=== PATIENT | male | born 1965 | race Caucasian/White ===

== ENCOUNTER → 2017-12-21 15:54 | Outpatient (CLI) | payer OTHER, SELFPAY ==
[2017-12-21 18:17] LABS: Anion Gap 7 (5-15); BUN 23 mg/dL (7-18); Calcium,Total 8.7 mg/dL (8.5-10.1); Chloride 102 mmol/L (98-107); EST Glomerular Filtration Rate 84 mL/min (>60); Est Glom Filt Rate - Afr Amer 101 mL/min (>60); Glucose 115 mg/dL (74-106); Potassium 3.9 mmol/L (3.5-5.1); Sodium Level 137 mmol/L (136-145)
[2017-12-21 18:22] LABS: Microalbumin,Random Urine 82.5 mg/L (NO RANGE EST.); Microalbumin:Creatinine Ratio 43.7 mg/g CRE (<30 mg/g CRE)
[2017-12-21 18:24] LABS: Vitamin D,25 Hydroxy 46.2 ng/mL (29.95-100.01)
== END ==
PROVIDERS: Family Provider Specialist; PCP Specialist; Visit Provider Specialist
DX: R80.9 Proteinuria, unspecified (principal); I10 Essential (primary) hypertension
CPT/HCPCS: 36415; 80048; 82043; 82306; 82570; 87086

== ENCOUNTER → 2017-12-29 08:21 | Outpatient (CLI) | payer OTHER, SELFPAY ==
--- NOTE | 2017-12-29 08:23 | RAD_ITS ---
STUDY: X-RAY CHEST REASON FOR EXAM: Male, 52 years old. Medical screening. TECHNIQUE: PA and lateral views of the chest. COMPARISON: None. FINDINGS: The lungs are clear and expanded. Scattered calcified granulomas. There is no demonstrated pleural abnormality. Normal size heart. Normal mediastinum and sharri. Normal visualized pulmonary arteries. Normal visualized aortic arch and descending thoracic aorta. Normal visualized thoracic spine. Normal visualized ribs, clavicles, and shoulders. There is no demonstrated abnormality of the visualized soft tissue structures of the upper abdomen. RAD/Chest PA and Lateral IMPRESSION: Normal x-ray examination of the chest. Electronically Signed: Je Iyer MD at 9:26 EDT Tel [phone], Service support ,
== END ==
PROVIDERS: Family Provider Specialist; PCP Specialist; Visit Provider Internal Medicine Rheumatology
DX: R05 Cough (principal)
CPT/HCPCS: 71046

== ENCOUNTER → 2018-04-03 08:34 | Outpatient (CLI) | payer OTHER, SELFPAY ==
[2018-04-03 10:26] LABS: Anion Gap 9 (5-15); BUN 24 mg/dL (7-18); BUN/Creat Ratio 24.5 RATIO (10-20); Calcium,Total 9.4 mg/dL (8.5-10.1); Chloride 104 mmol/L (98-107); Cholesterol 204 mg/dL (200); Creatinine, Serum 0.98 mg/dL (0.70-1.30); EST Glomerular Filtration Rate 86 mL/min (>60); Est Glom Filt Rate - Afr Amer 103 mL/min (>60); Glucose 100 mg/dL (74-106); High Density Lipoprotein 51 mg/dL; Phosphorus 3.4 mg/dL (2.5-4.9); Potassium 4.2 mmol/L (3.5-5.1); Sodium Level 142 mmol/L (136-145); Triglycerides 65 mg/dL; Very Low Density Lipoprotein 13 mg/dL (5-40)
[2018-04-03 10:34] LABS: Microalbumin,Random Urine 80.7 mg/L (NO RANGE EST.)
== END ==
PROVIDERS: Family Provider Specialist; PCP Specialist; Visit Provider Specialist
DX: R80.9 Proteinuria, unspecified (principal); I10 Essential (primary) hypertension; E78.00 Pure hypercholesterolemia, unspecified
CPT/HCPCS: 36415; 80048; 80061; 82043; 82330; 83735; 84100

== ENCOUNTER → 2018-05-01 11:55 | Outpatient (CLI) | payer OTHER, SELFPAY | PROVIDERS: Family Provider Specialist; PCP Specialist; Visit Provider Specialist | DX: R80.9 Proteinuria, unspecified (principal); I10 Essential (primary) hypertension | CPT/HCPCS: 76770 ==

== ENCOUNTER → 2018-10-30 15:02 | Outpatient (CLI) | payer OTHER, SELFPAY ==
--- NOTE | 2018-10-30 15:03 | RAD_ITS ---
STUDY: X-RAY - LEFT KNEE REASON FOR EXAM: Male, 52 years old. Knee pain. Previous surgery. TECHNIQUE: 4 view(s) of the knee. COMPARISON: 12/22/2016. FINDINGS: No acute fracture or dislocation. Changes consistent with previous ACL graft are seen. Moderate bilateral tibiofemoral compartment degenerative changes are seen. Findings are worse medially. Moderate patellofemoral degenerative changes. Small effusion. Normal mineralization. RAD/Knee 4 or More Views IMPRESSION: No acute fracture or dislocation. Moderate tricompartment degenerative changes. Little if any significant change. Electronically Signed: Sandro Medina MD at 14:04 EST , Service support ,
== END ==
PROVIDERS: Family Provider Specialist; PCP Specialist; Referring Provider Orthopaedic Surgery; Visit Provider Orthopaedic Surgery
DX: M25.562 Pain in left knee (principal)
CPT/HCPCS: 73564

== ENCOUNTER 2018-11-15 06:48 | Day surgery (SDC) | payer OTHER, SELFPAY ==
[2018-11-15 07:39] VITALS: BP 130/81; PULSE 75; RESP 16; TEMP 36.6; O2SAT 95; BMI 29.6
[2018-11-15] MEDS: Bupiv/Epi 0.5% Mpf 30 ML Vial (10:00)
[2018-11-15] MEDS: Bupivacaine Mpf 0.5% 30 ML VIAL (10:27)
[2018-11-15] MEDS: Morphine 4 MG/ML Syringe (10:27)
[2018-11-15 10:42] VITALS: BP 116/77; BP 130/81; PULSE 78; RESP 16; TEMP 36.2; O2SAT 97
--- NOTE | 2018-11-15 10:53 | PCM.DC.ORTHO ---
Weight Bearing Status: Weight bearing as tolerated Keep extremity elevated above heart level: Operative Extremity Call your doctor if you observe: Shortness of breath, Chest pain Suture Line Care: Avoid Pulling/Pushing Additional Instructions: Ice and elevate next 72 hours .keep dressing on clean and dry for 48 hours then may remove begin showering daily but do not submerge in tub or pool. After shower may apply Band-Aids . Encourage knee range of motion weightbearing as tolerated, use crutches until confident in knee then may discontinue. No strenuous activity. When not ambulating keep iced and elevated next 72 hours. Allergies/Adverse Reactions: Allergies cephalexin [From Keflex] Allergy (Verified 03/11/17 11:37) Hives Medications to take at Discharge Aspirin E.C. [Ecotrin] 81 mg PO DAILY@0800 11/08/18 Cholecalciferol (Vitamin D3) [Vitamin D3] 2,000 unit PO DAILY 11/08/18 Losartan Potassium [Cozaar] 50 mg PO DAILY 11/08/18 Hydrocodone Bitart/Apap 5-325 [[place] 5MG-325MG] 1 - 2 tablet PO Q4H PRN PRN 5 Days #50 tablet 11/15/18 The following prescriptions were given: Hydrocodone Bitart/Apap 5-325 [[place] 5MG-325MG] 1 - 2 tablet PO Q4H PRN PRN 5 Days #50 tablet PRN Reason: Pain Primary Care Physician: Steffanie Middleton [Primary Care Provider] - Test Results: Test results from this visit will be discussed in further detail at your follow-up appointment, if applicable.
--- NOTE | 2018-11-15 10:56 | DCINST_ITS ---
Weight Bearing Status: Weight bearing as tolerated Keep extremity elevated above heart level: Operative Extremity Call your doctor if you observe: Shortness of breath, Chest pain Suture Line Care: Avoid Pulling/Pushing Additional Instructions: Ice and elevate next 72 hours .keep dressing on clean and dry for 48 hours then may remove begin showering daily but do not submerge in tub or pool. After shower may apply Band-Aids . Encourage knee range of motion weightbearing as tolerated, use crutches until confident in knee then may discontinue. No strenuous activity. When not ambulating keep iced and elevated next 72 hours. Allergies/Adverse Reactions: Allergies cephalexin [From Keflex] Allergy (Verified 03/11/17 11:37) Hives Medications to take at Discharge Aspirin E.C. [Ecotrin] 81 mg PO DAILY@0800 11/08/18 Cholecalciferol (Vitamin D3) [Vitamin D3] 2,000 unit PO DAILY 11/08/18 Losartan Potassium [Cozaar] 50 mg PO DAILY 11/08/18 Hydrocodone Bitart/Apap 5-325 [[place] 5MG-325MG] 1 - 2 tablet PO Q4H PRN PRN 5 Days #50 tablet 11/15/18 The following prescriptions were given: Hydrocodone Bitart/Apap 5-325 [[place] 5MG-325MG] 1 - 2 tablet PO Q4H PRN PRN 5 Days #50 tablet PRN Reason: Pain Primary Care Physician: Steffanie Middleton [Primary Care Provider] - Test Results: Test results from this visit will be discussed in further detail at your follow- up appointment, if applicable.
[2018-11-15 11:00] VITALS: BP 128/74; BP 130/81; PULSE 75; RESP 16; O2SAT 100
--- NOTE | 2018-11-15 11:03 | OP.PCM_ITS ---
Report of Operation Date of Procedure: 11/15/18 Description of Surgical Findings:: Preop diagnosis: Left knee mechanical knee pain DJD status post ACL Postoperative diagnosis: Grade 4 cartilage wear lateral femoral condyle patellofemoral joint grade 3-4 medial compartment posterior horn medial meniscus tear lateral meniscal body tear ACL tear loose body Procedure: Arthroscopic left knee partial medial partial lateral meniscectomy tricompartmental chondroplasty ACL debridement and removal of loose body Anesthesia: General Estimated blood loss: 5 mL Tourniquet time: 82 minutes 300 mmHg Complications: none Indication for procedure: This is a pleasant 53-year-old male with history of prior ACL reconstruction and psoriatic arthritis who complains of mechanical symptoms of his knee was failed conservative treatment and wished to undergo an elective arthroscopic exploration of the left knee to attempt to alleviate some of his mechanical symptoms. Risk benefits and alternatives of the procedure were reviewed including risk of bleeding infection nerve artery tissue damage need for further surgery continued pain secondary to arthritis and possible need for total knee arthroplasty and expected postoperative course. Procedure: The patient was met in the preoperative holding area. The operative extremity was identified by both patient and physician and family and marked. Patient was brought back to the operating room on a wheeled cart and transferred to the operating table in the supine position. Anesthesia was started. A well- padded tourniquet was placed on the operative extremity. A lower extremity leg moody was secured to the operative extremity. The contralateral extremity was well-padded and the end of the bed was flexed to 90 degrees. The patient was prepped and draped in the usual sterile fashion. A timeout was called to ensure the proper patient, procedure, and extremity were being contemplated. 0.5% Marcaine with epinephrine was injected into the planned incisional areas under the skin only. An Esmarch was used to exsanguinate the extremity and the tourniquet was inflated. An 11 blade scalpel was used to make a stab incision in the anterior lateral portal. The arthroscope was inserted into the intercondylar notch and inflow and outflow tubes were attached. Arthroscopic visualization began. The medial compartment was entered. An 18-gauge spinal needle was used to establish the placement for anterior medial portal. An 11 blade scalpel was used to make a stab incision. Blunt probe was inserted followed by a meniscal probe. There was clearly high-grade cartilage wear of the medial compartment with loose cartilage flaps a shaver was used to perform a chondroplasty of the loose cartilage was also noted to be radial and horizontal tearing of the posterior horn and root which was debrided with a shaver was significant synovial hypertrophy which required partial synovectomy for visualization the ACL was inspected and found to be attenuated loose and partially torn and basically incompetent at the loose portions were debrided with the shaver there was a loose body likely broken osteophyte off the anterior lateral tibial plateau bedded in the soft tissue providing an obstruction to visualization of the lateral compartments therefore this had to be removed ArthroCare wand and a grasper once this was removed I was able to adequately visualize the lateral compartment and there was noted to be degenerative tearing of the body of the lateral meniscus which was debrided with the shaver in addition there was noted to be grade 4 cartilage wear of the lateral femoral condyle gutters were inspected and were free of loose bodies the patellofemoral joint was significantly worn with grade IV chondromalacia throughout he was thoroughly irrigated and injected with 0.25% Marcaine plain and 4 mg of morphine. Suture portals were closed with 3-0 nylon the medial portal required extra stitch secondary to its enlargement to remove the loose body. portals were closed with 3-0 nylon arthroscopic stitches. Followed by Xeroform 4 x 4's ABDs web roll and an Theodore wrap. The tourniquet was let down and the drapes were removed. All counts were correct. The patient was brought back to the PACU in stable condition.
[2018-11-15 11:15] VITALS: BP 128/84; BP 130/81; PULSE 70; RESP 16; O2SAT 96
[2018-11-15 11:28] VITALS: BP 130/81; BP 131/78; PULSE 65; RESP 16; TEMP 36.4; O2SAT 93
[2018-11-15 12:05] VITALS: BP 130/81; BP 136/87; PULSE 74; RESP 16; TEMP 36.1; O2SAT 74
== END 2018-11-15 12:06 | disposition home or self-care (01) ==
LOC: SDC 06:49 → AC 06:51
PROVIDERS: Family Provider Specialist; PCP Specialist; Referring Provider Orthopaedic Surgery; Visit Provider Orthopaedic Surgery
PROC: (CPT 29870; principal; 2018-11-15 08:30)
DX: S83.242A Other tear of medial meniscus, current injury, left knee, initial encounter (principal); S83.282A Other tear of lateral meniscus, current injury, left knee, initial encounter; X50.1XXA Overexertion from prolonged static or awkward postures, initial encounter; Y93.89 Activity, other specified; Y92.9 Unspecified place or not applicable; S83.512A Sprain of anterior cruciate ligament of left knee, initial encounter; M17.12 Unilateral primary osteoarthritis, left knee; L40.50 Arthropathic psoriasis, unspecified; Z79.899 Other long term (current) drug therapy; Z79.82 Long term (current) use of aspirin; I10 Essential (primary) hypertension; Z87.891 Personal history of nicotine dependence
CPT/HCPCS: 01400; 29880; J7050; J7120; J2405

== ENCOUNTER 2018-12-06 17:03 | Inpatient (IN) | payer OTHER, SELFPAY ==
[2018-12-06] VITALS (8 sets, daily range): BP systolic 129–165; BP diastolic 63–90; PULSE 78–136; RESP 15–18; TEMP 36.7–38.8; O2SAT 90–100; BMI 28.5; BMI 28.6; BMI 29.4; BMI 28.7; BMI 28.8
--- NOTE | 2018-12-06 17:18 | NURSING ---
DR ADAMS IN ER
--- NOTE | 2018-12-06 17:37 | ED.DCSUM_ITS ---
- ER Visit Summary Date of Service: 12/06/18 Chief Complaint: Patient is a private outpatient directly to the orthopedic surgeon Dr. Bejarano. He took care of the patient in the ER and will taken to the operating room directly for a septic left knee joint after arthroscopy. History of Present Illness: The patient is a 53 M [] Physical Examination: [] Test Results: [] Emergency Department Course and Treatment: [] Treatment Plan: [] Disposition: [] Impression: No ER physician charge Private outpatient to Dr. Bejarano of orthopedics Acute left knee infection status post arthroscopy This note was generated with [employer] dictation software. It may contain incorrect words, spelling, and punctuation that were not noted in review of the chart prior to signing ED Disposition - Plan for ED Patient: Referrals: [facility] Doctor,Out of [Primary Care Provider] -
[2018-12-06 17:40] LABS: Pathologist Comment May follow
[2018-12-06 17:55] LABS: Absolute Lymphocyte Count 1.25 X10^3/ul (0.83-4.51); Absolute Neutrophil Count 9.6 X10^3/uL (2.0-7.7); Basophil# 0.02 X10^3/uL; Basophil% 0.2 % (0-1); Eosinophil# 0.03 X10^3/uL; Eosinophils% 0.2 % (0-5); Hematocrit 47.1 % (40-54); Hemoglobin 16.1 g/dl (13.0-16.5); Lymphocyte # 1.25 X10^3/ul (4.0); Lymphocyte % 10.1 % (19-41); Mean Corp Hgb Conc 34.2 g/gl (32-36); Mean Corpuscular Hgb 32.9 pg (27.0-32.0); Mean Corpuscular Volume 96.3 fL (80-94); Mean Platelet Vol. 10.2 fl (6.2-12.0); Monocyte% 12.1 % (0-10); Neutrophil # 9.59 X10^3/uL (2.7-7.7); Neutrophil % 77.2 % (47-70); Platelet Count 222 K/mm3 (150-450); RBC Distribution Width CV 13.6 % (11.6-14.6); RBC Distribution Width SD 46.5 fl (35.1-43.9); Red Blood Count 4.89 M/mm3 (4.6-6.2); White Blood Count 12.4 K/mm3 (4.4-11.0)
[2018-12-06 17:57] LABS: POSITIVE COUNT NO; POSITIVE DIFFERENTIAL NO; POSITIVE MORPHOLOGY NO
--- NOTE | 2018-12-06 17:59 | NURSING ---
SURGERY JESSIE OSUNA
--- NOTE | 2018-12-06 18:21 | CON.PCM_ITS ---
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 the infection was treated and cleared his graft was left in. he has subsequently developed some arthritis and mechanical symptoms. I preformed an arthroscopic debridement a few weeks ago. he had some serous drainage and was started on doxycycline 100mg bid he was not having any pain or fevers. pt recieved vancomycin pre-operatively last surgery because of childhood hives to keflex. within 72hrs of surgery he developed an angioedema type reaction, he attributed this to the vancomycin and started prednisone which he finished today. Abruptly today he started having chills around noon took 1 gm of tylenol and by 4pm had temp of 102 in addition to increased pain and difficultly moving the left knee. I did see him in the ED and perfomed arthrocentesis of around 60cc of turbid yellow fluid which was sent for stat analysis and culture. I am prepping him for the OR and spoke with infectious disease Dr. saucedo who recommends daptomycin 6mg/kg q 24 hrs. I will start this immediately post op. He will be admitted to the hospital service. I did send the synovial fluid and blood cultures and labs. his last doxycycline and prednisone was this morning. he denies any upper resiratory or other illness. His knee was feeling well until today. Past Medical History Allergies cephalexin [From Keflex] Allergy (Verified 12/06/18 17:05) Rash vancomycin Allergy (Verified 12/06/18 17:05) Anaphylaxis Home Medications: Ambulatory Orders Medication Instructions Recorded Losartan Potassium [Cozaar] 50 mg PO DAILY 12/06/18 Secukinumab [Cosentyx Pen] 300 mg SQ QMONTH 12/06/18 Smoking Status: Former smoker Review of Systems Constitutional: Reports: Chills, Fever Cardiovascular: Denies: Chest Pain Respiratory: Denies: Shortness of Breath Gastrointestinal: Denies: Abdominal Pain Patient Problems: Active and Suspected Problems Septic joint of left knee joint (Acute) Objective: under sterile technique with alcohol and betadine a superior lateral position was used to aspirate around 60cc of yellow turbid fluid. this was sent for synovial fluid analysis:areobic anaerobic cx , cell count, crystals, glucose and protein. Blood CBC c diff ESR CRP - Physical Exam General: Alert, Oriented x3, Cooperative Extremities: - - left knee grade III joint effusion with warmth. difficulty performing rom. calf is non-tender negative homans. his incisions are closed over with no drainage right now. Vital Signs Temp Pulse Resp BP Pulse Ox 101.6 F H 131 H 18 161/90 H 100 12/06/18 17:57 12/06/18 17:57 12/06/18 17:57 12/06/18 17:57 12/06/18 17:57 Oxygen Delivery Method Room Air Weight: 205 lb Body Mass Index (BMI) 28.5 Laboratory Tests Past 24 Hrs 12/06/18 12/06/18 12/06/18 17:15 17:42 17:42 WBC 12.4 H RBC 4.89 Hgb 16.1 Hct 47.1 MCV 96.3 H MCH 32.9 H MCHC 34.2 RDW 13.6 RDW Differential 46.5 H Plt Count 222 MPV 10.2 Immature Gran % (Auto) 0.200 Neut % (Auto) 77.2 H Lymph % (Auto) 10.1 L [place] % (Auto) 12.1 H Eos % (Auto) 0.2 Baso % (Auto) 0.2 Absolute Neuts (auto) 9.6 H Absolute Lymphs (auto) 1.25 Total Counted Not Reportable ESR Pending Sodium Pending Potassium Pending Chloride Pending Carbon Dioxide Pending Anion Gap Pending BUN Pending Creatinine Pending Est GFR (MDRD) Af Amer Pending Est GFR (MDRD) Non-Af Pending BUN/Creatinine Ratio Pending Glucose Pending Calcium Pending C-React Prot Ext Range Pending Fluid Crystals Pending Fluid Crystal Source Pending Synovial Source Pending Synovial Color Pending Synovial Appearance Pending Synovial WBC Pending Synovial RBC Pending Synovial Tot Cell Ct Pending Synovial Path Comment Pending Assessment/Plan All Active Problems Septic joint of left knee joint (Acute) suspected septic left knee psoriatic arthritis last cosentyx 6 wks last prednisone today, could be psoriatic flare recent prednisone and doxycycline arthrocentesis in ER sent for cultures and analysis blood cx's pending will proceed with arthroscopic I&D consult Infectious disease daptomycin per dr Saucedo secondary to allergies admit to hospitalist.
[2018-12-06 18:31] LABS: Anion Gap 7 (5-15); BUN 23 mg/dL (7-18); BUN/Creat Ratio 19.3 RATIO (10-20); Calcium,Total 9.3 mg/dL (8.5-10.1); Chloride 101 mmol/L (98-107); Creatinine, Serum 1.19 mg/dL (0.70-1.30); EST Glomerular Filtration Rate 68 mL/min (>60); Est Glom Filt Rate - Afr Amer 83 mL/min (>60); Estimated Creatinine Clearance 77.34 ml/min; Glucose 101 mg/dL (74-106); Potassium 3.6 mmol/L (3.5-5.1); Sodium Level 137 mmol/L (136-145)
[2018-12-06 18:46] LABS: Appearance /Synovial Fluid Turbid (CLEAR); Color / Synovial Fluid Yellow (Pale Yellow); Source / Synovial Fluid LEFT KNEE; Source- Body Fluid SYNOVIAL
[2018-12-06 18:48] LABS: WBC / Synovial Fluid 80000 /mm3 (0)
[2018-12-06 18:50] LABS: RBC /Synovial Fluid 2722 /mm3 (0)
[2018-12-06] MEDS: Bupivacaine Mpf 0.5% 30 ML VIAL (19:49)
[2018-12-06 19:56] LABS: Lymph 13 %; Neutrophil 87 % (0-25)
[2018-12-06 20:06] LABS: Body Fluid QC Type(s) BF1Q,BF2Q,BF3Q
[2018-12-06] MEDS: Lactated Ringers 1,000 ML 100 ML IV (20:15)
--- NOTE | 2018-12-06 20:30 | PCM.OPRPT ---
Problem List (1) Septic joint of left knee joint Status: Acute Qualifiers: Septic arthritis organism: due to unspecified organism Qualified Code(s): M00.9 - Pyogenic arthritis, unspecified Report of Operation Date of Procedure: 12/06/18 Description of Surgical Findings:: Preoperative diagnosis: Septic left knee Postoperative diagnosis: Same Procedure: Arthroscopic I&D left knee Anesthesia: General EBL: 5 mL Tourniquet time: 27 minutes 300 mmHg Specimens: None cultures taken directly before sterile technique Procedure: Patient was met in the preoperative holding area the operative extremity was identified by both patient and physician and was marked. Patient was met by anesthesia brought back to the operating room on a wheeled cart and transferred the operating table in supine position. Anesthesia was started a well-padded tourniquet was placed on the left upper thigh a left lower extremity leg moody was placed patient was prepped and draped in usual sterile fashion. A timeout was called to ensure the proper patient procedure and extremity being contemplated. The tourniquet was inflated no Esmarch was used. His previous portals were opened with an 11 blade scalpel the arthroscope was inserted into the intercondylar notch orthoscopic visualization began there was some fraying of the remnant of the ACL which did not appear to be competent there was severe cartilage wear throughout the knee worse in the lateral compartment a medial portal was established and with the use of a shaver debridement of the synovial tissue was performed the medial and lateral joint spaces were thoroughly irrigated post meniscectomy changes were noted in the lateral gutters were thoroughly irrigated and checked for loose bodies a superior lateral outflow cannula was placed and 9 L of irrigation were flushed through the knee. 10 cc of Marcaine plain were injected into the knee. Portals were closed with 3-0 nylon. Dressing was applied Xeroform 4 x 4 ABD web roll and an Theodore wrap patient tolerated the procedure well all counts were correct.
[2018-12-06] MEDS: HYDROmorphone 0.5 MG/0.5 ML SYRINGE IV ×2 (21:40→23:50)
[2018-12-06] MEDS: Acetaminophen 500 MG Tablet 1000 MG PO (21:40)
[2018-12-06] MEDS: 0.9% NaCl Peripheral Flush Adult/Peds IV ×2 (21:40→23:51)
[2018-12-06] MEDS: Aspirin 81 MG TAB.CHEW PO (21:40)
[2018-12-06 22:18] LABS: Erythrocyte Sedimentation Rate 5 mm/hr (0-20)
[2018-12-07 00:04] VITALS: O2SAT 84
[2018-12-07 00:07] VITALS: O2SAT 97
[2018-12-07] MEDS: oxyCODONE 5 MG Tablet PO ×4 (01:22→17:17)
[2018-12-07 01:56] VITALS: BP 140/56; PULSE 88; RESP 12; TEMP 37.4; O2SAT 98
[2018-12-07] MEDS: Lactated Ringers 1,000 ML 100 ML IV (02:23)
--- NOTE | 2018-12-07 03:03 | PCM.HP.STD ---
Problem List (1) Septic joint of left knee joint Status: Acute Qualifiers: Septic arthritis organism: due to unspecified organism Qualified Code(s): M00.9 - Pyogenic arthritis, unspecified History of Present Illness Date of Admission: 12/06/18 Chief Complaint: swelling, pain and erythema of the left knee. The patient is a 53 year old M with a significant history of psoriasis and multiple surgeries on bilateral knees who presented with swelling; pain; erythema of the left knee times 1 day. Associated with his symptoms is chills and fever of 102.5. His symptoms began just after he had completed a course of steroids and cycling. Reportedly patient had a meniscectomy of his left knee about 3 weeks ago. Preoperatively he received vancomycin after which he developed angioedema for which reason he was started on prednisone; and antibiotics was changed to dicyclomine. At the emergency department patient was seen by Dr. Anil Andres; orthopedic doctor. Arthrocentesis was done and fluid was sent for stat analysis and culture. Patient was taken to the OR where patient had arthroscopic I&D of his left knee. Past Medical History Medical History: Medical History (Last Updated 12/07/18 @ 03:25 by Anil Stubbs MD) Psoriasis L40.9 HTN (hypertension) I10 Allergies cephalexin [From Keflex] Allergy (Verified 12/06/18 17:05) Rash vancomycin Allergy (Verified 12/06/18 17:05) Anaphylaxis Home Medications: Ambulatory Orders Medication Instructions Recorded Losartan Potassium [Cozaar] 50 mg PO DAILY 12/06/18 Secukinumab [Cosentyx Pen] 300 mg SQ QMONTH 12/06/18 Surgical History: - - Multiple bilateral knee surgeries Lives: With Family Smoking Status: Former smoker Tobacco Use: Cigarettes Alcohol: Occasional - *Family History Maternal History Items: - - Rheumatoid arthritis; sarcoidosis Paternal History Items: Hypertension, - - Diverticulitis (father) Review of Systems Constitutional: Reports: Chills, Fever. Denies: Weight Change HEENT: Denies: Head Aches, Sinus Congestion, Sinus Drainage Cardiovascular: Denies: Chest Pain, Palpitations Respiratory: Denies: Cough, Shortness of breath at rest, Sputum production Gastrointestinal: Denies: Abdominal Pain, Nausea, Vomiting Genitourinary: Denies: Dysuria Musculoskeletal: Reports: Joint Pain - Left knee, Joint Tenderness - Left knee Skin: Reports: Skin Changes - Depigmentation that patient attributes to vitiligo. Denies: Wounds Neurological: Denies: Numbness, Tingling, Focal weakness Psychiatric: Denies: Anxiety, Depression, Homicidal Ideations, Suicidal Ideations Hematologic/ Lymphatic: Denies: Easy Bruising, Easy Bleeding VTE Information - Inpt Only VTE Present on Admission: No VTE Mechan Device Prophylaxis: SCD's VTE Pharm Prophylaxis ordered?: Yes Patient Problems: Active and Suspected Problems Septic joint of left knee joint (Acute) - Physical Exam General: Alert, Oriented x3, Cooperative HEENT: Atraumatic, PERRLA, EOMI, Normocephalic Neck: Supple, No JVD, Negative Carotid Bruits Lungs: Clear to auscultation, Normal air movement Cardiovascular: Regular rate, No murmurs Abdomen: Bowel Sounds Present, Soft, Non Tender Extremities: No edema, Capillary Refill Less than 3 Seconds, Tenderness Skin: - - Left knee with ice packing Musculoskeletal: Tenderness - Left knee Neurological: Neuro grossly intact Psych/Mental Status: Normal Affect, Appropriate Vital Signs Temp Pulse Resp BP Pulse Ox 99.4 F H 88 12 140/56 H 98 12/07/18 01:56 12/07/18 01:56 12/07/18 01:56 12/07/18 01:56 12/07/18 01:56 Oxygen Flow Rate (L/min) 2 Oxygen Delivery Method Nasal Cannula Weight: 90.9 kg Body Mass Index (BMI) 28.7 Intake and Output for Last 24 Hours 12/05/18 12/06/18 12/07/18 23:59 23:59 23:59 Intake Total 1387 / 1387 Output Total 400 / 400 Balance 987 / 987 Laboratory Tests Past 24 Hrs 12/06/18 12/06/18 12/06/18 17:15 17:42 17:42 WBC 12.4 H RBC 4.89 Hgb 16.1 Hct 47.1 MCV 96.3 H MCH 32.9 H MCHC 34.2 RDW 13.6 RDW Differential 46.5 H Plt Count 222 MPV 10.2 Immature Gran % (Auto) 0.200 Neut % (Auto) 77.2 H Lymph % (Auto) 10.1 L [place] % (Auto) 12.1 H Eos % (Auto) 0.2 Baso % (Auto) 0.2 Absolute Neuts (auto) 9.6 H Absolute Lymphs (auto) 1.25 Total Counted Not Reportable ESR 5 Sodium 137 Potassium 3.6 Chloride 101 Carbon Dioxide 29.0 Anion Gap 7 BUN 23 H Creatinine 1.19 Estim Creat Clear Calc 77.34 Est GFR (MDRD) Af Amer 83 Est GFR (MDRD) Non-Af 68 BUN/Creatinine Ratio 19.3 Glucose 101 Calcium 9.3 C-React Prot Ext Range 12.70 H Fluid Crystals SEE PATH REV Fluid Crystal Source SYNOVIAL Fl Crystal Path Review Will follow Synovial Source LEFT KNEE Synovial Color Yellow Synovial Appearance Turbid Synovial WBC 75020 H Synovial RBC 2722 H Synovial Tot Cell Ct TNP Synovial Neutrophils 87 H Synovial Lymphocytes [address] Comment May follow Assessment/Plan All Active Problems Septic joint of left knee joint (Acute) The patient is a 53 year old M with a significant history of psoriasis and multiple surgeries on bilateral knees now with septic arthritis of the left knee status post arthroscopic I&D. Septic arthritis status post arthroscopic I&D. Review of fluid from arthrocentesis showed white count of 80,000. ESR was 5. And CRP was 12.7. Infectious disease has been consulted by orthopedic surgeon. Per conversation between infectious disease doctor and orthopedic surgeon patient has been started on daptomycin. Patient already on regular diet. Will discontinue IV fluids. On PRN Zofran. Will add bowel regimen. Trend CBC and BMP Psoriasis Patient reported that his Cosentyx is on hold secondary to his recent infection. Will keep on hold. Hypertension On presentation his blood pressure was not within goal Losartan continued Trend blood pressure and adjust blood pressure medication. DVT Prophylaxis Subcutaneous Lovenox ordered Code Visit Inpatient E&M: 55453 Init Hosp L3
[2018-12-07] MEDS: Acetaminophen 500 MG Tablet 1000 MG PO ×3 (05:28→21:42)
[2018-12-07 06:42] LABS: Hematocrit 42.1 % (40-54); Hemoglobin 13.7 g/dl (13.0-16.5); Mean Corp Hgb Conc 32.5 g/gl (32-36); Mean Corpuscular Hgb 32.3 pg (27.0-32.0); Mean Corpuscular Volume 99.3 fL (80-94); Mean Platelet Vol. 10.6 fl (6.2-12.0); Platelet Count 190 K/mm3 (150-450); RBC Distribution Width CV 13.5 % (11.6-14.6); RBC Distribution Width SD 48.1 fl (35.1-43.9); Red Blood Count 4.24 M/mm3 (4.6-6.2); White Blood Count 11.8 K/mm3 (4.4-11.0)
[2018-12-07 06:47] LABS: Anion Gap 8 (5-15); BUN 18 mg/dL (7-18); BUN/Creat Ratio 15.9 RATIO (10-20); Chloride 103 mmol/L (98-107); Creatinine, Serum 1.13 mg/dL (0.70-1.30); EST Glomerular Filtration Rate 72 mL/min (>60); Est Glom Filt Rate - Afr Amer 88 mL/min (>60); Estimated Creatinine Clearance 78.96 ml/min; Glucose 111 mg/dL (74-106); Potassium 3.9 mmol/L (3.5-5.1); Sodium Level 139 mmol/L (136-145)
[2018-12-07 06:50] LABS: Scan Indicated on CBC? Y/N NO
--- NOTE | 2018-12-07 07:38 | PCM.PN.ORT ---
Patient Problems: Active and Suspected Problems (Last Updated 12/07/18 @ 03:25 by Anil Stubbs MD) Septic joint of left knee joint (Acute) Psoriatic arthritis (Acute) Subjective: Complaint of pain left knee. no fever chills. starting to feel very itchy. - Physical Exam General: Alert, Oriented x3 Extremities: - - dressing clean dry intact, compartments soft NVI Vital Signs Temp Pulse Resp BP Pulse Ox 99.4 F H 88 12 140/56 H 98 12/07/18 01:56 12/07/18 01:56 12/07/18 01:56 12/07/18 01:56 12/07/18 01:56 Oxygen Flow Rate (L/min) 2 Oxygen Delivery Method Nasal Cannula Weight: 200 lb 6.403 oz Body Mass Index (BMI) 28.7 Intake and Output for Last 24 Hours 12/05/18 12/06/18 12/07/18 23:59 23:59 23:59 Intake Total 1387 / 1387 607 / 607 Output Total 400 / 400 600 / 600 Balance 987 / 987 7 Microbiology Past 72 Hours 12/06/18 17:15 Gram Stain - Final Fluid - Synovial (joint) Laboratory Tests Past 24 Hrs 12/06/18 12/06/18 12/06/18 17:15 17:42 17:42 WBC 12.4 H RBC 4.89 Hgb 16.1 Hct 47.1 MCV 96.3 H MCH 32.9 H MCHC 34.2 RDW 13.6 RDW Differential 46.5 H Plt Count 222 MPV 10.2 Immature Gran % (Auto) 0.200 Neut % (Auto) 77.2 H Lymph % (Auto) 10.1 L Caroline % (Auto) 12.1 H Eos % (Auto) 0.2 Baso % (Auto) 0.2 Absolute Neuts (auto) 9.6 H Absolute Lymphs (auto) 1.25 Total Counted Not Reportable ESR 5 Sodium 137 Potassium 3.6 Chloride 101 Carbon Dioxide 29.0 Anion Gap 7 BUN 23 H Creatinine 1.19 Estim Creat Clear Calc 77.34 Est GFR (MDRD) Af Amer 83 Est GFR (MDRD) Non-Af 68 BUN/Creatinine Ratio 19.3 Glucose 101 Calcium 9.3 C-React Prot Ext Range 12.70 H Fluid Crystals SEE PATH REV Fluid Crystal Source SYNOVIAL Fl Crystal Path Review Will follow Synovial Source LEFT KNEE Synovial Color Yellow Synovial Appearance Turbid Synovial WBC 05970 H Synovial RBC 2722 H Synovial Tot Cell Ct TNP Synovial Neutrophils 87 H Synovial Lymphocytes [address] Comment May follow 12/07/18 12/07/18 05:42 05:42 WBC 11.8 H RBC 4.24 L Hgb 13.7 Hct 42.1 MCV 99.3 H MCH 32.3 H MCHC 32.5 RDW 13.5 RDW Differential 48.1 H Plt Count 190 MPV 10.6 Immature Gran % (Auto) Neut % (Auto) Lymph % (Auto) Caroline % (Auto) Eos % (Auto) Baso % (Auto) Absolute Neuts (auto) Absolute Lymphs (auto) Total Counted ESR Sodium 139 Potassium 3.9 Chloride 103 Carbon Dioxide 28.0 Anion Gap 8 BUN 18 Creatinine 1.13 Estim Creat Clear Calc 78.96 Est GFR (MDRD) Af Amer 88 Est GFR (MDRD) Non-Af 72 BUN/Creatinine Ratio 15.9 Glucose 111 H Calcium 8.0 L C-React Prot Ext Range Fluid Crystals Fluid Crystal Source Fl Crystal Path Review Synovial Source Synovial Color Synovial Appearance Synovial WBC Synovial RBC Synovial Tot Cell Ct Synovial Neutrophils Synovial Lymphocytes Synovial Path Comment Medical Necessity - Tobacco Use Smoking Status: Former smoker Tobacco Use: Cigarettes Assessment/Plan All Active Problems (Last Updated 12/07/18 @ 03:25 by Anil Stubbs MD) Septic joint of left knee joint (Acute) Psoriatic arthritis (Acute) presumed septic arthritis left knee vs psoriatic flare s/p washout. possibility of psoriatic flare as pt has been of cosentyx 6 wks and symptoms started immediately after stoping prednisone no organisms on gram stain awaiting culture, pt was on doxycycline uptill yesterday which may complicate a negative growth. 80k wbc on fluid with high poly percent synovial glucose and protein pending. i will change dressing tomorrow then nurses daily. IV antibiotic per infectious disease question for ID if nothing grows on culuture ok to restart cosentyx or other preferred med?
[2018-12-07 07:56] VITALS: BP 128/74; PULSE 92; RESP 16; TEMP 36.9; O2SAT 96
[2018-12-07] MEDS: HYDROmorphone 0.5 MG/0.5 ML SYRINGE IV ×3 (08:15→19:50)
[2018-12-07] MEDS: Aspirin 81 MG TAB.CHEW PO ×2 (08:15→17:15)
[2018-12-07] MEDS: DiphenhydrAMINE 50 MG/ML Syringe 25 MG IV ×3 (08:15→19:36)
[2018-12-07] MEDS: Senna/Docusate Sodium 1 Tablet PO ×2 (08:15→21:42)
[2018-12-07] MEDS: Losartan Potassium 50 MG Tablet PO (08:15)
[2018-12-07 10:09] LABS: Pathologist Review Reviewed
--- NOTE | 2018-12-07 10:21 | PCM.HP.ID ---
Problem List (1) Septic joint of left knee joint Status: Acute Qualifiers: Septic arthritis organism: due to unspecified organism Qualified Code(s): M00.9 - Pyogenic arthritis, unspecified Reason for Consult: septic knee Consulted by: Dr. Grimaldo History of Present Illness: The patient is a 53 year old M with psoriatic arthritis on [place] and multiple knee surgeries in the past who presented yesterday with sudden onset of fever, chills, L knee severe pain, swelling, and warmth. Had knee surgeries in the 90s for ACL tear. Complicated by infection, needed 6 week course of iv vanc via picc approximately 22 years ago. Tolerated vanc with no issue. Due to ongoing joint pain and arthritis, taken to OR about [address] Grimaldo for arthroscopy. Post op had some hives and facial swelling, thought to be related to vanc. Had some persistent small wound dehiscence and clear drainage, so has been on doxy and steroid taper for both issues. Completed course yesterday, and new sx started soon after. Taken to OR after coming to ED last night, given dapto post-op. Aspiration showed heavy purulence. Now feeling better, no further fever. Full ROS performed and neg except as noted above. - Medical History Allergies/Adverse Reactions: Allergies cephalexin [From Keflex] Allergy (Verified 12/06/18 17:05) Rash vancomycin Allergy (Verified 12/06/18 17:05) Anaphylaxis Home Medications: Ambulatory Orders Medication Instructions Recorded Losartan Potassium [Cozaar] 50 mg PO DAILY 12/06/18 Secukinumab [Cosentyx Pen] 300 mg SQ QMONTH 12/06/18 - Social History SMOKING STATUS:: Former smoker Vital Signs Temp Pulse Resp BP Pulse Ox 98.5 F 92 16 128/74 H 96 12/07/18 07:56 12/07/18 07:56 12/07/18 07:56 12/07/18 07:56 12/07/18 07:56 Oxygen Flow Rate (L/min) 2 Oxygen Delivery Method Room Air Weight: 90.9 kg Body Mass Index (BMI) 28.7 Microbiology Past 72 Hours 12/06/18 17:15 Gram Stain - Final Fluid - Synovial (joint) Laboratory Tests Past 24 Hrs 12/06/18 12/06/18 12/06/18 17:15 17:15 17:42 WBC 12.4 H RBC 4.89 Hgb 16.1 Hct 47.1 MCV 96.3 H MCH 32.9 H MCHC 34.2 RDW 13.6 RDW Differential 46.5 H Plt Count 222 MPV 10.2 Immature Gran % (Auto) 0.200 Neut % (Auto) 77.2 H Lymph % (Auto) 10.1 L [place] % (Auto) 12.1 H Eos % (Auto) 0.2 Baso % (Auto) 0.2 Absolute Neuts (auto) 9.6 H Absolute Lymphs (auto) 1.25 Total Counted Not Reportable ESR 5 Sodium Potassium Chloride Carbon Dioxide Anion Gap BUN Creatinine Estim Creat Clear Calc Est GFR (MDRD) Af Amer Est GFR (MDRD) Non-Af BUN/Creatinine Ratio Glucose Calcium C-React Prot Ext Range Fluid Crystals SEE PATH REV Fluid Crystal Source SYNOVIAL Fl Crystal Path Review Reviewed Synovial Source LEFT KNEE Synovial Color Yellow Synovial Appearance Turbid Synovial WBC 55150 H Synovial RBC 2722 H Synovial Tot Cell Ct TNP Synovial Neutrophils 87 H Synovial Lymphocytes [address] Comment May follow Synovial Glucose Pending 12/06/18 12/07/18 12/07/18 17:42 05:42 05:42 WBC 11.8 H RBC 4.24 L Hgb 13.7 Hct 42.1 MCV 99.3 H MCH 32.3 H MCHC 32.5 RDW 13.5 RDW Differential 48.1 H Plt Count 190 MPV 10.6 Immature Gran % (Auto) Neut % (Auto) Lymph % (Auto) [place] % (Auto) Eos % (Auto) Baso % (Auto) Absolute Neuts (auto) Absolute Lymphs (auto) Total Counted ESR Sodium 137 139 Potassium 3.6 3.9 Chloride 101 103 Carbon Dioxide 29.0 28.0 Anion Gap 7 8 BUN 23 H 18 Creatinine 1.19 1.13 Estim Creat Clear Calc 77.34 78.96 Est GFR (MDRD) Af Amer 83 88 Est GFR (MDRD) Non-Af 68 72 BUN/Creatinine Ratio 19.3 15.9 Glucose 101 111 H Calcium 9.3 8.0 L C-React Prot Ext Range 12.70 H Fluid Crystals Fluid Crystal Source Fl Crystal Path Review Synovial Source Synovial Color Synovial Appearance Synovial WBC Synovial RBC Synovial Tot Cell Ct Synovial Neutrophils Synovial Lymphocytes Synovial Path Comment Synovial Glucose - Other Studies Radiology: [] reviewed Other Studies: [] Route of nutrition/ use of supplements: [] Nutritional Intake: [] IV Site: [] Benitez Catheter: [] - Physical Exam General: Alert, Oriented x3, Cooperative, No apparent distress HEENT: Atraumatic, PERRLA, EOMI Neck: Supple, No Nodes Lungs: Clear to auscultation, Normal air movement Cardiovascular: Regular rate, Regular Rhythm, No murmurs Abdomen: Bowel Sounds Present, Soft, Non Tender, Non-Distended Skin: Incision - L knee wrapped IV Site: Peripheral, without redness Musculoskeletal: No Tenderness to Palpation of Joints or Extremities Neurological: Cranial nerves II-XII grossly intact - Assessment/Plan Antibiotics: [] Assessment/Plan: [] Active and Suspected Problems (Last Updated 12/07/18 @ 03:25 by Anil Stubbs MD) Psoriatic arthritis (Acute) Septic joint of left knee joint (Acute) Sepsis (fever, leukocytosis, tachycardia) due to L knee infection with arthroscopy about 3 weeks prior. S/p OR 12/[address] Grimaldo, cx pending, no organisms seen on gram stain. Fever improved. ? recent angioedema to vanc, but tolerated a long course about 20 years ago. Has rash with keflex, but reports no issue with amoxicillin in the past. Given dapto post op. Fever improved, wbc and hr better. So far has improved without gram negative coverage, so will hold off on adding broader coverage. Even if cxs remain neg, with recent doxycycline and some immunosuppression, he will need a full course of antibiotic treatment for septic arthritis. Will change dapto to po linezolid, and he may be able to avoid picc placement depending on further cx data. Will follow, thank you.
[2018-12-07] MEDS: Linezolid 600 MG Tablet PO ×2 (11:32→21:43)
--- NOTE | 2018-12-07 13:10 | CASEMGMT ---
RN DALE Face to Face with patient for initial transition planning/care coordination assessment. RN CM introduced self and role at [facility]. Patient lying in bed, alert and oriented. Patient willing to participate in assessment and is able to answer all questions appropriately. Care providers, pharmacy, and demographics verified. Patient wishes to discharge home with possible HHC if needed, will monitor for need for home IV ATBs. Patient states he has no further needs or concerns at this time. CM to follow for discharge planning needs that may arise. PCP: [facility] Specialists: none Preferred Pharmacy: [facility] Insurance: MMO Prescription Benefit: Yes Living Will/HPOA: None, is interested in completing at this time. XOCHITL Palmer updated. LNOK: Living Arrangements: Patient lives with in 2 story home with bed and bath on first floor. 3 step with railing to enter the home. Patient states he is independent at home. Transportation: self/ DME/HHC: Patient states he has crutches, may benefit from walker at discharge. Patient prefers [employer] for DME. No previous HHC but patient has completed IV ATBs at home previous. Disposition Plan: Patient to discharge home with family support and follow-up plans in place, will monitor for need for HHC and IV ATBs. Masha SHAH, RN, CM
[2018-12-07 14:00] VITALS: BP 134/70; PULSE 98; RESP 16; TEMP 36.7; O2SAT 96
--- NOTE | 2018-12-07 14:10 | CASEMGMT ---
Addendum entered by Masha Palmer 12/07/18 15:21: SW dropped off organ donation form to mail at [facility] to mail. Original Note: Social Work Note SW received referral for advanced directives. SW met with pt, introduced self and role at [facility]. Pt is alert and orientated x4. Pt completed advanced directives. SW provided original copy to pt and placed copy on pt's chart. Pt completed organ donation form and requested this worker mail in form. SW to drop off completed organ donation form at [facility] to mail. Masha Oliveira INSPECTOR SCREEN [employer]ING, FUNERAL PREARRANGEMENT COUNSELOR
--- NOTE | 2018-12-07 17:15 | PN_ITS ---
Patient Problems: Active and Suspected Problems (Last Updated 12/07/18 @ 03:25 by Anil Stubbs MD) Septic joint of left knee joint (Acute) Subjective: Patient was seen and examined today, white blood cell count was 11.8, T-max today was 99.4. Patient voices no specific complaints this examiner. Patient was seen by infectious diseases today. - Physical Exam General: Alert, Oriented x3, Cooperative, No apparent distress HEENT: Atraumatic, PERRLA, EOMI, Normocephalic Oral: Moist Mucosa Neck: Supple, Trachea Midline, Thyroid Normal Size and Texture Lungs: Clear to auscultation, Normal air movement, No rhonchi, No wheeze, No rales Cardiovascular: Regular rate, Regular Rhythm, Normal S1, Normal S2, No murmurs, No Ectopic Activity, PMI Normal, No rub noted, No Gallop Abdomen: Bowel Sounds Present, Soft, Non Tender, Non-Distended Extremities: No clubbing, No cyanosis, Capillary Refill Less than 3 Seconds Skin: No rashes, No breakdown Neurological: Cranial nerves II-XII grossly intact, Neuro grossly intact, Sensory exam intact to light touch and pain, Coordination normal Psych/Mental Status: Normal Affect, Appropriate, Alert and oriented to time, place, person, mood and affect Vital Signs Temp Pulse Resp BP Pulse Ox 98.0 F 98 16 134/70 H 96 12/07/18 14:00 12/07/18 14:00 12/07/18 14:00 12/07/18 14:00 12/07/18 14:00 Oxygen Flow Rate (L/min) 2 Oxygen Delivery Method Room Air Weight: 90.9 kg Body Mass Index (BMI) 28.7 Intake and Output for Last 24 Hours 12/05/18 12/06/18 12/07/18 23:59 23:59 23:59 Intake Total 1387 / 1387 967 / 967 Output Total 400 / 400 600 / 600 Balance 987 / 987 367 / 367 Microbiology Past 72 Hours 12/06/18 17:15 Gram Stain - Final Fluid - Synovial (joint) Body Fluid Culture - Preliminary Laboratory Tests Past 24 Hrs 12/06/18 12/06/18 12/06/18 17:15 17:15 17:42 WBC 12.4 H RBC 4.89 Hgb 16.1 Hct 47.1 MCV 96.3 H MCH 32.9 H MCHC 34.2 RDW 13.6 RDW Differential 46.5 H Plt Count 222 MPV 10.2 Immature Gran % (Auto) 0.200 Neut % (Auto) 77.2 H Lymph % (Auto) 10.1 L [place] % (Auto) 12.1 H Eos % (Auto) 0.2 Baso % (Auto) 0.2 Absolute Neuts (auto) 9.6 H Absolute Lymphs (auto) 1.25 Total Counted Not Reportable ESR 5 Sodium Potassium Chloride Carbon Dioxide Anion Gap BUN Creatinine Estim Creat Clear Calc Est GFR (MDRD) Af Amer Est GFR (MDRD) Non-Af BUN/Creatinine Ratio Glucose Calcium C-React Prot Ext Range Fluid Crystals SEE PATH REV Fluid Crystal Source SYNOVIAL Fl Crystal Path Review Reviewed Synovial Source LEFT KNEE Synovial Color Yellow Synovial Appearance Turbid Synovial WBC 93525 H Synovial RBC 2722 H Synovial Tot Cell Ct TNP Synovial Neutrophils 87 H Synovial Lymphocytes [address] Comment May follow Synovial Glucose Pending 12/06/18 12/07/18 12/07/18 17:42 05:42 05:42 WBC 11.8 H RBC 4.24 L Hgb 13.7 Hct 42.1 MCV 99.3 H MCH 32.3 H MCHC 32.5 RDW 13.5 RDW Differential 48.1 H Plt Count 190 MPV 10.6 Immature Gran % (Auto) Neut % (Auto) Lymph % (Auto) [place] % (Auto) Eos % (Auto) Baso % (Auto) Absolute Neuts (auto) Absolute Lymphs (auto) Total Counted ESR Sodium 137 139 Potassium 3.6 3.9 Chloride 101 103 Carbon Dioxide 29.0 28.0 Anion Gap 7 8 BUN 23 H 18 Creatinine 1.19 1.13 Estim Creat Clear Calc 77.34 78.96 Est GFR (MDRD) Af Amer 83 88 Est GFR (MDRD) Non-Af 68 72 BUN/Creatinine Ratio 19.3 15.9 Glucose 101 111 H Calcium 9.3 8.0 L C-React Prot Ext Range 12.70 H Fluid Crystals Fluid Crystal Source Fl Crystal Path Review Synovial Source Synovial Color Synovial Appearance Synovial WBC Synovial RBC Synovial Tot Cell Ct Synovial Neutrophils Synovial Lymphocytes Synovial Path Comment Synovial Glucose Medical Necessity - Tobacco Use Smoking Status: Former smoker Tobacco Use: Cigarettes Assessment/Plan All Active Problems (Last Updated 12/07/18 @ 03:25 by Anil Stubbs MD) Septic joint of left knee joint (Acute) #1 acute sepsis secondary to left knee infection-suspect gram-positive bacteria, antibiotic coverage is being adjusted by infectious diseases #2 chronic psoriatic arthritis Code Visit Inpatient E&M: 24986 Subs Hosp L2
[2018-12-07 20:00] VITALS: BP 132/69; PULSE 105; RESP 18; TEMP 37.4; O2SAT 94
[2018-12-08] MEDS: DiphenhydrAMINE 50 MG/ML Syringe 25 MG IV ×4 (01:30→17:25)
[2018-12-08] MEDS: oxyCODONE 5 MG Tablet PO ×4 (01:30→15:20)
[2018-12-08 02:03] VITALS: BP 126/65; PULSE 90; RESP 18; TEMP 37.2; O2SAT 94
[2018-12-08] MEDS: Acetaminophen 500 MG Tablet 1000 MG PO ×2 (05:40→14:55)
--- NOTE | 2018-12-08 07:43 | PCM.PN.ORT ---
Patient Problems: Active and Suspected Problems (Last Updated 12/07/18 @ 03:25 by Anil Stubbs MD) Septic joint of left knee joint (Acute) Subjective: Seen and examined doing okay complain of pain and itching no fevers chills nausea his pain shortness of breath - Physical Exam General: Alert, Oriented x3, No apparent distress Extremities: - - Dressing changed incisions well approximated no erythema no drainage calf is soft and supple Vital Signs Temp Pulse Resp BP Pulse Ox 98.9 F 90 18 126/65 H 94 12/08/18 02:03 12/08/18 02:03 12/08/18 02:03 12/08/18 02:03 12/08/18 02:03 Oxygen Flow Rate (L/min) 2 Oxygen Delivery Method Room Air Weight: 200 lb 6.403 oz Body Mass Index (BMI) 28.7 Intake and Output for Last 24 Hours 12/06/18 12/07/18 12/08/18 23:59 23:59 23:59 Intake Total 1387 / 1387 1647 / 1647 240 / 240 Output Total 400 / 400 1025 / 1025 Balance 987 / 987 622 / 622 240 / 240 Microbiology Past 72 Hours 12/06/18 17:15 Gram Stain - Final Fluid - Synovial (joint) Body Fluid Culture - Preliminary Laboratory Tests Past 24 Hrs 12/06/18 12/06/18 17:15 17:15 Fl Crystal Path Review Reviewed Synovial Glucose Pending Medical Necessity - Tobacco Use Smoking Status: Former smoker Tobacco Use: Cigarettes Assessment/Plan All Active Problems (Last Updated 12/07/18 @ 03:25 by Anil Stubbs MD) Septic joint of left knee joint (Acute) Continue antibiotics per infectious disease 6 weeks Aspirin 81 mg twice daily for 30 days secondary to to recent surgeries on same extremity Dressing was changed today may shower tomorrow and daily after with daily dressing change may switch to Band-Aid when drainage stops Do not submerge in tub Encourage weightbearing as tolerated when not ambulating ice and elevate Recommend off work 1-2 weeks for joint rest All up in office 2 weeks or sooner if any concern orthopedically ok for discharge when antibiotic coverage determined.
[2018-12-08 09:03] VITALS: BP 127/81; PULSE 90; RESP 16; TEMP 37.5; O2SAT 96
[2018-12-08] MEDS: Losartan Potassium 50 MG Tablet PO (09:06)
[2018-12-08] MEDS: Aspirin 81 MG TAB.CHEW PO ×2 (09:06→17:23)
[2018-12-08] MEDS: Linezolid 600 MG Tablet PO (09:06)
[2018-12-08] MEDS: Senna/Docusate Sodium 1 Tablet PO (09:06)
[2018-12-08] MEDS: 0.9% NaCl Peripheral Flush Adult/Peds IV ×2 (12:16→17:26)
--- NOTE | 2018-12-08 14:34 | PCM.PN.ID ---
Patient Problems: Active and Suspected Problems (Last Updated 12/07/18 @ 03:25 by Anil Stubbs MD) Septic joint of left knee joint (Acute) Subjective: Feeling ok, knee sore, no fever, no n/v/d. - Physical Exam General: Alert, Cooperative, No apparent distress Lungs: Clear to auscultation, Normal air movement Cardiovascular: Regular rate, Regular Rhythm Abdomen: Soft, Non Tender, Non-Distended Skin: Ulcer/ Wound - bandaged Vital Signs Temp Pulse Resp BP Pulse Ox 99.5 F H 90 16 127/81 H 96 12/08/18 09:03 12/08/18 09:03 12/08/18 09:03 12/08/18 09:03 12/08/18 09:03 Oxygen Flow Rate (L/min) 2 Oxygen Delivery Method Room Air Weight: 90.9 kg Body Mass Index (BMI) 28.7 Intake and Output for Last 24 Hours 12/06/18 12/07/18 12/08/18 23:59 23:59 23:59 Intake Total 1387 / 1387 1647 / 1647 690 / 690 Output Total 400 / 400 1025 / 1025 Balance 987 / 987 622 / 622 690 / 690 Microbiology Past 72 Hours 12/06/18 17:15 Gram Stain - Final Fluid - Synovial (joint) Body Fluid Culture - Preliminary Streptococcus agalactiae (B) Laboratory Tests Past 24 Hrs 12/08/18 10:05 C-React Prot Ext Range 213.00 H Medical Necessity - Tobacco Use Smoking Status: Former smoker Tobacco Use: Cigarettes Route of nutrition/ use of supplements: [] Nutritional Intake: [] IV Site: [] Benitez Catheter: [] - Assessment/Plan Antibiotics: [] Assessment/Plan: [] Active and Suspected Problems (Last Updated 12/07/18 @ 03:25 by Anil Stubbs MD) Psoriatic arthritis (Acute) Septic joint of left knee joint (Acute) Sepsis (fever, leukocytosis, tachycardia) due to strep L knee infection with arthroscopy about 3 weeks prior. S/p OR 12/[address] Grimaldo, cx pending, no organisms seen on gram stain. Fever improved. ? recent angioedema to vanc, but tolerated a long course about 20 years ago. Has rash with keflex, but reports no issue with amoxicillin in the past. Given dapto post op. Fever improved, wbc and hr better. Ok for d/c home with IM ceftriaxone for 7 days, will give dose now to make sure he tolerates it. After IM ceftriaxone, will do 14 days of omnicef. Check bmp, cbc, and esr next week. Wrote rx for labs and abx. ID followup as needed at the wound center depending on clinical progress. Will follow, d/w director of casework services
[2018-12-08 14:58] VITALS: BP 145/92; PULSE 98; RESP 16; TEMP 37.3; O2SAT 99
--- NOTE | 2018-12-08 15:00 | CASEMGMT ---
PHILIP HUNTER received script from [place] for patient to receive IM Rocephin daily for 7 days. PHILIP HUNTER called [facility] to confirm that they can dispense IM Rocephin. Polina at [facility] confirmed that I is able to fill IM Rocephin. Referral sent to [facility] and will run financials. PHILIP HUNTER updated patient that CM is arranging for medication to be delivered to patient's home. Patient denies need for HHC. CM will continue to follow this patient and plan for a safe discharge.
--- NOTE | 2018-12-08 16:00 | CASEMGMT ---
PHILIP HUNTER updated by hospital that medication for discharge is being changed to IV Rocephin 2grams IV x 7days. PHILIP HUNTER updated Polina at [facility] regarding change to IV Rocephin. Polina just received referral and was running financials. PHILIP HUNTER updated patient regarding change in medication and will update when medication deliver is confirmed. Patient states he will need a walker at discharge. Script received from hospitalist for [facility] and called referral to [facility] and arranged for delivery of walker. PHILIP HUNTER faxed referral to [facility] as well. PHILIP HUNTER updated patient that walker will be delivered prior to discharge. CM will continue to follow this patient and plan for a safe discharge.
--- NOTE | 2018-12-08 16:08 | DCINST_ITS ---
- Discharge Diagnoses Current Active Problems: Current Active and Chronic Problems (Last Updated 12/07/18 @ 03:25 by Anil Stubbs MD) Psoriatic arthritis (Chronic) Septic joint of left knee joint (Acute) You will use the following diet at home:: No restrictions Your food should be the consistency of: Regular Your liquids should be the consistency of: Regular/Thin Discharge Activity: Return to Normal Activity Weight Bearing Status: Weight bearing as tolerated Allergies/Adverse Reactions: Allergies cephalexin [From Keflex] Allergy (Verified 12/06/18 17:05) Rash vancomycin Allergy (Verified 12/06/18 17:05) Anaphylaxis Medications to take at Discharge Losartan Potassium [Cozaar] 50 mg PO DAILY 12/06/18 Aspirin [Aspirin, Baby] 81 mg PO BIDCM tab.chew 12/08/18 Cefdinir [Omnicef [equiv]] 300 mg PO Q12H 14 Days #28 capsule 12/08/18 Ceftriaxone [Rocephin] 2 gm IV Q24 #7 bag 12/08/18 The following prescriptions were given: Cefdinir [Omnicef [equiv]] 300 mg PO Q12H 14 Days #28 capsule Ceftriaxone [Rocephin] 2 gm IV Q24 #7 bag Primary Care Physician: [facility] Doctor,Out of [NON-STAFF] - Test Results: Test results from this visit will be discussed in further detail at your follow- up appointment, if applicable. Please Follow Up With: Anil Grimaldo DO When: in 2 weeks
--- NOTE | 2018-12-08 17:00 | CASEMGMT ---
PHILIP HUNTER received call back from Polina at [facility]. Patient's medication is covered at 100% and arranged for deliver of IV Rocephin for Tuesday12/09/18 prior to patient's next dose time of 1430. Patient updated regarding coverage and scheduled delivery of ATBs. Patient voiced no further concerns at this time. Hospitalist updated on confirmation of home IV ATB setup.
[2018-12-08 17:36] VITALS: BP 126/78; PULSE 93; RESP 16; TEMP 37.2; O2SAT 97
[2018-12-09 16:57] LABS: GLUCOSE, SYNOVIAL FLUID 2 mg/dL (.); PROTEIN, SYNOVIAL FLUID 4.3 g/dL (.)
--- NOTE | 2018-12-10 15:56 | PCM.DC.SUM ---
Discharge Date and Diagnosis Date of Admission: 12/06/18 Date of Discharge: 12/08/18 - Primary Discharge Diagnosis #1 acute sepsis secondary to left knee infection with Streptococcus agalactiae-associated with recent arthroscopic procedure #2 chronic psoriatic arthritis - Secondary Discharge Diagnosis Chronic Problems (Last Updated 12/07/18 @ 03:25 by Anil Stubbs MD) Psoriatic arthritis (Chronic) Hospital Course and Treatment Procedures: - - Arthroscopic I&D left knee-12/06/18 Summary of Care Provided: The patient is a 53 year old M who was seen in the emergency room at [facility] by Dr. Grimaldo after he was contacted by the patient with complaints of left knee swelling, redness, fever, chills, and pain. Patient had an arthroscopic debridement performed on the same knee a few weeks prior by Dr. Grimaldo. Patient underwent an arthrocentesis in the emergency room with resulting 60 cc of pus from the knee. Patient was taken directly to surgery for arthroscopic I&D of the left knee. Postop patient was admitted to the hospitalist service, he was maintained initially on IV daptomycin and seen by infectious diseases. Patient was also seen by PT and OT as well as Dr. Grimaldo. Patient's culture resulted and strep agalactiae, midline was placed for outpatient IV antibiotic treatment. On 12/08/18, patient was seen and examined: On examination he appeared in good health and spirits. Vital signs as documented. Skin warm and dry and without overt rashes. Neck without JVD. Lungs clear. Heart exam notable for regular rhythm, normal sounds and absence of murmurs, rubs or gallops. Abdomen unremarkable and without evidence of organomegaly, masses, or abdominal aortic enlargement. Neuro: Cranial nerves II through XII are grossly intact, no focal motor deficits were noted, sensation to light touch and pinprick intact. Psych: Patient is alert and oriented x3, he does not appear anxious or depressed Patient was discharged home in stable condition on 12/08/18. - Physical Exam Vital Signs Temp Pulse Resp BP Pulse Ox 99.0 F 93 16 126/78 H 97 12/08/18 17:36 12/08/18 17:36 12/08/18 17:36 12/08/18 17:36 12/08/18 17:36 Oxygen Flow Rate (L/min) 2 Oxygen Delivery Method Room Air Weight: 90.9 kg Body Mass Index (BMI) 28.7 Intake and Output for Last 24 Hours 12/08/18 12/09/18 12/10/18 23:59 23:59 23:59 Intake Total 1140 / 1140 Balance 1140 / 1140 Microbiology Past 72 Hours 12/06/18 17:15 Gram Stain - Final Fluid - Synovial (joint) Body Fluid Culture - Final Streptococcus agalactiae (B) Anaerobic Culture - Preliminary No growth in 48 hours. 12/06/18 17:45 Blood Culture - Preliminary Blood Culture (Wb) - Anticubital Left No growth in 48 hours. 12/06/18 17:42 Blood Culture - Preliminary Blood Culture (Wb) - Anticubital Right No growth in 48 hours. Laboratory Tests Past 24 Hrs 12/06/18 17:15 Synovial Glucose 2 Discharge Activity: Return to Normal Activity Weight Bearing Status: Weight bearing as tolerated Home Medications: Medications to take at Discharge Losartan Potassium [Cozaar] 50 mg PO DAILY 12/06/18 Aspirin [Aspirin, Baby] 81 mg PO BIDCM tab.chew 12/08/18 Cefdinir [Omnicef [equiv]] 300 mg PO Q12H 14 Days #28 capsule 12/08/18 Ceftriaxone [Rocephin] 2 gm IV Q24 #7 bag 12/08/18 Following Prescrptions Were Given to Patient: Cefdinir [Omnicef [equiv]] 300 mg PO Q12H 14 Days #28 capsule Ceftriaxone [Rocephin] 2 gm IV Q24 #7 bag Primary Care Physician: Caroline Doctor,Out of [NON-STAFF] - Please Follow Up With: Anli Grimaldo DO When: in 2 weeks Disposition: Home Minutes spent on discharge:: 32 Patient Condition:: Stable Medical Necessity - Tobacco Use Smoking Status: Former smoker Tobacco Use: Cigarettes Meaningful Use Info Meaningful Use Diagnoses (Choose all that apply): None applicable Code Visit Inpatient E&M: 21934 Disch Hosp
== END 2018-12-08 19:35 | disposition home or self-care (01) | DRG 856 ==
LOC: ED 17:53 → SDC 18:01 → AC 18:03 → MS3 12-07 02:40
PROVIDERS: Admitting Provider Hospitalist; Emergency Provider Emergency Medicine; Family Provider Specialist; PCP Specialist; Referring Provider Orthopaedic Surgery; Visit Provider Internal Medicine
PROC: 0SBD4ZZ Excision of Left Knee Joint, Percutaneous Endoscopic Approach (ICD-10-PCS; CPT 29870; principal; 2018-12-06 18:30)
DX: T81.40XA Infection following a procedure, unspecified, initial encounter (principal); A40.1 Sepsis due to streptococcus, group B; M00.262 Other streptococcal arthritis, left knee; T81.44XA Sepsis following a procedure, initial encounter; L40.50 Arthropathic psoriasis, unspecified; I10 Essential (primary) hypertension; Z87.891 Personal history of nicotine dependence
CPT/HCPCS: 36415; 80048; 82945; 84157; 85025; 85027; 85652; 86140; 87040; 87070; 87075; 87077; 87186; 87205; 89050; 89051; 89060; 97116; 97161; 97530; 99282; J0878; J7030; J7040; J7120; A4216; J0696; J2405; J3490

== ENCOUNTER → 2019-04-16 | Outpatient (CLI) | payer OTHER, SELFPAY ==
[2019-04-16 14:01] VITALS: BMI 28.7
[2019-04-16 14:29] LABS: Absolute Neutrophil Count 4.6 X10^3/uL (2.0-7.7); Basophil# 0.02 X10^3/uL; Basophil% 0.3 % (0-1); Eosinophils% 4.2 % (0-5); Hemoglobin 13.7 g/dL (13.0-16.5); Lymphocyte % 23.7 % (19-41); Mean Corp Hgb Conc 34.3 g/dL (32-36); Mean Corpuscular Hgb 31.7 pg (27.0-32.0); Mean Corpuscular Volume 92.6 fL (80-94); Mean Platelet Vol. 10.1 fl (6.2-12.0); Monocyte# 0.54 X10^3/uL; Monocyte% 7.5 % (0-10); NRBC Flagged by Analyzer 0 % (0-5); Platelet Count 224 K/mm3 (150-450); RBC Distribution Width CV 12.6 % (11.6-14.6); RBC Distribution Width SD 42.9 fl (35.1-43.9); Red Blood Count 4.32 M/mm3 (4.6-6.2); White Blood Count 7.2 K/mm3 (4.4-11.0)
[2019-04-16 14:48] LABS: Erythrocyte Sedimentation Rate 8 mm/hr (0-20)
[2019-04-21 12:07] LABS: DHEA Sulfate 118.4 ug/dL (71.6-375.4); Testosterone, % Free 3.27 % (1.50-4.20); Testosterone, Free 10.99 ng/dL (5.00-21.00)
[2019-04-23 13:32] LABS: Androstenedione 49 ng/dL (27-152); Testosterone, Total 336 ng/dL (264-916)
== END | disposition home or self-care (01) ==
PROVIDERS: Family Provider Specialist; PCP Specialist; Referring Provider Specialist; Visit Provider Specialist
DX: D47.3 Essential (hemorrhagic) thrombocythemia (principal); R70.0 Elevated erythrocyte sedimentation rate; G47.9 Sleep disorder, unspecified; N53.19 Other ejaculatory dysfunction
CPT/HCPCS: 36415; 82157; 82627; 84402; 84403; 85025; 85652; 82626

== ENCOUNTER → 2019-07-18 08:01 | Outpatient (CLI) | payer OTHER, SELFPAY ==
[2019-06-11 15:26] VITALS: BMI 28.7
[2019-07-18 10:10] LABS: Anion Gap 6 (5-15); BUN 20 mg/dL (7-18); BUN/Creat Ratio 18.7 RATIO (10-20); Calcium,Total 9.1 mg/dL (8.5-10.1); Chloride 105 mmol/L (98-107); Creatinine, Serum 1.07 mg/dL (0.70-1.30); EST Glomerular Filtration Rate 77 mL/min (>60); Est Glom Filt Rate - Afr Amer 93 mL/min (>60); Glucose 95 mg/dL (74-106); Iron Binding Capacity,Total 271 ug/dL (250-450); Potassium 3.9 mmol/L (3.5-5.1); Sodium Level 139 mmol/L (136-145)
[2019-07-18 10:27] LABS: Vitamin D,25 Hydroxy 54.3 ng/mL (29.95-100.01)
[2019-07-19 15:27] LABS: Transferrin 216 mg/dL (200-370)
== END ==
PROVIDERS: Family Provider Specialist; PCP Specialist; Referring Provider Specialist; Visit Provider Specialist
DX: E55.9 Vitamin D deficiency, unspecified (principal); D64.9 Anemia, unspecified; I10 Essential (primary) hypertension
CPT/HCPCS: 36415; 80048; 82306; 83550; 84466

== ENCOUNTER → 2019-10-08 10:21 | Outpatient (CLI) | payer OTHER, SELFPAY ==
[2019-06-11 15:26] VITALS: BMI 28.7
[2019-10-08 12:47] LABS: Anion Gap 3 (5-15); BUN 15 mg/dL (7-18); BUN/Creat Ratio 13.3 RATIO (10-20); Calcium,Total 9.6 mg/dL (8.5-10.1); Chloride 105 mmol/L (98-107); Creatinine, Serum 1.13 mg/dL (0.70-1.30); EST Glomerular Filtration Rate 72 mL/min (>60); Est Glom Filt Rate - Afr Amer 87 mL/min (>60); Glucose 97 mg/dL (74-106); Magnesium 2.1 mg/dL (1.6-2.6); Phosphorus 3.4 mg/dL (2.5-4.9); Sodium Level 140 mmol/L (136-145)
== END ==
PROVIDERS: PCP Specialist; Referring Provider Specialist; Visit Provider Specialist
DX: N18.2 Chronic kidney disease, stage 2 (mild) (principal)
CPT/HCPCS: 36415; 80048; 82330; 83735; 84100

== ENCOUNTER → 2020-04-21 09:52 | Outpatient (CLI) | payer OTHER, SELFPAY ==
[2019-06-11 15:26] VITALS: BMI 28.7
[2020-04-21 12:39] LABS: Cholesterol 195 mg/dL (200); High Density Lipoprotein 68 mg/dL; PSA,Total- Diagnostic 0.39 ng/mL (0.0-4.0); Triglycerides 59 mg/dL; Very Low Density Lipoprotein 12 mg/dL (5-40)
== END ==
PROVIDERS: PCP Specialist; Referring Provider Specialist; Visit Provider Specialist
DX: E78.5 Hyperlipidemia, unspecified (principal); Z80.42 Family history of malignant neoplasm of prostate
CPT/HCPCS: 36415; 80061; 84153

== ENCOUNTER → 2020-05-15 13:58 | Outpatient (CLI) | payer OTHER, SELFPAY ==
[2019-06-11 15:26] VITALS: BMI 28.7
[2020-05-15 16:22] LABS: Albumin, Serum 4.1 g/dL (3.2-5.0); BUN 16 mg/dL (7-18); Calcium,Total 8.9 mg/dL (8.5-10.1); Chloride 106 mmol/L (98-107); Creatinine, Serum 1.23 mg/dL (0.70-1.30); EST Glomerular Filtration Rate 65 mL/min (>60); Est Glom Filt Rate - Afr Amer 79 mL/min (>60); Glucose 64 mg/dL (74-106); Phosphorus 3.5 mg/dL (2.5-4.9); Potassium 4.2 mmol/L (3.5-5.1); Sodium Level 140 mmol/L (136-145)
== END ==
PROVIDERS: PCP Specialist; Referring Provider Internal Medicine Rheumatology; Visit Provider Internal Medicine Rheumatology
DX: N28.9 Disorder of kidney and ureter, unspecified (principal)
CPT/HCPCS: 36415; 80069

== ENCOUNTER → 2020-10-13 | Outpatient (CLI) | payer OTHER, SELFPAY | END | disposition home or self-care (01) | LOC: LABSPEC 15:33 | PROVIDERS: PCP Specialist; Referring Provider Physician Assistant Surgical; Visit Provider Physician Assistant Surgical | DX: L98.9 Disorder of the skin and subcutaneous tissue, unspecified (principal) | CPT/HCPCS: 87070; 87077; 87186; 87205 ==

== ENCOUNTER → 2021-07-22 13:23 | Outpatient (CLI) | payer OTHER, SELFPAY ==
[2021-07-22 15:26] LABS: Absolute Lymphocyte Count 1.47 X10^3/uL (0.83-4.51); Absolute Neutrophil Count 2.5 X10^3/uL (2.0-7.7); Basophil# 0.02 X10^3/uL; Basophil% 0.4 % (0-1); Eosinophil# 0.09 X10^3/uL; Hematocrit 38.4 % (40-54); Hemoglobin 12.9 g/dL (13.0-16.5); Lymphocyte # 1.47 X10^3/ul (0.83-4.51); Lymphocyte % 32.3 % (19-41); Mean Corp Hgb Conc 33.6 g/dL (32-36); Mean Corpuscular Hgb 31.7 pg (27.0-32.0); Mean Corpuscular Volume 94.3 fL (80-94); Mean Platelet Vol. 10.8 fl (6.2-12.0); Monocyte# 0.45 X10^3/uL; Monocyte% 9.9 % (0-10); NRBC Flagged by Analyzer 0 % (0-5); Neutrophil # 2.51 X10^3/uL (2.7-7.7); Neutrophil % 55.2 % (47-70); Platelet Count 238 K/mm3 (150-450); RBC Distribution Width SD 48.4 fl (35.1-43.9); Red Blood Count 4.07 M/mm3 (4.6-6.2); White Blood Count 4.6 K/mm3 (4.4-11.0)
[2021-07-22 15:46] LABS: Vitamin D,25 Hydroxy 83.4 ng/mL
[2021-07-22 15:47] LABS: Erythrocyte Sedimentation Rate 3 mm/hr (0-20)
[2021-07-22 15:57] LABS: AST(SGOT) 23 U/L (15-37); Alanine Aminotransfer ALT/SGPT 27 U/L (16-61); Albumin, Serum 3.6 g/dL (3.2-5.0); Alkaline Phosphatase 55 U/L (45-117); Anion Gap 5 (5-15); BUN 16 mg/dL (7-18); CRP < 2.90 mg/L (0.0-3.0); Calcium,Total 8.9 mg/dL (8.5-10.1); Chloride 106 mmol/L (98-107); Cholesterol 174 mg/dL (200); Creatinine, Serum 1.07 mg/dL (0.70-1.30); EST Glomerular Filtration Rate 76 mL/min (>60); Est Glom Filt Rate - Afr Amer 92 mL/min (>60); Globulin 3.5 g/dL (2.2-4.2); Glucose 91 mg/dL (74-106); High Density Lipoprotein 69 mg/dL; Potassium 3.7 mmol/L (3.5-5.1); Protein, Total 7.1 g/dL (6.4-8.2); Sodium Level 139 mmol/L (136-145); Triglycerides 134 mg/dL; Very Low Density Lipoprotein 27 mg/dL (5-40)
== END ==
PROVIDERS: PCP Family Medicine; Referring Provider Family Medicine; Visit Provider Family Medicine
DX: Z00.00 Encounter for general adult medical examination without abnormal findings (principal); I10 Essential (primary) hypertension; L40.50 Arthropathic psoriasis, unspecified; K21.9 Gastro-esophageal reflux disease without esophagitis; E78.5 Hyperlipidemia, unspecified; E55.9 Vitamin D deficiency, unspecified; Z12.5 Encounter for screening for malignant neoplasm of prostate
CPT/HCPCS: 36415; 80053; 80061; 82306; 84153; 85025; 85652; 86140; G0103

== ENCOUNTER → 2022-08-18 | Outpatient (CLI) | payer OTHER, SELFPAY ==
[2022-08-18 17:54] LABS: Hematocrit 41.5 % (40-54); Hemoglobin 13.7 g/dL (13.0-16.5); Mean Corpuscular Hgb 30.8 pg (27.0-32.0); Mean Corpuscular Volume 93.3 fL (80-94); Mean Platelet Vol. 10.7 fl (6.2-12.0); Platelet Count 252 K/mm3 (150-450); RBC Distribution Width CV 13.2 % (11.6-14.6); Red Blood Count 4.45 M/mm3 (4.6-6.2); White Blood Count 5.5 K/mm3 (4.4-11.0)
[2022-08-18 18:28] LABS: ALB/GLOB Ratio 1.3 RATIO (0.9-2.4); AST(SGOT) 26 U/L (15-37); Alanine Aminotransfer ALT/SGPT 33 U/L (16-61); Alkaline Phosphatase 62 U/L (45-117); Anion Gap 6 (5-15); BUN 19 mg/dL (7-18); BUN/Creat Ratio 15.8 RATIO (10-20); Calcium,Total 9.2 mg/dL (8.5-10.1); Chloride 104 mmol/L (98-107); EST Glomerular Filtration Rate 67 mL/min (>60); Est Glom Filt Rate - Afr Amer 81 mL/min (>60); Glucose 83 mg/dL (74-106); PSA,Total - Annual Screen 0.66 ng/mL (0.00-4.00); Potassium 4.6 mmol/L (3.5-5.1); Sodium Level 139 mmol/L (136-145)
[2022-08-24 11:50] LABS: Vitamin D 1,25-Dihydroxy 44.9 pg/mL (24.8-81.5)
== END | disposition home or self-care (01) ==
PROVIDERS: PCP Family Medicine
DX: Z12.5 Encounter for screening for malignant neoplasm of prostate (principal); E55.9 Vitamin D deficiency, unspecified; E78.5 Hyperlipidemia, unspecified; I10 Essential (primary) hypertension; Z51.81 Encounter for therapeutic drug level monitoring
CPT/HCPCS: 36415; 80053; 82652; 84153; 85027; G0103

== ENCOUNTER → 2023-04-13 | Outpatient (CLI) | payer OTHER, SELFPAY ==
[2023-04-13 18:10] LABS: Absolute Lymphocyte Count 1.49 X10^3/uL (0.83-4.51); Absolute Neutrophil Count 4.1 X10^3/uL (2.0-7.7); Basophil# 0.02 X10^3/uL; Basophil% 0.3 % (0-1); Eosinophil# 0.17 X10^3/uL; Eosinophils% 2.6 % (0-5); Hematocrit 39.7 % (40-54); Hemoglobin 12.4 g/dL (13.0-16.5); Lymphocyte # 1.49 X10^3/ul (0.83-4.51); Lymphocyte % 22.5 % (19-41); Mean Corp Hgb Conc 31.2 g/dL (32-36); Mean Corpuscular Hgb 28.9 pg (27.0-32.0); Mean Corpuscular Volume 92.5 fL (80-94); Monocyte# 0.79 X10^3/uL; Monocyte% 11.9 % (0-10); NRBC Flagged by Analyzer 0 % (0-5); Neutrophil # 4.14 X10^3/uL (2.7-7.7); Neutrophil % 62.5 % (47-70); Platelet Count 256 K/mm3 (150-450); RBC Distribution Width CV 14.4 % (11.6-14.6); RBC Distribution Width SD 48.7 fl (35.1-43.9); Red Blood Count 4.29 M/mm3 (4.6-6.2); White Blood Count 6.6 K/mm3 (4.4-11.0)
== END | disposition home or self-care (01) ==
PROVIDERS: PCP Nurse Practitioner Family; Referring Provider Internal Medicine Rheumatology; Visit Provider Internal Medicine Rheumatology
DX: D64.9 Anemia, unspecified (principal)
CPT/HCPCS: 36415; 85025

== ENCOUNTER → 2024-01-25 | Outpatient (CLI) | payer OTHER, SELFPAY ==
--- NOTE | 2024-01-25 11:45 | RAD_ITS ---
STUDY: X-RAY - LUMBAR SPINE REASON FOR EXAM: Male, 58 years old. Back pain with radiculopathy TECHNIQUE: 5 view(s) of the lumbar spine were obtained. COMPARISON: None FINDINGS: Normal lumbar lordosis. There is no substantial scoliosis. There is a normal alignment of the vertebrae. Disc space narrowing and spondylosis at the T12-L1 level as well as the L4-L5 and L5-S1 levels. The disc space narrowing is worse at the L4-L5 and L5-S1 levels. Normal disc space heights. The soft tissue structures are unremarkable. RAD/L/S Spine Min 4 Views IMPRESSION: Degenerative changes of the spine, as detailed above. Electronically Signed: Je Iyer MD at 14:45 EDT ,
== END | disposition home or self-care (01) ==
PROVIDERS: PCP Nurse Practitioner Family; Referring Provider Chiropractor; Visit Provider Chiropractor
DX: M99.03 Segmental and somatic dysfunction of lumbar region (principal); M54.9 Dorsalgia, unspecified; M51.16 Intervertebral disc disorders with radiculopathy, lumbar region
CPT/HCPCS: 72110

== ENCOUNTER → 2024-03-02 | Outpatient (CLI) | payer OTHER, SELFPAY ==
--- NOTE | 2024-03-02 16:25 | MRI_ITS ---
EXAM: MR LUMBAR SPINE WITHOUT INTRAVENOUS CONTRAST CLINICAL INDICATION: R leg radiculopathy -- previous L4/L5,L5/S1 disc injury TECHNIQUE: Multiplanar and multisequence MR images of the lumbar spine without intravenous contrast. COMPARISON: Lumbar spine radiographs, 01/25/2024. FINDINGS: VERTEBRAE: Ambiguous transitional anatomy at the lumbosacral junction is present. There is partial lumbarization of S1 which would correlate with the comparison radiographs. Multilevel facet arthrosis and endplate osteophytosis. No evidence of acute fracture. No suspicious marrow space signal abnormality. No evidence of spondylolysis or spondylolisthesis. There is preservation of the normal lumbar lordosis. SPINAL CORD: No significant abnormality. Normal position and signal intensity of the conus medullaris. SOFT TISSUES: No significant abnormality. KIDNEYS AND URETERS: Right renal cyst for which no follow-up is indicated. DISCS/SPINAL CANAL/NEURAL FORAMINA: T12-L1: Only seen on sagittal views, there is a central disc herniation with annular fissure superimposed upon a disc bulge resulting in mild spinal canal stenosis. No distinct neural foraminal narrowing. L1-L2: Disc bulge and moderate bilateral facet arthrosis. Small superimposed central disc herniation. Mild to moderate bilateral neural foraminal narrowing and mild spinal canal stenosis. L2-L3: Disc bulge with superimposed left foraminal disc herniation and moderate bilateral facet arthrosis. Mild to moderate left and mild right neural foraminal narrowing. Mild spinal canal stenosis. At least abutment of the left extraforaminal L2 nerve root as well as the traversing left L3 nerve root. L3-L4: Mild disc bulge and mild bilateral facet arthrosis. Mild spinal canal stenosis and left greater than right neural foraminal narrowing. L4-L5: Disc bulge and moderate bilateral facet arthrosis. Mild to moderate bilateral neural foraminal narrowing and mild spinal canal stenosis. L5-S1: Disc height loss and disc desiccation. Right central disc herniation superimposed upon a disc bulge and moderate bilateral facet arthrosis. Severe right greater than left neural foraminal stenosis and mild to moderate spinal canal stenosis. At least abutment of the bilateral S1 nerve roots and impingement of the bilateral foraminal L5 nerve roots. S1-S2: Dysplastic posterior elements and facets. No significant disc herniation or spinal canal stenosis. MRI/Spine Lumbar (Routine) IMPRESSION: 1. Ambiguous transitional anatomy at the lumbosacral junction is present. There is partial lumbarization of S1 which would correlate with the comparison radiographs. 2. Multilevel degenerative changes resulting in [id number] multilevel spinal canal stenosis and variable degrees of neural foraminal narrowing. At least abutment of the left L2 nerve root and left L3 nerve root. At least abutment of the bilateral S1 nerve roots. Apparent impingement of the bilateral L5 nerve roots. Electronically Signed: Jed Lane DO at 21:14 EDT ,
== END | disposition home or self-care (01) ==
PROVIDERS: PCP Nurse Practitioner Family; Referring Provider Chiropractor; Visit Provider Chiropractor
DX: M99.05 Segmental and somatic dysfunction of pelvic region (principal); M54.41 Lumbago with sciatica, right side
CPT/HCPCS: 72148

== ENCOUNTER → 2024-12-26 | Outpatient (CLI) | payer OTHER, SELFPAY ==
[2024-12-26 10:29] LABS: Absolute Neutrophil Count 8.5 X10^3/uL (2.0-7.7); Basophil# 0.03 X10^3/uL; Basophil% 0.3 % (0-1); Eosinophil# 0.19 X10^3/uL; Eosinophils% 1.8 % (0-5); Hematocrit 40.1 % (40-54); Hemoglobin 13.3 g/dL (13.0-16.5); Lymphocyte % 10.3 % (19-41); Mean Corp Hgb Conc 33.2 g/dL (32-36); Mean Corpuscular Hgb 31.9 pg (27.0-32.0); Mean Corpuscular Volume 96.2 fL (80-94); Mean Platelet Vol. 9.8 fl (6.2-12.0); Monocyte# 0.81 X10^3/uL; Monocyte% 7.6 % (0-10); NRBC Flagged by Analyzer 0 % (0-5); Neutrophil % 79.7 % (47-70); Platelet Count 297 K/mm3 (150-450); RBC Distribution Width CV 12.6 % (11.6-14.6); RBC Distribution Width SD 44.2 fl (35.1-43.9); Red Blood Count 4.17 M/mm3 (4.6-6.2); White Blood Count 10.7 K/mm3 (4.4-11.0)
[2024-12-26 10:37] LABS: Erythrocyte Sedimentation Rate 11 mm/hr (0-20)
[2024-12-26 11:31] LABS: ALB/GLOB Ratio 1.4 RATIO (0.9-2.4); AST(SGOT) 29 U/L (<=37); Alanine Aminotransfer ALT/SGPT 40 U/L (<=46); Albumin, Serum 3.7 g/dL (3.5-5.0); Alkaline Phosphatase 61 U/L (40-129); Anion Gap 14 (5-15); BUN 22 mg/dL (4-19); BUN/Creat Ratio 22.4 RATIO (10-20); Bilirubin, Direct 0.19 mg/dL (0.00-0.30); Calcium,Total 8.8 mg/dL (7.6-11.0); Chloride 104 mmol/L (98-108); Creatinine, Serum 0.98 mg/dL (0.70-1.20); EST Glomerular Filtration Rate 90 (>60); Globulin 2.7 g/dL (2.2-4.2); Glucose 100 mg/dL (70-99); Hepatitis B Surface Antibody REAC; Hepatitis B Surface Antigen Nonreactive (Nonreactive); Hepatitis C Antibody Nonreactive (Nonreactive); Potassium 4.6 mmol/L (3.3-5.1); Protein, Total 6.5 g/dL (5.9-8.4); Sodium Level 142 mmol/L (133-145); Total Bilirubin 0.34 mg/dL (0.00-1.30); Vitamin D,25 Hydroxy 63.3 ng/mL (30-100)
[2024-12-26 14:52] LABS: Cholesterol 159 mg/dL (<=200); High Density Lipoprotein 52 mg/dL; Low Density Lipoprotein Calc. 94 mg/dL; Triglycerides 64 mg/dL; Very Low Density Lipoprotein 13 mg/dL (5-40); cholesterol:hdl ratio screen 3.07
== END | disposition home or self-care (01) ==
PROVIDERS: PCP Nurse Practitioner Family; Referring Provider Nurse Practitioner Family
DX: E55.9 Vitamin D deficiency, unspecified (principal); L40.50 Arthropathic psoriasis, unspecified; E78.5 Hyperlipidemia, unspecified; I10 Essential (primary) hypertension; Z79.899 Other long term (current) drug therapy
CPT/HCPCS: 36415; 80053; 80061; 82248; 82306; 85025; 85652; 86140; 86480; 86706; 86803; 87340

== ENCOUNTER → 2025-04-23 | Outpatient (CLI) | payer OTHER, SELFPAY ==
[2025-04-23 10:17] LABS: Hematocrit 42.7 % (40-54); Hemoglobin 14.3 g/dL (13.0-16.5); Immature Granulocytes Count 0.020 X10^3/uL (0.0-0.0); Mean Corp Hgb Conc 33.5 g/dL (32-36); Mean Corpuscular Volume 94.5 fL (80-94); Mean Platelet Vol. 10.6 fl (6.2-12.0); NRBC Flagged by Analyzer 0 % (0-5); Platelet Count 228 K/mm3 (150-450); RBC Distribution Width CV 13.5 % (11.6-14.6); RBC Distribution Width SD 46.8 fl (35.1-43.9); Red Blood Count 4.52 M/mm3 (4.6-6.2); White Blood Count 7.0 K/mm3 (4.4-11.0)
[2025-04-23 12:01] LABS: AST(SGOT) 33 U/L (<=37); Alanine Aminotransfer ALT/SGPT 26 U/L (<=46); Albumin, Serum 4.3 g/dL (3.5-5.0); Alkaline Phosphatase 73 U/L (40-129); Anion Gap 11 (5-15); BUN 17 mg/dL (4-19); BUN/Creat Ratio 17.0 RATIO (10-20); Bilirubin, Direct 0.47 mg/dL (0.00-0.30); Calcium,Total 9.6 mg/dL (7.6-11.0); Carbon Dioxide 25.6 mmol/L (21.0-32.0); Chloride 105 mmol/L (98-108); Cholesterol 186 mg/dL (<=200); Globulin 2.8 g/dL (2.2-4.2); Glucose 101 mg/dL (70-99); Low Density Lipoprotein Calc. 105 mg/dL; PSA,Total - Annual Screen 0.52 ng/mL (0.02-4.00); Potassium 4.5 mmol/L (3.3-5.1); Triglycerides 59 mg/dL; Very Low Density Lipoprotein 12 mg/dL (5-40); Vitamin D,25 Hydroxy 65.6 ng/mL (30-100); cholesterol:hdl ratio screen 2.68
[2025-04-23 12:11] LABS: CRP < 3.00 mg/L (0.0-3.0)
== END | disposition home or self-care (01) ==
LOC: MTLAB 07:36
PROVIDERS: PCP Nurse Practitioner Family; Referring Provider Nurse Practitioner Family; Visit Provider Nurse Practitioner Family
DX: Z79.899 Other long term (current) drug therapy (principal); M25.50 Pain in unspecified joint; Z12.5 Encounter for screening for malignant neoplasm of prostate; E78.5 Hyperlipidemia, unspecified; I10 Essential (primary) hypertension; E55.9 Vitamin D deficiency, unspecified
CPT/HCPCS: 36415; 80053; 80061; 82248; 82306; 84153; 85025; 85652; 86140; G0103

== ENCOUNTER → 2025-08-06 | Outpatient (CLI) | payer OTHER, SELFPAY ==
[2025-08-06 14:52] LABS: Hematocrit 42.0 % (40-54); Hemoglobin 14.3 g/dL (13.0-16.5); Immature Granulocytes Count 0.030 X10^3/uL (0.0-0.0); Mean Corp Hgb Conc 34.0 g/dL (32-36); Mean Corpuscular Volume 94.2 fL (80-94); Mean Platelet Vol. 10.5 fl (6.2-12.0); NRBC Flagged by Analyzer 0 % (0-5); Platelet Count 228 K/mm3 (150-450); RBC Distribution Width CV 13.6 % (11.6-14.6); RBC Distribution Width SD 47.8 fl (35.1-43.9); Red Blood Count 4.46 M/mm3 (4.6-6.2); White Blood Count 9.4 K/mm3 (4.4-11.0)
[2025-08-06 15:45] LABS: AST(SGOT) 29 U/L (<=37); Alanine Aminotransfer ALT/SGPT 17 U/L (<=46); Albumin, Serum 4.4 g/dL (3.5-5.0); Alkaline Phosphatase 67 U/L (40-129); Bilirubin, Direct 0.61 mg/dL (0.00-0.30); Globulin 2.8 g/dL (2.2-4.2)
[2025-08-06 15:46] LABS: CRP < 3.00 mg/L (0.0-3.0)
--- OUTSIDE RECORDS SUMMARY | 2025-08-06 16:38 | XMS RPT_ITS | CCD ---
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 Role Phone Yamil Silva Unavailable Danielle Flores N Unavailable Jossy Floresica N Unavailable STEFFANIE MIDDLETON Primary Care Unavaila VAIBHAV Lew Attending Unavailable VAIBHAV PERDOMO Attending Unavailable Jossy Floresica Jonathan Unavailable Armando Floresssica N Unavailable Jossy Floresica N Unavailable Jossy Floresica N Unavailable Yamil Silva Unavailable ROJELIO MCKEON Admitting Unavailable ROJELIO MCKEON Primary Care Unavailable ROJELIO MCKEON Primary Care Unavailable Steffanie Middleton Primary Care Provide r [place] LIQUOR CLERK.Kavitha MENDOZA Primary Care Provider [place] LIQUOR CLERK.Kavitha MENDOZA Primary Care Provider Ferdinand Black Unavailable [phone] Kinjal Concepcion MD Unavailable [place] LIQUOR CLERK.Kavitha MENDOZA Primary Care Provider [place] JOURNALISM TEACHER-C, KAVITHA Primary Care Provider [place]OLING JOURNALISM TEACHER-C, KAVITHA Referring Provider JAZLYN FINLEY Attending Provider [place]OLING JOURNALISM TEACHER-C, KAVITHA Primary Care Provider [place]OLING JOURNALISM TEACHER-C, KAVITHA Attending Provider NOLING JOURNALISM TEACHER-C, KAVITHA Referring Provider [phone] Dr. Levy Ritchie DO Other Provider [phone] [place]OL[place], KAVITHA Referring Unavailable PEGGY BARRETT Attending Unavailabl e NOLING, KAVITHA Primary Care Unavailable Levy Ritchie Consulting Unavailable [place]OL[place], KAVITHA Primary Care Unavailable NOLING, KAVITHA Attending Unavailable NOLING, KAVITHA Referring Unavailable NOLING, KAVITHA L Referring Unavailable NOLING, KAVITHA L Primary Care Unavailable NOLING, KAVITHA L Attending Unavailable NOLING, KAVITHA L Referring Unavailable NOLING, KAVITHA L Primary Care Unavailable NOLING, KAVITHA L Attending Unavailable NOLING, KAVITHA L Referring Unavailable NOLING, KAVITHA L Primary Care Unavailable Allergies Allergy Classification Reported Allergen(s) Allergy Type Date of Onset Reaction(s) Facility (2 sources) heparin; Translations: [HEPARIN] Drug Allergy 9 [facility] (20 sources) Vancomycin; Translations: [VANCOMYCIN] Drug Allergy 9 Swelling, Angioedema [facility] (20 sources) Cephalexin; Translations: [CEPHALEXIN] Drug Allergy 7 Hives, Rash [facility] (1 source) Cephalexin Drug Allergy 4 [facility] Repository Medications Current Medications Medication Drug Class(es) Dates Sig (Normalized) Sig (Original) aspirin 81 mg chewable tablet (20 sources) Platelet Aggregation Inhibitor, Nonsteroidal Anti-inflammatory Drug Start: 12-08-2018 take 1 tablet by mouth twice daily at mealtime Aspirin 81 MG tablet,chewable Active 81 mg PO TWICE DAILY WITH MEALS 0 December 08, 2018 12:00am Start: 11-08-2018 End: 01-25-2024 take 1 tablet by mouth once daily Aspirin 81 MG tablet Discontinued 81 mg PO DAILY@0800 November 08, 2018 1:00am January 25, 2024 11:07am Comment on above: Take 81 mg by mouth once daily. benzonatate 200 mg oral capsule (5 sources) Non-narcotic Antitussive Start: 2023 End: 2024 take 1 capsule by mouth three times daily as needed for cough Benzonatate 200 mg capsule Active 200 mg PO THREE TIMES A DAY as needed for cough 20 January 20, 2025 12:00am cholecalciferol 0.05 mg oral capsule (20 sources) Vitamin D Start: 2018 take 1 capsule by mouth once daily Cholecalciferol (Vitamin D3) (Vitamin D3) 2,000 UNIT capsule Active 2000 U PO DAILY November 08, 2018 1:00am Comment on above: Cholecalciferol Chol ecalciferol (Vitamin D3) [Vitamin D3] 2000 UNIT PO DAILY November 08, 2018 Active 11-08-2018 [facility] ([id number]) doxycycline hyclate 100 mg oral capsule (4 sources) Tetracycline-class Drug Start: 2018 take 1 capsule by mouth twice daily Doxycycline Hyclate 100 mg capsule Active 100 mg PO TWICE A DAY November 27, 2018 12:00am niacin 500 mg oral tablet (7 sources) Nicotinic Acid End: 2022 take 1 tablet by mouth once daily at breakfast niacin (NIACIN) 500 mg tablet Take 500 mg by mouth daily with breakfast. 0 11/23/2022 Discontinued Comment on above: Take 500 mg by mouth daily with breakfast. PNV [id number] TE ORAL (4 sources) Start: 2023 take 1 dose by mouth once daily PNV [id number] ATE ORAL Take 1 Each by mouth once daily. 07/20/2024 Active rosuvastatin calcium 5 mg oral tablet (20 sources) HMG-CoA Reductase Inhibitor Start: 2022 End: 2024 take 1 tablet by mouth once daily rosuvastatin (CRESTOR) 5 mg tablet Indications: Hyperlipidemia, unspecified hyperlipidemia type Take 1 tablet by mouth once daily. 90 tablet 3 02/22/2025 Active Start: 03-11-2022 End: 05-18-2022 take 1 tablet by mouth once daily rosuvastatin (CRESTOR) 5 mg tablet Take 1 tablet by mouth once daily. 30 tablet 11 05/18/2022 Active Comment on above: Take 1 tablet by miguel th once daily. Take 5 mg by mouth o nce daily. take 1 tablet by miguel th once daily SAW PALMETTO ORAL (7 sources) End: 11-23-2022 take 900 mg by mouth once daily SAW PALMETTO ORAL Take 900 mg by mouth once daily. 0 11/23/2022 Discontinued take 900 mg by mouth once daily SAW PALMETTO ORAL Take 900 mg by mouth once daily. 0 Active Comment on above: Take 900 mg by mouth once daily. tadalafil 20 mg oral tablet (20 sources) Phosphodiesterase 5 Inhibitor Start: 9 End: 5 Tadalafil (CIALIS) 20 mg tablet Indications: ED (erectile dysfunction) of organic origin take 1 tablet by mouth 2 TO 24 HOURS PRIOR TO RELATIONS 10 tablet 5 02/22/2025 Active Comment on above: take 1 tablet by miguel th 2 TO 24 HOURS PRIOR TO RELATIONS tobramycin 3 mg/ml ophthalmic solution (4 sources) Aminoglycoside Antibacterial Start: take 0.3 drop(s) into the eye(s) every four hours Tobramycin (Tobrex) 0.3 % drops Active 1 NMA OPHTHALMIC Q4H 5 0 February 22, 2022 12:00am Start: 02-22-2022 take 0.3 drop(s) int o the eye(s) every four hours Tobramycin (Tobrex) 0.3 % drops Active 1 DRP OPHTHALMIC Q4H 5 February 22, 2022 12:00am 24 hr tofacitinib 11 mg exte nded release oral tablet (20 sources) Start: 03-10-2022 XELJANZ XR 11 mg tablet, extended release 03/10/2022 Active Completed/Discontinued Medications Medication Drug Class(es) Dates Sig (Normalized) Sig (Original) acetaminophen 325 mg / HYDROcodone bitartrate 5 mg oral tablet (8 sources) Opioid Agonist Start: 11-15-2018 End: 11-20-2018 Hydrocodone-Acetamino phen 1 TABLET tablet Discontinued 1 - 2 {tbl} PO EVERY 4 HOURS NEEDED as needed for Pain 50 5 0 November 15, 2018 1:00am November 19, 2018 1:00am November 20, 2018 1:10am Other acute postprocedural pain pain Start: 11-15-2018 End: 11-20-2018 take 1 tablet by mouth every four hours as needed Hydrocodone-Acetaminophen Discontinued 1 - 2 TABLET PO EVERY 4 HOURS NEEDED 50 5 November 15, 2018 1:00am November 20, 2018 1:10am pain Start: 03-18-2017 End: 10-30-2018 Hydrocodone-Acetaminophen 1 TABLET tablet Discontinued 1 - 2 {tbl} PO EVERY 6 HOURS NEEDED as needed for Pain 60 0 March 18, 2017 12:00am October 30, 2018 4:29pm Start: 03-18-2017 End: 10-30-2018 take 1 tablet by mouth every six hours as needed Hydrocodone-Acetaminophen Discontinued 1 - 2 TABLET PO EVERY 6 HOURS NEEDED 60 March 18, 2017 12:00am October 30, 2018 4:29pm amoxicillin 875 mg oral tablet (6 sources) Penicillin-class Antibacterial Start: 08-23-2024 End: 02-22-2025 take 1 tablet by mouth twice daily amoxicillin (AMOXIL) 875 mg tablet Take 875 mg by mouth two times a day. 08/23/2024 02/22/2025 Discontinued Start: 05-06-2023 End: 05-16-2023 take 1 capsule by mouth three times daily Amoxicillin 500 mg capsule Discontinued 500 mg PO THREE TIMES A DAY 30 10 0 May 06, 2023 12:00am May 15, 2023 12:00am May 16, 2023 12:03am apremilast 30 mg oral tablet (8 sources) Start: 12-22-2016 OTEZLA 30 MG TABS APREMILAST [id number] Yamil Silva cefdinir 300 mg oral capsule (4 sources) Cephalosporin Antibacterial Start: 12-08-2018 End: 12-22-2018 take 1 capsule by mouth every twelve hours Cefdinir 300 MG capsule Discontinued 300 mg PO Q12H 28 14 December 08, 2018 12:00am December 21, 2018 12:00am December 22, 2018 12:10am start 12/16/18 after completing IM ceftriaxone cefTRIAXone 2000 mg injection (4 sources) Cephalosporin Antibacterial Start: 12-08-2018 End: 05-18-2023 Ceftriaxone In Dextrose,Iso-Os 2 GM/50 ML piggyback Discontinued 2 g IV EVERY 24 HOURS 7 0 December 08, 2018 12:00am May 18, 2023 11:15am start 12/09/18 ciprofloxacin 500 mg oral tablet (4 sources) Quinolone Antimicrobial Start: 10-15-2020 End: 11-12-2020 take 1 tablet by mouth twice daily Ciprofloxacin Hcl 500 mg tablet Discontinued 500 mg PO TWICE A DAY 56 28 0 October 15, 2020 1:00am November 11, 2020 1:00am November 12, 2020 1:03am famotidine 20 mg oral tablet (10 sources) Histamine-2 Receptor Antagonist Start: 06-13-2020 End: 07-08-2023 take 1 tablet by mouth twice daily famotidine (PEPCID) 20 mg tablet Take 20 mg by mouth twice daily. 0 06/13/2020 07/08/2023 Discontinued Comment on above: Take 20 mg by mouth twice daily. hydrocortisone 10 mg/ml / neomycin 3.5 mg/ml / polymyxin b [id number] unt/ml otic suspension (3 sources) Aminoglycoside Antibacterial, Polymyxin-class Antibacterial, Corticosteroid Start: 03-18-2023 End: 03-28-2023 Neomycin-Polymyxin -Hc 3.5-10,000-1 mg/mL-unit/mL-% drops,suspension Discontinued 4 NMA OTIC Q8H 10 10 March 18, 2023 12:00am March 27, 2023 12:00am March 28, 2023 12:03am Start: 03-18-2023 End: 03-28-2023 Nsmiabqw-Yrgpkvczq-Na Discon tinued 4 DRP OTIC Q8H 10 March 18, 2023 12:00am March 28, 2023 12:03am losartan potassium 25 mg oral tablet (20 sources) Angiotensin 2 Receptor Norman Start: 03-11-2022 End: 07-08-2023 take 1 tablet by mouth once daily losartan (COZAAR) 25 mg tablet Take 1 tablet by mouth once daily. 30 tablet 11 05/18/2022 07/08/2023 Discontinued Start: 10-10-2018 End: 01-25-2024 take 1 tablet by mouth once daily Losartan (Cozaar) 50 MG tablet Discontinued 50 mg PO DAILY December 06, 2018 12:00am January 25, 2024 11:07am BP Comment on above: Take 1 tablet by miguel th once daily. Take 50 mg by mouth once daily. Take 25 mg by mouth once daily. meloxicam 15 mg oral tablet (1 source) Nonsteroidal Anti-inflammatory Drug Start: 11-19-19 End: 05-18-20 meloxicam (MOBIC) 15 mg tablet MULTIPLE VITAMINS-MINERALS (3 sources) Start: 12-23-19 17 COMPLETE FORMULATION D5000 CAPS MULTIPLE VITAMINS-MINERALS [id number] Yamil Silva MULTIPLE VITAMINS-MINERALS (5 sources) Start: 12-23-19 COMPLETE FORMULATION D5000 CAPS MULTIPLE VITAMINS-MINERALS [id number] Yamil Silva oseltamivir 75 mg oral capsule (4 sources) Neuraminidase Inhibitor Start: 11-29-19 End: 12-04-19 take 1 capsule by mouth every twelve hours Oseltamivir (Tamiflu) 75 mg capsule Discontinued 75 mg PO Q12H 10 5 0 November 28, 2017 12:00am December 02, 2017 12:00am December 03, 2017 12:11am pediatric multivit 61-D3-vit K 5,000-800 unit-mcg cap (20 sources) Start: 12-23-19 End: 02-23-20 pediatric multivit 61-D3-vit K 5,000-800 unit-mcg cap MULTIPLE VITAMINS-MINERALS COMPLETE FORMULATION D5000 CAPS MULTIPLE VITAMINS-MINERALS [id number] Yamil Gavin Ricardo 12-22-2016 [facility] ([id number]) 12/22/2016 02/22/2025 Discontinued Start: 12-22-2016 pediatric mult ivit 61-D3-vit K 5,000-800 unit-mcg cap MULTIPLE VITAMINS-MINERALS COMPLETE FORMULATION D5000 CAPS MULTIPLE VITAMINS-MINERALS [id number] Yamil Gavin Ricardo 12-22-2016 [facility] ([id number]) 12/22/2016 Active Start: 12-22-2016 pediatric mult ivit 61-D3-vit K 5,000-800 unit-mcg cap MULTIPLE VITAMINS-MINERALS COMPLETE FORMULATION D5000 CAPS MULTIPLE VITAMINS-MINERALS [id number] Yamil Silva 12-22-2016 [facility] ([id number]) 0 12/22/2016 Active Comment on above: MULTIPLE VITAMINS-MA NERALS COMPLETE FORMULATION D5000 CAPS MULTIPLE VITAMINS-MINERALS [phone] Yamil Silva 12-22-2016 [facility] ([id number]) ruxolitinib (8 sources) End: 02-22-2025 ruxolitinib (OPZELURA) 1.5 % cream 1 g two times a day. 02/22/2025 Discontinued ruxolitinib (OPZ ELURA) 1.5 % cream 1 g two times a day. Active ruxolitinib (OPZ ELURA) 1.5 % cream 1 g two times a day. 0 Active Comment on above: 1 g two times a day. 1 ml secukinumab 150 mg/ml auto-injector (8 sources) Interleukin-17A Antagonist Start: 12-07-19 End: 12-09-19 inject 150 mg by subcutaneous injection every month Secukinumab (Cosentyx Pen) 150 MG/ML Pen.Injctr Discontinued 300 mg SQ EVERY MONTH December 06, 2018 12:00am December 08, 2018 4:02pm ARTHRITIS Start: 11-08-2018 End: 11-15-2018 inject 150 mg by subcutaneous injection every month Secukinumab (Cosentyx Pen) 150 MG/ML Pen.Injctr Discontinued 300 mg SQ EVERY MONTH November 08, 2018 1:00am November 15, 2018 11:51am PSORIATIC ARTHRITIS tamsulosin hydrochloride 0.4 mg oral capsule (11 sources) alpha-Adrenergic Norman Start: 11-23-2022 End: 07-08-2023 take 0.4 mg by mouth every twenty-four hours as needed tamsulosin (FLOMAX) 0.4 mg Take 1 capsule by mouth at bedtime as needed. 90 capsule 3 11/23/2022 07/08/2023 Discontinued Start: 08-16-2022 End: 11-23-2022 take 1 capsule by mouth once daily at bedtime tamsulosin (FLOMAX) 0.4 mg take 1 capsule by mouth once daily at bedtime 30 capsule 5 08/16/2022 11/23/2022 Discontinued Comment on above: take 1 capsule by mo [facility] once daily at bedtime Take 1 capsule by mo [facility] at bedtime as needed. valACYclovir 1000 mg oral tablet (20 sources) Herpesvirus Nucleoside Analog DNA Polymerase Inhibitor, Herpes Simplex Virus Nucleoside Analog DNA Polymerase Inhibitor, Herpes Zoster Virus Nucleoside Analog DNA Polymerase Inhibitor Start: 2 End: 5 take 2 tablets by mouth twice daily as needed valACYclovir (VALTREX) 1 gram tablet Indications: Herpes simplex virus (HSV) infection Take 2 tablets by mouth two times a day as needed. 30 tablet 1 12/12/2024 02/22/2025 Discontinued Start: 09-07-2021 Valacyclovir 1 gram tablet Active 1000 mg PO TWICE A DAY 8 3 September 07 2021 1:00am Start: 09-07-2021 take 1000 mg by mout h twice daily Valacyclovir Active 1000 MG PO TWICE A DAY September 07, 2021 1:00am Comment on above: Take 2 tablets by mo uth twice daily as needed. take 2 tablets by mo uth twice a day if needed Take 2 tablets by mo uth two times a day as needed. Problems Active Problems Problem Classification Problem Date Documented Da te Episodic/Chronic Disorders of lipid metabolism (20 sources) Hyperlipidemia; Translations: [Hyperlipidemia, unspecified] Onset: 1 05-18-2022 Chronic Esophageal disorders (20 sources) Gastroesophageal reflux disease; Translations: [Gastro-esophageal reflux disease without esophagitis] Onset: 0 05-18-2022 Chronic Essential hypertension (20 sources) Hypertensive disorder; Translations: [Essential (primary) hypertension] Onset: 1 05-18-2022 Chronic Genitourinary symptoms and ill-defined conditions (1 source) Incomplete emptying of bladder; Translations: [Retention of urine, unspecified] 04-07-2023 Episodic Hyperplasia of prostate (20 sources) Nocturia due to benign prostatic hypertrophy; Translations: [Benign prostatic hyperplasia with lower urinary tract symptoms] Onset: 2 Resolved: 3 05-18-2022 Chronic Infective arthritis and osteomyelitis (except that caused by tuberculosis or sexually transmitted disease) (4 sources) Knee pyogenic arthritis; Translations: [Pyogenic arthritis, unspecified] 03-30-2019 Episodic Inflammation; infection of eye (except that caused by tuberculosis or sexually transmitteddisease) (4 sources) Acute infectious conjunctivitis; Translations: [Unspecified acute conjunctivitis, unspecified eye] 02-22-2022 Episodic Joint disorders and dislocations; trauma-related (20 sources) Derangement of knee; Translations: [Unspecified internal derangement of unspecified knee] Onset: 7 12-31-2016 Chronic Nutritional deficiencies (20 sources) Vitamin D deficiency; Translations: [Vitamin D deficiency, unspecified] Onset: 0 05-18-2022 Chronic Osteoarthritis (20 sources) Osteoarthritis of knee; Translations: [Unilateral primary osteoarthritis, unspecified knee] Onset: 7 12-31-2016 Chronic Other aftercare (1 source) Other keno terminal operator (current) drug therapy; Translations: [Other custodial (current) drug therapy] Onset: 5 Episodic Other bone disease and musculoskeletal deformities (14 sources) Segmental and somatic dysfunction; Translations: [Segmental and somatic dysfunction of cervical region] 06-12-2019 Episodic Other bone disease and musculoskeletal deformities (6 sources) Costal chondritis; Translations: [Chondrocostal junction syndrome [Tietze]] Onset: 4 Resolved: 5 08-24-2024 Episodic Other gastrointestinal disorders (1 source) Feces contents abnormal; Translations: [Other fecal abnormalities] 01-06-2024 Episodic Other inflammatory condition of skin (20 sources) Psoriatic arthritis; Translations: [Arthropathic psoriasis, unspecified] Onset: 0 05-18-2022 Chronic Other male genital disorders (1 source) Erectile dysfunction co-occurrent and due to arterial insufficiency; Translations: [Erectile dysfunction due to arterial insufficiency] 04-07-2023 Chronic Other male genital disorders (7 sources) Secondary erectile dysfunction; Translations: [Male erectile dysfunction, unspecified] Onset: 4 01-06-2024 Chronic Other male genital disorders (1 source) Male erectile dysfunction, unspecified; Translations: [ED (erectile dysfunction) of organic origin] Onset: 4 Chronic Other nervous system disorders (1 source) Other acute postprocedural pain; Translations: [Other acute postprocedural pain] Onset: 9 Episodic Other non-traumatic joint disorders (1 source) Pain in left knee; Translations: [Pain in left knee] Onset: 9 Episodic Other nutritional; endocrine; and metabolic disorders (17 sources) Hyperbilirubinemia; Translations: [Other disorders of bilirubin metabolism] Onset: 3 11-23-2022 Chronic Other skin disorders (4 sources) Skin lesion; Translations: [Disorder of the skin and subcutaneous tissue, unspecified] 10-13-2020 Episodic Spondylosis; intervertebral disc disorders; other back problems (2 sources) Degeneration of lumbar intervertebral disc; Translations: [Other intervertebral disc degeneration of lumbar region] 04-01-2024 Chronic Spondylosis; intervertebral disc disorders; other back problems (20 sources) Cervical radiculopathy; Translations: [Radiculopathy, cervical region] Onset: 2 05-18-2022 Episodic Comment on above: L4/L5, L5/S1 (probab le) Unclassified (4 sources) Aftercare ; Translations: [Encounter for other orthopedic aftercare] Onset: 7 04-15-2017 Unclassified (2 sources) Pain in left knee Onset: 9 Past or Other Problems Problem Classification Problem Date Documented Da te Episodic/Chronic Biliary tract disease (17 sources) Biliary sludge; Translations: [Other specified diseases of gallbladder] Onset: 11-23-2022 11-23-2022 Episodic Deficiency and other anemia (20 sources) Anemia; Translations: [Anemia, unspecified] Onset: 07-25-2021 05-18-2022 Episodic Other aftercare (1 source) Encounter for therapeutic drug level monitoring; Translations: [Medication monitoring encounter] Onset: 07-26-2024 Episodic Other diseases of kidney and ureters (20 sources) Complex renal cyst; Translations: [Cyst of kidney, acquired] Onset: 11-23-2022 Episodic Other diseases of kidney and ureters (4 sources) Disorder of urinary tract; Translations: [Other obstructive and reflux uropathy] Onset: 04-07-2023 08-24-2024 Episodic Other gastrointestinal disorders (4 sources) Abnormal feces; Translations: [Other fecal abnormalities] Onset: 01-06-2024 Resolved: 02-22-2025 08-24-2024 Episodic Other non-traumatic joint disorders (8 sources) Knee pain; Translations: [Pain in unspecified knee] Onset: 12-22-2016 12-22-2016 Episodic Other nutritional; endocrine; and metabolic disorders (13 sources) Obese class I; Translations: [Obesity, unspecified] Onset: 05-18-2022 Resolved: 11-23-2022 05-18-2022 Chronic Other screening for suspected conditions (not mental disorders or infectious disease) (20 sources) Patient encounter status; Translations: [Encounter for screening for malignant neoplasm of prostate] Onset: 06-12-2021 05-18-2022 Episodic Viral infection (20 sources) Herpes simplex; Translations: [Herpesviral infection, unspecified] Onset: 05-18-2022 05-18-2022 Episodic Results Test Name Value Interpretation Reference Range Facility Absolute lymphocyte countOrd ered By: KAVITHA SOLANO on 04-23-2025 Lymphocytes Auto (Unsp spec) [#/Vol] 1.12 10*3/uL 0.83-4.51 [facility] Absolute neutrophil countOrd ered By: KAVITHA SOLANO on 04-23-2025 Neutrophils (Bld) [#/Vol] 5.0 10*3/uL 2.0-7.7 [facility] Anion gap in Serum or Plasma Ordered By: KAVITHA SOLANO on 04-23-2025 Anion gap [Moles/Vol] 11 mmol/L 5-15 [facility] Automated lymphocyte count a s percentage of total leukocytesOrdered By: KAVITHA SOLANO on 04-23-2025 Lymphocytes/100 WBC Auto (Unsp spec) 16.1 % Low 19-41 [facility] BUN/creatinine ratioOrdered By: KAVITHA SOLANO on 04-23-2025 Urea nitrogen/Creatinine [Mass ratio] 17.0 mg/mg 10-20 [facility] Basophil percentageOrdered B y: KAVITHA SOLANO on 04-23-2025 Basophils/100 WBC (Bld) 0.3 % 0-1 [facility] Bilirubin directOrdered By: KAVITHA SOLANO on 04-23-2025 Bilirubin.direct [Mass/Vol] 0.47 mg/dL High 0.00-0.30 [facility] Bilirubin, Directon 04-23-20 25 Bilirubin.direct [Mass/Vol] 0.47 mg/dL High 0.00-0.30 [facility] Comment on above: Order Comment: DR. Ralph KIMBALL GETS RESULTS FOR CBCD,CRE,LIVER,ESR,CRP JAMES GETS RESULTS FOR PSA,LIPID,AND CMP Performed By: #### L [id number], L3890.6202, L101.9900, L3890.6301, L3890.6102, L506.1001, L3400.8000, L500.4050, L100.0100, L501.6710, L500.4100 #### [facility] [address] [place], [address] Bilirubin, totalOrdered By: KAVITHA SOLANO on 04-23-2025 Bilirubin [Mass/Vol] 1.23 mg/dL 0.00-1.30 [facility] CBC W/Diff, Automatedon Absolute Lymph 1.12 X10 3/uL Normal 0.83-4.51 [facility] Comment on above: Performed By: #### L 501.4700, L3890.6202, L101.9900, L3890.6301, L3890.6102, L506.1001, L3400.8000, L500.4050, L100.0100, L501.6710, L500.4100 #### [facility] [address] [place], [address] (150 Absolute Neut 5.0 X10 3/uL Normal 2.0-7.7 [facility] Comment on above: Performed By: #### L 501.4700, L3890.6202, L101.9900, L3890.6301, L3890.6102, L506.1001, L3400.8000, L500.4050, L100.0100, L501.6710, L500.4100 #### [facility] [address] [place], [address] Basophils/100 WBC (Bld) 0.3 % Normal 0-1 [facility] Comment on above: Performed By: #### L 501.4700, L3890.6202, L101.9900, L3890.6301, L3890.6102, L506.1001, L3400.8000, L500.4050, L100.0100, L501.6710, L500.4100 #### [facility] [address] [place], [address] (627 Eosinophils/100 WBC (Bld) 2.0 % Normal 0-5 [facility] Comment on above: Performed By: #### L 501.4700, L3890.6202, L101.9900, L3890.6301, L3890.6102, L506.1001, L3400.8000, L500.4050, L100.0100, L501.6710, L500.4100 #### [facility] [address] [place], [address] Erythrocyte distribution width (RBC) [Ratio] 13.5 % Normal 11.6-14.6 [facility] Comment on above: Performed By: #### L 501.4700, L3890.6202, L101.9900, L3890.6301, L3890.6102, L506.1001, L3400.8000, L500.4050, L100.0100, L501.6710, L500.4100 #### [facility] [address] [facility] [place], [address] Hematocrit (Bld) [Volume fraction] 42.7 % Normal 40-54 [facility] Comment on above: Performed By: #### L 501.4700, L3890.6202, L101.9900, L3890.6301, L3890.6102, L506.1001, L3400.8000, L500.4050, L100.0100, L501.6710, L500.4100 #### [facility] [address] [place], [address] Hemoglobin (Bld) [Mass/Vol] 14.3 g/dL Normal 13.0-16.5 [facility] Comment on above: Performed By: #### L 501.4700, L3890.6202, L101.9900, L3890.6301, L3890.6102, L506.1001, L3400.8000, L500.4050, L100.0100, L501.6710, L500.4100 #### [facility] [address] [place], [address] (113) IG% 0.300 Normal 0.0-0.9 [facility] Comment on above: Result Comment: IG% - Immature Granulocytes (promyelocytes, myelocytes and metamyelocytes) > 1% indicates that a LEFT SHIFT is Present. Performed By: #### L 501.4700, L3890.6202, L101.9900, L3890.6301, L3890.6102, L506.1001, L3400.8000, L500.4050, L100.0100, L501.6710, L500.4100 #### [facility] [address] [place], [address] Lymphocytes/100 WBC (Bld) 16.1 % Low 19-41 [facility] Comment on above: Performed By: #### L 501.4700, L3890.6202, L101.9900, L3890.6301, L3890.6102, L506.1001, L3400.8000, L500.4050, L100.0100, L501.6710, L500.4100 #### [facility] [address] [facility] [place], [address] MCH (RBC) [Entitic mass] 31.6 pg Normal 27.0-32.0 [facility] Comment on above: Performed By: #### L 501.4700, L3890.6202, L101.9900, L3890.6301, L3890.6102, L506.1001, L3400.8000, L500.4050, L100.0100, L501.6710, L500.4100 #### [facility] [address] [place], [address] MCHC (RBC) [Mass/Vol] 33.5 g/dL Normal 32-36 [facility] Comment on above: Performed By: #### L 501.4700, L3890.6202, L101.9900, L3890.6301, L3890.6102, L506.1001, L3400.8000, L500.4050, L100.0100, L501.6710, L500.4100 #### [facility] [address] [place], [address] MCV (RBC) [Entitic vol] 94.5 fL High 80-94 [facility] Comment on above: Performed By: #### L 501.4700, L3890.6202, L101.9900, L3890.6301, L3890.6102, L506.1001, L3400.8000, L500.4050, L100.0100, L501.6710, L500.4100 #### [facility] [address] [place], [address] Monocytes/100 WBC (Bld) 9.3 % Normal 0-10 [facility] Comment on above: Performed By: #### L 501.4700, L3890.6202, L101.9900, L3890.6301, L3890.6102, L506.1001, L3400.8000, L500.4050, L100.0100, L501.6710, L500.4100 #### [facility] [address] [place], [address] Neutrophils/100 WBC (Bld) 72.0 % High 47-70 [facility] Comment on above: Performed By: #### L 501.4700, L3890.6202, L101.9900, L3890.6301, L3890.6102, L506.1001, L3400.8000, L500.4050, L100.0100, L501.6710, L500.4100 #### [facility] [address] [place], [address] Nucleated RBC (Bld) [#/Vol] 0 10*3/uL Normal 0-5 [facility] Comment on above: Performed By: #### L 501.4700, L3890.6202, L101.9900, L3890.6301, L3890.6102, L506.1001, L3400.8000, L500.4050, L100.0100, L501.6710, L500.4100 #### [facility] [address] [place], [address] Platelet mean volume (Bld) [Entitic vol] 10.6 fL Normal 6.2-12.0 [facility] Comment on above: Performed By: #### L 501.4700, L3890.6202, L101.9900, L3890.6301, L3890.6102, L506.1001, L3400.8000, L500.4050, L100.0100, L501.6710, L500.4100 #### [facility] [address] [place], [address] Platelets (Bld) [#/Vol] 228 10*3/uL Normal 150-450 [facility] Comment on above: Performed By: #### L 501.4700, L3890.6202, L101.9900, L3890.6301, L3890.6102, L506.1001, L3400.8000, L500.4050, L100.0100, L501.6710, L500.4100 #### [facility] [address] [place], [address] RBC (Bld) [#/Vol] 4.52 10*6/uL Low 4.6-6.2 [facility] Comment on above: Performed By: #### L 501.4700, L3890.6202, L101.9900, L3890.6301, L3890.6102, L506.1001, L3400.8000, L500.4050, L100.0100, L501.6710, L500.4100 #### [facility] [address] [place], [address] RDW SD 46.8 fl High 35.1-43.9 [facility] Comment on above: Performed By: #### L 501.4700, L3890.6202, L101.9900, L3890.6301, L3890.6102, L506.1001, L3400.8000, L500.4050, L100.0100, L501.6710, L500.4100 #### [facility] [address] [place], [address] WBC (Bld) [#/Vol] 7.0 10*3/uL Normal 4.4-11.0 [facility] Comment on above: Performed By: #### L 501.4700, L3890.6202, L101.9900, L3890.6301, L3890.6102, L506.1001, L3400.8000, L500.4050, L100.0100, L501.6710, L500.4100 #### [facility] [address] [place], [address] CRPon 04-23-2025 C-REACTIVE PROT < 3.00 Normal 0.0-3.0 [facility] Comment on above: Order Comment: DR. Ralph KIMBALL GETS RESULTS FOR CBCD,CRE,LIVER,ESR,CRP JAMES GETS RESULTS FOR PSA,LIPID,AND CMP Performed By: #### L 501.4700, L3890.6202, L101.9900, L3890.6301, L3890.6102, L506.1001, L3400.8000, L500.4050, L100.0100, L501.6710, L500.4100 #### [facility] [address] [place], [address] Calculated very low density lipoprotein (VLDL) cholesterol measurementOrdered By: KAVITHA SOLANO on 04-23-2025 Calculated very low density lipoprotein (VLDL) cholesterol measurement 12 mg/dL 5-40 [facility] Carbon dioxide, total [Moles /volume] in Central venous bloodOrdered By: KAVITHA SOLANO on 04-23-2025 CO2 [Moles/Vol] 25.6 mmol/L 21.0-32.0 [facility] Chloride assayOrdered By: SHAMIR SOLANO on 04-23-2025 Chloride [Moles/Vol] 105 mmol/L 98-108 [facility] Comprehensive Metabolic Prof ilon 04-23-2025 Albumin [Mass/Vol] 4.3 g/dL Normal 3.5-5.0 [facility] Comment on above: Order Comment: DR. Ralph KIMBALL GETS RESULTS FOR CBCD,CRE,LIVER,ESR,CRP TRACYNOLING GETS RESULTS FOR PSA,LIPID,AND CMP Performed By: #### L 501.4700, L3890.6202, L101.9900, L3890.6301, L3890.6102, L506.1001, L3400.8000, L500.4050, L100.0100, L501.6710, L500.4100 #### [facility] [address] [facility] [place], [place], [phone] (175) Albumin/Globulin [Mass ratio] 1.5 {ratio} Normal 0.9-2.4 [facility] Comment on above: Order Comment: DR. Ralph KIMBALL GETS RESULTS FOR CBCD,CRE,LIVER,ESR,CRP TRACYNOLING GETS RESULTS FOR PSA,LIPID,AND CMP Performed By: #### L 501.4700, L3890.6202, L101.9900, L3890.6301, L3890.6102, L506.1001, L3400.8000, L500.4050, L100.0100, L501.6710, L500.4100 #### [facility] [address] [place], [place], [id number] ALK PHOS 73 U/L Normal 40-129 [facility] Comment on above: Order Comment: DR. Ralph KIMBALL GETS RESULTS FOR CBCD,CRE,LIVER,ESR,CRP TRACYNOLING GETS RESULTS FOR PSA,LIPID,AND CMP Performed By: #### L 501.4700, L3890.6202, L101.9900, L3890.6301, L3890.6102, L506.1001, L3400.8000, L500.4050, L100.0100, L501.6710, L500.4100 #### [facility] [address] [place], [address] ALT [Catalytic activity/Vol] 26 U/L Normal <=46 [facility] Comment on above: Order Comment: DR. Ralph KIMBALL GETS RESULTS FOR CBCD,CRE,LIVER,ESR,CRP TRACYNOLING GETS RESULTS FOR PSA,LIPID,AND CMP Performed By: #### L 501.4700, L3890.6202, L101.9900, L3890.6301, L3890.6102, L506.1001, L3400.8000, L500.4050, L100.0100, L501.6710, L500.4100 #### [facility] [address] [place], [address] AST [Catalytic activity/Vol] 33 U/L Normal <=37 [facility] Comment on above: Order Comment: DR. Ralph KIMBALL GETS RESULTS FOR CBCD,CRE,LIVER,ESR,CRP TRACYNOLING GETS RESULTS FOR PSA,LIPID,AND CMP Performed By: #### L 501.4700, L3890.6202, L101.9900, L3890.6301, L3890.6102, L506.1001, L3400.8000, L500.4050, L100.0100, L501.6710, L500.4100 #### [facility] [address] [place], [address] Bilirubin [Mass/Vol] 1.23 mg/dL Normal 0.00-1.30 [facility] Comment on above: Order Comment: DR. Ralph KIMBALL GETS RESULTS FOR CBCD,CRE,LIVER,ESR,CRP TRACYNOLING GETS RESULTS FOR PSA,LIPID,AND CMP Performed By: #### L 501.4700, L3890.6202, L101.9900, L3890.6301, L3890.6102, L506.1001, L3400.8000, L500.4050, L100.0100, L501.6710, L500.4100 #### [facility] [address] [place], [place], [phone] (106) BUN/CRE 17.0 RATIO Normal 10-20 [facility] Comment on above: Order Comment: DR. Ralph KIMBALL GETS RESULTS FOR CBCD,CRE,LIVER,ESR,CRP TRACYNOLING GETS RESULTS FOR PSA,LIPID,AND CMP Performed By: #### L 501.4700, L3890.6202, L101.9900, L3890.6301, L3890.6102, L506.1001, L3400.8000, L500.4050, L100.0100, L501.6710, L500.4100 #### [facility] [address] [place], [place], [phone] (824) Calcium [Mass/Vol] 9.6 mg/dL Normal 7.6-11.0 [facility] Comment on above: Order Comment: DR. Ralph KIMBALL GETS RESULTS FOR CBCD,CRE,LIVER,ESR,CRP TRACYNOLING GETS RESULTS FOR PSA,LIPID,AND CMP Performed By: #### L 501.4700, L3890.6202, L101.9900, L3890.6301, L3890.6102, L506.1001, L3400.8000, L500.4050, L100.0100, L501.6710, L500.4100 #### [facility] [address] [place], [place], [phone] (138) Chloride [Moles/Vol] 105 mmol/L Normal 98-108 [facility] Comment on above: Order Comment: DR. Ralph KIMBALL GETS RESULTS FOR CBCD,CRE,LIVER,ESR,CRP TRACYNOLING GETS RESULTS FOR PSA,LIPID,AND CMP Performed By: #### L 501.4700, L3890.6202, L101.9900, L3890.6301, L3890.6102, L506.1001, L3400.8000, L500.4050, L100.0100, L501.6710, L500.4100 #### [facility] [address] [place], [place], [phone] CO2 [Moles/Vol] 25.6 mmol/L Normal 21.0-32.0 [facility] Comment on above: Order Comment: DR. Ralph KIMBALL GETS RESULTS FOR CBCD,CRE,LIVER,ESR,CRP TRACYNOLING GETS RESULTS FOR PSA,LIPID,AND CMP Performed By: #### L 501.4700, L3890.6202, L101.9900, L3890.6301, L3890.6102, L506.1001, L3400.8000, L500.4050, L100.0100, L501.6710, L500.4100 #### [facility] [address] [place], [place], [id number] Creatinine [Mass/Vol] 1.00 mg/dL Normal 0.70-1.20 [facility] Comment on above: Order Comment: DR. Ralph KIMBALL GETS RESULTS FOR CBCD,CRE,LIVER,ESR,CRP TRACYNOLING GETS RESULTS FOR PSA,LIPID,AND CMP Performed By: #### L 501.4700, L3890.6202, L101.9900, L3890.6301, L3890.6102, L506.1001, L3400.8000, L500.4050, L100.0100, L501.6710, L500.4100 #### [facility] [address] [place], [address] GAP 11 Normal 5-15 [facility] Comment on above: Order Comment: DR. Ralph KIMBALL GETS RESULTS FOR CBCD,CRE,LIVER,ESR,CRP TRACYNOLING GETS RESULTS FOR PSA,LIPID,AND CMP Performed By: #### L 501.4700, L3890.6202, L101.9900, L3890.6301, L3890.6102, L506.1001, L3400.8000, L500.4050, L100.0100, L501.6710, L500.4100 #### [facility] [address] [place], [address] GFR/1.73 sq M.predicted among non-blacks MDRD (S/P/Bld) [Vol rate/Area] 88 mL/min/{1.73_m2} Normal >60 [facility] Comment on above: Order Comment: DR. Ralph KIMBALL GETS RESULTS FOR CBCD,CRE,LIVER,ESR,CRP TRACYNOLING GETS RESULTS FOR PSA,LIPID,AND CMP Result Comment: mL/m in/1.73m2 CKD-EPI Creatinine Equation (2020) Performed By: #### L 501.4700, L3890.6202, L101.9900, L3890.6301, L3890.6102, L506.1001, L3400.8000, L500.4050, L100.0100, L501.6710, L500.4100 #### [facility] [address] [place], [address] Globulin (S) [Mass/Vol] 2.8 g/dL Normal 2.2-4.2 [facility] Comment on above: Order Comment: DR. Ralph KIMBALL GETS RESULTS FOR CBCD,CRE,LIVER,ESR,CRP TRACYNOLING GETS RESULTS FOR PSA,LIPID,AND CMP Performed By: #### L 501.4700, L3890.6202, L101.9900, L3890.6301, L3890.6102, L506.1001, L3400.8000, L500.4050, L100.0100, L501.6710, L500.4100 #### [facility] [address] [place], [address] Glucose [Mass/Vol] 101 mg/dL High 70-99 [facility] Comment on above: Order Comment: DR. Ralph KIMBALL GETS RESULTS FOR CBCD,CRE,LIVER,ESR,CRP TRACYNOLING GETS RESULTS FOR PSA,LIPID,AND CMP Performed By: #### L 501.4700, L3890.6202, L101.9900, L3890.6301, L3890.6102, L506.1001, L3400.8000, L500.4050, L100.0100, L501.6710, L500.4100 #### [facility] [address] [place], [address] Potassium [Moles/Vol] 4.5 mmol/L Normal 3.3-5.1 [facility] Comment on above: Order Comment: DR. Ralph KIMBALL GETS RESULTS FOR CBCD,CRE,LIVER,ESR,CRP TRACYNOLING GETS RESULTS FOR PSA,LIPID,AND CMP Performed By: #### L 501.4700, L3890.6202, L101.9900, L3890.6301, L3890.6102, L506.1001, L3400.8000, L500.4050, L100.0100, L501.6710, L500.4100 #### [facility] [address] [place], [address] Sodium [Moles/Vol] 141 mmol/L Normal 133-145 [facility] Comment on above: Order Comment: DR. Ralph KIMBALL GETS RESULTS FOR CBCD,CRE,LIVER,ESR,CRP TRACYNOLING GETS RESULTS FOR PSA,LIPID,AND CMP Performed By: #### L 501.4700, L3890.6202, L101.9900, L3890.6301, L3890.6102, L506.1001, L3400.8000, L500.4050, L100.0100, L501.6710, L500.4100 #### [facility] [address] [place], [address] T PROT 7.1 g/dL Normal 5.9-8.4 [facility] Comment on above: Order Comment: DR. Ralph KIMBALL GETS RESULTS FOR CBCD,CRE,LIVER,ESR,CRP TRACYNOLING GETS RESULTS FOR PSA,LIPID,AND CMP Performed By: #### L 501.4700, L3890.6202, L101.9900, L3890.6301, L3890.6102, L506.1001, L3400.8000, L500.4050, L100.0100, L501.6710, L500.4100 #### [facility] [address] [place], [address] Urea nitrogen [Mass/Vol] 17 mg/dL Normal 4-19 [facility] Comment on above: Order Comment: DR. Ralph KIMBALL GETS RESULTS FOR CBCD,CRE,LIVER,ESR,CRP JAMES GETS RESULTS FOR PSA,LIPID,AND CMP Performed By: #### L 501.4700, L3890.6202, L101.9900, L3890.6301, L3890.6102, L506.1001, L3400.8000, L500.4050, L100.0100, L501.6710, L500.4100 #### [facility] [address] [place], [address] Eosinophil percentageOrdered By: KAVITHA NOLING on 04-23-2025 Eosinophils/100 WBC (Bld) 2.0 % 0-5 [facility] Erythrocyte Sed Rateon 04-23 SED RATE 2 mm/hr Normal 0-20 [facility] Comment on above: Performed By: #### L 501.4700, L3890.6202, L101.9900, L3890.6301, L3890.6102, L506.1001, L3400.8000, L500.4050, L100.0100, L501.6710, L500.4100 #### [facility] [address] [place], [address] Erythrocyte distribution wid th ratioOrdered By: KAVITHA NOLING on 04-23-2025 Erythrocyte distribution width (RBC) [Ratio] 13.5 % 11.6-14.6 [facility] Erythrocyte distribution wid th standard deviationOrdered By: KAVITHA NOLING on 04-23-2025 Erythrocyte distribution width (RBC) [Ratio] 46.8 fl High 35.1-43.9 [facility] Erythrocyte sedimentation ra teOrdered By: KAVITHA NOLING on 04-23-2025 ESR (Bld) [Velocity] 2 mm/h 0-20 [facility] Glomerular filtration rate ( GFR) estimation/1.73 sq m using serum, plasma, or whole bOrdered By: KAVITHA SOLANO on 04-23-2025 GFR/1.73 sq M.predicted among non-blacks MDRD (S/P/Bld) [Vol rate/Area] 88 mL/min/{1.73_m2} >60 [facility] Comment on above: mL/min/1.73m2 CKD-EP I Creatinine Equation (2020) Hematocrit Auto (Bld) [Volum e fraction]Ordered By: KAVITHA SOLANO on 04-23-2025 Hematocrit (Bld) [Volume fraction] 42.7 % 40-54 [facility] Hemoglobin measurementOrdere d By: KAVITHA SOLANO on 04-23-2025 Hemoglobin (Bld) [Mass/Vol] 14.3 g/dL 13.0-16.5 [facility] Immature granulocytes/100 WB C Auto (Bld)Ordered By: KAVITHA SOLANO on 04-23-2025 Immature granulocytes/100 WBC (Bld) 0.300 % 0.0-0.9 [facility] Comment on above: IG% - Immature Granu locytes (promyelocytes, myelocytes and metamyelocytes) > 1% indicates that a LEFT SHIFT is Present. LDL calc ser/plasOrdered By: KAVITHA SOLANO on 04-23-2025 Cholesterol in LDL [Mass/Vol] 105 mg/dL [facility] Comment on above: Hluigtffdo=653-899 m g/dL & Higher Swzn=815 mg/dL or greaterFriedwald Equation for LDL-C Laboratory - Chemistry and C hemistry - challengeOrdered By: KAVITHA SOLANO on 04-23-2025 AST [Catalytic activity/Vol] 33 U/L <38 [facility] Lipid Profileon 04-23-2025 CHOL:HDL 2.68 Normal [facility] Comment on above: Order Comment: DR. Ralph KIMBALL GETS RESULTS FOR CBCD,CRE,LIVER,ESR,CRP TRACYNOLING GETS RESULTS FOR PSA,LIPID,AND CMP Performed By: #### L 501.2060, L3890.6202, L101.9900, L3890.6301, L3890.6102, L506.1001, L3400.8000, L500.4050, L100.0100, L501.6710, L500.4100 #### [facility] [address] [place], [place], [phone] Cholesterol [Mass/Vol] 186 mg/dL Normal <=200 [facility] Comment on above: Order Comment: DR. Ralph KIMBALL GETS RESULTS FOR CBCD,CRE,LIVER,ESR,CRP TRACYNOLING GETS RESULTS FOR PSA,LIPID,AND CMP Result Comment: Chol esterol level, Desirable <200 mg/dL Borderline high cholesterol 200-239 mg/dL High cholesterol >=240 mg/dL Recommendations of the NCEP Adult Treatment Panel for the following risk-cutoff thresholds for the [place] population. Performed By: #### L 501.4700, L3890.6202, L101.9900, L3890.6301, L3890.6102, L506.1001, L3400.8000, L500.4050, L100.0100, L501.6710, L500.4100 #### [facility] [address] [facility] [place], [address] Cholesterol in HDL [Mass/Vol] 69 mg/dL Normal [facility] Comment on above: Order Comment: DR. Ralph KIMBALL GETS RESULTS FOR CBCD,CRE,LIVER,ESR,CRP TRACYNOLING GETS RESULTS FOR PSA,LIPID,AND CMP Result Comment: [place] Cholesterol Education Program (NCEP) guidelines: <40 mg/dL: Low HDL-cholesterol (major risk factor for CHD) >= 60 mg/dL: High HDL-cholesterol (negative risk factor for CHD) HDL-cholesterol is affected by a number of factors, e.g. smoking, exercise, hormones, sex and age. Performed By: #### L 501.4700, L3890.6202, L101.9900, L3890.6301, L3890.6102, L506.1001, L3400.8000, L500.4050, L100.0100, L501.6710, L500.4100 #### [facility] [address] [place], [address] Cholesterol in LDL [Mass/Vol] 105 mg/dL Normal [facility] Comment on above: Order Comment: DR. Ralph KIMBALL GETS RESULTS FOR CBCD,CRE,LIVER,ESR,CRP TRACYNOLING GETS RESULTS FOR PSA,LIPID,AND CMP Result Comment: Bord vsfezs=516-876 mg/dL Higher Yylc=677 mg/dL or greater Friedwald Equation for LDL-C Performed By: #### L 501.4700, L3890.6202, L101.9900, L3890.6301, L3890.6102, L506.1001, L3400.8000, L500.4050, L100.0100, L501.6710, L500.4100 #### [facility] [address] [place], [address] Cholesterol in VLDL [Mass/Vol] 12 mg/dL Normal 5-40 [facility] Comment on above: Order Comment: DR. Ralph KIMBALL GETS RESULTS FOR CBCD,CRE,LIVER,ESR,CRP TRACYNOLING GETS RESULTS FOR PSA,LIPID,AND CMP Performed By: #### L 501.4700, L3890.6202, L101.9900, L3890.6301, L3890.6102, L506.1001, L3400.8000, L500.4050, L100.0100, L501.6710, L500.4100 #### [facility] [address] [place], [address] Triglyceride [Mass/Vol] 59 mg/dL Normal [facility] Comment on above: Order Comment: DR. Ralph KIMBALL GETS RESULTS FOR CBCD,CRE,LIVER,ESR,CRP TRACYNOLING GETS RESULTS FOR PSA,LIPID,AND CMP Result Comment: The drugs N-Acetylcysteine and Metamizole may falsely depress this assay. Normal range: <150 mg/dL Borderline High: 150-199 mg/dL High: 200-499 mg/dL Very High: >500 mg/dL Performed By: #### L 501.4700, L3890.6202, L101.9900, L3890.6301, L3890.6102, L506.1001, L3400.8000, L500.4050, L100.0100, L501.6710, L500.4100 #### [facility] [address] [place], [address] MCV (mean corpuscular volume ) determinationOrdered By: KAVITHA NOJOSE on 04-23-2025 MCV (RBC) [Entitic vol] 94.5 fL High 80-94 [facility] Mean corpuscular hemoglobin (MCH) determinationOrdered By: KAVITHA NOLING on 04-23-2025 MCH (RBC) [Entitic mass] 31.6 pg 27.0-32.0 [facility] Mean corpuscular hemoglobin concentration (MCHC) determinationOrdered By: KAVITHA NOLING on 04-23-2025 MCHC (RBC) [Mass/Vol] 33.5 g/dL 32-36 [facility] Mean platelet volume determi nationOrdered By: KAVITHA NOLING on 04-23-2025 Platelet mean volume (Bld) [Entitic vol] 10.6 fL 6.2-12.0 [facility] Monocyte percentageOrdered B y: KAVITHA NOLING on 04-23-2025 Monocytes/100 WBC (Bld) 9.3 % 0-10 [facility] Neutrophil percentageOrdered By: KAVITHA NOLING on 04-23-2025 Neutrophils/100 WBC (Bld) 72.0 % High 47-70 [facility] Nucleated red blood cell per centageOrdered By: KAVITHA NOJOSE on 04-23-2025 Nucleated RBC/100 WBC (Bld) [Ratio] 0 % 0-5 [facility] PSA,Total - Annual Screenon 04-23-2025 PSA,TOT SCREEN 0.52 ng/mL Normal 0.02-4.00 [facility] Comment on above: Order Comment: DR. Ralph KIMBALL GETS RESULTS FOR CBCD,CRE,LIVER,ESR,CRP TRACYRUSS GETS RESULTS FOR PSA,LIPID,AND CMP Result Comment: This test was performed using the [facility] tPSA method. Measured values of a patient??sample can vary depending on the testing procedure used. PSA values determined on patient samples by different testing procedures cannot be used interchangeably. If there is a change in PSA assays while monitoring therapy, sequential testing should be performed to confirm baseline values. Performed By: #### L 501.4700, L3890.6202, L101.9900, L3890.6301, L3890.6102, L506.1001, L3400.8000, L500.4050, L100.0100, L501.6710, L500.4100 #### [facility] [address] [place], [place], [id number] Platelet countOrdered By: SHAMIR SOLANO on 04-23-2025 Platelets (Bld) [#/Vol] 228 10*3/uL 150-450 [facility] Potassium measurement (mass/ volume)Ordered By: KAVITHA SOLANO on 04-23-2025 Potassium (Unsp spec) [Mass/Vol] 4.5 mmol/L 3.3-5.1 [facility] RBC Auto (Bld) [#/Vol]Ordere d By: KAVITHA SOLANO on 04-23-2025 RBC (Bld) [#/Vol] 4.52 10*6/uL Low 4.6-6.2 [facility] Screening total cholesterol/ high density lipoprotein (HDL) cholesterol ratioOrdered By: KAVITHA SOLANO on 04-23-2025 Cholesterol.total/Neela sterol in HDL [Mass ratio] 2.68 {ratio} [facility] Serum creatinine measurement (mass/volume)Ordered By: KAVITHA SOLANO on 04-23-2025 Creatinine [Mass/Vol] 1.00 mg/dL 0.70-1.20 [facility] Serum globulin measurementOr dered By: KAVITHA SOLANO on 04-23-2025 Globulin (S) [Mass/Vol] 2.8 g/dL 2.2-4.2 [facility] Serum glucose measurement (m ass/volume)Ordered By: KAVITHA SOLANO on 04-23-2025 Glucose [Mass/Vol] 101 mg/dL High 70-99 [facility] Serum or plasma C reactive p rotein measurement (mass/volume)Ordered By: KAVITHA SOLANO on 04-23-2025 CRP [Mass/Vol] mg/L 0.0-3.0 [facility] Serum or plasma alanine charles otransferase (ALT) measurementOrdered By: [facility] ALT [Catalytic activity/Vol] 26 U/L <47 [facility] Serum or plasma albumin minerva urement (mass/volume)Ordered By: KAVITHA RUSS on 04-23-2025 Albumin [Mass/Vol] 4.3 g/dL 3.5-5.0 [facility] Serum or plasma albumin/glob ulin mass ratioOrdered By: [facility] 04-23-2025 Albumin/Globulin [Mass ratio] 1.5 {ratio} 0.9-2.4 [facility] Serum or plasma alkaline nikolay sphatase measurementOrdered By: [facility] 04-23-2025 ALP [Catalytic activity/Vol] 73 U/L 40-129 [facility] Serum or plasma calcium minerva urement (mass/volume)Ordered By: KAVITHA RUSS 04-23-2025 Calcium [Mass/Vol] 9.6 mg/dL 7.6-11.0 [facility] Serum or plasma cholesterol in HDL measurement (mass/volume)Ordered By: KAVITHALEIGH SOLANO 04-23-2025 Cholesterol in HDL [Mass/Vol] 69 mg/dL >40 [facility] Comment on above: National Cholesterol Education Program (NCEP) guidelines:<40 mg/dL: Low HDL-cholesterol (major risk factor for CHD)>= 60 mg/dL: High HDL-cholesterol (negative risk factor for CHD)HDL-cholesterol is affected by a number of factors, e.g. smoking, exercise, hormones, sex and age. Serum or plasma cholesterol measurement (mass/volume)Ordered By: KAVITHA SOLANO on 04-23-2025 Cholesterol [Mass/Vol] 186 mg/dL <201 [facility] Comment on above: Cholesterol level, D esirable <200 mg/dLBorderline high cholesterol 200-239 mg/dLHigh cholesterol >=240 mg/dLRecommendations of the NCEP Adult Treatment Panel for the following risk-cutoff thresholds for the [place] population. Serum or plasma urea nitroge n measurement (mass/volume)Ordered By: KAVITHA SOLANO on 04-23-2025 Urea nitrogen [Mass/Vol] 17 mg/dL 4-19 [facility] Sodium levelOrdered By: ELEONORA SOLANO on 04-23-2025 Sodium [Moles/Vol] 141 mmol/L 133-145 [facility] Total proteinOrdered By: JENNIE SOLANO on 04-23-2025 Protein [Mass/Vol] 7.1 g/dL 5.9-8.4 [facility] Triglycerides measurementOrd ered By: KAVITHA SOLANO on 04-23-2025 Triglyceride [Mass/Vol] 59 mg/dL <199 [facility] Comment on above: The drugs N-Acetylcy steine and Metamizole may falsely depress this assay. Normal range: <150 mg/dLBorderline High: 150-199 mg/dLHigh: 200-499 mg/dLVery High: >500 mg/dL Vitamin D,25 Hydroxyon 04-23 Vitamin D 25-OH 65.6 ng/mL Normal 30-100 [facility] Comment on above: Order Comment: DR. Ralph KIMBALL GETS RESULTS FOR CBCD,CRE,LIVER,ESR,CRP JAMES GETS RESULTS FOR PSA,LIPID,AND CMP Result Comment: [place] min D Status Deficiency: <20 ng/mL (50nmol/L) Insufficiency: 20-30 ng/mL (50-75 nmol/L) Sufficiency: 30-100 ng/mL (75-250 nmol/L) Toxicity: >100 ng/mL (>250 nmol/L) Performed By: #### L 501.4700, L3890.6202, L101.9900, L3890.6301, L3890.6102, L506.1001, L3400.8000, L500.4050, L100.0100, L501.6710, L500.4100 #### [facility] [address] [place], [address] White blood cell (WBC) count Ordered By: KAVITHA SOLANO on 04-23-2025 WBC (Bld) [#/Vol] 7.0 10*3/uL 4.4-11.0 [facility] CNOVon 02-22-2025 CNOV Office Visit (FAMAAR) ---- HOSSEIN PICHARDO ([id number]) 1965 [facility] Date Time Provider Department 02/22/25 8:40 AM [facility] your visit today, we recorded the following information about you: Temperature Pulse Respiration Blood pressure 97.2 degrees 68/minute 16/minute 140/88 Weight Height 89.8 kg 1.753 m Shi Todd MA 02/22/2025 2:01 PM Signed Could use BP recheck at end of appt. Shi Todd MA February 22, 2025 8:38 AM Kavitha Solano, LIQUOR CLERK.CAR REPAIRMAN 02/22/2025 9:11 AM Signed We discussed your recent lab results: - Your total cholesterol is 159, which is within the normal range. Your HDL is good, and your calculated LDL is 94, which is also acceptable. - Your hemoglobin is 13.3, which is slightly lower than your previous result of 15.5 but still within the normal range. You mentioned that you have been taking hmoq-rly-fybfwvk methylfolate, which may be helping to maintain your levels. We discussed your blood pressure: - Please continue monitoring your blood pressure at home. While it was borderline today, factors such as caffeine and lack of sleep may have contributed. Let us know if you notice any significant changes or if your readings remain elevated. We discussed your current medications: - Continue taking rosuvastatin as prescribed. You reported no issues with this medication. - Refills for tadalafil and Valtrex have been sent to [facility]. We discussed your overall health: - You reported no headaches, dizziness, chest pain, or shortness of breath. Please continue to monitor for any new or concerning symptoms and let us know if they arise. Next steps: - No additional follow-up or testing is required at this time. Please continue your current care plan and let us know if you have any concerns. Kavitha Solano, NICHOLE.CAR REPAIRMAN 02/22/2025 2:01 PM Signed Subjective Hossein Pichardo is a 59-year-old male with a history of hypercholesterolemi a, HTN, GERD, presenting for a follow-up visit. Hossein reports no current issues with heartburn and is tolerating rosuvastatin well. He requests refills for tadalafil and Valtrex. He denies experiencing cephalalgia, dizziness, chest pain, or dyspnea. He mentions consuming a significant amount of caffeine and chocolate milk the previous night, which he attributes to his elevated blood pressure readings. He also reports lack of sleep due to attending a concert in [place] with his parents. Head: (-) headache Cardiovascular: (-) chest pain Respiratory: (-) shortness of breath Gastrointestinal: (-) heartburn Neurological: (-) dizziness Objective Blood pressure 140/88, pulse 68, temperature 36.2 ?C (97.2 ?F), temperature source Temporal, resp. rate 16, height 175.3 cm (5' 9), weight 89.8 kg (198 lb), SpO2 98%. GENERAL: NAD, alert and oriented. SKIN: Unremarkable, no rash or skin lesions. HEAD: Normocephalic. EYES: PERRLA, EOMI, conjunctiva clear. EARS: External ears normal, grossly normal hearing NOSE/SINUSES: Nares normal. Septum midline. OROPHARYNX: MMM NECK: Supple LUNGS: Clear to auscultation bilaterally, no wheezes/rhonchi/ral es. HEART: Regular rate and rhythm, no murmurs. No ectopy. EXTREMITIES: Normal, no deformities, no skin discoloration, no edema. NEURO: Awake, alert and oriented x3, cranial nerves II-XII grossly intact, normal gait, no involuntary motions. Labs: (12/2024) - Lipid Panel: - Total Cholesterol: 159 mg/dL - HDL: 52 - Calculated LDL: 94 mg/dL - CBC: - Hemoglobin: 13.3 g/dL Assessment AND Plan 1. Hyperlipidemia, unspecified hyperlipidemia type (E78.5) Clinically stable on rosuvastatin. Recent lipid panel from December shows total cholesterol at 159 mg/dL, HDL 52, and calculated LDL at 94 mg/dL. - Continue rosuvastatin therapy. - Ordered repeat lipid panel in 6 months. 2. Primary hypertension (I10) Blood pressure readings are borderline elevated, possibly due to recent caffeine intake and lack of sleep. - Monitor blood pressure at home. Notify if running consistently > 139/89 3. 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 - Refilled tadalafil prescription. 4. Vitamin D deficiency (E55.9) Clinically stable. 5. Herpes simplex virus (HSV) infection (B00.9) Stable on current Valtrex therapy. - Refilled Valtrex prescription. 6. Screening PSA (prostate specific antigen) (Z12.5) PSA ordered to be drawn in 6 months Recording using [employer] software for draft documentation of the visit was discussed with the patient/authorized cash application representative; all questions welcomed and answered. Patient/authorized cash application representative agreed to proceed Referring Provider: KAVITHA SOLANO [[id number]] Allergies As of Date: 02/22/2025 Noted Allergy Reaction CEPHALEXIN 03/11/2017 4 - Hives 2 - Rash VANCOMYCIN 12/10/2018 7 - Swelling 18 - Angioedem (more content not included)... Normal [facility] Quantiferon TB-Gold+on 12-29 QFT MITOGEN CLINT > 10.00 Normal . [facility] Comment on above: Performed By: #### L 501.4700, L3890.6202, L101.9900, L3890.6301, L3890.6102, L506.1001, L3400.8000, L500.4050, L100.0100, L501.6710, L500.4100 #### [facility] [address] [place], [place], [id number] QFT NIL VALUE 0 IU/mL Normal . [facility] Comment on above: Performed By: #### L 501.4700, L3890.6202, L101.9900, L3890.6301, L3890.6102, L506.1001, L3400.8000, L500.4050, L100.0100, L501.6710, L500.4100 #### [facility] [address] [place], [place], [phone] QFT TB GOLD+ Comment Normal . [facility] Comment on above: Result Comment: Ace tiFERON-TB Gold Plus is a qualitative indirect test for M tuberculosis infection (including disease) and is intended for use in conjunction with risk assessment, radiography, and other medical and diagnostic evaluations. The QuantiFERON-TB Gold Plus result is determined by subtracting the Nil value from either TB antigen (Ag) value. The Mitogen tube serves as a control for the test. Performed By: #### L 501.4700, L3890.6202, L101.9900, L3890.6301, L3890.6102, L506.1001, L3400.8000, L500.4050, L100.0100, L501.6710, L500.4100 #### [facility] [address] [facility] [place], [address] QFT TB POS CRIT Negative Normal Negative [facility] Comment on above: Result Comment: No r esponse to M tuberculosis antigens detected. Infection with M tuberculosis is unlikely, but high risk individuals should be considered for additional testing (ATS/IDSA/CDC Clinical Practice Guidelines, 2017). The reference range is an Antigen minus Nil result of <0.35 IU/mL. The specimen received for QuantiFERON testing was incubated by the ordering institution. Specific procedures outlined in our Directory of Services and in the package insert for the QuantiFERON Gold (In Tube) test must be followed to enable for proper stimulation of cells for the production of interferon gamma. Chemiluminescence immunoassay methodology Performed at: [facility] [address] [id number] [place] Laboratory Technician: Michael Irby PhD, Phone: [phone] Performed By: #### L 501.4700, L3890.6202, L101.9900, L3890.6301, L3890.6102, L506.1001, L3400.8000, L500.4050, L100.0100, L501.6710, L500.4100 #### [facility] [address] [facility] [place], [address] QFT TB1+ AG CLINT 0 IU/mL Normal . [facility] Comment on above: Performed By: #### L 501.4700, L3890.6202, L101.9900, L3890.6301, L3890.6102, L506.1001, L3400.8000, L500.4050, L100.0100, L501.6710, L500.4100 #### [facility] [address] [place], [place], [phone] QFT TB2+ AG CLINT 0.02 IU/mL Normal . [facility] Comment on above: Performed By: #### L 501.4700, L3890.6202, L101.9900, L3890.6301, L3890.6102, L506.1001, L3400.8000, L500.4050, L100.0100, L501.6710, L500.4100 #### [facility] [address] [place], [place], [phone] Absolute neutrophil counton 12-26-2024 Neutrophils (Bld) [#/Vol] 8.5 10*3/uL High 2.0-7.7 [facility] Anion gap in Serum or Plasma on 12-26-2024 Anion gap [Moles/Vol] 14 mmol/L 5-15 [facility] BUN/creatinine ratioon 12-26 Urea nitrogen/Creatinine [Mass ratio] 22.4 mg/mg High 10-20 [facility] Basophil percentageon 2024 Basophils/100 WBC (Bld) 0.3 % 0-1 [facility] Bilirubin directon 5 Bilirubin.direct [Mass/Vol] 0.19 mg/dL 0.00-0.30 [facility] Bilirubin, Directon 12-27-19 25 Bilirubin.direct [Mass/Vol] 0.19 mg/dL Normal 0.00-0.30 [facility] Comment on above: Performed By: #### L 501.4700, L3890.6202, L101.9900, L3890.6301, L3890.6102, L506.1001, L3400.8000, L500.4050, L100.0100, L501.6710, L500.4100 #### [facility] [address] [place], [address] Bilirubin, totalon 12-26- Bilirubin [Mass/Vol] 0.34 mg/dL 0.00-1.30 [facility] CBC W/Diff, Automatedon Absolute Lymph 1.10 X10 3/uL Normal 0.83-4.51 [facility] Comment on above: Performed By: #### L 501.4700, L3890.6202, L101.9900, L3890.6301, L3890.6102, L506.1001, L3400.8000, L500.4050, L100.0100, L501.6710, L500.4100 #### [facility] [address] [place], [address] Absolute Neut 8.5 X10 3/uL High 2.0-7.7 [facility] Comment on above: Performed By: #### L 501.4700, L3890.6202, L101.9900, L3890.6301, L3890.6102, L506.1001, L3400.8000, L500.4050, L100.0100, L501.6710, L500.4100 #### [facility] [address] [place], [address] Basophils/100 WBC (Bld) 0.3 % Normal 0-1 [facility] Comment on above: Performed By: #### L 501.4700, L3890.6202, L101.9900, L3890.6301, L3890.6102, L506.1001, L3400.8000, L500.4050, L100.0100, L501.6710, L500.4100 #### [facility] [address] [place], [address] Eosinophils/100 WBC (Bld) 1.8 % Normal 0-5 [facility] Comment on above: Performed By: #### L 501.4700, L3890.6202, L101.9900, L3890.6301, L3890.6102, L506.1001, L3400.8000, L500.4050, L100.0100, L501.6710, L500.4100 #### [facility] [address] [place], [place], [phone] (835) Erythrocyte distribution width (RBC) [Ratio] 12.6 % Normal 11.6-14.6 [facility] Comment on above: Performed By: #### L 501.4700, L3890.6202, L101.9900, L3890.6301, L3890.6102, L506.1001, L3400.8000, L500.4050, L100.0100, L501.6710, L500.4100 #### [facility] [address] [place], [place], [phone] (492) Hematocrit (Bld) [Volume fraction] 40.1 % Normal 40-54 [facility] Comment on above: Performed By: #### L 501.4700, L3890.6202, L101.9900, L3890.6301, L3890.6102, L506.1001, L3400.8000, L500.4050, L100.0100, L501.6710, L500.4100 #### [facility] [address] [place], [place], [phone] (470) Hemoglobin (Bld) [Mass/Vol] 13.3 g/dL Normal 13.0-16.5 [facility] Comment on above: Performed By: #### L 501.4700, L3890.6202, L101.9900, L3890.6301, L3890.6102, L506.1001, L3400.8000, L500.4050, L100.0100, L501.6710, L500.4100 #### [facility] [address] [facility] [place], [address] IG% 0.300 Normal 0.0-0.9 [facility] Comment on above: Result Comment: IG% - Immature Granulocytes (promyelocytes, myelocytes and metamyelocytes) > 1% indicates that a LEFT SHIFT is Present. Performed By: #### L 501.4700, L3890.6202, L101.9900, L3890.6301, L3890.6102, L506.1001, L3400.8000, L500.4050, L100.0100, L501.6710, L500.4100 #### [facility] [address] [place], [address] Lymphocytes/100 WBC (Bld) 10.3 % Low 19-41 [facility] Comment on above: Performed By: #### L 501.4700, L3890.6202, L101.9900, L3890.6301, L3890.6102, L506.1001, L3400.8000, L500.4050, L100.0100, L501.6710, L500.4100 #### [facility] [address] [place], [address] MCH (RBC) [Entitic mass] 31.9 pg Normal 27.0-32.0 [facility] Comment on above: Performed By: #### L 501.4700, L3890.6202, L101.9900, L3890.6301, L3890.6102, L506.1001, L3400.8000, L500.4050, L100.0100, L501.6710, L500.4100 #### [facility] [address] [facility] [place], [address] MCHC (RBC) [Mass/Vol] 33.2 g/dL Normal 32-36 [facility] Comment on above: Performed By: #### L 501.4700, L3890.6202, L101.9900, L3890.6301, L3890.6102, L506.1001, L3400.8000, L500.4050, L100.0100, L501.6710, L500.4100 #### [facility] [address] [place], [address] MCV (RBC) [Entitic vol] 96.2 fL High 80-94 [facility] Comment on above: Performed By: #### L 501.4700, L3890.6202, L101.9900, L3890.6301, L3890.6102, L506.1001, L3400.8000, L500.4050, L100.0100, L501.6710, L500.4100 #### [facility] [address] [place], [place], [phone] (853) Monocytes/100 WBC (Bld) 7.6 % Normal 0-10 [facility] Comment on above: Performed By: #### L 501.4700, L3890.6202, L101.9900, L3890.6301, L3890.6102, L506.1001, L3400.8000, L500.4050, L100.0100, L501.6710, L500.4100 #### [facility] [address] [place], [address] Neutrophils/100 WBC (Bld) 79.7 % High 47-70 [facility] Comment on above: Performed By: #### L 501.4700, L3890.6202, L101.9900, L3890.6301, L3890.6102, L506.1001, L3400.8000, L500.4050, L100.0100, L501.6710, L500.4100 #### [facility] [address] [place], [address] Nucleated RBC (Bld) [#/Vol] 0 10*3/uL Normal 0-5 [facility] Comment on above: Performed By: #### L 501.4700, L3890.6202, L101.9900, L3890.6301, L3890.6102, L506.1001, L3400.8000, L500.4050, L100.0100, L501.6710, L500.4100 #### [facility] [address] [place], [address] Platelet mean volume (Bld) [Entitic vol] 9.8 fL Normal 6.2-12.0 [facility] Comment on above: Performed By: #### L 501.4700, L3890.6202, L101.9900, L3890.6301, L3890.6102, L506.1001, L3400.8000, L500.4050, L100.0100, L501.6710, L500.4100 #### [facility] [address] [place], [address] Platelets (Bld) [#/Vol] 297 10*3/uL Normal 150-450 [facility] Comment on above: Performed By: #### L 501.4700, L3890.6202, L101.9900, L3890.6301, L3890.6102, L506.1001, L3400.8000, L500.4050, L100.0100, L501.6710, L500.4100 #### [facility] [address] [place], [address] RBC (Bld) [#/Vol] 4.17 10*6/uL Low 4.6-6.2 [facility] Comment on above: Performed By: #### L 501.4700, L3890.6202, L101.9900, L3890.6301, L3890.6102, L506.1001, L3400.8000, L500.4050, L100.0100, L501.6710, L500.4100 #### [facility] [address] [place], [address] RDW SD 44.2 fl High 35.1-43.9 [facility] Comment on above: Performed By: #### L 501.4700, L3890.6202, L101.9900, L3890.6301, L3890.6102, L506.1001, L3400.8000, L500.4050, L100.0100, L501.6710, L500.4100 #### [facility] [address] [place], [address] WBC (Bld) [#/Vol] 10.7 10*3/uL Normal 4.4-11.0 [facility] Comment on above: Performed By: #### L 501.4700, L3890.6202, L101.9900, L3890.6301, L3890.6102, L506.1001, L3400.8000, L500.4050, L100.0100, L501.6710, L500.4100 #### [facility] [address] [place], [address] CRPon 12-26-2024 C-REACTIVE PROT 58.00 mg/L High 0.0-3.0 [facility] Comment on above: Performed By: #### L 501.4700, L3890.6202, L101.9900, L3890.6301, L3890.6102, L506.1001, L3400.8000, L500.4050, L100.0100, L501.6710, L500.4100 #### [facility] [address] [facility] [place], [address] CRP [Mass/Vol]on 12-26-2024 C-Reactive Protein Extended Range 58.00 mg/L High 0.0-3.0 [facility] Calculated very low density lipoprotein (VLDL) cholesterol measurementon 12-26-2024 VLDL Cholesterol 13 mg/dL 5-40 [facility] Carbon dioxide, total [Moles /volume] in Central venous bloodon 12-26-2024 CO2 [Moles/Vol] 24.0 mmol/L 21.0-32.0 [facility] Chloride assayon 12-26-2024 Chloride [Moles/Vol] 104 mmol/L 98-108 [facility] Comprehensive Metabolic Prof ilon 12-26-2024 Albumin [Mass/Vol] 3.7 g/dL Normal 3.5-5.0 [facility] Comment on above: Performed By: #### L 501.4700, L3890.6202, L101.9900, L3890.6301, L3890.6102, L506.1001, L3400.8000, L500.4050, L100.0100, L501.6710, L500.4100 #### [facility] [address] [place], [address] Albumin/Globulin [Mass ratio] 1.4 {ratio} Normal 0.9-2.4 [facility] Comment on above: Performed By: #### L 501.4700, L3890.6202, L101.9900, L3890.6301, L3890.6102, L506.1001, L3400.8000, L500.4050, L100.0100, L501.6710, L500.4100 #### [facility] [address] [place], [place], [phone] ALK PHOS 61 U/L Normal 40-129 [facility] Comment on above: Performed By: #### L 501.4700, L3890.6202, L101.9900, L3890.6301, L3890.6102, L506.1001, L3400.8000, L500.4050, L100.0100, L501.6710, L500.4100 #### [facility] [address] [place], [place], [phone] ALT [Catalytic activity/Vol] 40 U/L Normal <=46 [facility] Comment on above: Performed By: #### L 501.4700, L3890.6202, L101.9900, L3890.6301, L3890.6102, L506.1001, L3400.8000, L500.4050, L100.0100, L501.6710, L500.4100 #### [facility] [address] [place], [place], [phone] (966) AST [Catalytic activity/Vol] 29 U/L Normal <=37 [facility] Comment on above: Performed By: #### L 501.4700, L3890.6202, L101.9900, L3890.6301, L3890.6102, L506.1001, L3400.8000, L500.4050, L100.0100, L501.6710, L500.4100 #### [facility] [address] [place], [address] Bilirubin [Mass/Vol] 0.34 mg/dL Normal 0.00-1.30 [facility] Comment on above: Performed By: #### L 501.4700, L3890.6202, L101.9900, L3890.6301, L3890.6102, L506.1001, L3400.8000, L500.4050, L100.0100, L501.6710, L500.4100 #### [facility] [address] [place], [place], [phone] (274) BUN/CRE 22.4 RATIO High 10-20 [facility] Comment on above: Performed By: #### L 501.4700, L3890.6202, L101.9900, L3890.6301, L3890.6102, L506.1001, L3400.8000, L500.4050, L100.0100, L501.6710, L500.4100 #### [facility] [address] [place], [address] (625) Calcium [Mass/Vol] 8.8 mg/dL Normal 7.6-11.0 [facility] Comment on above: Performed By: #### L 501.4700, L3890.6202, L101.9900, L3890.6301, L3890.6102, L506.1001, L3400.8000, L500.4050, L100.0100, L501.6710, L500.4100 #### [facility] [address] [place], [address] Chloride [Moles/Vol] 104 mmol/L Normal 98-108 [facility] Comment on above: Performed By: #### L 501.4700, L3890.6202, L101.9900, L3890.6301, L3890.6102, L506.1001, L3400.8000, L500.4050, L100.0100, L501.6710, L500.4100 #### [facility] [address] [place], [place], [phone] (595) CO2 [Moles/Vol] 24.0 mmol/L Normal 21.0-32.0 [facility] Comment on above: Performed By: #### L 501.4700, L3890.6202, L101.9900, L3890.6301, L3890.6102, L506.1001, L3400.8000, L500.4050, L100.0100, L501.6710, L500.4100 #### [facility] [address] [place], [place], [phone] (146) Creatinine [Mass/Vol] 0.98 mg/dL Normal 0.70-1.20 [facility] Comment on above: Performed By: #### L 501.4700, L3890.6202, L101.9900, L3890.6301, L3890.6102, L506.1001, L3400.8000, L500.4050, L100.0100, L501.6710, L500.4100 #### [facility] [address] [place], [place], [phone] (494) GAP 14 Normal 5-15 [facility] Comment on above: Performed By: #### L 501.4700, L3890.6202, L101.9900, L3890.6301, L3890.6102, L506.1001, L3400.8000, L500.4050, L100.0100, L501.6710, L500.4100 #### [facility] [address] [place], [place], [phone] (184) GFR/1.73 sq M.predicted among non-blacks MDRD (S/P/Bld) [Vol rate/Area] 90 mL/min/{1.73_m2} Normal >60 [facility] Comment on above: Result Comment: mL/m in/1.73m2 CKD-EPI Creatinine Equation (2020) Performed By: #### L 501.4700, L3890.6202, L101.9900, L3890.6301, L3890.6102, L506.1001, L3400.8000, L500.4050, L100.0100, L501.6710, L500.4100 #### [facility] [address] [place], [place], [phone] (247) Globulin (S) [Mass/Vol] 2.7 g/dL Normal 2.2-4.2 [facility] Comment on above: Performed By: #### L 501.4700, L3890.6202, L101.9900, L3890.6301, L3890.6102, L506.1001, L3400.8000, L500.4050, L100.0100, L501.6710, L500.4100 #### [facility] [address] [place], [place], [phone] (403) Glucose [Mass/Vol] 100 mg/dL High 70-99 [facility] Comment on above: Performed By: #### L 501.4700, L3890.6202, L101.9900, L3890.6301, L3890.6102, L506.1001, L3400.8000, L500.4050, L100.0100, L501.6710, L500.4100 #### [facility] [address] [place], [address] Potassium [Moles/Vol] 4.6 mmol/L Normal 3.3-5.1 [facility] Comment on above: Performed By: #### L 501.4700, L3890.6202, L101.9900, L3890.6301, L3890.6102, L506.1001, L3400.8000, L500.4050, L100.0100, L501.6710, L500.4100 #### [facility] [address] [place], [place], [phone] Sodium [Moles/Vol] 142 mmol/L Normal 133-145 [facility] Comment on above: Performed By: #### L 501.4700, L3890.6202, L101.9900, L3890.6301, L3890.6102, L506.1001, L3400.8000, L500.4050, L100.0100, L501.6710, L500.4100 #### [facility] [address] [place], [place], [phone] (122) T PROT 6.5 g/dL Normal 5.9-8.4 [facility] Comment on above: Performed By: #### L 501.4700, L3890.6202, L101.9900, L3890.6301, L3890.6102, L506.1001, L3400.8000, L500.4050, L100.0100, L501.6710, L500.4100 #### [facility] [address] [place], [place], [phone] (032) Urea nitrogen [Mass/Vol] 22 mg/dL High 4-19 [facility] Comment on above: Performed By: #### L 501.4700, L3890.6202, L101.9900, L3890.6301, L3890.6102, L506.1001, L3400.8000, L500.4050, L100.0100, L501.6710, L500.4100 #### [facility] [address] [place], [address] Eosinophil percentageon Eosinophils/100 WBC (Bld) 1.8 % 0-5 [facility] Erythrocyte Sed Rateon 12-26 SED RATE 11 mm/hr Normal 0-20 [facility] Comment on above: Performed By: #### L 501.4700, L3890.6202, L101.9900, L3890.6301, L3890.6102, L506.1001, L3400.8000, L500.4050, L100.0100, L501.6710, L500.4100 #### [facility] [address] [place], [place], [id number] Erythrocyte distribution wid th (RBC) [Ratio]on 12-26-2024 Erythrocyte distribution width (RBC) [Entitic vol] 44.2 fL High 35.1-43.9 [facility] Erythrocyte distribution wid th ratioon 12-26-2024 Erythrocyte distribution width (RBC) [Ratio] 12.6 % 11.6-14.6 [facility] Erythrocyte sedimentation ra rima 12-26-2024 ESR (Bld) [Velocity] 11 mm/h 0-20 [facility] GFR/1.73 sq M.predicted ginette g non-blacks MDRD (S/P/Bld) [Vol rate/Area]on 12-26-2024 Estimated GFR (MDRD) Non-Af Amer 90 >60 [facility] Comment on above: mL/min/1.73m2 CKD-EP I Creatinine Equation (2020) HBV surface Ab Ql (S)on Hepatitis B Surface Antibody REAC [facility] Comment on above: <8.5 mIU/mL: Non-Marily ctive8.5<= x <11.5 mIU/mL: Indeterminate>=11.5 mIU/mL: Reactive Non Reactive: Inconsistent with immunity less than <10 mIU/mL Reactive: Consistent with immunity greater than or equal to 10 mIU/mL HBV surface Ag Ql (S)on Hepatitis B Surface Antigen Non-Reactive Nonreactive [facility] Comment on above: Reactive: Presumptiv e evidence of HBV. Repeatedly reactive samples must be confirmed using a neutralization test ([employer] HBsAg Confirmatory Test)Non-Reactive: HBsAg not detected; does not exclude the possibility of exposure to HBV Hematocrit Auto (Bld) [Volum e fraction]on 12-26-2024 Hematocrit (Bld) [Volume fraction] 40.1 % 40-54 [facility] Hemoglobin measurementon Hemoglobin (Bld) [Mass/Vol] 13.3 g/dL 13.0-16.5 [facility] Hepatitis B Surface Antibody on 12-26-2024 HEP B Surf Ab REAC Normal [facility] Comment on above: Result Comment: <8.5 mIU/mL: Non-Reactive 8.5<= x <11.5 mIU/mL: Indeterminate >=11.5 mIU/mL: Reactive Non Reactive: Inconsistent with immunity less than <10 mIU/mL Reactive: Consistent with immunity greater than or equal to 10 mIU/mL Performed By: #### L 501.4700, L3890.6202, L101.9900, L3890.6301, L3890.6102, L506.1001, L3400.8000, L500.4050, L100.0100, L501.6710, L500.4100 #### [facility] [address] [place], [address] Hepatitis C Antibodyon 12-26 Hepatitis C Ab Non-Reactive Normal Nonreactive [facility] Comment on above: Result Comment: Reac tive: Presumptive evidence of antibodies to HCV. Follow CDC recommendations for supplemental testing. Non-Reactive: Antibodies to HCV were not detected; does not exclude the possibility of exposure to HCV Reactive Results are presumptive evidence of antibodies to HCV. Follow CDC recommendations for supplemental testing. Order confirmation testing: HCV Quant by PCR testing - HCVPCR lc#[id number] Non Reactive: < 0.8 Equivocal: >/= 0.8 to < 1.0 Reactive: >/= 1.0 The CDC requires that a reactive/equivocal HCV antibody result be sent out for confirmation. HCV Quant by PCR testing. Performed By: #### L 501.4700, L3890.6202, L101.9900, L3890.6301, L3890.6102, L506.1001, L3400.8000, L500.4050, L100.0100, L501.6710, L500.4100 #### [facility] [address] [place], [place], [address] Hepatitis C antibodyon 12-26 Hepatitis C Antibody Non-Reactive Nonreactive [facility] Comment on above: Reactive: Presumptiv e evidence of antibodies to HCV. Follow CDC recommendations for supplemental testing.Non-Reactive: Antibodies to HCV were not detected; does not exclude the possibility of exposure to HCVReactive Results are presumptive evidence of antibodies to HCV. Follow CDC recommendations for supplemental testing.Order confirmation testing: HCV Quant by PCR testing - HCVPCR lc#[id number] Non Reactive: < 0.8 Equivocal: >/= 0.8 to < 1.0 Reactive: >/= 1.0The CDC requires that a reactive/equivocal HCV antibody result be sent out for confirmation. HCV Quant by PCR testing. Immature granulocytes/100 WB C Auto (Bld)on 12-26-2024 Immature granulocytes/100 WBC (Bld) 0.300 % 0.0-0.9 [facility] Comment on above: IG% - Immature Granu locytes (promyelocytes, myelocytes and metamyelocytes) > 1% indicates that a LEFT SHIFT is Present. L3890.6102on 12-26-2024 HEP B Surf Ag Non-Reactive Normal Nonreactive [facility] Comment on above: Result Comment: Reac tive: Presumptive evidence of HBV. Repeatedly reactive samples must be confirmed using a neutralization test ([employer] HBsAg Confirmatory Test) Non-Reactive: HBsAg not detected; does not exclude the possibility of exposure to HBV Performed By: #### L 501.4700, L3890.6202, L101.9900, L3890.6301, L3890.6102, L506.1001, L3400.8000, L500.4050, L100.0100, L501.6710, L500.4100 #### [facility] [address] [place], [place], [phone] (550) LDL calc ser/plason 12-27-19 25 LDL Cholesterol, Calculated 94 mg/dL [facility] Comment on above: Dqlvmqgxlu=935-627 m g/dL & Higher Krhp=734 mg/dL or greater Laboratory - Chemistry and C hemistry - challengeon 12-26-2024 AST [Catalytic activity/Vol] 29 U/L <38 [facility] Lipid Profileon 12-26-2024 CHOL:HDL 3.07 Normal [facility] Comment on above: Performed By: #### L 501.4700, L3890.6202, L101.9900, L3890.6301, L3890.6102, L506.1001, L3400.8000, L500.4050, L100.0100, L501.6710, L500.4100 #### [facility] [address] [place], [address] (124) Cholesterol [Mass/Vol] 159 mg/dL Normal <=200 [facility] Comment on above: Result Comment: Chol esterol level, Desirable <200 mg/dL Borderline high cholesterol 200-239 mg/dL High cholesterol >=240 mg/dL Recommendations of the NCEP Adult Treatment Panel for the following risk-cutoff thresholds for the [place] population. Performed By: #### L 501.4700, L3890.6202, L101.9900, L3890.6301, L3890.6102, L506.1001, L3400.8000, L500.4050, L100.0100, L501.6710, L500.4100 #### [facility] [address] [place], [place], [phone] (691) Cholesterol in HDL [Mass/Vol] 52 mg/dL Normal [facility] Comment on above: Result Comment: [place] onal Cholesterol Education Program (NCEP) guidelines: <40 mg/dL: Low HDL-cholesterol (major risk factor for CHD) >= 60 mg/dL: High HDL-cholesterol (negative risk factor for CHD) HDL-cholesterol is affected by a number of factors, e.g. smoking, exercise, hormones, sex and age. Performed By: #### L 501.4700, L3890.6202, L101.9900, L3890.6301, L3890.6102, L506.1001, L3400.8000, L500.4050, L100.0100, L501.6710, L500.4100 #### [facility] [address] [place], [address] Cholesterol in LDL [Mass/Vol] 94 mg/dL Normal [facility] Comment on above: Result Comment: Bord yrvxey=908-725 mg/dL Higher Mpvb=146 mg/dL or greater Performed By: #### L 501.4700, L3890.6202, L101.9900, L3890.6301, L3890.6102, L506.1001, L3400.8000, L500.4050, L100.0100, L501.6710, L500.4100 #### [facility] [address] [place], [address] Cholesterol in VLDL [Mass/Vol] 13 mg/dL Normal 5-40 [facility] Comment on above: Performed By: #### L 501.4700, L3890.6202, L101.9900, L3890.6301, L3890.6102, L506.1001, L3400.8000, L500.4050, L100.0100, L501.6710, L500.4100 #### [facility] [address] [place], [address] Triglyceride [Mass/Vol] 64 mg/dL Normal [facility] Comment on above: Result Comment: The drugs N-Acetylcysteine and Metamizole may falsely depress this assay. Normal range: <150 mg/dL Borderline High: 150-199 mg/dL High: 200-499 mg/dL Very High: >500 mg/dL Performed By: #### L 501.4700, L3890.6202, L101.9900, L3890.6301, L3890.6102, L506.1001, L3400.8000, L500.4050, L100.0100, L501.6710, L500.4100 #### [facility] [address] [place], [address] Lymphocytes Auto (Unsp spec) [#/Vol]on 12-26-2024 Lymphocytes (Bld) [#/Vol] 1.10 10*3/uL 0.83-4.51 [facility] Lymphocytes/100 WBC Auto (Un sp spec)on 12-26-2024 Lymphocytes/100 WBC (Bld) 10.3 % Low 19-41 [facility] MCV (mean corpuscular volume ) determinationon 12-26-2024 MCV (RBC) [Entitic vol] 96.2 fL High 80-94 [facility] Mean corpuscular hemoglobin (MCH) determinationon 12-26-2024 MCH (RBC) [Entitic mass] 31.9 pg 27.0-32.0 [facility] Mean corpuscular hemoglobin concentration (MCHC) determinationon 12-26-2024 MCHC (RBC) [Mass/Vol] 33.2 g/dL 32-36 [facility] Mean platelet volume determi nationon 12-26-2024 Platelet mean volume (Bld) [Entitic vol] 9.8 fL 6.2-12.0 [facility] Monocyte percentageon 2024 Monocytes/100 WBC (Bld) 7.6 % 0-10 [facility] Neutrophil percentageon 04-0 Neutrophils/100 WBC (Bld) 79.7 % High 47-70 [facility] Nucleated red blood cell per centageon 12-26-2024 Nucleated RBC/100 WBC (Bld) [Ratio] 0 % 0-5 [facility] Platelet counton 12-26-2024 Platelets (Bld) [#/Vol] 297 10*3/uL 150-450 [facility] Potassium (Unsp spec) [Mass/ Vol]on 12-26-2024 Potassium [Moles/Vol] 4.6 mmol/L 3.3-5.1 [facility] RBC Auto (Bld) [#/Vol]on RBC (Bld) [#/Vol] 4.17 10*6/uL Low 4.6-6.2 [facility] Screening total cholesterol/ high density lipoprotein (HDL) cholesterol ratioon 12-26-2024 Cholesterol.total/Neela sterol in HDL [Mass ratio] 3.07 {ratio} [facility] Serum creatinine measurement (mass/volume)on 12-26-2024 Creatinine [Mass/Vol] 0.98 mg/dL 0.70-1.20 [facility] Serum globulin measurementon 12-26-2024 Globulin (S) [Mass/Vol] 2.7 g/dL 2.2-4.2 [facility] Serum glucose measurement (m ass/volume)on 12-26-2024 Glucose [Mass/Vol] 100 mg/dL High 70-99 [facility] Serum or plasma alanine charles otransferase (ALT) measurementon 12-26-2024 ALT [Catalytic activity/Vol] 40 U/L <47 [facility] Serum or plasma albumin minerva urement (mass/volume)on 12-26-2024 Albumin [Mass/Vol] 3.7 g/dL 3.5-5.0 [facility] Serum or plasma albumin/glob ulin mass ratioon 12-26-2024 Albumin/Globulin [Mass ratio] 1.4 {ratio} 0.9-2.4 [facility] Serum or plasma alkaline nikolay sphatase measurementon 12-26-2024 ALP [Catalytic activity/Vol] 61 U/L 40-129 [facility] Serum or plasma calcium minerva urement (mass/volume)on 12-26-2024 Calcium [Mass/Vol] 8.8 mg/dL 7.6-11.0 [facility] Serum or plasma cholesterol in HDL measurement (mass/volume)on 12-26-2024 Cholesterol in HDL [Mass/Vol] 52 mg/dL >40 [facility] Comment on above: National Cholesterol Education Program (NCEP) guidelines:<40 mg/dL: Low HDL-cholesterol (major risk factor for CHD)>= 60 mg/dL: High HDL-cholesterol (negative risk factor for CHD)HDL-cholesterol is affected by a number of factors, e.g. smoking, exercise, hormones, sex and age. Serum or plasma cholesterol measurement (mass/volume)on 12-26-2024 Cholesterol [Mass/Vol] 159 mg/dL <201 [facility] Comment on above: Cholesterol level, D esirable <200 mg/dLBorderline high cholesterol 200-239 mg/dLHigh cholesterol >=240 mg/dLRecommendations of the NCEP Adult Treatment Panel for the following risk-cutoff thresholds for the [place] population. Serum or plasma urea nitroge n measurement (mass/volume)on 12-26-2024 Urea nitrogen [Mass/Vol] 22 mg/dL High 4-19 [facility] Sodium levelon 12-26-2024 Sodium [Moles/Vol] 142 mmol/L 133-145 [facility] Total proteinon 12-26-2024 Protein [Mass/Vol] 6.5 g/dL 5.9-8.4 [facility] Triglycerides measurementon 12-26-2024 Triglyceride [Mass/Vol] 64 mg/dL <199 [facility] Comment on above: The drugs N-Acetylcy steine and Metamizole may falsely depress this assay. Normal range: <150 mg/dLBorderline High: 150-199 mg/dLHigh: 200-499 mg/dLVery High: >500 mg/dL Vitamin D, 25-hydroxyon Vitamin D 25-Hydroxy 63.3 ng/mL 30-100 [facility] Comment on above: Vitamin D StatusDefi ciency: <20 ng/mL (50nmol/L)Insufficiency: 20-30 ng/mL (50-75 nmol/L)Sufficiency: 30-100 ng/mL (75-250 nmol/L)Toxicity: >100 ng/mL (>250 nmol/L) Vitamin D,25 Hydroxyon 12-26 Vitamin D 25-OH 63.3 ng/mL Normal 30-100 [facility] Comment on above: Result Comment: Chica min D Status Deficiency: <20 ng/mL (50nmol/L) Insufficiency: 20-30 ng/mL (50-75 nmol/L) Sufficiency: 30-100 ng/mL (75-250 nmol/L) Toxicity: >100 ng/mL (>250 nmol/L) Performed By: #### L 501.4700, L3890.6202, L101.9900, L3890.6301, L3890.6102, L506.1001, L3400.8000, L500.4050, L100.0100, L501.6710, L500.4100 #### [facility] [address] [place], [address] White blood cell (WBC) count on 12-26-2024 WBC (Bld) [#/Vol] 10.7 10*3/uL 4.4-11.0 [facility] CNOVon 08-24-2024 CNOV Office Visit (FAMAAR) ---- MARINOHOSSEIN M ([id number]) 1965 M [facility] Date Time Provider Department 08/24/24 10:00 AM KAVITHA SOLANO During your visit today, we recorded the following information about you: Temperature Pulse Respiration Blood pressure 97.2 degrees 71/minute 16/minute 128/86 Weight Height 90.4 kg 1.753 m Kavitha Solano, LIQUOR CLERK.CAR REPAIRMAN 08/24/2024 7:07 PM Signed Hossein Monika Pichardo is a 58 year old male who presents with 6 Month Exam (Hossein is here for a 6 month follow up./Declines any vaccines today.//Shi Todd MA/August 24, 2024 9:52 AM//) Hossein presents today for 6-month follow-up hypertension, hyperlipidemia. Labs reviewed. HTN- currently being treated for sinus infection and took Sudafed this AM. Occasionally checks at work, running 120s/70s-80s HLD- tolerating Crestor well. The history is provided by the patient. Microalbumin, Urine Random Date Value Ref Range Status 10/09/2018 5.8 0.0 - 19.0 UG/ML Final PAST MEDICAL HISTORY Diagnosis Date Alopecia Herpes simplex HTN (hypertension) Psoriasis Psoriatic arthritis (HCC) Vitiligo ACTIVE PROBLEM LIST Anemia Gastroesophageal Reflux Disease Hyperlipidemia Hypertension Internal Derangement of Knee Osteoarthritis of Knee Prostate Cancer Screening Wellness Examination Psoriatic Arthritis (Hcc) Vitamin D Deficiency Cervical Radiculopathy Herpes Simplex Virus (Hsv) Infection Complex Renal Cyst Hyperbilirubinemia Gallbladder Sludge Ed (Erectile Dysfunction) of Organic Origin Benign Prostatic Hyperplasia With Lower Urinary Tract Symptoms Costochondritis Other Obstructive and Reflux Uropathy Other Fecal Abnormalities Current Outpatient Medications Medication Sig Dispense Refill amoxicillin (AMOXIL) 875 mg tablet Take 875 mg by mouth two times a day. Benzonatate 200 mg capsule Take 200 mg by mouth three times a day as needed for cough. PNV [id number] OLATE ORAL Take 1 Each by mouth once daily. rosuvastatin (CRESTOR) 5 mg tablet Take 1 tablet by mouth once daily 90 tablet 3 valACYclovir (VALTREX) 1 gram tablet Take 2 tablets by mouth two times a day as needed. 30 tablet 1 Tadalafil (CIALIS) 20 mg tablet take 1 tablet by mouth 2 TO 24 HOURS PRIOR TO RELATIONS 10 tablet 5 XELJANZ XR 11 mg tablet, extended release aspirin, enteric coated (ASPIRIN, ENTERIC COATED) 81 mg EC tablet Take 81 mg by mouth once daily. Cholecalciferol, Vitamin D3, 2,000 unit cap Cholecalciferol Cholecalciferol (Vitamin D3) [Vitamin D3] 2000 UNIT PO DAILY November 08, 2018 Active 11-08-2018 [facility] ([id number]) ruxolitinib (OPZELURA) 1.5 % cream 1 g two times a day. (Patient not taking: Reported on 08/24/2024) pediatric multivit 61-D3-vit K 5,000-800 unit-mcg cap MULTIPLE VITAMINS-MINERALS COMPLETE FORMULATION D5000 CAPS MULTIPLE VITAMINS-MINERALS [id number] Yamil Silva 12-22-2016 [facility] ([id number]) (Patient not taking: Reported on 08/24/2024) No current facility-administer ed medications for this visit. Social History Tobacco Use Smoking status: Former Smokeless tobacco: Never Vaping Use Vaping status: Never Used Substance Use Topics Alcohol use: Yes Comment: more than 2 days a week Drug use: Never FAMILY HISTORY Problem Relation Age of Onset Arthritis Mother Review of Systems Constitutional: Negative for activity change, appetite change and unexpected weight change. Eyes: Negative for visual disturbance. Respiratory: Negative for cough and shortness of breath. Cardiovascular: Negative for chest pain, palpitations and leg swelling. Gastrointestinal: Negative for abdominal pain, diarrhea, nausea and vomiting. Genitourinary: Negative for frequency. Skin: Negative for rash and wound. Neurological: Negative for dizziness, light-headedness and headaches. Psychiatric/Behavio ral: Negative for dysphoric mood. BP 128/86 Pulse 71 Temp (Src) 97.2 (Temporal) Resp 16 Ht 5' 9 (1.75m) Wt 199 lb 6.4 oz (90.4kg) SpO2 98% BMI 29.43 kg/(m2). Physical Exam Vitals reviewed. Constitutional: Appearance: Normal appearance. HENT: Head: Normocephalic and atraumatic. Ears: Comments: Grossly normal hearing Eyes: Pupils: Pupils are equal, round, and reactive to light. Cardiovascular: Rate and Rhythm: Normal rate and regular rhythm. Pulses: Normal pulses. Heart sounds: Normal heart sounds. Pulmonary: Effort: Pulmonary effort is normal. Breath sounds: Normal breath sounds. Abdominal: General: Bowel sounds are normal. Palpations: Abdomen is soft. Tenderness: There is no abdominal tenderness. Musculoskeletal: General: No swelling. Cervical back: Neck supple. Skin: General: Skin is warm and dry. Capillary Refill: Capillary refill takes less than 2 seconds. Comments: Patches of depigmentation no (more content not included)... Normal [facility] 25(OH)D3 [facility] 2023 25-hydroxyvitamin D3 [Mass/Vol] 62.8 ng/mL Normal 30.0-100.0 [facility] Comment on above: Order Comment: Speci men Type: BLOOD SPECIMEN Ordering Facility: [facility] Address: [address] [place] [address] Result Comment: Defi ciency\X09\Less than 20 ng/mL Insufficiency\X09\20 - Less than 30 ng/mL Sufficiency\X09\30 - 100 ng/mL Performed By: #### P SAS1, 1988- #### [facility] CLIA [id number] [address] [id number] [facility] CBC panel Auto (Bld)on 07-26 Erythrocyte distribution width (RBC) [Ratio] 13.0 % Normal 11.5-15.0 [facility] Comment on above: Order Comment: Speci men Type: BLOOD SPECIMEN Ordering Facility: [facility] Address: [address] [place] [address] Performed By: #### 5 8410-2 #### [facility] [id number] [address] [place] Hematocrit (Bld) [Volume fraction] 45.6 % Normal 39.0-51.0 [facility] Comment on above: Order Comment: Speci men Type: BLOOD SPECIMEN Ordering Facility: [facility] Address: [address] [place] [address] Performed By: #### 5 8410-2 #### [facility] [id number] [address] [place] [address] [place] Hemoglobin (Bld) [Mass/Vol] 15.5 g/dL Normal 13.0-17.0 [facility] Comment on above: Order Comment: Speci men Type: BLOOD SPECIMEN Ordering Facility: [facility] Address: [address] [place] [address] Performed By: #### 5 8410-2 #### [facility] IA [id number] [address] [facility] [address] [place], [place] [address] [place] MCH (RBC) [Entitic mass] 32.5 pg Normal 26.0-34.0 [facility] Comment on above: Order Comment: Speci men Type: BLOOD SPECIMEN Ordering Facility: [facility] Address: [address] [place] [address] Performed By: #### 5 8410-2 #### [facility] IA [id number] [address], [place] [id number] [place] [address] [place] [facility] MCHC (RBC) [Mass/Vol] 34.0 g/dL Normal 30.5-36.0 [facility] Comment on above: Order Comment: Speci men Type: BLOOD SPECIMEN Ordering Facility: [facility] Address: [address] [place] [address] Performed By: #### 5 8410-2 #### [facility] [id number] [address] [facility] [address] [place] [address] MCV (RBC) [Entitic vol] 95.6 fL Normal 80.0-100.0 [facility] Comment on above: Order Comment: Speci men Type: BLOOD SPECIMEN Ordering Facility: [facility] Address: [address] [place] [address] Performed By: #### 5 8410-2 #### [facility] [id number] [address] [facility] [address] [place] [address] [place] Platelet mean volume (Bld) [Entitic vol] 10.4 fL Normal 9.0-12.7 [facility] Comment on above: Order Comment: Speci men Type: BLOOD SPECIMEN Ordering Facility: [facility] Address: [address] [place] [address] Performed By: #### 5 8410-2 #### [facility] [id number] [address] [facility] [address] [place] [address] [place] Platelets (Bld) [#/Vol] 251 10*3/uL Normal 150-400 [facility] Comment on above: Order Comment: Speci men Type: BLOOD SPECIMEN Ordering Facility: [facility] Address: [address] [place] [address] Performed By: #### 5 8410-2 #### [facility] IA [id number] [address] [facility] [address] [place] [address] [place] RBC (Bld) [#/Vol] 4.77 10*6/uL Normal 4.20-6.00 [facility] Comment on above: Order Comment: Speci men Type: BLOOD SPECIMEN Ordering Facility: [facility] Address: [address] [place] [address] Performed By: #### 5 8410-2 #### [facility] CLIA [id number] [address] [facility] [address] [place] [address] [place] WBC (Bld) [#/Vol] 5.92 10*3/uL Normal 3.70-11.00 [facility] Comment on above: Order Comment: Speci men Type: BLOOD SPECIMEN Ordering Facility: [facility] Address: [address] [place] [address] Performed By: #### 5 8410-2 #### [facility] CLIA [id number] [address] [facility] [address] [place] [address] [facility] Comprehensive metabolic 2000 panelon 07-26-2024 Albumin [Mass/Vol] 4.0 g/dL Normal 3.2-5.0 [facility] Comment on above: Order Comment: Speci men Type: BLOOD SPECIMEN Ordering Facility: [facility] Address: [address] [place] [address] Performed By: #### 2 4323-8 #### [facility] CLIA [id number] [address] [place] [address] [place] #### 97971-0 #### [facility] CLIA [id number] [address] [place] [address] [place] [facility] CLIA [id number] 7337 [facility] [address] [place] [address] [place] ALP [Catalytic activity/Vol] 67 U/L Normal 45-117 [facility] Comment on above: Order Comment: Speci men Type: BLOOD SPECIMEN Ordering Facility: [facility] Address: [address] [place] [address] Performed By: #### 2 4323-8 #### [facility] CLIA [id number] [address] [place], [place] [address] [place] #### 55168-0 #### [facility] CLIA [id number] [address] [place] [address] [facility] CLIA [id number] 7337 [facility] [address] [place] [id number] [place] [address] [place] ALT [Catalytic activity/Vol] 29 U/L Normal 13-61 [facility] Comment on above: Order Comment: Speci men Type: BLOOD SPECIMEN Ordering Facility: [facility] Address: [address] [place] [address] Result Comment: Resu lts may be falsely depressed after the administration of Sulfasalazine and/or Sulfapyridine. Performed By: #### 2 4323-8 #### [facility] CLIA [id number] [address] [place] [address] [place] #### 30999-1 #### [facility] CLIA [id number] [address] [place] [address] [place] [facility] CLIA [id number] 7337 [facility] [address] [place] [id number] [place] [address] [place] Anion gap [Moles/Vol] 7 mmol/L Normal 5-16 [facility] Comment on above: Order Comment: Speci men Type: BLOOD SPECIMEN Ordering Facility: [facility] Address: [address] [place] [address] Performed By: #### 2 4323-8 #### [facility] CLIA [id number] [address] [place] [address] [place] #### 07031-5 #### [facility] CLIA [id number] [address] [place], [place] [address] [facility] CLIA [id number] 7337 [facility] [address] [address] [place] AST [Catalytic activity/Vol] 31 U/L Normal 8-34 [facility] Comment on above: Order Comment: Speci men Type: BLOOD SPECIMEN Ordering Facility: [facility] Address: [address] [place] [address], [place] [address] Result Comment: Resu lts may be falsely depressed after the administration of Sulfasalazine and/or Sulfapyridine. Performed By: #### 2 4323-8 #### [facility] CLIA [id number] [address] [place], [place] [address] [place] #### 21738-1 #### [facility] CLIA [id number] [address] [place], [place] [address] [facility] CLIA [id number] 7337 [facility] [address] [place] [address] [place] Bilirubin [Mass/Vol] 1.7 mg/dL High 0.2-1.0 [facility] Comment on above: Order Comment: Speci men Type: BLOOD SPECIMEN Ordering Facility: [facility] Address: [address] [place] [address] Performed By: #### 2 4323-8 #### [facility] CLIA [id number] [address] [place] [address] [place] #### 74486-3 #### [facility] CLIA [id number] [address] [place], [place] [address] [place] [facility] CLIA [id number] 7337 [facility] [address] [place] [address] [place] Calcium [Mass/Vol] 9.8 mg/dL Normal 8.5-10.5 [facility] Comment on above: Order Comment: Speci men Type: BLOOD SPECIMEN Ordering Facility: [facility] Address: [address] [place] [address] Performed By: #### 2 4323-8 #### [facility] CLIA [id number] [address] [place], [place] [address] [place] #### 29748-2 #### [facility] CLIA [id number] [address] [place] [address] [place] [facility] CLIA [id number] [address] [address] [place] Chloride [Moles/Vol] 105 mmol/L Normal 98-107 [facility] Comment on above: Order Comment: Speci men Type: BLOOD SPECIMEN Ordering Facility: [facility] Address: [address] [place] [address] Performed By: #### 2 4323-8 #### [facility] CLIA [id number] [address] [place] [address] [place] #### 33349-5 #### [facility] CLIA [id number] [address] [place] [address] [place] [facility] CLIA [id number] [address] [place] [address] [place] CO2 [Moles/Vol] 28 mmol/L Normal 21-32 [facility] Comment on above: Order Comment: Speci men Type: BLOOD SPECIMEN Ordering Facility: [facility] Address: [address] [place] [address] Performed By: #### 2 4323-8 #### [facility] CLIA [id number] [address] [place] [address] [place] #### 40096-4 #### [facility] CLIA [id number] [address] [place], [place] [address] [place] [facility] CLIA [id number] 7337 [place] [address] [place] Creatinine [Mass/Vol] 1.00 mg/dL Normal 0.50-1.40 [facility] Comment on above: Order Comment: Speci men Type: BLOOD SPECIMEN Ordering Facility: [facility] Address: [address] [place] [address] Result Comment: [place] ents receiving either N-Acetylcysteine (NAC) or Metamizole prior to venipuncture, may have falsely depressed results. Performed By: #### 2 4323-8 #### [facility] CLIA [id number] [address] [place] [address] OF [facility] #### 45775-9 #### [facility] CLIA [id number] [address] [place] [address] LAB CLIA [id number] [address] Creatinine and Glomerular filtration rate.predicted panel (S/P/Bld) 88 mL/min/1.73m??? Normal >=60 [facility] Comment on above: Order Comment: Speci men Type: BLOOD SPECIMEN Ordering Facility: [facility] Address: [address] [id number] Result Comment: Ene mated Glomerular Filtration Rate (eGFR) is calculated using the 2020 CKD-EPI creatinine equation. This equation utilizes serum creatinine, sex, and age as parameters. The creatinine assay has traceable calibration to isotope dilution-mass spectrometry. Refer to KDIGO guidelines for clinical interpretation. In patients with unstable renal function, e.g. those with acute kidney injury, the eGFR may not accurately reflect actual GFR. Performed By: #### 2 4323-8 #### [facility] CLIA [id number] [address] [place] [address] #### 89279-2 #### [facility] CLIA [id number] [address] [place] [address] LAB CLIA [id number] [address] [place] [address] [place] Glucose [Mass/Vol] 93 mg/dL Normal 70-100 [facility] Comment on above: Order Comment: Rebeca beckham Type: BLOOD SPECIMEN Ordering Facility: [facility] Address: [address] [place] [address] Result Comment: The [place] Diabetes Association (ADA) provides guidance for cutoff values for fasting glucose and random glucose. The ADA defines fasting as no caloric intake for at least 8 hours. Fasting plasma glucose results between 100 to 125 mg/dL indicate increased risk for diabetes (prediabetes). Fasting plasma glucose results greater than or equal to 126 mg/dL meet the criteria for diagnosis of diabetes. In the absence of unequivocal hyperglycemia, results should be confirmed by repeat testing. In a patient with classic symptoms of hyperglycemia or hyperglycemic crisis, random plasma glucose results greater than or equal to 200 mg/dL meet the criteria for diagnosis of diabetes. Reference: Standards of Medical Care in Diabetes 2016, [place] [employer] Association. Diabetes Care. 2016.39(Suppl 1). Results may be falsely elevated after the administration of Sulfapyridine. Results may be falsely depressed after the administration of Sulfasalazine. Performed By: #### 2 4323-8 #### [facility] CLIA [id number] [address] [place] [address] [place] #### 97025-8 #### [facility] CLIA [id number] [address] [place] [address] LAB CLIA [id number] [address] [address] [place] Potassium [Moles/Vol] 4.2 mmol/L Normal 3.5-5.1 [facility] Comment on above: Order Comment: Speci men Type: BLOOD SPECIMEN Ordering Facility: [facility] Address: [address] [place] [address] Performed By: #### 2 4323-8 #### [facility] CLIA [id number] [address] [place] [address] OF [place] #### 47403-1 #### [facility] CLIA [id number] [address] [place] [address] STATES [facility] CLIA [id number] 7337 [facility] [address] [place] [address] [place] Protein [Mass/Vol] 7.4 g/dL Normal 6.0-8.5 [facility] Comment on above: Order Comment: Speci men Type: BLOOD SPECIMEN Ordering Facility: [facility] Address: [address] [place] [address] Performed By: #### 2 4323-8 #### [facility] CLIA [id number] [address] [place], [place] [address] [place] #### 01383-1 #### [facility] CLIA [id number] [address] [place] [address] [place] [facility] CLIA [id number] [address] [address] [place] Sodium [Moles/Vol] 140 mmol/L Normal 136-145 [facility] Comment on above: Order Comment: Speci men Type: BLOOD SPECIMEN Ordering Facility: [facility] Address: [address] [place] [address] Performed By: #### 2 4323-8 #### [facility] CLIA [id number] [address] [place] [address] [place] #### 97931-4 #### [facility] CLIA [id number] [address] [place], [place] [address] [place] [facility] CLIA [id number] [id number] [place] [address] [place] Urea nitrogen [Mass/Vol] 19 mg/dL Normal 7-26 [facility] Comment on above: Order Comment: Speci men Type: BLOOD SPECIMEN Ordering Facility: [facility] Address: [address] [place] [address] Performed By: #### 2 4323-8 #### [facility] CLIA [id number] [address] [place], [place] [address] [place] #### 37248-3 #### [facility] CLIA [id number] [address] [place] [address] [place] [facility] CLIA [id number] [address] [address] [place] Lipid 1996 panelon 4 Cholesterol [Mass/Vol] 203 mg/dL High 0-199 [facility] Comment on above: Order Comment: Speci men Type: BLOOD SPECIMEN Ordering Facility: [facility] Address: [address] [place] [address] Result Comment: <200 mg/dL, Desirable 200-239 mg/dL, Borderline high >239 mg/dL, High Performed By: #### 2 4323-8 #### [facility] CLIA [id number] [address] [place] [address] [place] #### 19160-5 #### [facility] CLIA [id number] [address] [place], [place] [address] [place] [facility] CLIA [id number] 7337 [facility] [address] [place] [address] [facility] OF PARISH Cholesterol in HDL [Mass/Vol] 69 mg/dL Normal >40 [facility] Comment on above: Order Comment: Speci men Type: BLOOD SPECIMEN Ordering Facility: [facility] Address: [address] [place] [address] Result Comment: 40-5 9 mg/dL, Acceptable >59 mg/dL, High: Negative risk factor for coronary heart disease <40 mg/dL, Low: Positive risk factor for coronary heart disease Performed By: #### 2 4323-8 #### [facility] CLIA [id number] [address] [place] [address] [place] #### 64618-2 #### [facility] CLIA [id number] [address] [place], [place] [address] [place] OF [facility] CLIA [id number] [address] [address] [place] Cholesterol in LDL [Mass/Vol] 122 mg/dL Normal 0-129 [facility] Comment on above: Order Comment: Speci men Type: BLOOD SPECIMEN Ordering Facility: [facility] Address: [address] [place] [address] Result Comment: <100 mg/dL, Optimal 100-129 mg/dL, Near optimal/above optimal 130-159 mg/dL, Borderline high 160-189 mg/dL, High >189 mg/dL, Very high Secondary prevention optimal LDL Cholesterol levels are recommended to be < 70 mg/dL Performed By: #### 2 4323-8 #### [facility] CLIA [id number] [address] [place] [address] [place] #### 16691-8 #### [facility] CLIA [id number] [address] [place] [address] [place] OF [facility] CLIA [id number] [address] [address] [facility] OF PARISH Cholesterol in LDL/Cholesterol in HDL [Mass ratio] 1.77 {ratio} Normal <2.54 [facility] Comment on above: Order Comment: Speci men Type: BLOOD SPECIMEN Ordering Facility: [facility] Address: [address] [place] [address] Result Comment: Refe tarun: 1. National Cholesterol Education Program ATP III Guideline At-A-Glance Quick Desk Reference: National Heart, Lung, and Blood Muddy. National Institutes of Health. 2001: NIH Publication No. 01-3305. 2. An International Atherosclerosis Society position paper: global recommendations for the management of dyslipidemia: executive summary, Atherosclerosis. 2014: 232(2):410-413. Performed By: #### 2 4323-8 #### [facility] CLIA [id number] [address] [place] [address] [place] #### 60435-2 #### [facility] CLIA [id number] [address] [place], [place] [address] [place] OF [facility] CLIA [id number] [id number] [place] [address] [place] Cholesterol in VLDL [Mass/Vol] 12 mg/dL Normal <30 [facility] Comment on above: Order Comment: Speci men Type: BLOOD SPECIMEN Ordering Facility: [facility] Address: [address] [place] [address] Performed By: #### 2 4323-8 #### [facility] CLIA [id number] [address] [place], [place] [address] [place] #### 67578-5 #### [facility] CLIA [id number] [address] [place] [address] [facility] CLIA [id number] [address] [address] [place] Cholesterol non HDL [Mass/Vol] 134 mg/dL High <130 [facility] Comment on above: Order Comment: Speci men Type: BLOOD SPECIMEN Ordering Facility: [facility] Address: [address] [place] [address] Result Comment: <130 mg/dL, Optimal 130-159 mg/dL, Near optimal/above optimal 160-189 mg/dL, Borderline high 190-219 mg/dL, High >219 mg/dL, Very high Secondary prevention optimal non HDL Cholesterol levels are recommended to be <100 mg/dL Performed By: #### 2 4323-8 #### [facility] CLIA [id number] [address] [place], [place] [address] [facility] OF PARISH #### 35626-7 #### [facility] CLIA [id number] [address] [place] [address] STATES [facility] CLIA [id number] [address] OF [place]ISH Cholesterol.total/Neela sterol in HDL [Mass ratio] 2.94 {ratio} Normal <5.10 [facility] Comment on above: Order Comment: Speci men Type: BLOOD SPECIMEN Ordering Facility: [facility] Address: [address] [place] [address] Performed By: #### 2 4323-8 #### [facility] CLIA [id number] [address] [place], [place] [address] [place] #### 79887-8 #### [facility] CLIA [id number] [address] [place], [place] [address] [place] [facility] CLIA [id number] [address] [address] [place] FASTING TIME 10 hrs Normal [facility] Comment on above: Order Comment: Speci men Type: BLOOD SPECIMEN Ordering Facility: [facility] Address: [address] [place] [address] Performed By: #### 2 4323-8 #### [facility] CLIA [id number] [address] [place] [address] OF [facility] #### 01374-2 #### [facility] CLIA [id number] [address] [place] [address] STATES [facility] CLIA [id number] [address] [place] [address] [place] Triglyceride [Mass/Vol] 61 mg/dL Normal 30-149 [facility] Comment on above: Order Comment: Speci men Type: BLOOD SPECIMEN Ordering Facility: [facility] Address: [address] [place] [address] Result Comment: <150 mg/dL, Normal 150-199 mg/dL, Borderline high 200-499 mg/dL, High >499 mg/dL, Very high Patients receiving either N-Acetylcysteine (NAC) or Metamizole prior to venipuncture, may have falsely depressed results. Performed By: #### 2 4323-8 #### [facility] CLIA [id number] [address] [place] [address] OF [facility] #### 21118-7 #### [facility] CLIA [id number] [address] [place] [address] STATES [facility] CLIA [id number] [address] [place] [address] [place] PSA/PROSTATE SPECIFIC ANTIGE N SCREENINGon 07-26-2024 Prostate specific Ag [Mass/Vol] 0.46 ng/mL Normal <2.60 [facility] Comment on above: Order Comment: Speci men Type: BLOOD SPECIMEN Ordering Facility: [facility] Address: [address] [place] [address] Result Comment: This is a new methodology for this marker. Tumor markers obtained from different assay methods cannot be used interchangeably. Expect results of this assay to run lower than the previous assay. It is recommended to re-baseline patients when changing to a new methodology. Performed By: #### P SAS1, 1988- #### [facility] CLIA [id number] [facility] [id number] [place] Absolute lymphocyte countOrd ered By: Levy Ritchie on 04-13-2023 Lymphocytes Auto (Unsp spec) [#/Vol] 1.49 10*3/uL 0.83-4.51 [facility] Basophil percentageOrdered B y: Levy Ritchie on 04-13-2023 Basophils/100 WBC (Bld) 0.3 % 0-1 [facility] Eosinophils/100 WBC (Bld) 2.6 % 0-5 [facility] Neutrophils (Bld) [#/Vol] 4.1 10*3/uL 2.0-7.7 [facility] Neutrophils/100 WBC (Bld) 62.5 % 47-70 [facility] WBC (Bld) [#/Vol] 6.6 10*3/uL 4.4-11.0 [facility] Blood erythrocytes count (nu mber/volume)Ordered By: Levy Ritchie on 04-13-2023 RBC (Bld) [#/Vol] 4.29 10*6/uL 4.6-6.2 [facility] Blood hemoglobin measurement (mass/volume)Ordered By: Levy Ritchie on 04-13-2023 Hemoglobin (Bld) [Mass/Vol] 12.4 g/dL 13.0-16.5 [facility] Blood lymphocytes/100 leukoc ytesOrdered By: Levy Ritchie on 04-13-2023 Lymphocytes/100 WBC (Bld) 22.5 % 19-41 [facility] Blood monocytes/100 leukocyt esOrdered By: Levy Ritchie on 04-13-2023 Monocytes/100 WBC (Bld) 11.9 % 0-10 [facility] Blood platelet mean volumeOr dered By: Levy Ritchie on 04-13-2023 Platelet mean volume (Bld) [Entitic vol] 11.0 fL 6.2-12.0 [facility] Determination of erythrocyte mean corpuscular volume (MCV)Ordered By: Levy Ritchie on 04-13-2023 MCV (RBC) [Entitic vol] 92.5 fL 80-94 [facility] Hematocrit Auto (Bld) [Volum e fraction]Ordered By: Levy Ritchie on 04-13-2023 Hematocrit (Bld) [Volume fraction] 39.7 % 40-54 [facility] Laboratory - Hematology and Cell countsOrdered By: Levy Ritchie on 04-13-2023 Erythrocyte distribution width (RBC) [Entitic vol] 48.7 fL 35.1-43.9 [facility] Erythrocyte distribution width (RBC) [Ratio] 14.4 % 11.6-14.6 [facility] Immature granulocytes/100 WBC (Bld) 0.200 % 0.0-0.9 [facility] Comment on above: IG% - Immature Granu locytes (promyelocytes, myelocytes and metamyelocytes) > 1% indicates that a LEFT SHIFT is Present. MCH (RBC) [Entitic mass] 28.9 pg 27.0-32.0 [facility] Nucleated RBC/100 WBC (Bld) [Ratio] 0 % 0-5 [facility] MCHC Auto (RBC) [Mass/Vol]Or dered By: Levy Ritchie on 04-13-2023 MCHC (RBC) [Mass/Vol] 31.2 g/dL 32-36 [facility] Platelets bldOrdered By: Tommy Ritchie on 04-13-2023 Platelets (Bld) [#/Vol] 256 10*3/uL 150-450 [facility] UA DIP, URINE (POC)on 2022 BILIRUBIN UA (POCT) Negative Negative [facility] CLARITY UA (POCT) Clear [facility] COLOR UA (POCT) Yellow [facility] GLUCOSE UA (POCT) Negative Negative mg/dL [facility] HEMOGLOBIN/BLOOD UA (POCT) Trace-intact Abnormal Negative [facility] KETONE UA (POCT) Negative Negative mg/dL [facility] LEUKOCYTES UA (POCT) Negative Negative [facility] NITRITE UA (POCT) Negative Negative [facility] PH UA (POCT) 5.5 4.5 - 8.0 [facility] Protein Ql (U) Negative Negative mg/dL [facility] SPECIFIC GRAVITY UA (POCT) 1.020 1.005 - 1.030 [facility] UROBILINOGEN UA (POCT) 0.2 E.U./dL Deepali l E.U./dL [facility] US ABD RT UPPER QUADRANTon 0 10-29-2022 [facility] Basophil percentageon 2021 Bilirubin [Mass/Vol] 2.00 mg/dL 0.20-1.00 [facility] Comment on above: For patients on eltr ombopag therapy, use of Dimension [place] TBIL is not recommended. Chloride [Moles/Vol] 104 mmol/L 98-107 [facility] Glucose [Mass/Vol] 83 mg/dL 74-106 [facility] Potassium [Moles/Vol] 4.6 mmol/L 3.5-5.1 [facility] Protein [Mass/Vol] 7.0 g/dL 6.4-8.2 [facility] Sodium [Moles/Vol] 139 mmol/L 136-145 [facility] WBC (Bld) [#/Vol] 5.5 10*3/uL 4.4-11.0 [facility] System Blood erythrocytes count (nu mber/volume)on 08-18-2022 RBC (Bld) [#/Vol] 4.45 10*6/uL 4.6-6.2 [facility] Blood hemoglobin measurement (mass/volume)on 08-18-2022 Hemoglobin (Bld) [Mass/Vol] 13.7 g/dL 13.0-16.5 [facility] Blood platelet mean volumeon 08-18-2022 Platelet mean volume (Bld) [Entitic vol] 10.7 fL 6.2-12.0 [facility] Determination of erythrocyte mean corpuscular volume (MCV)on 08-18-2022 MCV (RBC) [Entitic vol] 93.3 fL 80-94 [facility] Hematocrit Auto (Bld) [Volum e fraction]on 08-18-2022 Hematocrit (Bld) [Volume fraction] 41.5 % 40-54 [facility] Laboratory - Chemistry and C hemistry - challengeon 08-18-2022 ALP [Catalytic activity/Vol] 62 U/L 45-117 [facility] ALT [Catalytic activity/Vol] 33 U/L 16-61 [facility] CO2 [Moles/Vol] 29.0 mmol/L 21.0-32.0 [facility] Globulin (S) [Mass/Vol] 3.0 g/dL 2.2-4.2 [facility] Urea nitrogen/Creatinine [Mass ratio] 15.8 mg/mg 10-20 [facility] Laboratory - Hematology and Cell countson 08-18-2022 Erythrocyte distribution width (RBC) [Entitic vol] 45.0 fL 35.1-43.9 [facility] Erythrocyte distribution width (RBC) [Ratio] 13.2 % 11.6-14.6 [facility] MCH (RBC) [Entitic mass] 30.8 pg 27.0-32.0 [facility] MCHC Auto (RBC) [Mass/Vol]on 08-18-2022 MCHC (RBC) [Mass/Vol] 33.0 g/dL 32-36 [facility] No Panel Informationon 08-18 Estimated GFR (MDRD) Amer 81 mL/min >60 [facility] Comment on above: GFR Calc Estimated GFR (MDRD) Non-Af Amer 67 mL/min >60 [facility] Comment on above: Non- GFR Calc Prostate Specific Antigen Screen 0.66 ng/mL 0.00-4.00 [facility] Comment on above: This test was perfor med using the TPSA assay method for the[employer]sion chemistry system. Values obtained with differentassay methods cannot be used interchangably.When changing PSA assays in the course of monitoring apatient, additional sequential testing should be carriedout to confirm baseline values. Platelets bldon 08-18-2022 Platelets (Bld) [#/Vol] 252 10*3/uL 150-450 [facility] Serum or plasma albumin minerva urement (mass/volume)on 08-18-2022 Albumin [Mass/Vol] 4.0 g/dL 3.2-5.0 [facility] Serum or plasma albumin/glob ulin mass ratioon 08-18-2022 Albumin/Globulin [Mass ratio] 1.3 {ratio} 0.9-2.4 [facility] Serum or plasma calcitriol m easurement (mass/volume)on 08-18-2022 1,25-dihydroxyvitamin D3 [Mass/Vol] 44.9 pg/mL 24.8-81.5 [facility] Comment on above: Performed at: [address] [id number] Director: Kelly Riley MD, Phone: [phone] Serum or plasma calcium minerva urement (mass/volume)on 08-18-2022 Calcium [Mass/Vol] 9.2 mg/dL 8.5-10.1 [facility] Serum or plasma creatinine m easurement (mass/volume)on 08-18-2022 Creatinine [Mass/Vol] 1.20 mg/dL 0.70-1.30 [facility] Comment on above: The validity of the calculated GFR & GFRAA in patients over 70 years has not been determined. Clinical correlation is essential. Serum or plasma urea nitroge n measurement (mass/volume)on 08-18-2022 Urea nitrogen [Mass/Vol] 19 mg/dL 7-18 [facility] Thin prep Papanicolaou smear with manual screeningon 08-18-2022 Thin prep Papanicolaou smear with manual screening 26 U/L 15-37 [facility] Thin prep Papanicolaou smear with manual screening 6 5-15 [facility] BMPon 05-31-2021 Anion gap [Moles/Vol] 10 mmol/L Normal 5-16 [facility] Comment on above: Order Comment: Karla s: M Performed By: #### L 500.83610, L500.02425, L500.60498 #### [facility] [place] [address] Calcium [Mass/Vol] 8.7 mg/dL Normal 8.5-10.5 [facility] Comment on above: Order Comment: Karla s: M Result Comment: NOTE NEW NORMAL RANGE DUE TO REAGENT CHANGE Performed By: #### L 500.58048, L500.06670, L500.58815 #### [facility] [place] [address] Chloride [Moles/Vol] 105 mmol/L Normal 98-107 [facility] Comment on above: Order Comment: Campu s: M Performed By: #### L 500.37100, L500.88839, L500.78172 #### [facility] [address] [place] [address] CO2 [Moles/Vol] 25.0 mmol/L Normal 21-32 [facility] Comment on above: Order Comment: Campu s: M Performed By: #### L 500.19516, L500.77274, L500.81726 #### [facility] [address] [place] [address] Creatinine [Mass/Vol] 0.76 mg/dL Normal 0.5-1.4 [facility] Comment on above: Order Comment: Campu s: M Result Comment: NOTE NEW NORMAL RANGE DUE TO REAGENT CHANGE Patients receiving either N-Acetylcysteine (NAC) or Metamizole prior to venipuncture, may have falsely depressed results. Performed By: #### L 500.69577, L500.47503, L500.05581 #### [facility] [address] [place] [address] Glucose [Mass/Vol] 98 mg/dL Normal 70-100 [facility] Comment on above: Order Comment: Campu s: M Result Comment: 70-1 00- Normal Fasting; 100-125 Impaired Fasting; greater than 126 on more than one result- Diabetes. ADA guidelines. Results may be falsely elevated after the administration of Sulfapyridine. Results may be falsely depressed after the administration of Sulfasalazine. Performed By: #### L 500.92216, L500.52392, L500.52760 #### [facility] [place] [id number] Potassium [Moles/Vol] 3.3 mmol/L Low 3.5-5.1 [facility] Comment on above: Order Comment: Campu s: M Performed By: #### L 500.86343, L500.29929, L500.11350 #### [facility] [address] [place] [address] Sodium [Moles/Vol] 140 mmol/L Normal 136-145 [facility] Comment on above: Order Comment: Campu s: M Performed By: #### L 500.29626, L500.93940, L500.64138 #### [facility] [address] [place] [address] Urea nitrogen [Mass/Vol] 14 mg/dL Normal 7-26 [facility] Comment on above: Order Comment: Campu s: M Performed By: #### L 500.60907, L500.21417, L500.69752 #### [facility] [address] [place] [address] Urea nitrogen/Creatinine [Mass ratio] 18 mg/mg Normal 15-24 [facility] Comment on above: Order Comment: Campu s: M Performed By: #### L 500.56693, L500.77736, L500.75513 #### [facility] [address] [place] [address] CBC W/DIFFon 05-31-2021 BAND ABS 0.72 K/CU MM Normal [facility] Comment on above: Order Comment: Campu s: M Performed By: #### L .26356 #### [facility] [address] [place] [address] Band form neutrophils/100 WBC (Bld) 13.0 % High 0-7 [facility] Comment on above: Order Comment: Campu s: M Performed By: #### L .42015 #### [facility] [address] [place] [address] LYMPH ABS 0.66 K/CU MM Low 0.9-4.4 [facility] Comment on above: Order Comment: Campu s: M Performed By: #### L 200.74910 #### [facility] [place] [id number] Lymphocytes/100 WBC (Bld) 12.0 % Low 20-40 [facility] Comment on above: Order Comment: Campu s: M Performed By: #### L 200.44031 #### [facility] [address] [place] [address] MONO ABS 0.33 K/CU MM Normal 0.1-1.1 [facility] Comment on above: Order Comment: Campu s: M Performed By: #### L 200.96797 #### [facility] [address] [place] [address] Monocytes/100 WBC (Bld) 6.0 % Normal 2-10 [facility] Comment on above: Order Comment: Campu s: M Performed By: #### L 200.70778 #### [facility] [address] [place] [address] NEUTROPHIL ABS 3.80 K/CU MM Normal 2.0-8.3 [facility] Comment on above: Order Comment: Campu s: M Performed By: #### L 200.01117 #### [facility] [address] [place], [place] [address] Neutrophils/100 WBC (Bld) 69.0 % Normal 45-75 [facility] Comment on above: Order Comment: Campu s: M Performed By: #### L 200.36039 #### [facility] [address] [place] [address] PLT EST ADEQUATE Normal [facility] Comment on above: Order Comment: Campu s: M Performed By: #### L 200.56244 #### [facility] [address] [place] [address] POLY 1+ Normal [facility] Comment on above: Order Comment: Campu s: M Performed By: #### L 200.29919 #### [facility] [address] [place] [address] Erythrocyte distribution width (RBC) [Ratio] 12.8 % Normal 11-14.5 [facility] Comment on above: Order Comment: Campu s: M Performed By: #### L 200.62429 #### [facility] [address] [place] [address] Hematocrit (Bld) [Volume fraction] 38.3 % Low 41.0-53.0 [facility] Comment on above: Order Comment: Campu s: M Performed By: #### L 200.18691 #### [facility] [address] [place] [address] Hemoglobin (Bld) [Mass/Vol] 13.2 g/dL Low 13.5-17.5 [facility] Comment on above: Order Comment: Campu s: M Performed By: #### L 200.18662 #### [facility] [address] [place] [address] MCHC (RBC) [Mass/Vol] 34.5 g/dL Normal 32.0-36.0 [facility] Comment on above: Order Comment: Campu s: M Performed By: #### L 200.80895 #### [facility] [address] [place] [address] MCV (RBC) [Entitic vol] 90.3 fL Normal 80.0-99.0 [facility] Comment on above: Order Comment: Campu s: M Performed By: #### L 200.77197 #### [facility] [address] [place], [place] [address] Nucleated RBC/100 WBC (Bld) [Ratio] 0.0 % Normal Less than 1 [facility] Comment on above: Order Comment: Campu s: M Performed By: #### L 200.94855 #### [facility] [place] [address] Platelet mean volume (Bld) [Entitic vol] 9.7 fL Normal 9.4-12.4 [facility] Comment on above: Order Comment: Campu s: M Performed By: #### L 200.13280 #### [facility] [address] [place] [address] PLT 180 K/CU MM Normal 150-450 [facility] Comment on above: Order Comment: Campu s: M Performed By: #### L 200.68490 #### [facility] [address] [place] [address] RBC 4.24 M/CU MM Low 4.50-6.00 [facility] Comment on above: Order Comment: Campu s: M Performed By: #### L 200.07636 #### [facility] [address] [place] [address] WBC 5.5 K/CUMM Normal 4.5-11.0 [facility] Comment on above: Order Comment: Campu s: M Performed By: #### L 200.63491 #### [facility] [address] [place] [address] Edward 05-31-2021 EMERGENCY PHYSICIAN REPORT This is a preliminary report only, as the practitioner review and authentication has not occurred. Normal [facility] ER = PHYSICIAN ASSESSMENT = RECORDS : FlexChartData Event Time: 05/31/2021 11:35 KMK Status: Signed [facility] Hossein Marino [[id number]] Attending Physician 55 / M / 1965 Chart (V2b) Chart created at 05/31/2021 11:29 by Casandra Stovall Chart closed at 05/31/2021 13:44 Entry in Emergency Department at 05/31/2021 09:20 Patient Name: Hossein Pichardo Record Number: [id number] Date: 05/31/2021 11:29 Entered Department at: 05/31/2021 09:20 Patient Seen at: 05/31/2021 11:27 PCP: Rojelio Mckeon Chief Complaint:PT REPORTS FEVER WITH COUGH AND HEADACHE. PT REPORTS LOSS OF TASTE AND SMELL. PT DENIES COVID. Triage Note reviewed and Initial Vital Signs reviewed. History of Present Illness: This is a 55-year-old male history of psoriatic arthritis, on Xeljanz who did not get the Covid vaccine. About a week ago he started developing cough, now he has fever loss of smell. He denies shortness of breath. He denies vomiting. He did stop the Xeljanz when he first developed symptoms. Review of Systems. All other systems reviewed and negative.. Past History, Medications, Allergies, Social History and Family History reviewed in nurses note. [facility] PATIENT NAME: HOSSEIN PICHARDO [address] [facility] [address] MEDICAL REC #: [id number] [place] [address] EMERGENCY DEPARTMENT REPORT EMERGENCY DEPARTMENT PHYSICIAN Medications: Reviewed RN Note. Allergies: Reviewed RN Note Social History: Reviewed RN Note. Family History: Reviewed RN Note Physical Examination: General: Alert and Well Developed Neck: Supple Respiratory: Rales and No Resp Distress Cardio-Vascular: RRR Abdomen: Normal Bowel Sounds and Non-tender Neurological: Alert, Oriented X3 and No Gross Weakness Psychological: Mood/Affect Normal RESP/COVID PCR, information as of 05/31/2021, 11:05 am ADENOVIRUS PCR: Not Detected; B PARA PCR: Not Detected; B PERTUSSIS PCR: Not Detected; C PNEUMONIA PCR: Not Detected; CORONAVIR 229E: Not Detected; CORONAVIR HKU1: Not Detected; CORONAVIR NL63: Not Detected; CORONAVIR OC43: Not Detected; FLU A NO SUBTYP: Not Detected; HUMAN METAPNEUM: Not Detected; INFLUENZA A H1: Not Detected; INFLUENZA A H3: Not Detected; INFLUENZA B PCR: Not Detected; M PNEUMONIA PCR: Not Detected; PARAINFLUENZA 1: Not Detected; PARAINFLUENZA 2: Not Detected; PARAINFLUENZA 3: Not Detected; PARAINFLUENZA 4: Not Detected; RHINO/ENTERO: Not Detected; RSV: Not Detected; SARS-COV-2 PCR: Detected CBC W/DIFF, information as of 05/31/2021, 11:28 am 90.3 / 13.2* / 5.5 andgt;------andlt; 180 / 38.3* / N:69.0 BAND %: 13.0 %; BAND ABS: 0.72 K/Cu Mm; LYMPH %: 12.0 %; LYMPH ABS: 0.66 K/Cu Mm; MCHC: 34.5 Gm/Dl; MONO ABS: 0.33 K/Cu Mm; MONOCYTE %: 6.0 %; MPV: 9.7; NEUTROPHIL ABS: 3.80 K/Cu Mm; NRBC: 0.0 %; PLT EST: Adequate; POLY: 1+; RBC: 4.24 M/Cu Mm; RDW: 12.8 BMP, information as of 05/31/2021, 11:28 am 140 --------+--------+- -------andlt; 98 Anion Gap = 10 3.3* BUN/CREA: 18; CALCIUM TOTAL: 8.7 Mg/Dl [facility] PATIENT NAME: HOSSEIN PICHARDO [address] MEDICAL REC #: [id number] [place] [id number] EMERGENCY DEPARTMENT REPORT EMERGENCY DEPARTMENT PHYSICIAN MAGNESIUM, information as of 05/31/2021, 12:10 pm M.5* Imaging Study Obtained: CHEST PA/AP LATERAL Imaging Study Obtained: CHEST (PORTABLE) Imaging Study Obtained: PORTABLE CHEST, Status:Signed Report Available EXAMINATION: CHEST RADIOGRAPH (PORTABLE SINGLE VIEW AP) Exam Date/Time: 05/31/2021 11:03 AM CLINICAL HISTORY: Cough, congestion MQ: XCPR_5 Comparison: None RESULT: The cardiomediastinal contours are normal. There are patchy multifocal infiltrates bilaterally. No vascular congestion, pleural effusion, or pneumothorax. The osseous structures are nonacute. IMPRESSION: Patchy multifocal infiltrates are noted bilaterally most consistent with multifocal/atypical pneumonia. Dictated by Remediation Project Engineer: Keila Frank DO I, Anil Wilson MD, have supervised the procedure and/or image review, and agree with the above interpretation and report. [facility] PATIENT NAME: HOSSEIN PICHARDO [address] [place] [address] Dr. [address] MEDICAL REC #: [id number] [place] [address] EMERGENCY DEPARTMENT REPORT EMERGENCY DEPARTMENT PHYSICIAN This report was electronically signed by Anil Wilson MD 05/31/2021 11:42 AM Reported By: ANIL WILSON M.D. Medical Decision Making Covid is positive. Chest x-ray did show Covid pneumonia. We ambulated the patient and sats remained good at 93 to 95%. Chem-7 was significant for hypokalemia wi (more content not included)... Normal [facility] [place] GFR ESTon 05-31-2021 IF AMER Greater than 60 Normal [facility] Comment on above: Order Comment: Karla s: M Performed By: #### L 500.56814, L500.77047, L500.11441 #### [facility] [place] [address] IF non-AFR AMER Greater than 60 Normal [facility] Comment on above: Order Comment: Campu s: M Performed By: #### L 500.88401, L500.17845, L500.99156 #### [facility] [address] [place] [address] MAGNESIUMon 05-31-2021 Magnesium [Mass/Vol] 1.5 mg/dL Low 1.6-2.6 [facility] Comment on above: Order Comment: Campu s: M Performed By: #### L 500.29541, L500.55138, L500.06041 #### [facility] [place] [address] PORTABLE CHESTon 05-31-2021 PORTABLE CHEST EXAMINATION: CHEST RADIOGRAPH (PORTABLE SINGLE VIEW AP) Exam Date/Time: 05/31/2021 11:03 AM CLINICAL HISTORY: Cough, congestion MQ: XCPR_5 Comparison: None RESULT: The cardiomediastinal contours are normal. There are patchy multifocal infiltrates bilaterally. No vascular congestion, pleural effusion, or pneumothorax. The osseous structures are nonacute. IMPRESSION: Patchy multifocal infiltrates are noted bilaterally most consistent with multifocal/atypical pneumonia. Dictated by Remediation Project Engineer: Keila Frank DO I, Anil Wilson MD, have supervised the procedure and/or image review, and agree with the above interpretation and report. This report was electronically signed by Anil Wilson MD 05/31/2021 11:42 AM Reported By: ANIL WILSON M.D. Signed By: ANIL WILSON M.D. Normal [facility] RESP/COVID PCRon 05-31-2021 ADENOVIRUS PCR Not detected Normal NOT DETECTD [facility] Comment on above: Order Comment: Campu s: M Performed By: #### L 770.31434 #### [facility] [address] [place], [place] [address] B PARA PCR Not detected Normal NOT DETECTD [facility] Comment on above: Order Comment: Campu s: M Performed By: #### L 770.64800 #### [facility] [address] [place] [address] B PERTUSSIS PCR Not detected Normal NOT DETECTD [facility] Comment on above: Order Comment: Campu s: M Performed By: #### L 770.31784 #### [facility] [address] [place] [address] C PNEUMONIA PCR Not detected Normal NOT DETECTD [facility] Comment on above: Order Comment: Campu s: M Performed By: #### L 770.93640 #### [facility] [address] [place] [address] CORONAVIR 229E Not detected Normal NOT DETECTD [facility] Comment on above: Order Comment: Campu s: M Performed By: #### L 770.43743 #### [facility] [address] [place] [address] CORONAVIR HKU1 Not detected Normal NOT DETECTD [facility] Comment on above: Order Comment: Campu s: M Performed By: #### L 770.91226 #### [facility] [address] [place] [address] CORONAVIR NL63 Not detected Normal NOT DETECTD [facility] Comment on above: Order Comment: Campu s: M Performed By: #### L 770.66749 #### [facility] [address] [place] [address] CORONAVIR OC43 Not detected Normal NOT DETECTD [facility] Comment on above: Order Comment: Campu s: M Performed By: #### L 770.48645 #### [facility] [address] [place] [address] FLU A NO SUBTYP Not detected Normal NOT DETECTD [facility] Comment on above: Order Comment: Campu s: M Performed By: #### L 770.20265 #### [facility] [address] [place] [address] HUMAN METAPNEUM Not detected Normal NOT DETECTD [facility] Comment on above: Order Comment: Campu s: M Performed By: #### L 770.06303 #### [facility] [address] [place] [address] INFLUENZA A H1 Not detected Normal NOT DETECTD [facility] Comment on above: Order Comment: Campu s: M Performed By: #### L 770.89948 #### [facility] [address] [place] [address] INFLUENZA A H3 Not detected Normal NOT DETECTD [facility] Comment on above: Order Comment: Campu s: M Performed By: #### L 770.54968 #### [facility] [address] [place] [address] INFLUENZA B PCR Not detected Normal NOT DETECTD [facility] Comment on above: Order Comment: Campu s: M Performed By: #### L 770.93036 #### [facility] [address] [place] [address] M PNEUMONIA PCR Not detected Normal NOT DETECTD [facility] Comment on above: Order Comment: Campu s: M Performed By: #### L 770.03571 #### [facility] [place] [address] PARAINFLUENZA 1 Not detected Normal NOT DETECTD [facility] Comment on above: Order Comment: Campu s: M Performed By: #### L 770.58905 #### [facility] [place] [address] PARAINFLUENZA 2 Not detected Normal NOT DETECTD [facility] Comment on above: Order Comment: Campu s: M Performed By: #### L 770.96241 #### [facility] [address] [place] [address] PARAINFLUENZA 3 Not detected Normal NOT DETECTD [facility] Comment on above: Order Comment: Campu s: M Performed By: #### L 770.46939 #### [facility] [address] [facility] [place] [address] PARAINFLUENZA 4 Not detected Normal NOT DETECTD [facility] Comment on above: Order Comment: Campu s: M Performed By: #### L 770.20528 #### [facility] [address] [place] [address], [place] [address] RHINO/ENTERO Not detected Normal NOT DETECTD [facility] Comment on above: Order Comment: Campu s: M Performed By: #### L 770.85713 #### [facility] [address] [place] [address], [place] [address] RSV Not detected Normal NOT DETECTD [facility] Comment on above: Order Comment: Campu s: M Performed By: #### L 770.79397 #### [facility] [address] [place] [address], [place] [address] SARS-CoV-2 (COVID-19) RNA SANTY+probe Ql (Unsp spec) Detected High NOT DETECTD [facility] Comment on above: Order Comment: Campu s: M Result Comment: CRIT ICA VALUE(S) VERIFIED AND CALLED TO AND READ BACK BY Hemanth ABREU/JHONNY AT 1249 05/31/21 BY SUREKHA LOPEZ Negative results do not preclude SARS-CoV-2 infection and should not be used as the sole basis for treatment or other patient management decisions. Negative results must be combined with clinical observation, patient history, and epidemiological information. This test was performed by PCR. Performed By: #### L 770.64095 #### [facility] [address] [facility] [place] [address] HISTORY PHYSICALon 9 HISTORY PHYSICAL HNO ID: [id number] Author: Kinjal Concepcion Service: ? Author Type: Physician Type: HANDP Filed: 03/06/2019 8:26 AM Note Text: HISTORY AND PHYSICAL Hossein Pichardo, 53 year old male average risk for colon cancer screening Current history and physical on file: Yes Is a new History and Physical required for today's visit? No Indication for procedure: Screening PROCEDURE(S) SCHEDULED FOR: Colonoscopy with or without biopsies and with or without removal of polyps or lesions, dilation (any means), treatment of bleeding (any means), based on clinical findings. BASELINE BEHAVIOR: Calm BASELINE ORIENTATION: A AND O x3 All medications and allergies reviewed: Yes Skin Assessment: Warm dry muscus membranes pink Airway/Respiratory Assessment: Airway: visualization of the uvula- Yes Mouth: opening greater than 2 fingerbreadths- Yes Neck: full range of motion- Yes Breath sounds clear/equal- Yes Cardiac Assessment: Regular rate and rhythm without murmur Abdominal Assessment: Abdomen soft, non-tender, no masses or organomegaly. Sedation Plan: Deep Additional Comments: None Kinjal Concepcion MD [facility] OBSOLETEon 03-06-2019 OBSOLETE Procedure (ASCNOR) ---- TONIHOSSEIN BUSTAMANTE ([id number]) 1965 M Date Time Provider Department 03/06/19 8:00 AM KINJAL CONCEPCION MOHAMMED ASCNOR During your visit today, we recorded the following information about you: Temperature Pulse Respiration Blood pressure 98 degrees 92/minute 14/minute 105/65 Weight Height 90.7 kg 1.778 m Mera Easley RN 03/06/2019 7:36 AM Signed AMBULATORY PATIENT EDUCATION NOTE TOPIC: GI PROCEDURES: colonoscopy READINESS TO LEARN INSTRUCTION PROVIDED TO: Patient, readness to learn accessed prior to procedure, Family member and Patient and family member COGNITIVE ABILITY: Alert and oriented PTED MOTIVATION TO LEARN: Interested FAMILY SUPPORT: High - Very involved in pt care IPATIENT LEARNS BEST BY: Individual Instruction Written Instruction - Hand-outs Verbal Instruction FACTORS AFFECTING LEARNING: None PHYSICAL LIMITATIONS AFFECTING LEARNING: None Mera Easley RN 03/06/2019 7:29 AM Signed Discharge instructions given and patient voices understanding. All questions answered. Mera Concepcion MD 03/06/2019 8:26 AM Signed HISTORY AND PHYSICAL Hossein Pichardo, 53 year old male average risk for colon cancer screening Current history and physical on file: Yes Is a new History and Physical required for today's visit? No Indication for procedure: Screening PROCEDURE(S) SCHEDULED FOR: Colonoscopy with or without biopsies and with or without removal of polyps or lesions, dilation (any means), treatment of bleeding (any means), based on clinical findings. BASELINE BEHAVIOR: Calm BASELINE ORIENTATION: A AND O x3 All medications and allergies reviewed: Yes Skin Assessment: Warm dry muscus membranes pink Airway/Respiratory Assessment: Airway: visualization of the uvula- Yes Mouth: opening greater than 2 fingerbreadths- Yes Neck: full range of motion- Yes Breath sounds clear/equal- Yes Cardiac Assessment: Regular rate and rhythm without murmur Abdominal Assessment: Abdomen soft, non-tender, no masses or organomegaly. Sedation Plan: Deep Additional Comments: None MD Mera Mosley RN 03/06/2019 8:57 AM Signed POST OP LEARNING RESPONSE INSTRUCTION PROVIDED TO: Patient and family member METHOD OF INSTRUCTION: Written instruction - handouts Verbal instruction PATIENT / FAMILY RESPONSE: Verbalizes understanding of: POST-PROCEDURE INSTRUCTIONS-Correc t actions to take to reduce post procedure complications FOLLOW-UP PLAN: repeat colonoscopy in 10 years SUPPLEMENTAL MATERIAL: high fiber and diverticulosis handouts given REFERRAL (RECOMMENDATION): None Electronically Signed By: Mera Easley RN In Department: AMBULATORY SURGERY Ferdinand Cunha APRN.CRNA 03/06/2019 11:58 AM Signed POST ANESTHESIA EVALUATION NOTE SERVICE DATE: 03/06/2019 SERVICE TIME: 833 : 1965 Vitals: 03/06/19 0736 03/06/19 0833 Temp: 36.8 ?C (98.3 ?F) 36.7 ?C (98 ?F) 03/06/19 0736 03/06/19 0833 BP: 108/76 105/65 03/06/19 0736 03/06/19 0833 Pulse: 70 92 03/06/19 0736 03/06/19 0833 Resp: 16 14 03/06/19 0736 03/06/19 0833 SpO2: 93% 93% Validated Vital Signs: Yes POST ANES STATUS: No apparent anesthetic complications. The patient is appropriately hydrated with stable respiratory and cardiovascular status. Patient has safe and adequate airway control. The patient has appropriate pain relief and no significant post operative nausea or vomiting. The patient has achieved baseline mental status. Further assessment by Anesthesia Service: None Other Remarks: SIGNATURE: Ferdinand Cunha APRN.CRNA PATIENT NAME: Hossein Pichardo DATE: March 06, 2019 TIME: 11:57 AM PAGER/CONTACT #: [phone] Referring Provider: STEFFANIE MIDDLETON [[id number]] Allergies As of Date: 03/06/2019 Noted Allergy Reaction CEPHALEXIN 03/11/2017 4 - Hives 2 - Rash VANCOMYCIN 12/10/2018 7 - Swelling Date Reviewed: 03/06/2019 Reviewed by: Mera Easley RN - Fully Assessed Reason for Visit: Outpatient Colonoscopy [482] Cmt: screening Visit Diagnosis:Screening for colon cancer [Z12.11] Order(s):COLONOSCOP Y SCRN NOT HIGH RISK [[id number]] Order #: [id number]. #[id number] Prescriptions as of 03/06/2019 Sig: NIACIN 500 MG TABLET Take 500 mg by mouth daily wi* SAW PALMETTO ORAL Take 900 mg by mouth. CHOLECALCIFEROL (VITAMIN D3) * Cholecalciferol Cholecalcifer* MELOXICAM 15 MG TABLET LOSARTAN 50 MG TABLET Take 50 mg by mouth once sonido* TADALAFIL 20 MG TABLET take 1 tablet by mouth 2 TO * ASPIRIN 81 MG TABLET,DELAYED * 81 mg. PEDIATRIC MULTIVITAMIN NO.61-* MULTIPLE VITAMINS-MINERALS CO* Problem List As Of Date: 03/06/2019 (None) Other instructions from your clinician: Discharge instructions given and patient voices understanding. All questions answered. Mera Easley RN Visit Notes: >> Mera Easley RN joanne Mar 06, 2019 7:28 AM Status: Signed AMBULATORY PATIENT EDUCATION NOTE TOPIC: GI PROCEDURES: colonoscopy READINESS TO LEARN INSTRUCTION PROVIDED TO: Patient, readness to learn accessed prior to procedure, Family member and Patient and family member COGNITIVE ABILITY: Alert and oriented PTED MOTIVATION TO LEARN: Interested FAMILY SUPPORT: High - Very involved in pt care IPATIENT LEARNS BEST BY: Individual Instruction Written Instruction - Hand-outs Verbal Instruction FACTORS AFFECTING LEARNING: None PHYSICAL LIMITATIONS AFFECTING LEARNING: None Mera Easley RN >> Mera Easley RN TueMar 06, 2019 8:55 AM Status: Signed POST OP LEARNING RESPONSE INSTRUCTION PROVIDED TO: Patient and family member METHOD OF INSTRUCTION: Written instruction - handouts Verbal instruction PATIENT / FAMILY RESPONSE: Verbalizes understanding of: POST-PROCEDURE INSTRUCTIONS-Correc t actions to take to reduce post procedure complications FOLLOW-UP PLAN: repeat colonoscopy in 10 years SUPPLEMENTAL MATERIAL: high fiber and diverticulosis handouts given REFERRAL (RECOMMENDATION): None Electronically Signed By: Mera Easley RN In Department: AMBULATORY SURGERY >> Ferdinand Cunha TueMar 06, 2019 11:57 AM Status: Signed POST ANESTHESIA EVALUATION NOTE SERVICE DATE: 03/06/2019 SERVICE TIME: 833 : 1965 Vitals: 03/06/19 0736 03/06/19 0833 Temp: 36.8 ?C (98.3 ?F) 36.7 ?C (98 ?F) 03/06/19 0736 03/06/19 0833 BP: 108/76 105/65 03/06/19 0736 03/06/19 0833 Pulse: 70 92 03/06/19 0736 03/06/19 0833 Resp: 16 14 03/06/19 0736 03/06/19 0833 SpO2: 93% 93% Validated Vital Signs: Yes POST ANES STATUS: No apparent anesthetic complications. The patient is appropriately hydrated with stable respiratory and cardiovascular status. Patient has safe and adequate airway control. The patient has appropriate pain relief and no significant post operative nausea or vomiting. The patient has achieved baseline mental status. Further assessment by Anesthesia Service: None Other Remarks: SIGNATURE: Ferdinand Cunha APRN.CRNA PATIENT NAME: Hossein Pichardo DATE: March 06, 2019 TIME: 11:57 AM PAGER/CONTACT #: [phone] Disposition: Return if symptoms worsen or fail to improve. Follow-up and Disposition History Recorded Encounter Status:Closed by KINJAL CONCEPCION MD on 03/06/19 [facility] CONSULTon 12-11-2018 CONSULT HNO ID: [id number] Author: Lalo Burns Service: Orthopaedic Surgery Author Type: Resident Type: Consults Filed: 12/11/2018 1:03 AM Note Text: ---- Attestation signed by Ferdinand Walker at 12/11/2018 6:41 AM Agree with resident assessment and plan. ---- ORTHOPAEDIC SURGERY CONSULT Pt: HOSSEIN PICHARDO Date of Consultation: 12/10/2018 Physician Consulted: Dr. Walker Reason for Consultation: Left Knee septic arthritis HPI: 53 year old male pmhx psoriatic arthritis presented to [facility] ED for left knee pain with known history of septic arthritis. On 11/15/2018 patient underwent a meniscal repair of his left knee by Dr. Grimaldo at [facility]. He was given vancomycin at the time perioperatively and developed an allergic reaction. He was treated with corticosteroids and was switched to doxycycline. Postoperatively his complications were limited to one port site that would not heal and that would drain a transudative fluid according to the patient. until 12/06/2018 when he developed swelling, erythema, fever, chills,diaphoresis, and tenderness with range of motion. He returned to [facility] and underwent a left knee aspiration, which grew Strep B and had a cell count of 80k with 87% neutrophils, and he promptly underwent an arthroscopic IANDD of the left knee by Dr. Grimaldo. He was treated with daptomycin while admitted [facility] for 2 days. He had a PICC line placed and has since been treated with daily Rocephin after discharge. He is still being actively treated with Rocephin and took his most recent dose today. He was scheduled to follow up with Dr. Grimaldo 2 weeks after discharge. His symptoms were progressively improving until today, when he began to develop increased swelling and pain with the knee and fever, chills, diaphoresis and tachycardia. He said he would have returned to [facility] but Dr. Grimaldo is out of town. He has not had any active drainage from the incision sites. He denies any numbness or tingling. Per patient records, patient has a history of decreased ROM of the left knee. He states that this was due to the meniscus tear and after the meniscectomy, his range of motion was restored to greater than 90 degrees of flexion. He says that his current range of motion is severely reduced. Patient has known history of arthritis in the left knee. In 1996, he underwent bilateral ACL repairs and developed a septic left knee which grew MRSA and was promptly treated with an IANDD and vancomycin that resolved without incident. He is treated by Dr. Black for his psoriatic arthritis and has his psoriatic arthritis treatment of Cosentyx held since just prior to his meniscus repair in October. His Cosentyx has not been restarted do to the current infection. Patient has a history of Vitiligo. No past medical history on file. No past surgical history on file. Allergies: Heparin; Vancomycin No current facility-administer ed medications for this encounter. Current Outpatient Medications: losartan (COZAAR) 50 mg tablet Take 50 mg by mouth once daily. Tadalafil (CIALIS) 20 mg tab(s) take 1 tablet by mouth 2 TO 24 HOURS PRIOR TO RELATIONS No family history on file. Negative for family history of bleeding and clotting disorders. Social History Socioeconomic History Marital status: Spouse name: Not on file Number of children: Not on file Years of education: Not on file Highest education level: Not on file Social Needs Financial resource strain: Not on file Food insecurity - worry: Not on file Food insecurity - inability: Not on file Transportation needs - medical: Not on file Transportation needs - non-medical: Not on file Occupational History Not on file Tobacco Use Smoking status: Not on file Substance and Sexual Activity Alcohol use: Not on file Drug use: Not on file Sexual activity: Not on file Other Topics Concerns: Not on file Social History Narrative Not on file ROS: 10 pt ROS neg except in HPI O: Vitals: BP 123/79 Pulse (!) 97 Temp 37.3 ?C (99.1 ?F) (Oral) Resp 17 Ht 177.8 cm (5' 10) Wt 95.3 kg (210 lb) SpO2 99% BMI 30.13 kg/m? Physical exam: General: AANDO x 3; NAD. Cooperative throughout entire interview Extremity Left Lower Extremity: Decreased PROM and AROM with maximum passive flexion at 45 degrees No short arc range of motion tenderness Diffuse swelling of the left knee Three 2cm incision sites around the left knee with simple nylon sutures in place with a small area of surrounding erythema around each incision site without any drianage of exudate TTP diffusely around the left knee No diffuse erythema or warmth of the knee noted SILT S/S/SP/DP/T Motor intact DF/PF/EHL DP pulse palpable, foot warm with brisk capillary refill Hypopigmentation throughout the bilateral lower extremities consistent with patient's history of vitiligo Labs: BMP: Sodium 135 12/10/2018 Potassium 3.7 12/10/2018 Chloride 104 12/10/2018 CO2 25 12/10/2018 BUN 17 12/10/2018 Creatinine 1.24 12/10/2018 Glucose 100 12/10/2018 CBC: WBC 10.89 12/10/2018 HGB 13.9 12/10/2018 Hematocrit 41.9 12/10/2018 Platelet Count 263 12/10/2018 Imaging: -XR of the left knee obtained, reviewed, and demonstrates decreased joint space of the medial and lateral compartment with varus angulation, osteophytic changes of both the distal femur and proximal tibia. Radioopaque anchors in place in both the proximal tibia and distal femur. No obvious fracture or dislocation noted. A/P: 53 year old male with septic arthritis of the left knee currently being actively treated - Ok for discharge from orthopaedic perspective - Continue with Rocephin, no change in plan of care - Being that patient is 4 days out from surgery, patient needs to follow up at [facility] who should currently have a plan of care for him and would be better equipped to manage his treatment of left septic knee - WBAT LLE - Ice LLE - Follow up with Dr. Grimaldo at regularly sheduled appointment. - Patient discussed with Dr. Walker who agrees with assessment and plan Lalo Burns MD Orthopaedic Surgery 12/10/2018 11:22 PM Normal [facility] CRPon 12-11-2018 CRP mass conc 23.50 mg/dL High 0.00-0.30 [facility] Comment on above: Performed By: #### C RP3 #### [facility] [address] [address] ED NOTEon 12-11-2018 ED NOTE HNO ID: [id number] Author: Danuta Rivera MD Service: Emergency Medicine Author Type: Physician Type: ED Notes Filed: 12/11/2018 12:47 AM Note Text: 53 -year-old male presenting for left knee pain and swelling. The patient had surgery on his left knee in October at an outside facility. He suffered a postoperative infection that required an IANDD of the knee and is currently on IV antibiotics through a PICC line. States he has been taking the antibiotics and today developed chills became sweaty and noted an increased heart rate. He denies any associated chest pain, palpitations, shortness of breath, dizziness, cough, abdominal pain, nausea or vomiting. He states he has had some loose stools since starting the antibiotic. States he is coming here because he wants a second opinion. Constitutional: Nontoxic, well-appearing without any respiratory distress. HEENT: Mucous membranes moist. Neck: Supple. Normal range of motion. Cardiovascular: Heart is tachycardic without murmurs, rubs or gallops. Pulmonary: Lungs clear to auscultation bilaterally without wheezes, rhonchi as well as rales. Gastrointestinal: Abdomen soft, nontender, nondistended with normal active bowel sounds. No rebound, guarding or peritoneal signs. Genitourinary: No CVA tenderness. Muscle skeletal: Left knee with swelling and warmth. There is no erythema. Incisions are clean dry and intact. No discharge or drainage. He can range it but has discomfort with range of motion. Distal DP pulses 2+. There is some slight swelling to the left lower extremity compared to the right. There is no calf tenderness. Compartments are soft. There is a PICC line in the left upper extremity without redness, tenderness, warmth or swelling. The patient is afebrile but tachycardic. Given IV fluids. Blood work obtained and reviewed. We obtained the outside facilities records. The patient was seen by infectious disease as well as his orthopedic doctor on the last visit. Blood cultures were negative. We did ultrasound the left lower extremities negative for DVT. CBC showed a mild leukocytosis of 10.89. ESR and CRP elevated. Lactate within normal limits. Orthopedics consulted. Orthopedics consult pending upon sign out. Normal [facility] ED NOTE HNO ID: [id number] Author: Hari EscalanteRn) PHILIP Retana Service: Emergency Medicine Author Type: Registered Nurse Type: ED Notes Filed: 12/10/2018 11:51 PM Note Text: Ortho at bedside Normal [facility] ED NOTE HNO ID: [id number] Author: Adelina EscalanteRn) PHILIP Harden Service: Emergency Medicine Author Type: Registered Nurse Type: ED Notes Filed: 12/10/2018 11:05 PM Note Text: XR aware of order Normal [facility] Sed Rateon 12-11-2018 Sed Rate 87 mm/hr High 0-15 [facility] Comment on above: Performed By: #### E SR #### [place] [address] Basic Panelon 12-10-2018 Creatinine mass conc 1.24 mg/dL High 0.67-1.[address] [facility] Comment on above: Performed By: #### P 8 #### [place] [address] Urea nitrogen mass conc 17 mg/dL Normal 7-18 [facility] Comment on above: Performed By: #### P 8 #### [place] [address] Anion gap molar conc 10 mmol/L Normal 8-[address] [facility] Comment on above: Performed By: #### P 8 #### [facility] [address] [address] Calcium mass conc 9.7 mg/dL Normal 8.5-10.1 [facility] Comment on above: Performed By: #### P 8 #### [place] [address] CO2 molar conc 25 mmol/L Normal 21-32 [facility] Comment on above: Performed By: #### P 8 #### [facility] [address] [address] Glucose mass conc 100 mg/dL High 70-99 [facility] Comment on above: Performed By: #### P 8 #### [facility] [address] [address] Chloride molar conc 104 mmol/L Normal 98-107 [facility] Comment on above: Performed By: #### P 8 #### [facility] [address] [address] Potassium molar conc 3.7 mmol/L Normal 3.5-5.[address] [facility] Comment on above: Performed By: #### P 8 #### [facility] [address] [address] Sodium molar conc 135 mmol/L Low 136-145 [facility] Comment on above: Performed By: #### P 8 #### [facility] [address] [address] Cult Bloodon 12-10-2018 Cult Blood Test performed at [facility] No growth Normal [facility] Comment on above: Performed By: #### C _BLO #### [facility] [address] [address] Cult Blood Test performed at [facility] No growth Normal [facility] Comment on above: Performed By: #### C _BLO #### [facility] [address] [address] ED NOTEon 12-10-2018 ED NOTE HNO ID: [id number] Author: Hari EscalanteRn) Lainey RN Service: Emergency Medicine Author Type: Registered Nurse Type: ED Notes Filed: 12/10/2018 8:41 PM Note Text: 2 sets of blood cultures have been obtained and sent to the lab. First set drawn @ 2023 from right AC. Second set drawn @ 2037 from left AC. Normal [facility] ED NOTE HNO ID: [id number] Author: Hari EscalanteRn) Lainey, RN Service: Emergency Medicine Author Type: Registered Nurse Type: ED Notes Filed: 12/10/2018 8:41 PM Note Text: Blood work obtained and sent to the lab Normal [facility] ED NOTE HNO ID: [id number] Author: Hari (Rn) PHILIP Retana Service: Emergency Medicine Author Type: Registered Nurse Type: ED Notes Filed: 12/10/2018 8:40 PM Note Text: U/S paged, pt ready for U/S. U/S tech sts it will be 15 minutes. Normal [facility] ED NOTE HNO ID: [id number] Author: Hari EscalanteRn) PHILIP Retana Service: Emergency Medicine Author Type: Registered Nurse Type: ED Notes Filed: 12/10/2018 7:38 PM Note Text: Rad room called, pt is ready for x-ray Normal [facility] ED NOTE HNO ID: [id number] Author: Francisco Javier EscalanteRn) PHILIP Comer Service: ? Author Type: Registered Nurse Type: ED Notes Filed: 12/10/2018 7:01 PM Note Text: Bed: 12-ED Expected date: Expected time: Means of arrival: Comments: TRIAGE Normal [facility] ED PROV NOTEon 12-10-2018 Protein mass conc HNO ID: [id number] Author: Ned Humphries MD Service: Emergency Medicine Author Type: Resident Type: ED Provider Notes Filed: 12/11/2018 3:50 AM Note Text: ---- Attestation signed by Danuta Rivera MD at 12/21/2018 3:12 PM Attending Note I evaluated the patient and personally participated in the neri components. I agree with the resident's findings and plan as documented and have discussed the case and management of the patient's care with the resident. Signature: Danuta Rievra MD Date: 12/21/2018 Time: 3:11 PM ---- ED Provider Note Patient Name: Hossein Pichardo SERVICE DATE: 12/10/18 History Patient presents with: Knee Pain: pt had meniscus surgery x 4 weeks ago, Pt had IANDD on december 06 for infection in left knee. +strep B, placed on IV Rochepin and received 3rd dose today. Pt became diaphoretic today and sts his HR was in the 140's. +increased swelling in left knee. HPI Patient is a 53-year-old male who presents to the emergency department for the pain. Patient states that on 11/15 he had surgery on his left meniscus. Since then he has had swelling and he had his knee tapped at [facility]. Cultures grew staph and he is discharged with a midline and Rocephin for antibiotics. He had his third dose today. The patient endorses increased pain, diaphoresis, and tachycardia. He also endorses some lightheadedness. The symptoms concerned him and he decided to come here for second opinion. No past medical history on file. No past surgical history on file. No family history on file. Social History Tobacco Use - Smoking status: Not on file Substance and Sexual Activity - Alcohol use: Not on file - Drug use: Not on file - Sexual activity: Not on file ALLERGIES Allergen Reactions - Heparin Unknown - Vancomycin Swelling Review of Systems Constitutional: Positive for chills and diaphoresis. Negative for fever. HENT: Negative for congestion, rhinorrhea, sinus pressure and sinus pain. Eyes: Negative for pain, discharge, redness and itching. Respiratory: Negative for cough and shortness of breath. Cardiovascular: Positive for leg swelling (Knee). Negative for chest pain and palpitations. Gastrointestinal: Negative for abdominal pain, blood in stool, constipation, diarrhea, nausea and vomiting. Genitourinary: Negative for dysuria, flank pain and hematuria. Musculoskeletal: Negative for arthralgias, neck pain and neck stiffness. Skin: Negative for rash and wound. Neurological: Positive for light-headedness. Negative for syncope and headaches. Psychiatric/Behavio ral: Negative for agitation and behavioral problems. Physical Exam BP 142/91 Pulse 118 Temp (Src) 99.1 (Oral) Resp 18 Ht 5' 10 (1.78m) Wt 210 lb (95.3kg) SpO2 97% BMI 30.13 kg/(m2). O2 Therapy: Room Air Physical Exam Constitutional: He is oriented to person, place, and time. He appears well-developed and well-nourished. No distress. HENT: Head: Normocephalic and atraumatic. Right Ear: External ear normal. Left Ear: External ear normal. Nose: Nose normal. Eyes: Pupils are equal, round, and reactive to light. Conjunctivae and EOM are normal. Right eye exhibits no discharge. Left eye exhibits no discharge. No scleral icterus. Neck: Normal range of motion. Cardiovascular: Normal rate, regular rhythm, normal heart sounds and intact distal pulses. Exam reveals no gallop and no friction rub. No murmur heard. Pulmonary/Chest: Effort normal and breath sounds normal. No respiratory distress. He has no wheezes. He has no rales. Abdominal: Soft. Bowel sounds are normal. He exhibits no distension and no mass. There is no tenderness. There is no rebound and no guarding. Musculoskeletal: Normal range of motion. He exhibits edema (Patient has a swelling of his left knee. There are 3 incision sites that do not have surrounding induration.) and tenderness (He endorses pain in his posterior knee.). He exhibits no deformity. Patient denies any calf tenderness or swelling. Neurological: He is alert and oriented to person, place, and time. Skin: Skin is warm and dry. No rash noted. He is not diaphoretic. No erythema. Psychiatric: He has a normal mood and affect. His behavior is normal. Nursing note and vitals reviewed. Diagnostic Testing ED Labs Ordered and Reviewed - No data to display Procedures ED Course / Clinical Impression Clinical Impressions as of Dec 11 337 Acute pain of left knee Post-op pain MDM / Disposition / Plan Patient is a 53-year-old male who presents to the emergency department for the pain. Patient states that on 11/15 he had surgery on his left meniscus. Since then he has had swelling and he had his knee tapped at [facility]. He was discharged with a midline and Rocephin for antibiotics. On physical exam he has a swelling of his left knee. He endorses pain posterior aspect of his left knee. There is no Pain or tenderness. He denies any chest pain or shortness of breath. We obtained comprehensive labs and imaging to evaluate this patient's symptoms. Labs: CBC, BMP, Lactate Imaging: Chest xray, actually ultrasound Medications: IV fluids The patient's CBC showed a leukocytosis of 10. His BMP was unremarkable. Obtained a lower extremity ultrasound that showed no signs of a DVT. We consulted orthopedics who agreed to see the patient. They obtained a sedimentation rate and a CRP which were both elevated. They decided that because the patient was 4 days postop and was receiving antibiotics at home, could be discharged to follow-up with his surgeon within the next few days. Patient continued to be tachycardic despite receiving IV fluids. His blood pressure remained stable. We did obtain cultures and is counseled on the importance of following up with his orthopedic surgeon tomorrow. The patient is agreeable to this plan and will call the office first thing in the morning. He is given strict return cautioned if he became febrile or developed any other new or worsening symptoms. Disposition The patient was discharged. Counseled regarding lab results and suspected diagnosis. As well as the need for follow-up. Discharged home with verbal and written instructions. They were instructed to return as needed for persistent or worsening symptoms or any new concerns. Condition at disposition is stable. SIGNATURE: MD Ned Avitia (Roland Humphries MD Resident 12/11/18 0350 Danuta Rivera MD 12/21/18 1512 Normal [facility] ED Triage Noteon 12-10-2018 ED Triage Note HNO ID: [id number] Author: Belle Whitehead Service: Emergency Medicine Author Type: Physician Visual Inspector Type: ED Triage Notes Filed: 12/10/2018 7:05 PM Note Text: ED INTAKE NOTE Patient Name: Hosesin Pichardo Service Date: 12/10/18 BRIEF HPI: Patient is a 53-year-old male who presents the ED with increasing left knee pain and swelling, diaphoresis, chills. Patient reports he had left knee surgery at the end of October for his meniscus. Patient reports that on 12/06/18 he had his left knee IANDD and had strep B, therefore was started on rocephin via a PICC line, last dose was at 1:00 this afternoon. He reports today he was diaphoretic, chills, tachycardic. He also reports that he had increased swelling and pain to his left knee. BRIEF EXAM: Constitutional: Well developed, well nourished, NAD HEENT: Normocephalic, atraumatic Respiratory: No respiratory distress Cardiac: Tachycardic Neuro: AANDOx3 Skin: Warm and dry INTAKE WORKUP: Deferred due to direct rooming SIGNATURE: Belle Whitehead PA-C Normal [facility] Hemogram/Diffon 12-10-2018 Abs Immature Grans 0.04 thou/cmm Normal 0.00-0.05 [facility] Comment on above: Performed By: #### C BCD1 #### [place] [address] Abs. Baso 0.02 thou/cmm Normal 0.01-0.08 [facility] Comment on above: Performed By: #### C BCD1 #### [place] [address] Abs. Mcclain 1.24 thou/cmm High 0.30-0.82 [facility] Comment on above: Performed By: #### C BCD1 #### [place] [address] Abs. Neut (ANC) 8.10 thou/cmm High 1.78-5.38 [facility] Comment on above: Performed By: #### C BCD1 #### [place] [address] Basophils/100 WBC (Bld) 0.2 % Normal [facility] Comment on above: Performed By: #### C BCD1 #### [facility] [address] [place] [address] Eosinophils #/vol (Bld) 0.11 thou/cmm Normal 0.04-0.54 [facility] Comment on above: Performed By: #### C BCD1 #### [place] [address] Eosinophils/100 WBC (Bld) 1.0 % Normal [facility] Comment on above: Performed By: #### C BCD1 #### [facility] [address] [place] [address] Erythrocyte distribution width Ratio (RBC) 13.0 % Normal 11.6-14.4 [facility] Comment on above: Performed By: #### C BCD1 #### [facility] [address] [place] [address] Hematocrit Volume Fraction (Bld) 41.9 % Normal 40.1-51.0 [facility] Comment on above: Performed By: #### C BCD1 #### [facility] [address] [place] [address] Hemoglobin mass conc (Bld) 13.9 g/dL Normal 13.7-17.5 [facility] Comment on above: Performed By: #### C BCD1 #### [facility] [address] [place] [address] Immature Grans 0.40 % Normal [facility] Comment on above: Performed By: #### C BCD1 #### [facility] [address] [place] [address] Lymphocytes #/vol (Bld) 1.37 thou/cmm Normal 0.84-2.85 [facility] Comment on above: Performed By: #### C BCD1 #### [facility] [address] [place] [address] Lymphocytes/100 WBC (Bld) 12.6 % Normal [facility] Comment on above: Performed By: #### C BCD1 #### [facility] [address] [place] [address] MCH Entitic mass (RBC) 31.7 pg Normal 25.7-32.2 [facility] Comment on above: Performed By: #### C BCD1 #### [facility] [address] [place] [address] MCHC mass conc (RBC) 33.2 % Normal 32.3-36.[address] [facility] Comment on above: Performed By: #### C BCD1 #### [facility] [address] [place] [address] MCV Entitic volume (RBC) 95.4 fL Normal 83.2-95.6 [facility] Comment on above: Performed By: #### C BCD1 #### [facility] [address] [place] [address] Monocytes/100 WBC (Bld) 11.4 % Normal [facility] Comment on above: Performed By: #### C BCD1 #### [facility] [address] [place] [address] Platelet mean volume Entitic volume (Bld) 9.9 fL Normal 8.7-12.0 [facility] Comment on above: Performed By: #### C BCD1 #### [facility] [address] [place] [address] Platelets #/vol (Bld) 263 thou/cmm Normal 141-365 [facility] Comment on above: Performed By: #### C BCD1 #### [facility] [address] [place] [address] RBC #/vol (Bld) 4.39 mil/cmm Low 4.63-6.08 [facility] Comment on above: Performed By: #### C BCD1 #### [facility] [address] [place] [address] RDW SD 45.5 fl Normal 36.1-45.8 [facility] Comment on above: Performed By: #### C BCD1 #### [facility] [address] [place] [address] Seg Neutrophil 74.4 % Normal [facility] Comment on above: Performed By: #### C BCD1 #### [facility] [address] [place] [address] WBC #/vol (Bld) 10.89 thou/cmm High 4.23-9.07 [facility] Comment on above: Performed By: #### C BCD1 #### [facility] [address] [place] [address] Lactic Acidon 12-10-2018 Lactate molar conc 1.2 mmol/L Normal 0.5-2.2 [facility] Comment on above: Performed By: #### E DLAG #### [facility] [address] [place], [place] [address] MDRD GFRon 12-10-2018 GFR/1.73 sq M predicted among non-blacks MDRD vol rate/area (S/P/Bld) mL/min/{1.73_m2} Normal >60mL/min/1.7 3m2 [facility] Comment on above: Result Comment: If t he patient is , multiply the result by 1.210. Performed By: #### G FR #### [facility] [address] [place], [place] [address] CNCOon 11-16-2018 CNCO Letter Text Colonoscopy (MIRALAX - SPLIT DOSE) Instructions Appointment Date: 12/08/18 at 1:30 PM Facility: [facility] Gastro[facility]ology/En doscopy Suite - [address] [place] [address] Arrive At: 12:45 PM Special instructions: N/A To ensure a successful exam, please follow all instructions carefully. You MUST arrange a ride for the day of your exam. If you fail to arrange acceptable transportation, your procedure will need to be rescheduled. Please bring a list of all your current medications, including any iwvy-[id number] medications with you. If you must cancel or reschedule your appointment, please call our office at [phone] as soon as possible. DIABETIC PATIENTS Use G2 (Gatorade 2) Take only 1/2 of your morning dose of insulin or tablets the day before your exam. Do not take any more of your diabetic medications until the procedure is over and you have resumed eating again. Drink regular liquids (not diabetic) and monitor your sugar throughout the day you are on clear liquids. If your sugar gets too low, drink some apple juice. PURCHASE THE FOLLOWING SUPPLIES AT YOUR LOCAL PHARMACY: 4 Dulcolax laxative tablets containing 5mg of Bisacodyl each (NOT Dulcolax stool softener) One 8.3oz bottle of Miralax (238 grams) or generic equivalent. 64 oz clear liquid (NOT RED). Gatorade, G2, Gatorade Ice, Powerade or Powerade Zero are acceptable. 7 DAYS BEFORE YOUR COLONOSCOPY: If you take aspirin or NSAIDS such as Advil, Motrin, Celebrex or Ibuprofen, you may continue to take them as usual unless otherwise instructed by your physician. You should discuss this with your physician in advance of the procedure. Ask your doctor for specific instructions if you take a blood thinner like Plavix, Pradaxa, Clopidogrel, Coumadin, Warfarin, Effient, Prasugrel or Lovenox. 3 DAYS BEFORE YOUR COLONOSCOPY: Stop eating all nuts, seeds and popcorn. 1 DAY BEFORE YOUR COLONOSCOPY: Begin a clear liquid diet. Drink at least 8 glasses of water during the day to avoid dehydration. At 5pm, take 4 Dulcolax tablets. Mix 64 oz liquid with 8.[address] in the refrigerator (DO NOT ADD ICE) Ar 6pm, drink 32 oz of the Miralax/Gatorade solution. 4 hours prior to the procedure, drink the remaining 32 oz of the Miralax/Gatorade solution. Clear Liquid: Not Clear Liquid Gatorade, Pedialyte or Powerade No red items of any kind Clear broth or bouillon No alcohol Coffee or tea (no milk or non-dairy creamer) No milk or non-dairy creamers Carbonated and non-carbonated soft drinks No noodles or vegetables in soup Eliazar-Aid or other fruit flavored drinks No juice with pulp Strained fruit juices No liquid you cannot see through Jello, popsicles, hard candy DAY OF YOUR COLONOSCOPY: You may take all of your morning medications as usual with 4 oz of water up to 3 hours before your procedure. 2 hours before, stop drinking all clear liquids. You are ready for the exam if you followed all instructions and your stool is no longer formed, but clear or yellow liquid. COLON CLEANSING TIPS 1. Stay near a toilet! You will have diarrhea, which can be quite sudden. This is normal. 3. It is common to experience abdominal discomfort until the stool has flushed from your colon (this may take 2 to 4 hours, and occasionally significantly longer). 2. Rarely, people may experience nausea or vomiting with the prep. If this occurs, give yourself a 30-90 minute break, rinse your mouth or brush your teeth, then continue drinking the prep solution. 4. Anal skin irritation or a flare of hemorrhoidal inflammation may occur and can be treated with a variety of over the counter remedies including hydrocortisone creams, baby wipes or Tucks pads. Avoid products containing alcohol. If you have a prescription for hemorrhoid cream, you may use it. Do not use suppositories. Normal [facility] OBSOLETEon 11-16-2018 OBSOLETE Refill (ASCNOR) ---- MARINOHOSSEIN Monika ([id number]) 1965 M Date Time Provider Department 11/16/18 ZUHAIR BARRON During your visit today, we recorded the following information about you: Veronique Medeiros 11/16/2018 9:43 AM Signed Instructed patient to pickup Miralax OTC prep. Veronique Medeiros 11/16/2018 9:43 AM Signed CONSCIOUS SEDATION How to Prepare for Your Colonoscopy Using Golytely, Nulytely, Trilyte, or Colyte Preparations IMPORTANT - Please Read These Instructions at Least 2 Weeks Before Your Colonoscopy Neri Instructions: Your bowel must be empty so that your doctor can clearly view your colon. Follow all of the instructions in this handout EXACTLY as they are written. If you do NOT follow the directions for when to start drinking the bowel preparation (see next page), your colonoscopy WILL be cancelled. ? Do NOT eat any solid food the ENTIRE day before your colonoscopy. ? Buy your bowel preparation at least 5 days before your colonoscopy. ? Do NOT mix the solution until the day before your colonoscopy. Designated Silk Spotter on the Day of Your Exam A responsible family member or friend MUST come with you to your colonoscopy and REMAIN in the endoscopy area until you are discharged! You are NOT ALLOWED to drive, take a taxi or bus, or leave the Endoscopy Center ALONE. If you do not have a responsible haulpak driver (family member or friend) with you to take you home, your exam can not be done with sedation and will be cancelled. Medications Some of the medicines you take may need to be stopped or adjusted before your colonoscopy. You MUST call the doctor who ordered any of the following medicines at least 2 weeks before your colonoscopy. ? Blood Thinners -- such as Coumadin? (warfarin), Plavix ? (clopidogrel), Ticlid ? (ticlopidine hydrochloride), Agrylin ? (anagrelide), Xarelto (rivaroxaban), Pradaxa (dabigatran), and Effient (Prasugrel). ? Insulin or diabetes pills. Please call the doctor that monitors your glucose levels. Your insulin dosage may need to be adjusted due to diet restrictions required with this bowel preparation. (Please bring your diabetes medications with you on the day of your procedure.) If you take aspirin, continue it and ALL other medications prescribed by your doctor. On the day of your colonoscopy, take your medications with a sip of water. Five (5) Days Before Your Colonoscopy Do NOT take medications that stop diarrhea-- such as Imodium?, Kaopectate?, or Pepto Bismol?. Do NOT take fiber supplements--such as Metamucil?, Citrucel?, or Perdiem?. Do NOT take products that contain iron--such as multi-vitamins--(th e label lists what is in the products). Do NOT take vitamin E. Buy the prescription bowel preparation at your local pharmacy or drugstore. Three (3) Days Before Your Colonoscopy Do NOT eat high-fiber foods--such as popcorn, beans, seeds (flax, sunflower, quinoa), multigrain bread, nuts, salad/vegetables, or fresh and dried fruit. One (1) Day Before Your Colonoscopy Only drink clear liquids the ENTIRE DAY before your colonoscopy. Do NOT eat any solid foods. Drink at least 8 ounces of clear liquids every hour after waking up. The clear liquids you can drink include: ? water, apple or white grape juice; broth; coffee or tea (without milk or creamer); clear carbonated beverages such as yuliana pranav or lemon[place] soda; Gatorade? or other sports drinks (not red); Eliazar-Aid? or other flavored drinks (not red); plain jello or other gelatins (not red); popsicles (not red) ? Do NOT drink alcohol on the day before or the day of the procedure. When to Mix and Drink Your Bowel Preparation Follow the instructions on the label. After mixing, place the solution in the refrigerator for a couple of hours before drinking. You may add the flavor packet that came with the bowel preparation. DO NOT add ice, sugar or any flavorings to the solution. There are two ways your doctor may dose the bowel preparation for your colonoscopy. Follow the dosing recommendations, split dosing or single dosing, as prescribed by your doctor. Split dosing cleans the bowel better and is easier to drink than single dosing. Split dosing means you drink half of the bowel preparation the evening before the colonoscopy and half of the bowel preparation the morning of the colonoscopy. Single dosing means you drink all of the bowel preparation on a single day Morning Appointment (Before 12 noon) Split Dosing Step 1: Start drinking the bowel preparation at 6 PM the evening before your colonoscopy. Drink an 8 oz glass of bowel preparation every 10 minutes for a total of 8 glasses. You may continue to drink clear liquids until bedtime. Step 2: The day of the colonoscopy (4 hours before your exam). Drink an 8 oz glass of bowel preparation every 10 minutes for a total of 8 glasses. You may continue to drink clear liquids up to 2 hours before your exam. If you take aspirin, take it and ALL other prescribed medicines with a sip of water on the day of your colonoscopy. OR Single Dosing, Evening Before Colonoscopy Start drinking the bowel preparation at 6 PM the evening before your colonoscopy. Drink an 8 oz glass of bowel preparation every 10 minutes. You must finish drinking the solution by 9 PM. You may continue to drink clear liquids up to 2 hours before your exam. If you take aspirin, take it and ALL other prescribed medicines with a sip of water on the day of your colonoscopy. Afternoon Appointment (After 12 noon) Single Dosing, Morning of Colonoscopy Start drinking the bowel preparation at 6 AM the day of your colonoscopy. Drink an 8 oz glass of bowel preparation every 10 minutes. You must finish drinking the solution by 9 AM. You may continue to drink clear liquids up to 2 hours before your exam. If you take aspirin, take it and ALL other prescribed medicines with a sip of water on the day of your colonoscopy. Contact Information If you are unable to keep your appointment or have any questions about the instructions, please call the facility where the procedure is being performed. Call between the hours of 8:00 AM and 5:00 PM. If you are calling after 5:00 PM, please call Nurse paraprofessional aide teacher at [phone]. COLONOSCOPY PROCEDURE OVERVIEW Please read prior to the procedure What is a Colonoscopy? A colonoscopy is an outpatient procedure in which the inside of the large intestine (colon and rectum) is examined. A colonoscopy is commonly used to evaluate gastrointestinal symptoms, such as rectal and intestinal bleeding, abdominal pain, or changes in bowel habits. Colonoscopies are also performed in individuals without symptoms to check for colorectal polyps or cancer. A screening colonoscopy is recommended for anyone 50 years of age and older, and for anyone with parents, siblings or children with a history of colorectal cancer or polyps. What happens before a colonoscopy? To have a successful colonoscopy, your bowel must be empty so that your physician can clearly view the colon. To do this, it is very important to read and follow all of the instructions given to you at least 2 weeks BEFORE your exam. If your bowel is not empty, your colonoscopy will not be successful and may have to be repeated. If you feel nauseated or vomit while taking the bowel preparation, wait 30 minutes before drinking more fluid and start with small sips of solution. Some activity (such as walking) or a few soda crackers may help decrease the nausea you are feeling. If the nausea persists, please contact nurse extrusion engineer at [phone]. You may experience skin irritation around the anus due to the passage of liquid stools. To prevent and treat skin irritation, you should: Apply Vaseline or Desitin ointment to the skin around the anus before drinking the bowel preparation medications. These products can be purchased at any drug store. Wipe the skin after each bowel movement with disposable wet wipes instead of toilet paper. These are found in the toilet paper area of the store. Sit in a bathtub filled with warm water for 10 to 15 minutes after you finish passing a stool; after soaking, blot the skin dry with a soft cloth, apply Vaseline or Desitin ointment to the anal area, and place a cotton ball just outside your anus to absorb leaking fluid. What happens during a colonoscopy? During a colonoscopy, an experienced physician uses a colonoscope (a long, flexible instrument about 1/2 inch in diameter) to view the lining of the colon. The colonoscope is inserted into the rectum and advanced through the large intestine. If necessary during a colonoscopy, small amounts of tissue can be removed for analysis (a biopsy) and polyps can be identified and entirely removed. In many cases, a colonoscopy allows accurate diagnosis and treatment of colorectal problems without the need for a major operation. You are asked to wear a hospital gown and an IV will be started. You are given a pain reliever and a sedative intravenously (in your vein). You will feel relaxed and somewhat drowsy. You will lie on your left side, with your knees drawn up towards your chest. A small amount of air is used to expand the colon so the physician can see the colon nelson. You may feel mild cramping during the procedure. Cramping can be reduced by taking slow, deep breaths. The colonoscope is slowly withdrawn while the lining of your bowel is carefully examined. The procedure lasts from 30 minutes to 1 hour. What happens after a colonoscopy? You will stay in a recovery room for observation until you are ready for discharge. You may feel some cramping or a sensation of having gas, but this quickly passes. If sedation has been given, a responsible haulpak driver (a family member or friend) must drive you home. Avoid alcohol, driving, and operating machinery for 24 hours following the procedure. Unless otherwise instructed, you may immediately return to your normal diet. We recommend you wait until the day after your procedure to resume normal activities. If polyps were removed or a biopsy was taken, the physician performing your colonoscopy will tell you when it is safe to resume taking your blood thinners. If a biopsy was taken or a polyp was removed, you may notice a little amount of rectal bleeding for 1 to 2 days after the procedure. If you have a large amount of rectal bleeding, high or persistent fevers, or severe abdominal pain within the next 2 weeks, please go to your local emergency room and call the physician who performed your exam. Allergies As of Date: 11/16/2018 (Not on File) Date Reviewed: Never Reviewed Reason for Visit: Refill Request [94] Primary Visit Diagnosis:Screening for colon cancer [Z12.11] Order(s):COLONOSCOP Y SCRN NOT HIGH RISK [[id number]] Order #: [id number] FUTURE peg 3350-Electrolytes (GOLYTELY) 236-22.74-6.74 -5.86 gram suspensionTake 4,000 mL by mouth one time only for 1 dose. Refer to printed prep instructions from your doctor.Disp: 1 BottleRfl: 0 Prescriptions as of 11/16/2018 Sig: PEG 3350-ELECTROLYTES 236 GRA* Take 4,000 mL by mouth one ti* Problem List As Of Date: 11/16/2018 (None) Other instructions from your clinician: CONSCIOUS SEDATION How to Prepare for Your Colonoscopy Using Golytely, Nulytely, Trilyte, or Colyte Preparations IMPORTANT - Please Read These Instructions at Least 2 Weeks Before Your Colonoscopy Neri Instructions: Your bowel must be empty so that your doctor can clearly view your colon. Follow all of the instructions in this handout EXACTLY as they are written. If you do NOT follow the directions for when to start drinking the bowel preparation (see next page), your colonoscopy WILL be cancelled. ? Do NOT eat any solid food the ENTIRE day before your colonoscopy. ? Buy your bowel preparation at least 5 days before your colonoscopy. ? Do NOT mix the solution until the day before your colonoscopy. Designated Silk Spotter on the Day of Your Exam A responsible family member or friend MUST come with you to your colonoscopy and REMAIN in the endoscopy area until you are discharged! You are NOT ALLOWED to drive, take a taxi or bus, or leave the Endoscopy Center ALONE. If you do not have a responsible haulpak driver (family member or friend) with you to take you home, your exam can not be done with sedation and will be cancelled. Medications Some of the medicines you take may need to be stopped or adjusted before your colonoscopy. You MUST call the doctor who ordered any of the following medicines at least 2 weeks before your colonoscopy. ? Blood Thinners -- such as Coumadin? (warfarin), Plavix ? (clopidogrel), Ticlid ? (ticlopidine hydrochloride), Agrylin ? (anagrelide), Xarelto (rivaroxaban), Pradaxa (dabigatran), and Effient (Prasugrel). ? Insulin or diabetes pills. Please call the doctor that monitors your glucose levels. Your insulin dosage may need to be adjusted due to diet restrictions required with this bowel preparation. (Please bring your diabetes medications with you on the day of your procedure.) If you take aspirin, continue it and ALL other medications prescribed by your doctor. On the day of your colonoscopy, take your medications with a sip of water. Five (5) Days Before Your Colonoscopy Do NOT take medications that stop diarrhea-- such as Imodium?, Kaopectate?, or Pepto Bismol?. Do NOT take fiber supplements--such as Metamucil?, Citrucel?, or Perdiem?. Do NOT take products that contain iron--such as multi-vitamins--(th e label lists what is in the products). Do NOT take vitamin E. Buy the prescription bowel preparation at your local pharmacy or drugstore. Three (3) Days Before Your Colonoscopy Do NOT eat high-fiber foods--such as popcorn, beans, seeds (flax, sunflower, quinoa), multigrain bread, nuts, salad/vegetables, or fresh and dried fruit. One (1) Day Before Your Colonoscopy Only drink clear liquids the ENTIRE DAY before your colonoscopy. Do NOT eat any solid foods. Drink at least 8 ounces of clear liquids every hour after waking up. The clear liquids you can drink include: ? water, apple or white grape juice; broth; coffee or tea (without milk or creamer); clear carbonated beverages such as yuliana pranav or lemon[place] soda; Gatorade? or other sports drinks (not red); Eliazar-Aid? or other flavored drinks (not red); plain jello or other gelatins (not red); popsicles (not red) ? Do NOT drink alcohol on the day before or the day of the procedure. When to Mix and Drink Your Bowel Preparation Follow the instructions on the label. After mixing, place the solution in the refrigerator for a couple of hours before drinking. You may add the flavor packet that came with the bowel preparation. DO NOT add ice, sugar or any flavorings to the solution. There are two ways your doctor may dose the bowel preparation for your colonoscopy. Follow the dosing recommendations, split dosing or single dosing, as prescribed by your doctor. Split dosing cleans the bowel better and is easier to drink than single dosing. Split dosing means you drink half of the bowel preparation the evening before the colonoscopy and half of the bowel preparation the morning of the colonoscopy. Single dosing means you drink all of the bowel preparation on a single day Morning Appointment (Before 12 noon) Split Dosing Step 1: Start drinking the bowel preparation at 6 PM the evening before your colonoscopy. Drink an 8 oz glass of bowel preparation every 10 minutes for a total of 8 glasses. You may continue to drink clear liquids until bedtime. Step 2: The day of the colonoscopy (4 hours before your exam). Drink an 8 oz glass of bowel preparation every 10 minutes for a total of 8 glasses. You may continue to drink clear liquids up to 2 hours before your exam. If you take aspirin, take it and ALL other prescribed medicines with a sip of water on the day of your colonoscopy. OR Single Dosing, Evening Before Colonoscopy Start drinking the bowel preparation at 6 PM the evening before your colonoscopy. Drink an 8 oz glass of bowel preparation every 10 minutes. You must finish drinking the solution by 9 PM. You may continue to drink clear liquids up to 2 hours before your exam. If you take aspirin, take it and ALL other prescribed medicines with a sip of water on the day of your colonoscopy. Afternoon Appointment (After 12 noon) Single Dosing, Morning of Colonoscopy Start drinking the bowel preparation at 6 AM the day of your colonoscopy. Drink an 8 oz glass of bowel preparation every 10 minutes. You must finish drinking the solution by 9 AM. You may continue to drink clear liquids up to 2 hours before your exam. If you take aspirin, take it and ALL other prescribed medicines with a sip of water on the day of your colonoscopy. Contact Information If you are unable to keep your appointment or have any questions about the instructions, please call the facility where the procedure is being performed. Call between the hours of 8:00 AM and 5:00 PM. If you are calling after 5:00 PM, please call Nurse paraprofessional aide teacher at [phone]. COLONOSCOPY PROCEDURE OVERVIEW Please read prior to the procedure What is a Colonoscopy? A colonoscopy is an outpatient procedure in which the inside of the large intestine (colon and rectum) is examined. A colonoscopy is commonly used to evaluate gastrointestinal symptoms, such as rectal and intestinal bleeding, abdominal pain, or changes in bowel habits. Colonoscopies are also performed in individuals without symptoms to check for colorectal polyps or cancer. A screening colonoscopy is recommended for anyone 50 years of age and older, and for anyone with parents, siblings or children with a history of colorectal cancer or polyps. What happens before a colonoscopy? To have a successful colonoscopy, your bowel must be empty so that your physician can clearly view the colon. To do this, it is very important to read and follow all of the instructions given to you at least 2 weeks BEFORE your exam. If your bowel is not empty, your colonoscopy will not be successful and may have to be repeated. If you feel nauseated or vomit while taking the bowel preparation, wait 30 minutes before drinking more fluid and start with small sips of solution. Some activity (such as walking) or a few soda crackers may help decrease the nausea you are feeling. If the nausea persists, please contact nurse extrusion engineer at [phone]. You may experience skin irritation around the anus due to the passage of liquid stools. To prevent and treat skin irritation, you should: Apply Vaseline or Desitin ointment to the skin around the anus before drinking the bowel preparation medications. These products can be purchased at any drug store. Wipe the skin after each bowel movement with disposable wet wipes instead of toilet paper. These are found in the toilet paper area of the store. Sit in a bathtub filled with warm water for 10 to 15 minutes after you finish passing a stool; after soaking, blot the skin dry with a soft cloth, apply Vaseline or Desitin ointment to the anal area, and place a cotton ball just outside your anus to absorb leaking fluid. What happens during a colonoscopy? During a colonoscopy, an experienced physician uses a colonoscope (a long, flexible instrument about 1/2 inch in diameter) to view the lining of the colon. The colonoscope is inserted into the rectum and advanced through the large intestine. If necessary during a colonoscopy, small amounts of tissue can be removed for analysis (a biopsy) and polyps can be identified and entirely removed. In many cases, a colonoscopy allows accurate diagnosis and treatment of colorectal problems without the need for a major operation. You are asked to wear a hospital gown and an IV will be started. You are given a pain reliever and a sedative intravenously (in your vein). You will feel relaxed and somewhat drowsy. You will lie on your left side, with your knees drawn up towards your chest. A small amount of air is used to expand the colon so the physician can see the colon nelson. You may feel mild cramping during the procedure. Cramping can be reduced by taking slow, deep breaths. The colonoscope is slowly withdrawn while the lining of your bowel is carefully examined. The procedure lasts from 30 minutes to 1 hour. What happens after a colonoscopy? You will stay in a recovery room for observation until you are ready for discharge. You may feel some cramping or a sensation of having gas, but this quickly passes. If sedation has been given, a responsible [place]ulp[place] driver (a family member or friend) must drive you home. Avoid alcohol, driving, and operating machinery for 24 hours following the procedure. Unless otherwise instructed, you may immediately return to your normal diet. We recommend you wait until the day after your procedure to resume normal activities. If polyps were removed or a biopsy was taken, the physician performing your colonoscopy will tell you when it is safe to resume taking your blood thinners. If a biopsy was taken or a polyp was removed, you may notice a little amount of rectal bleeding for 1 to 2 days after the procedure. If you have a large amount of rectal bleeding, high or persistent fevers, or severe abdominal pain within the next 2 weeks, please go to your local emergency room and call the physician who performed your exam. Prescriptions ordered this encounter Disp Refills Start End PEG 3350-ELECTROLYTES 236 GRAM-22.74* 1 Abhishek* 0 11/20/2018 11/20/2018 Route: ORAL Sig: Take 4,000 mL by mouth one time only for 1 dose. Refer to printed prep instructions from your doctor. Encounter Status:Closed by ZUHAIR SCRUGGS MD on 11/20/18 [facility] CNCOon 11-09-2018 CNCO Letter Text Kinjal Concepcion MD [address] [place] [address] Date: 11/09/2018 Provider: Kinjal Concepcion MD Dear Hossein, We have received a referral from your Primary Care Physician requesting us to contact you to schedule a Screening Colonoscopy for prevention and early detection of colon cancer. Our office has tried to contact you without success. Colon Cancer is the third leading cause of cancer related deaths. One hundred fifty thousand Americans are diagnosed with colon cancer annually, and this condition is responsible for 50,000 deaths per year. Hence, this disease has significant mortality and health consequences. Colonoscopy is an easy and safe test to remove pre-cancerous growth (polyps) from the colon, preventing and detecting colon cancer at an early stage thus improving survival. Most insurances pay for Colonoscopy without any out pocket expense to the patient. Colonoscopy is performed under deep sedation with the help of an anesthesia professional with zero pain/discomfort during the procedure. We urge you to please call our office at [phone], option 5 and we will assist you in scheduling your exam. Sincerely, Kinjal Concepcion MD Normal [facility] HBSABon 03-23-2018 Hep B Surf Ab >1000.0 Normal [facility] ([place]) Comment on above: Result Comment: Anti -HBs Interpretation: 0 to <5.0 mIU/mL Negative Patient is considered to be not immune to infection with HBV. >/= 5.0 and <12.0 mIU/mL Equivocal Unable to determine if anti-HBs is present at levels consistent with immunity. Patient's immune status should be further assessed by considering other clinical information or retesting another sample drawn at a later time. >/= 12.0 mIU/mL Positive Patient is considered to be immune to infection with HBV. It has not been determined what the clinical significance is for values greater than or equal to 12.0 mIU/mL, other than the individual is considered to be immune to HBV infection. Performed By: #### H BSAB ####[place] [id number] RUBEOon 01-05-2018 Rubeola IgG Ab Positive Normal [facility] ([place]) Comment on above: Result Comment: INTE RPRETATION OF RUBEOLA (MEASLES) IGG BY EIA: Negative Nonreactive (Negative) for anti-Rubeola IgG. Presumed non-immune to measles virus. Positive Reactive (Positive) for anti-Rubeola IgG. Presumed immune to measles virus. Equivocal Repeat testing if still indicated. Performed By: #### H BSAB, RUBEO, VARIS, RUBIS ####[place] [id number] RUBISon 01-05-[address] Positive Normal Positive [facility] ([place]) Comment on above: Result Comment: This immune status assay detects IgM and/or IgG antibody to Rubella. Interpret results in conjunction with clinical history. POS: Antibody detected; exposure at undetermined recent or distant time. If clinically indicated, order Rubella IGM to rule out recent infection. NEG: No antibody detected. Performed By: #### H MOHIT MAYES VARIS, RUBIS ####[place] [id number] VARISon 01-05-[address] Positive Normal [facility] ([place]) Comment on above: Result Comment: This immune status assay detects antibody to Varicella Zostervirus. Interpret results in conjunction with clinical history. Positive: Reactive for antibodies to Varicella IgG. If clinically indicated, order Varicella IGM to rule out recent infection. Equivocal: Equivocal for antibodies to Varicella IgG. Suggest repeat testing in 10-14 days. Negative: Non-reactive for antibodies to Varicella IgG.Sera will be held 4-6 weeks if further testing is required. Performed By: #### H MOHIT MAYES VARIS, RUBIS ####[place] [id number] HBSABon 01-04-2018 Hep B Surf Ab 11.1 mIU/mL Normal [facility] ([place]) Comment on above: Result Comment: Anti -HBs Interpretation: 0 to <5.0 mIU/mL Negative Patient is considered to be not immune to infection with HBV. >/= 5.0 and <12.0 mIU/mL Equivocal Unable to determine if anti-HBs is present at levels consistent with immunity. Patient's immune status should be further assessed by considering other clinical information or retesting another sample drawn at a later time. >/= 12.0 mIU/mL Positive Patient is considered to be immune to infection with HBV. It has not been determined what the clinical significance is for values greater than or equal to 12.0 mIU/mL, other than the individual is considered to be immune to HBV infection. Performed By: #### H MOHIT MAYES VARIS, RUBIS ####[place] [address] Office Visiton 05-02-2017 Documentation of current medications (procedure) Done Invalid Interpretation Code [facility] Work Phone: Protein mass conc Done [facility] Work Phone: Tobacco smoking status NHIS Former smoker [facility] Work Phone: Tobacco use CPHS Former smoker Invalid Interpretation Code [facility] Work Phone: Office Visiton 04-04-2017 Documentation of current medications (procedure) Done Invalid Interpretation Code [facility] Work Phone: [facility] Work Phone: Tobacco smoking status NHIS Former smoker [facility] Work Phone: Tobacco use CPHS Former smoker Invalid Interpretation Code [facility] Work Phone: Office Visiton 02-28-2017 Documentation of current medications (procedure) Done Invalid Interpretation Code [facility] Work Phone: Protein mass conc [facility] Work Phone: Tobacco smoking status NHIS Former smoker [facility] Work Phone: Tobacco use CP Former smoker Invalid Interpretation Code [facility] Work Phone: Office Visiton 12-22-2016 Protein mass conc Done [facility] Work Phone: Tobacco smoking status NMIS Former smoker [facility] Work Phone: BLADDER SCAN [facility] Vital Signs Date Time Vital Sign Value Performing Clinician Facility 02-22-2025 08:36-0400 Body height 175.3 cm Kavitha Nojose LIQUOR CLERK.CAR REPAIRMAN Work Phone: [facility] 02-22-2025 08:36-0400 Body mass index (BMI) [Ratio] 29.24 kg/m2 Kavitha Noling LIQUOR CLERK.CAR REPAIRMAN Work Phone: [facility] 02-22-2025 08:36-0400 Body temperature 97.2 [degF] Kavitha Noojse LIQUOR CLERK.CAR REPAIRMAN Work Phone: [facility] 02-22-2025 08:36-0400 Body weight 89.81 kg Kavitha Noling LIQUOR CLERK.CAR REPAIRMAN Work Phone: [facility] 02-22-2025 08:36-0400 Diastolic blood pressure 88 mm[Hg] Kavitha Noling LIQUOR CLERK.CAR REPAIRMAN Work Phone: [facility] Comment on above: Didn't get much rest 02-22-2025 08:36-0400 Heart rate 68 /min Kavitha Noling LIQUOR CLERK.CAR REPAIRMAN Work Phone: [facility] 02-22-2025 08:36-0400 Respiratory rate 16 /min Kavitha Noling LIQUOR CLERK.CAR REPAIRMAN Work Phone: [facility] 02-22-2025 08:36-0400 SaO2% (BldA) [Mass fraction] 98 % Kavitha Noling LIQUOR CLERK.CAR REPAIRMAN Work Phone: [facility] 02-22-2025 08:36-0400 Systolic blood pressure 140 mm[Hg] Kavitha Noling LIQUOR CLERK.CAR REPAIRMAN Work Phone: [facility] Comment on above: Didn't get much rest 08-24-2024 10:00-0500 Body height 175.3 cm Kavitha Noling LIQUOR CLERK.CAR REPAIRMAN Work Phone: [facility] 08-24-2024 10:00-0500 Body mass index (BMI) [Ratio] 29.45 kg/m2 Kavitha Noling LIQUOR CLERK.CAR REPAIRMAN Work Phone: [facility] 08-24-2024 10:00-0500 Body temperature 97.2 [degF] Kavitha Noling LIQUOR CLERK.CAR REPAIRMAN Work Phone: [facility] 08-24-2024 10:00-0500 Body weight 90.45 kg Kavitha Noling LIQUOR CLERK.CAR REPAIRMAN Work Phone: [facility] 08-24-2024 10:00-0500 Diastolic blood pressure 86 mm[Hg] Kavitha Noling LIQUOR CLERK.CAR REPAIRMAN Work Phone: [facility] 08-24-2024 10:00-0500 Heart rate 71 /min Kavitha Noling LIQUOR CLERK.CAR REPAIRMAN Work Phone: [facility] 08-24-2024 10:00-0500 Respiratory rate 16 /min Kavitha Noling LIQUOR CLERK.CAR REPAIRMAN Work Phone: [facility] 08-24-2024 10:00-0500 SaO2% (BldA) [Mass fraction] 98 % Kavitha Noling LIQUOR CLERK.CAR REPAIRMAN Work Phone: [facility] 08-24-2024 10:00-0500 Systolic blood pressure 128 mm[Hg] Kavitha Noling LIQUOR CLERK.CAR REPAIRMAN Work Phone: [facility] 01-06-2024 13:37-0400 Body height 175.3 cm Kavitha Noling LIQUOR CLERK.CAR REPAIRMAN Work Phone: [facility] 01-06-2024 13:37-0400 Body temperature 98.29 [degF] Kavitha Noling LIQUOR CLERK.CAR REPAIRMAN Work Phone: [facility] 01-06-2024 13:37-0400 Body weight 88.91 kg Kavitha Noling LIQUOR CLERK.CAR REPAIRMAN Work Phone: [facility] 01-06-2024 13:37-0400 Diastolic blood pressure 86 mm[Hg] Kavitha Noling LIQUOR CLERK.CAR REPAIRMAN Work Phone: [facility] 01-06-2024 13:37-0400 Heart rate 55 /min Kavitha Noling LIQUOR CLERK.CAR REPAIRMAN Work Phone: [facility] 01-06-2024 13:37-0400 SaO2% (BldA) [Mass fraction] 97 % Kavitha Noling LIQUOR CLERK.CAR REPAIRMAN Work Phone: [facility] 01-06-2024 13:37-0400 Systolic blood pressure 136 mm[Hg] Kavitha Noling LIQUOR CLERK.CAR REPAIRMAN Work Phone: [facility] 07-08-2023 14:42-0400 Body height 175.3 cm Kavitha Noling LIQUOR CLERK.CAR REPAIRMAN Work Phone: [facility] 07-08-2023 14:42-0400 Body temperature 97.81 [degF] Kavitha Noling LIQUOR CLERK.CAR REPAIRMAN Work Phone: [facility] 07-08-2023 14:42-0400 Body weight 88.45 kg Kavitha Noling LIQUOR CLERK.CAR REPAIRMAN Work Phone: [facility] 07-08-2023 14:42-0400 Diastolic blood pressure 80 mm[Hg] Kavitha Noling LIQUOR CLERK.CAR REPAIRMAN Work Phone: [facility] 07-08-2023 14:42-0400 Heart rate 63 /min Kavitha Noling LIQUOR CLERK.CAR REPAIRMAN Work Phone: [facility] 07-08-2023 14:42-0400 Respiratory rate 17 /min Kavitha Noling LIQUOR CLERK.CAR REPAIRMAN Work Phone: [facility] 07-08-2023 14:42-0400 SaO2% (BldA) [Mass fraction] 98 % Kavitha Noling LIQUOR CLERK.CAR REPAIRMAN Work Phone: [facility] 07-08-2023 14:42-0400 Systolic blood pressure 126 mm[Hg] Kavitha Noling LIQUOR CLERK.CAR REPAIRMAN Work Phone: [facility] 04-07-2023 09:37-0400 Body height 177.8 cm Kade Lundberg MD Work Phone: [facility] 04-07-2023 09:37-0400 Body weight 93.89 kg Kade Lundberg MD Work Phone: [facility] 04-07-2023 09:37-0400 Respiratory rate 15 /min Kade Lundberg MD Work Phone: [facility] 11-23-2022 08:10-0500 Body height 177.8 cm Kavitha Noling LIQUOR CLERK.CAR REPAIRMAN Work Phone: [facility] 11-23-2022 08:10-0500 Body weight 93.89 kg Kavitha Noling LIQUOR CLERK.CAR REPAIRMAN Work Phone: [facility] 11-23-2022 08:10-0500 Diastolic blood pressure 72 mm[Hg] Kavitha Noling LIQUOR CLERK.CAR REPAIRMAN Work Phone: [facility] 11-23-2022 08:10-0500 Heart rate 70 /min Kavitha Noling LIQUOR CLERK.CAR REPAIRMAN Work Phone: [facility] 11-23-2022 08:10-0500 SaO2% (BldA) [Mass fraction] 97 % Kavitha Noling LIQUOR CLERK.CAR REPAIRMAN Work Phone: [facility] 11-23-2022 08:10-0500 Systolic blood pressure 118 mm[Hg] Kavitha Noling LIQUOR CLERK.CAR REPAIRMAN Work Phone: [facility] Encounters Encounter Date Encounter Type Care Provider Facility Start: 04-23-2025 End: 04-23-2025 ambulatory KAVITHA NOLING JOURNALISM TEACHER-C Work Phone: [facility] [place] Start: 04-23-2025 End: 04-23-2025 Patient encounter procedure KAVITHA NOLING JOURNALISM TEACHER-C -[facility] [place] Work Phone: Start: 04-23-2025 End: 04-23-2025 ambulatory [facility] Facility:[facility] Start: 02-22-2025 End: 02-22-2025 Office outpatient visit 25 minutes Kavitha L Noling LIQUOR CLERK.CAR REPAIRMAN Work Phone: [facility] [place] Comment on above: Hyperlipidemia, unsp ecified hyperlipidemia type (Primary Dx); Primary hypertension; ED (erectile dysfunction) of organic origin; Vitamin D deficiency; Herpes simplex virus (HSV) infection; Screening PSA (prostate specific antigen) Start: 02-22-2025 End: 02-22-2025 ambulatory KAVITHA L NOLING Facility:[id number] Start: 12-26-2024 End: 12-26-2024 ambulatory KAVITHA NOLING JOURNALISM TEACHER-C Work Phone: [facility] Work Phone: Start: 12-26-2024 End: 12-26-2024 Patient encounter procedure KAVITHA NOLING JOURNALISM TEACHER-C Work Phone: [facility] Work Phone: Start: 12-26-2024 End: 12-26-2024 ambulatory KAVITHA NOLING Facility:[facility] Start: 12-12-2024 End: 12-12-2024 Refill Kavitha L Noling LIQUOR CLERK.CAR REPAIRMAN Work Phone: [facility] [place] Comment on above: Refill Request Start: 12-12-2024 End: 12-12-2024 Refill Kavitha L Noling LIQUOR CLERK.CAR REPAIRMAN Work Phone: [facility] [place] Comment on above: Refill Request Start: 08-24-2024 End: 08-24-2024 Office outpatient visit 25 minutes Kavitha L Noling LIQUOR CLERK.CAR REPAIRMAN Work Phone: [facility] [place] Comment on above: Hyperlipidemia, unsp ecified hyperlipidemia type (Primary Dx); Primary hypertension; Herpes simplex virus (HSV) infection; Vitamin D deficiency; ED (erectile dysfunction) of organic origin Start: 08-24-2024 End: 08-24-2024 ambulatory KAVITHA L NOLING Facility:[id number] Start: 07-26-2024 End: 07-26-2024 ambulatory KAVITHA L NOLING Facility:[id number] Start: 07-02-2024 End: 07-02-2024 Refill Srinivasa Chadwick MD Work Phone: [facility] [place] Comment on above: Refill Request Start: 04-01-2024 Patient encounter procedure [facility] Provider [facility] Department Start: 01-24-2024 Telephone encounter Kavitha L No ling LIQUOR CLERK.CAR REPAIRMAN Work Phone: [facility] [facility] Comment on above: Results Start: 01-06-2024 End: 01-06-2024 Office outpatient visit 25 minutes Kavitha L Noling LIQUOR CLERK.CAR REPAIRMAN Work Phone: [facility] Comment on above: Primary hypertension (Primary Dx); Hyperlipidemia, unspecified hyperlipidemia type; Vitamin D deficiency; Prostate cancer screening; Herpes simplex virus (HSV) infection; ED (erectile dysfunction) of organic origin; Complex renal cyst; Stool contents finding, abnormal; Medication monitoring encounter Start: 12-06-2023 Telephone encounter Kavithaleigh rendon LIQUOR CLERK.CAR REPAIRMAN Work Phone: [facility] Comment on above: Orders Start: 10-23-2023 Refill Kavitha L Nojose LIQUOR CLERK.CAR REPAIRMAN Work Phone: [facility] Comment on above: Refill Request Start: 08-06-2023 Refill Srinivasa Chadwick MD Work Phone: [facility] Comment on above: Refill Request Start: 07-08-2023 End: 07-08-2023 Office outpatient visit 15 minutes Kavitha L Russ LIQUOR CLERK.CAR REPAIRMAN Work Phone: [facility] Comment on above: Hyperlipidemia, unsp ecified hyperlipidemia type (Primary Dx); Primary hypertension; Gastroesophageal reflux disease, unspecified whether esophagitis present; Benign prostatic hyperplasia with nocturia; Vitamin D deficiency; Anemia, unspecified type Start: 04-13-2023 End: 04-13-2023 ambulatory [facility] Work Phone: Start: 04-13-2023 End: 04-13-2023 Patient encounter procedure [facility] Work Phone: Start: 04-07-2023 End: 04-07-2023 Patient encounter procedure Kade Lundberg MD Work Phone: Urology Comment on above: Complex renal cyst ( Primary Dx); Erectile dysfunction due to arterial insufficiency; Hypertrophy of prostate with urinary obstruction; Incomplete bladder emptying Start: 12-28-2022 Refill Kavitha L Noling LIQUOR CLERK.CAR REPAIRMAN Work Phone: [facility] Comment on above: Refill Request Start: 12-01-2022 Telephone encounter Kavithaleigh rendon APRN.CAR REPAIRMAN Work Phone: [facility] Comment on above: Orders Start: 11-23-2022 Patient encounter procedure [facility] Provider [facility] Department Start: 11-23-2022 End: 11-23-2022 Office outpatient visit 25 minutes Kavitha Solano APRN.CAR REPAIRMAN Work Phone: [facility] [place] Comment on above: Primary hypertension (Primary Dx); Hyperlipidemia, unspecified hyperlipidemia type; Gastroesophageal reflux disease, unspecified whether esophagitis present; Benign prostatic hyperplasia with nocturia; Vitamin D deficiency; Anemia, unspecified type Start: 11-21-2022 ambulatory Kavitha Solano LIQUOR CLERK.CAR REPAIRMAN Work Phone: [facility] Comment on above: RUQ U/S results and family history Start: 10-29-2022 End: 10-29-2022 Subsequent hospital visit by physician [facility] [address] [facility] Comment on above: ELEVATED BILIRUBIN Start: 08-26-2022 ambulatory Kavitha Solano LIQUOR CLERK.CAR REPAIRMAN Work Phone: [facility] [place] Comment on above: Lab results Start: 08-26-2022 E-mail encounter fro m caregiver Kavitha Solano APRN.CAR REPAIRMAN Work Phone: [facility] Start: 08-18-2022 End: 08-18-2022 ambulatory [facility] Work Phone: Start: 08-18-2022 End: 08-18-2022 Patient encounter procedure [facility] [place] Start: 08-18-2022 Telephone encounter Kavitha rendon APRN.CAR REPAIRMAN Work Phone: [facility] Comment on above: Orders Start: 05-18-2022 Patient encounter status Rojelio Mckeon DO Work Phone: [facility] Work Phone: Start: 04-13-2022 Refill Pankaj Mesa MD Work Phone: [facility] [place] Comment on above: Refill Request Start: 04-06-2022 Refill Rojelio Anand ho DO Work Phone: [facility] Comment on above: Refill Request Start: 09-22-2021 End: 09-26-2021 ambulatory [facility] Start: 09-15-2021 End: 09-19-2021 ambulatory [facility] Start: 06-12-2021 End: 02-22-2025 Patient encounter status Kavitha Solano LIQUOR CLERK.CAR REPAIRMAN Work Phone: [facility] Start: 12-10-2018 End: 12-11-2018 Emergency department patient visit STEFFANIE MIDDLETON Facility:[facility] Procedures Date Procedure Procedure Detail Performing Clinician Start: 04-23-2025 Prostate specific an tigen measurement KAVITHA NOLING JOURNALISM TEACHER-C Work Phone: Comment on above: This test was perfor med using the [employer] tPSA method. Measured values of a patient sample can vary depending on the testing procedure used. PSA values determined on patient samples by different testing procedures cannot be used interchangeably. If there is a change in PSA assays while monitoring therapy, sequential testing should be performed to confirm baseline values. Start: 04-23-2025 Vitamin D, 25-hydrox y measurement KAVITHA NOLING JOURNALISM TEACHER-C Work Phone: Comment on above: Vitamin D StatusDefi ciency: <20 ng/mL (50nmol/L)Insufficiency: 20-30 ng/mL (50-75 nmol/L)Sufficiency: 30-100 ng/mL (75-250 nmol/L)Toxicity: >100 ng/mL (>250 nmol/L) Start: 07-26-2024 Lipid 1996 panel - S gema or Plasma Kavitha Noling LIQUOR CLERK.CAR REPAIRMAN Work Phone: Start: 01-06-2024 Adult depression scr eening assessment Srinivasa Chadwick MD Work Phone: Start: 12-31-2023 Lipid 1996 panel - S gema or Plasma Kavitha Noling LIQUOR CLERK.CAR REPAIRMAN Work Phone: Start: 04-07-2023 BLADDER SCAN Kade byrne MD Work Phone: Start: 04-07-2023 Urnls dip stick/tabl et rgnt auto w/o microscopy Kade Lundberg MD Work Phone: Start: 10-29-2022 Us abdominal real ti me w/image limited Kavitha Solano LIQUOR CLERK.CAR REPAIRMAN Work Phone: Start: 05-18-2022 Adult depression scr eening assessment Rojelio Mckeon DO Work Phone: Start: 03-06-2019 Colonoscopy Rojelio Mckeon DO Work Phone: Start: 12-15-2018 Lipid 1996 panel - S gema or Plasma Kavitha Solano LIQUOR CLERK.CAR REPAIRMAN Work Phone: Start: 12-10-2018 Electrocardiogram RONDA Veronika LEANNE Plan of Treatment Date Care Activity Detail Author Start: 07-26-2029 Lipid panel Lipid Screening [facility] Start: 07-26-2029 Prostate specific antigen measurement Prostate Cancer Screening Discussion [facility] Start: 03-06-2029 Colonoscopy COLONOSCOPY [facility] Start: 03-06-2029 COLORECTAL CANCER SCREENING COLORECTAL CANCER SCREENING [facility] Start: 03-06-2029 Screening for malign ant neoplasm of colon [facility] Start: 12-30-2028 Lipid panel Lipid Screening [facility] Start: 01-17-2028 Urine microalbumin profile [facility] Start: 07-26-2027 Diabetes Screening Diabetes Screenin g [facility] Start: 12-30-2026 Diabetes Screening Diabetes Screenin g [facility] Start: 07-22-2026 PROSTATE CANCER SCREENING DISCUSSION PROSTATE CANCER SCREENING DISCUSSION [facility] Start: 07-22-2026 Prostate specific antigen measurement Prostate Cancer Screening Discussion [facility] Start: 02-22-2026 Annual PCP Team Digital Operations Analyst bharat Disease Visit Annual PCP Team Chronic Disease Visit [facility] Start: 02-22-2026 Anxiety Screening Anxiety Screening [facility] Comment on above: Postponed from 01/05 (Postponed To Appropriate Date) Start: 02-22-2026 Depression Screening Depression Scre ening [facility] Comment on above: Postponed from 01/05 (Postponed To Appropriate Date) Start: 02-22-2026 Pneumococcal Vaccine : 50+ (1 of 2 - PCV) Pneumococcal Vaccine: 50+ (1 of 2 - PCV) [facility] Comment on above: Postponed from 11/05 (Declined at this time) Start: 08-30-2025 End: 08-30-2025 Patient encounter procedure 08/30/2025 9:00 AM EST Office Visit [facility] [address] [place] [phone] Kavitha Solano APRN.CAR REPAIRMAN [address] [place] [phone] 6 mo [facility] Comment on above: 6 mo Start: 08-24-2025 End: 11-23-2025 25-hydroxyvitamin D3 [Mass/volume] in Serum or Plasma VITAMIN D 25 HYDROXY Lab Routine Vitamin D deficiency Expected: 08/24/2025, Expires: 11/23/2025 [facility] Comment on above: Expected: 08/24/2025 , Expires: 11/23/2025 Start: 08-24-2025 Annual PCP Team Digital Operations Analyst bharat Disease Visit Annual PCP Team Chronic Disease Visit [facility] Start: 08-24-2025 End: 11-23-2025 CBC panel - Blood by Automated count COMPLETE BLOOD COUNT Lab Routine Hyperlipidemia, unspecified hyperlipidemia type Primary hypertension Expected: 08/24/2025, Expires: 11/23/2025 [facility] Comment on above: Expected: 08/24/2025 , Expires: 11/23/2025 Start: 08-24-2025 End: 11-23-2025 Comprehensive metabolic 2000 panel - Serum or Plasma COMPREHENSIVE METABOLIC PANEL Lab Routine Hyperlipidemia, unspecified hyperlipidemia type Primary hypertension Expected: 08/24/2025, Expires: 11/23/2025 [place] Work Phone: Comment on above: Expected: 08/24/2025 , Expires: 11/23/2025 Start: 08-24-2025 Covid-19 Vaccine (#1) Covid-19 Vacci ne (#1) [facility] Comment on above: Postponed from 11/05 (Declined at this time) Start: 08-24-2025 Hepatitis B Vaccine (3 of 3 - 19+ 3-dose series) Hepatitis B Vaccine (3 of 3 - 19+ 3-dose series) [facility] Comment on above: Postponed from 07/18 (Declined at this time) Start: 08-24-2025 End: 11-23-2025 Lipid 1996 panel - Serum or Plasma LIPID PANEL, FASTING Lab Routine Hyperlipidemia, unspecified hyperlipidemia type Primary hypertension Expected: 08/24/2025, Expires: 11/23/2025 [facility] Comment on above: Expected: 08/24/2025 , Expires: 11/23/2025 Start: 08-24-2025 Pneumococcal vaccination Pneumococcal Vaccine (1 of 2 - PCV) [facility] Comment on above: Postponed from 11/05 (Declined at this time) Start: 08-24-2025 End: 11-23-2025 PSA/PROSTATE SPECIFIC ANTIGEN SCREENING PSA/PROSTATE SPECIFIC ANTIGEN SCREENING Lab Routine Screening PSA (prostate specific antigen) Expected: 08/24/2025, Expires: 11/23/2025 [facility] Comment on above: Expected: 08/24/2025 , Expires: 11/23/2025 Start: 08-24-2025 Shingrix Vaccine (1 of 2) Shingrix Vaccine (1 of 2) [facility] Comment on above: Postponed from 11/05 (Declined at this time) Start: 05-20-2025 Influenza vaccination Influenz a Vaccine (Season Ended) [facility] Start: 03-18-2025 Influenza vaccination Influenza Vacc ine (#1) [facility] Comment on above: Postponed from 05/20 (Declined at this time) Start: 02-22-2025 End: 05-24-2025 25-hydroxyvitamin D3 [Mass/volume] in Serum or Plasma VITAMIN D 25 HYDROXY Lab Routine Vitamin D deficiency Expected: 02/22/2025, Expires: 05/24/2025 [facility] Comment on above: Expected: 02/22/2025 , Expires: 05/24/2025 Start: 02-22-2025 End: 05-24-2025 CBC panel - Blood by Automated count COMPLETE BLOOD COUNT Lab Routine Hyperlipidemia, unspecified hyperlipidemia type Primary hypertension Expected: 02/22/2025, Expires: 05/24/2025 [facility] Comment on above: Expected: 02/22/2025 , Expires: 05/24/2025 Start: 02-22-2025 End: 05-24-2025 Comprehensive metabolic 2000 panel - Serum or Plasma COMPREHENSIVE METABOLIC PANEL Lab Routine Hyperlipidemia, unspecified hyperlipidemia type Primary hypertension Expected: 02/22/2025, Expires: 05/24/2025 [place] Work Phone: Comment on above: Expected: 02/22/2025 , Expires: 05/24/2025 Start: 02-22-2025 End: 05-24-2025 Lipid 1996 panel - Serum or Plasma LIPID PANEL BASIC Lab Routine Hyperlipidemia, unspecified hyperlipidemia type Primary hypertension Expected: 02/22/2025, Expires: 05/24/2025 [facility] Comment on above: Expected: 02/22/2025 , Expires: 05/24/2025 Start: 02-22-2025 End: 02-22-2025 Patient encounter procedure 02/22/2025 8:40 AM EDT Office Visit [facility] [address] [place] [phone] Kavitha Solano LIQUOR CLERK.CAR REPAIRMAN [address] [place] [phone] 6 month follow up [facility] Comment on above: 6 month follow up Start: 01-05-2025 Annual PCP Team Digital Operations Analyst bharat Disease Visit Annual PCP Team Chronic Disease Visit [facility] Start: 01-05-2025 Anxiety Screening Anxiety Screening [facility] Start: 01-05-2025 Depression Screening Depression Scre ening [facility] Start: 12-26-2024 In-vitro immunologic test [facility] Start: 07-27-2024 End: 07-27-2024 Patient encounter procedure 07/27/2024 10:40 AM EST Office Visit [facility] [address] [place] [phone] Kavitha Solano, LIQUOR CLERK.CAR REPAIRMAN [address] [facility] [address] [place] [phone] 6 month follow up [facility] Comment on above: 6 month follow up Start: 07-08-2024 Annual PCP Team Digital Operations Analyst bharat Disease Visit Annual PCP Team Chronic Disease Visit [facility] Start: 07-04-2024 End: 01-05-2025 25-hydroxyvitamin D3 [Mass/volume] in Serum or Plasma VITAMIN D 25 HYDROXY Lab Routine Vitamin D deficiency Expected: 07/04/2024, Expires: 01/05/2025 [place] Work Phone: Comment on above: Expected: 07/04/2024 , Expires: 01/05/2025 Start: 07-04-2024 End: 01-05-2025 CBC panel - Blood by Automated count COMPLETE BLOOD COUNT Lab Routine Medication monitoring encounter Expected: 07/04/2024, Expires: 01/05/2025 [place] Work Phone: Comment on above: Expected: 07/04/2024 , Expires: 01/05/2025 Start: 07-04-2024 End: 01-05-2025 Comprehensive metabolic 2000 panel - Serum or Plasma COMPREHENSIVE METABOLIC PANEL Lab Routine Primary hypertension Hyperlipidemia, unspecified hyperlipidemia type Expected: 07/04/2024, Expires: 01/05/2025 [place] Work Phone: Comment on above: Expected: 07/04/2024 , Expires: 01/05/2025 Start: 07-04-2024 End: 01-05-2025 Lipid 1996 panel - Serum or Plasma LIPID PANEL BASIC Lab Routine Primary hypertension Hyperlipidemia, unspecified hyperlipidemia type Expected: 07/04/2024, Expires: 01/05/2025 [place] Work Phone: Comment on above: Expected: 07/04/2024 , Expires: 01/05/2025 Start: 07-04-2024 End: 01-05-2025 PSA/PROSTATE SPECIFIC ANTIGEN SCREENING PSA/PROSTATE SPECIFIC ANTIGEN SCREENING Lab Routine Prostate cancer screening Expected: 07/04/2024, Expires: 01/05/2025 [place] Work Phone: Comment on above: Expected: 07/04/2024 , Expires: 01/05/2025 Start: 06-29-2024 End: 06-29-2024 Patient encounter procedure [facility] Comment on above: 6 month follow up Start: 05-31-2024 DIABETES SCREEN DIABETES SCREEN [facility] Start: 05-31-2024 Diabetes Screening Diabetes Screenin g [facility] Start: 05-20-2024 Influenza vaccination Influenza Vacc ine (#1) [facility] Start: 12-16-2023 Lipid 1996 panel - Serum or Plasma Lipid Screening [facility] Start: 12-16-2023 Lipid panel Lipid Screening [facility] Start: 12-16-2023 LIPID SCREEN LIPID SCREEN [facility] Start: 11-24-2023 ANNUAL PCP TEAM HEALTH/SAFETY JOB TITLES BHARAT DISEASE VISIT ANNUAL PCP TEAM CHRONIC DISEASE VISIT [facility] Start: 11-24-2023 BP CONTROLLED (<130/80) BP CONTROLLE D (<130/80) [facility] Start: 09-19-2023 Depression Assessment Depression Ass essment [facility] Start: 07-08-2023 End: 01-04-2024 25-hydroxyvitamin D3 [Mass/volume] in Serum or Plasma VITAMIN D 25 HYDROXY Lab Routine Vitamin D deficiency Expected: 07/08/2023, Expires: 01/04/2024 [place] Work Phone: Comment on above: Expected: 07/08/2023 , Expires: 01/04/2024 Start: 07-08-2023 End: 01-04-2024 CBC panel - Blood by Automated count CBC Lab Routine Anemia, unspecified type Expected: 07/08/2023, Expires: 01/04/2024 [place] Work Phone: Comment on above: Expected: 07/08/2023 , Expires: 01/04/2024 Start: 07-08-2023 End: 01-04-2024 Comprehensive metabolic 2000 panel - Serum or Plasma COMP METABOLIC PANEL Lab Routine Hyperlipidemia, unspecified hyperlipidemia type Primary hypertension Expected: 07/08/2023, Expires: 01/04/2024 [place] Work Phone: Comment on above: Expected: 07/08/2023 , Expires: 01/04/2024 Start: 07-08-2023 End: 01-04-2024 Lipid 1996 panel - Serum or Plasma LIPID PANEL BASIC Lab Routine Hyperlipidemia, unspecified hyperlipidemia type Primary hypertension Expected: 07/08/2023, Expires: 01/04/2024 [place] Work Phone: Comment on above: Expected: 07/08/2023 , Expires: 01/04/2024 Start: 05-22-2023 End: 11-23-2023 25-hydroxyvitamin D3 [Mass/volume] in Serum or Plasma VITAMIN D 25 HYDROXY Lab Routine Vitamin D deficiency Expected: 05/22/2023, Expires: 11/23/2023 [place] Work Phone: Comment on above: Expected: 05/22/2023 , Expires: 11/23/2023 Start: 05-22-2023 End: 11-23-2023 CBC panel - Blood by Automated count CBC Lab Routine Anemia, unspecified type Expected: 05/22/2023, Expires: 11/23/2023 [place] Work Phone: Comment on above: Expected: 05/22/2023 , Expires: 11/23/2023 Start: 05-22-2023 End: 11-23-2023 Comprehensive metabolic 2000 panel - Serum or Plasma COMP METABOLIC PANEL Lab Routine Primary hypertension Hyperlipidemia, unspecified hyperlipidemia type Expected: 05/22/2023, Expires: 11/23/2023 [place] Work Phone: Comment on above: Expected: 05/22/2023 , Expires: 11/23/2023 Start: 05-22-2023 End: 11-23-2023 Lipid 1996 panel - Serum or Plasma LIPID PANEL BASIC Lab Routine Primary hypertension Hyperlipidemia, unspecified hyperlipidemia type Expected: 05/22/2023, Expires: 11/23/2023 [place] Work Phone: Comment on above: Expected: 05/22/2023 , Expires: 11/23/2023 Start: 05-20-2023 Influenza vaccination [facility] Start: 05-18-2023 Adult depression screening assessment DEPRESSION SCREENING [facility] Start: 05-18-2023 ANNUAL PCP TEAM HEALTH/SAFETY JOB TITLES BHARAT DISEASE VISIT ANNUAL PCP TEAM CHRONIC DISEASE VISIT [facility] Start: 05-18-2023 BP CONTROLLED (<130/80) BP CONTROLLE D (<130/80) [facility] Start: 09-22-2022 Screening for malign ant neoplasm of colon Fecal Occult Blood [facility] Start: 09-19-2022 DEPRESSION ASSESSMENT DEPRESSION ASS ESSMENT [facility] Start: 08-18-2022 End: 10-18-2022 Calcitriol [Mass/volume] in Serum or Plasma VITAMIN D1 25-DIHYDR Lab Routine Vitamin D deficiency Expected: 08/18/2022, Expires: 10/18/2022 [place] Work Phone: Comment on above: Expected: 08/18/2022 , Expires: 10/18/2022 Start: 08-18-2022 End: 10-18-2022 CBC panel - Blood by Automated count CBC Lab Routine Medication monitoring encounter Expected: 08/18/2022, Expires: 10/18/2022 [place] Work Phone: Comment on above: Expected: 08/18/2022 , Expires: 10/18/2022 Start: 08-18-2022 End: 10-18-2022 Comprehensive metabolic 2000 panel - Serum or Plasma COMP METABOLIC PANEL Lab Routine Primary hypertension Hyperlipidemia, unspecified hyperlipidemia type Expected: 08/18/2022, Expires: 10/18/2022 [place] Work Phone: Comment on above: Expected: 08/18/2022 , Expires: 10/18/2022 Start: 08-18-2022 End: 10-18-2022 Lipid 1996 panel - Serum or Plasma LIPID PANEL BASIC Lab Routine Primary hypertension Hyperlipidemia, unspecified hyperlipidemia type Expected: 08/18/2022, Expires: 10/18/2022 [place] Work Phone: Comment on above: Expected: 08/18/2022 , Expires: 10/18/2022 Start: 08-18-2022 End: 10-18-2022 PSA/PROSTSPECAG SCRN PSA/PROSTSPECAG SCRN Lab Routine Prostate cancer screening Expected: 08/18/2022, Expires: 10/18/2022 [place] Work Phone: Comment on above: Expected: 08/18/2022 , Expires: 10/18/2022 Start: 05-20-2022 Influenza vaccination INFLUENZA (#1) [facility] Start: 09-19-2021 DEPRESSION ASSESSMENT DEPRESSION ASS ESSMENT [facility] Start: 08-06-2018 HEPATITIS B (3 of 3 - 19+ 3-dose series) HEPATITIS B (3 of 3 - 19+ 3-dose series) [facility] Start: 07-18-2018 HEPATITIS B (3 of 3 - 19+ 3-dose series) HEPATITIS B (3 of 3 - 19+ 3-dose series) [facility] Start: 07-18-2018 Hepatitis B Vaccine (3 of 3 - 19+ 3-dose series) Hepatitis B Vaccine (3 of 3 - 19+ 3-dose series) [facility] Start: 04-03-2018 HEPATITIS B (2 of 3 - 3-dose series) HEPATITIS B (2 of 3 - 3-dose series) [facility] Start: 05-02-2017 End: 05-02-2017 Appointment Appointment [facility] Work Phone: Start: 03-18-2017 End: 03-18-2017 Appointment Appointment [facility] Work Phone: Start: 12-22-2016 End: 12-22-2016 X-ray exam, knee, 4 or more X-Ray, Knee [facility] Work Phone: Start: 2011 COLOGUARD (FIT-DNA) COLOGUARD (FIT-D NA) [facility] Start: [address] COLONOGRAPHY [facility] Start: 2011 FECAL OCCULT BLOOD FECAL OCCULT BLOO D [facility] Start: 2011 Screening for malign ant neoplasm of colon [facility] Start: 2011 SIGMOIDOSCOPY SIGMOIDOSCOPY [facility] Start: 1985 Pneumococcal Vaccine : 50+ (1 of 2 - PCV) Pneumococcal Vaccine: 50+ (1 of 2 - PCV) [facility] Start: 1985 SHINGRIX VACCINE (1 of 2) SHINGRIX VACCINE (1 of 2) [facility] Start: 1984 BP Controlled (<130/80) BP Controlle d (<130/80) [facility] Start: 1984 HEPATITIS C SCREENING HEPATITIS C [facility] Start: 1984 Hepatitis C screening Hepatitis C [facility] Start: 1984 HIV SCREENING HIV SCREENING [facility] Start: 1984 HIV screening HIV Screening [facility] Start: 1972 PNEUMOCOCCAL (1 - PCV) PNEUMOCOCCAL (1 - PCV) [facility] Start: 1972 Pneumococcal vaccination [facility] Start: 1971 Covid-19 Vaccine (#1) Covid-19 Vacci ne (#1) [facility] Start: 05-05-1967 COVID-19 VACCINE (#1) COVID-19 VACCI NE (#1) [facility] Mycobacterium tuberculosis tuberculin stimulated gamma interferon [Presence] in Blood [facility] Ova and parasites identified in Unspecified specimen by Light microscopy OVA + PARA MICROSCOPIC Microbiology Routine Stool contents finding, abnormal Ordered: 01/06/2024 [place] Work Phone: Comment on above: Ordered: 01/06/2024 End: 02-04-2025 US Kidney - bilateral and Urinary bladder US KIDNEY/BLADDER Radiology Routine Complex renal cyst 1 Occurrences starting 01/06/2024 until 02/04/2025 [place] Work Phone: Comment on above: 1 Occurrences starti ng 01/06/2024 until 02/04/2025 [facility] Immunizations Immunization Date Immunization Notes Care Provider Anny khalil 07-15-2023 influenza, seasonal, injectable Kavitha Noling LIQUOR CLERK.CAR REPAIRMAN Work Phone: [facility] 07-15-2023 influenza virus vacc ine, unspecified formulation [facility] Provider [facility] 07-22-2022 influenza, injectabl e, quadrivalent, preservative free KAVITHA NOLING JOURNALISM TEACHER-C Work Phone: [facility] 07-22-2022 influenza, seasonal, injectable Kavitha Noling LIQUOR CLERK.CAR REPAIRMAN Work Phone: [facility] 07-22-2022 influenza virus vacc ine, unspecified formulation Kavitha Noling LIQUOR CLERK.CAR REPAIRMAN Work Phone: [facility] 06-19-2022 influenza, high dose seasonal, preservative-free Kavitha Noling LIQUOR CLERK.CAR REPAIRMAN Work Phone: [facility] Work Phone: 01-25-2022 hepatitis A vaccine, adult dosage Kavitha Noling LIQUOR CLERK.[facility] Work Phone: [facility] 01-11-2022 yellow fever vaccine Kavitha N oling LIQUOR CLERK.CAR REPAIRMAN Work Phone: [facility] 06-24-2021 influenza, high dose seasonal, preservative-free Kavitha Noling LIQUOR CLERK.CAR REPAIRMAN Work Phone: [facility] Work Phone: 09-14-2019 hepatitis A vaccine, adult dosage Kavitha Noling LIQUOR CLERK.[facility] Work Phone: [facility] 09-14-2019 typhoid capsular polysaccharide vaccine Kavitha Noling LIQUOR CLERK.CAR REPAIRMAN Work Phone: [facility] 06-19-2019 influenza, high dose seasonal, preservative-free Kavitha Noling LIQUOR CLERK.[facility] Work Phone: [facility] Work Phone: 07-06-2018 influenza, high dose seasonal, preservative-free Kavitha Noling LIQUOR CLERK.CAR REPAIRMAN Work Phone: [facility] Work Phone: 06-28-2018 influenza, injectabl e, quadrivalent, preservative free KAVITHA NOLING JOURNALISM TEACHER-C Work Phone: [facility] 06-28-2018 influenza, seasonal, injectable Kavitha Noling LIQUOR CLERK.CAR REPAIRMAN Work Phone: [facility] Work Phone: 06-28-2018 influenza, seasonal, injectable, preservative free Rojelio Brown DO Work Phone: [facility] Work Phone: 06-20-2018 Influenza virus vaccine [facility] 06-20-2018 influenza, seasonal, injectable Kavitha Noling LIQUOR CLERK.CAR REPAIRMAN Work Phone: [facility] Work Phone: 06-20-2018 influenza, seasonal, injectable, preservative free Rojelio Brown DO Work Phone: [facility] Work Phone: 03-06-2018 hepatitis B vaccine, adult dosage Rojelio Brown DO Work Phone: [facility] Work Phone: 03-06-2018 hepatitis B vaccine, unspecified formulation Rojeliomarcus Mckeon DO Work Phone: [facility] 01-16-2018 hepatitis B vaccine, adult dosage Kavitha Noling LIQUOR CLERK.CAR REPAIRMAN Work Phone: [facility] Work Phone: 01-16-2018 tetanus toxoid, redu regina diphtheria toxoid, and acellular pertussis vaccine, adsorbed Rojelio Brown DO Work Phone: [facility] Work Phone: 12-27-2017 influenza, high dose seasonal, preservative-free Kavitha Noling LIQUOR CLERK.CAR REPAIRMAN Work Phone: [facility] Work Phone: 06-29-2017 influenza, high dose seasonal, preservative-free Kavitha Noling LIQUOR CLERK.CAR REPAIRMAN Work Phone: [facility] Work Phone: 06-24-2017 influenza, injectabl e, quadrivalent, preservative free KAVITHA NOLING JOURNALISM TEACHER-C Work Phone: [facility] 06-24-2017 influenza, seasonal, injectable Kavitha Noling LIQUOR CLERK.CAR REPAIRMAN Work Phone: [facility] Work Phone: Payers Date Payer Category Payer Self-pay [id number] 2024 Private Health Insurance [id number] 2024 Unknown [id number] 2021 Unknown [id number] 2019 Unknown [id number] 1966 Unknown [id number] 1966 Unknown [id number] 1966 Unknown [id number] Unknown [id number] Unknown [id number] Social History Date Type Detail Facility Start: 03-06-2019 End: 01-25-2024 Tobacco smoking status NMIS Ex-smoker [facility] History of tobacco use Current smoker [facility] Start: 03-06-2019 End: 05-18-2022 Tobacco use and exposure Smokeless tobacco non-user [facility] Start: 04-05-2019 End: 02-22-2025 Alcohol intake Current drinker of alcohol (finding) [facility] Start: 03-06-2019 History SDOH Alcohol Comment more than 2 days a week [facility] Start: 05-18-2022 History SDOH Food Worry 1 [facility] Start: 05-18-2022 History SDOH Housing Unable to Pay 2 [facility] Start: 1965 Sex Assigned At Not on file C [facility] Start: 05-08-2022 End: 05-18-2022 Exposure to SARS-CoV-2 (event) Not sure [facility] Start: 02-22-2022 End: 02-22-2022 Tobacco smoking status NHIS Unknown if ever smoked [facility] Start: 12-07-2018 Occasional [facility] Start: 12-07-2018 With Family [facility] Start: 12-10-2018 Cigarettes [facility] Start: 1965 Sex Assigned At Male [facility] Start: 04-07-2023 End: 08-24-2024 History of Social function [facility] Start: 04-07-2023 End: 08-24-2024 Tobacco use panel [facility] Adult Depression Screening Assessment 0 [facility] (I/We) worried wheth er (my/our) food would run out before (I/we) got money to buy more. Never true [facility] In the past 12 month s, was there a time when you were not able to pay the mortgage or rent on time? No [facility] Start: 12-28-2024 Sex Male (finding) [facility] Goals Date Patient Goal Desired Activity /State Clinical Notes 04-13-2022 to 02-22-2025 Kavitha Solano APRN.CNP - 02/22/2025 2:00 PM Shi Yip MA - 02/22/2025 8:38 AM EDTPatient InstructionsPatient InstructionsKavitha Solano APRN.CNP - 08/24/2024 10:17 AM EST Note Date & Type Note Facility 02-22-2025 Note HNO ID: [id number] Author: KAVITHA SOLANO APRN.CNP Service: ? Author Type: Nurse Practitioner Type: Progress Notes Filed: 02/22/2025 14:01 Note Text: Subjective Hossein Pichardo is a 59-year-old male with a history of hypercholesterolemia, HTN, GERD, presenting for a follow-up visit. Hossein reports no current issues with heartburn and is tolerating rosuvastatin well. He requests refills for tadalafil and Valtrex. He denies experiencing cephalalgia, dizziness, chest pain, or dyspnea. He mentions consuming a significant amount of caffeine and chocolate milk the previous night, which he attributes to his elevated blood pressure readings. He also reports lack of sleep due to attending a concert in [place] with his parents. Head: (-) headache Cardiovascular: (-) chest pain Respiratory: (-) shortness of breath Gastrointestinal: (-) heartburn Neurological: (-) dizziness Objective Blood pressure 140/88, pulse 68, temperature 36.2 ?C (97.2 ?F), temperature source Temporal, resp. rate 16, height 175.3 cm (5' 9), weight 89.8 kg (198 lb), SpO2 98%. GENERAL: NAD, alert and oriented. SKIN: Unremarkable, no rash or skin lesions. HEAD: Normocephalic. EYES: PERRLA, EOMI, conjunctiva clear. EARS: External ears normal, grossly normal hearing NOSE/SINUSES: Nares normal. Septum midline. OROPHARYNX: MMM NECK: Supple LUNGS: Clear to auscultation bilaterally, no wheezes/rhonchi/rales. HEART: Regular rate and rhythm, no murmurs. No ectopy. EXTREMITIES: Normal, no deformities, no skin discoloration, no edema. NEURO: Awake, alert and oriented x3, cranial nerves II-XII grossly intact, normal gait, no involuntary motions. Labs: (12/2024) - Lipid Panel: - Total Cholesterol: 159 mg/dL - HDL: 52 - Calculated LDL: 94 mg/dL - CBC: - Hemoglobin: 13.3 g/dL Assessment AND Plan 1. Hyperlipidemia, unspecified hyperlipidemia type (E78.5) Clinically stable on rosuvastatin. Recent lipid panel from December shows total cholesterol at 159 mg/dL, HDL 52, and calculated LDL at 94 mg/dL. - Continue rosuvastatin therapy. - Ordered repeat lipid panel in 6 months. 2. Primary hypertension (I10) Blood pressure readings are borderline elevated, possibly due to recent caffeine intake and lack of sleep. - Monitor blood pressure at home. Notify if running consistently > 139/89 3. 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 - Refilled tadalafil prescription. 4. Vitamin D deficiency (E55.9) Clinically stable. 5. Herpes simplex virus (HSV) infection (B00.9) Stable on current Valtrex therapy. - Refilled Valtrex prescription. 6. Screening PSA (prostate specific antigen) (Z12.5) PSA ordered to be drawn in 6 months Recording using [employer] software for draft documentation of the visit was discussed with the patient/authorized cash application representative; all questions welcomed and answered. Patient/authorized cash application representative agreed to proceed [facility] 02-22-2025 History of Presen t illness Narrative Subjective Hossein Pichardo is a 59-year-old male with a history of hypercholesterolemia, HTN, GERD, presenting for a follow-up visit. Hossein reports no current issues with heartburn and is tolerating rosuvastatin well. He requests refills for tadalafil and Valtrex. He denies experiencing cephalalgia, dizziness, chest pain, or dyspnea. He mentions consuming a significant amount of caffeine and chocolate milk the previous night, which he attributes to his elevated blood pressure readings. He also reports lack of sleep due to attending a concert in [place] with his parents. Head: (-) headache Cardiovascular: (-) chest pain Respiratory: (-) shortness of breath Gastrointestinal: (-) heartburn Neurological: (-) dizziness Objective Blood pressure 140/88, pulse 68, temperature 36.2 C (97.2 F), temperature source Temporal, resp. rate 16, height 175.3 cm (5' 9), weight 89.8 kg (198 lb), SpO2 98%. GENERAL: NAD, alert and oriented. SKIN: Unremarkable, no rash or skin lesions. HEAD: Normocephalic. EYES: PERRLA, EOMI, conjunctiva clear. EARS: External ears normal, grossly normal hearing NOSE/SINUSES: Nares normal. Septum midline. OROPHARYNX: MMM NECK: Supple LUNGS: Clear to auscultation bilaterally, no wheezes/rhonchi/rales. HEART: Regular rate and rhythm, no murmurs. No ectopy. EXTREMITIES: Normal, no deformities, no skin discoloration, no edema. NEURO: Awake, alert and oriented x3, cranial nerves II-XII grossly intact, normal gait, no involuntary motions. Labs: (12/2024) - Lipid Panel: - Total Cholesterol: 159 mg/dL - HDL: 52 - Calculated LDL: 94 mg/dL - CBC: - Hemoglobin: 13.3 g/dL Assessment & Plan 1. Hyperlipidemia, unspecified hyperlipidemia type (E78.5) Clinically stable on rosuvastatin. Recent lipid panel from December shows total cholesterol at 159 mg/dL, HDL 52, and calculated LDL at 94 mg/dL. - Continue rosuvastatin therapy. - Ordered repeat lipid panel in 6 months. 2. Primary hypertension (I10) Blood pressure readings are borderline elevated, possibly due to recent caffeine intake and lack of sleep. - Monitor blood pressure at home. Notify if running consistently > 139/89 3. 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 - Refilled tadalafil prescription. 4. Vitamin D deficiency (E55.9) Clinically stable. 5. Herpes simplex virus (HSV) infection (B00.9) Stable on current Valtrex therapy. - Refilled Valtrex prescription. 6. Screening PSA (prostate specific antigen) (Z12.5) PSA ordered to be drawn in 6 months Recording using [employer] software for draft documentation of the visit was discussed with the patient/authorized cash application representative; all questions welcomed and answered. Patient/authorized cash application representative agreed to proceed Could use BP recheck at end of appt. Shi Todd MA February 22, 2025 8:38 AM documented in this encounter [facility] 02-22-2025 Instructions Kavitha Solano APRN.CNP - 02/22/2025 9:11 AM EDT We discussed your recent lab results: - Your total cholesterol is 159, which is within the normal range. Your HDL is good, and your calculated LDL is 94, which is also acceptable. - Your hemoglobin is 13.3, which is slightly lower than your previous result of 15.5 but still within the normal range. You mentioned that you have been taking motn-geu-bwhsuga methylfolate, which may be helping to maintain your levels. We discussed your blood pressure: - Please continue monitoring your blood pressure at home. While it was borderline today, factors such as caffeine and lack of sleep may have contributed. Let us know if you notice any significant changes or if your readings remain elevated. We discussed your current medications: - Continue taking rosuvastatin as prescribed. You reported no issues with this medication. - Refills for tadalafil and Valtrex have been sent to [facility]. We discussed your overall health: - You reported no headaches, dizziness, chest pain, or shortness of breath. Please continue to monitor for any new or concerning symptoms and let us know if they arise. Next steps: - No additional follow-up or testing is required at this time. Please continue your current care plan and let us know if you have any concerns. documented in this encounter [facility] 02-22-2025 Note HNO ID: [id number] Author: SHI TODD MA Service: ? Author Type: Practice Or Student Teacher Type: Progress Notes Filed: 02/22/2025 14:01 Note Text: Could use BP recheck at end of appt. Shi Todd MA February 22, 2025 8:38 AM [facility] 08-24-2024 Instructions Kavitha Solano APRN.CNP - 08/24/2024 10:42 AM EST Continue current meds Have fasting labs drawn documented in this encounter [facility] 08-24-2024 Note HNO ID: [id number] Author: KAVITHA SOLANO APRN.CNP Service: ? Author Type: Nurse Practitioner Type: Progress Notes Filed: 08/24/2024 19:07 Note Text: Hossein Pichardo is a 58 year old male who presents with 6 Month Exam (Hossein is here for a 6 month follow up./Declines any vaccines today.//Shi Todd MA/August 24, 2024 9:52 AM//) Hossein presents today for 6-month follow-up hypertension, hyperlipidemia. Labs reviewed. HTN- currently being treated for sinus infection and took Sudafed this AM. Occasionally checks at work, running 120s/70s-80s HLD- tolerating Crestor well. The history is provided by the patient. Microalbumin, Urine Random Date Value Ref Range Status 10/09/2018 5.8 0.0 - 19.0 UG/ML Final PAST MEDICAL HISTORY Diagnosis Date Alopecia Herpes simplex HTN (hypertension) Psoriasis Psoriatic arthritis (HCC) Vitiligo ACTIVE PROBLEM LIST Anemia Gastroesophageal Reflux Disease Hyperlipidemia Hypertension Internal Derangement of Knee Osteoarthritis of Knee Prostate Cancer Screening Wellness Examination Psoriatic Arthritis (Hcc) Vitamin D Deficiency Cervical Radiculopathy Herpes Simplex Virus (Hsv) Infection Complex Renal Cyst Hyperbilirubinemia Gallbladder Sludge Ed (Erectile Dysfunction) of Organic Origin Benign Prostatic Hyperplasia With Lower Urinary Tract Symptoms Costochondritis Other Obstructive and Reflux Uropathy Other Fecal Abnormalities Current Outpatient Medications Medication Sig Dispense Refill amoxicillin (AMOXIL) 875 mg tablet Take 875 mg by mouth two times a day. Benzonatate 200 mg capsule Take 200 mg by mouth three times a day as needed for cough. PNV [id number] ORAL Take 1 Each by mouth once daily. rosuvastatin (CRESTOR) 5 mg tablet Take 1 tablet by mouth once daily 90 tablet 3 valACYclovir (VALTREX) 1 gram tablet Take 2 tablets by mouth two times a day as needed. 30 tablet 1 Tadalafil (CIALIS) 20 mg tablet take 1 tablet by mouth 2 TO 24 HOURS PRIOR TO RELATIONS 10 tablet 5 XELJANZ XR 11 mg tablet, extended release aspirin, enteric coated (ASPIRIN, ENTERIC COATED) 81 mg EC tablet Take 81 mg by mouth once daily. Cholecalciferol, Vitamin D3, 2,000 unit cap Cholecalciferol Cholecalciferol (Vitamin D3) [Vitamin D3] 2000 UNIT PO DAILY November 08, 2018 Active 11-08-2018 [facility] ([id number]) ruxolitinib (OPZELURA) 1.5 % cream 1 g two times a day. (Patient not taking: Reported on 08/24/2024) pediatric multivit 61-D3-vit K 5,000-800 unit-mcg cap MULTIPLE VITAMINS-MINERALS COMPLETE FORMULATION D5000 CAPS MULTIPLE VITAMINS-MINERALS [id number] Yamil Silva 12-22-2016 [facility] ([id number]) (Patient not taking: Reported on 08/24/2024) No current facility-administered medications for this visit. Social History Tobacco Use Smoking status: Former Smokeless tobacco: Never Vaping Use Vaping status: Never Used Substance Use Topics Alcohol use: Yes Comment: more than 2 days a week Drug use: Never FAMILY HISTORY Problem Relation Age of Onset Arthritis Mother Review of Systems Constitutional: Negative for activity change, appetite change and unexpected weight change. Eyes: Negative for visual disturbance. Respiratory: Negative for cough and shortness of breath. Cardiovascular: Negative for chest pain, palpitations and leg swelling. Gastrointestinal: Negative for abdominal pain, diarrhea, nausea and vomiting. Genitourinary: Negative for frequency. Skin: Negative for rash and wound. Neurological: Negative for dizziness, light-headedness and headaches. Psychiatric/Behavioral: Negative for dysphoric mood. BP 128/86 Pulse 71 Temp (Src) 97.2 (Temporal) Resp 16 Ht 5' 9 (1.75m) Wt 199 lb 6.4 oz (90.4kg) SpO2 98% BMI 29.43 kg/(m2). Physical Exam Vitals reviewed. Constitutional: Appearance: Normal appearance. HENT: Head: Normocephalic and atraumatic. Ears: Comments: Grossly normal hearing Eyes: Pupils: Pupils are equal, round, and reactive to light. Cardiovascular: Rate and Rhythm: Normal rate and regular rhythm. Pulses: Normal pulses. Heart sounds: Normal heart sounds. Pulmonary: Effort: Pulmonary effort is normal. Breath sounds: Normal breath sounds. Abdominal: General: Bowel sounds are normal. Palpations: Abdomen is soft. Tenderness: There is no abdominal tenderness. Musculoskeletal: General: No swelling. Cervical back: Neck supple. Skin: General: Skin is warm and dry. Capillary Refill: Capillary refill takes less than 2 seconds. Comments: Patches of depigmentation noted on BL arms Neurological: General: No focal deficit present. Mental Status: He is alert and oriented to person, place, and time. Psychiatric: Mood and Affect: Mood normal. Behavior: Behavior normal. Medications were reviewed and verified. 08/24/2024 08/24/2024 INTAKE PAIN ASSESSMENT Are yo (more content not included)... [facility] 08-24-2024 History of Presen t illness Narrative Hossein Pichardo is a 58 year old male who presents with 6 Month Exam (Hossein is here for a 6 month follow up./Declines any vaccines today.//Shi Todd MA/August 24, 2024 9:52 AM//) Hossein presents today for 6-month follow-up hypertension, hyperlipidemia. Labs reviewed. HTN- currently being treated for sinus infection and took Sudafed this AM. Occasionally checks at work, running 120s/70s-80s HLD- tolerating Crestor well. The history is provided by the patient. Microalbumin, Urine Random Date Value Ref Range Status 10/09/2018 5.8 0.0 - 19.0 UG/ML Final PAST MEDICAL HISTORY Diagnosis Date Alopecia Herpes simplex HTN (hypertension) Psoriasis Psoriatic arthritis (HCC) Vitiligo ACTIVE PROBLEM LIST Anemia Gastroesophageal Reflux Disease Hyperlipidemia Hypertension Internal Derangement of Knee Osteoarthritis of Knee Prostate Cancer Screening Wellness Examination Psoriatic Arthritis (Hcc) Vitamin D Deficiency Cervical Radiculopathy Herpes Simplex Virus (Hsv) Infection Complex Renal Cyst Hyperbilirubinemia Gallbladder Sludge Ed (Erectile Dysfunction) of Organic Origin Benign Prostatic Hyperplasia With Lower Urinary Tract Symptoms Costochondritis Other Obstructive and Reflux Uropathy Other Fecal Abnormalities Current Outpatient Medications Medication Sig Dispense Refill amoxicillin (AMOXIL) 875 mg tablet Take 875 mg by mouth two times a day. Benzonatate 200 mg capsule Take 200 mg by mouth three times a day as needed for cough. PNV [id number] ORAL Take 1 Each by mouth once daily. rosuvastatin (CRESTOR) 5 mg tablet Take 1 tablet by mouth once daily 90 tablet 3 valACYclovir (VALTREX) 1 gram tablet Take 2 tablets by mouth two times a day as needed. 30 tablet 1 Tadalafil (CIALIS) 20 mg tablet take 1 tablet by mouth 2 TO 24 HOURS PRIOR TO RELATIONS 10 tablet 5 XELJANZ XR 11 mg tablet, extended release aspirin, enteric coated (ASPIRIN, ENTERIC COATED) 81 mg EC tablet Take 81 mg by mouth once daily. Cholecalciferol, Vitamin D3, 2,000 unit cap Cholecalciferol Cholecalciferol (Vitamin D3) [Vitamin D3] 2000 UNIT PO DAILY November 08, 2018 Active 11-08-2018 [facility] ([id number]) ruxolitinib (OPZELURA) 1.5 % cream 1 g two times a day. (Patient not taking: Reported on 08/24/2024) pediatric multivit 61-D3-vit K 5,000-800 unit-mcg cap MULTIPLE VITAMINS-MINERALS COMPLETE FORMULATION D5000 CAPS MULTIPLE VITAMINS-MINERALS [id number] Yamil Silva 12-22-2015 [facility] ([id number]) (Patient not taking: Reported on 08/24/2024) No current facility-administered medications for this visit. Social History Tobacco Use Smoking status: Former Smokeless tobacco: Never Vaping Use Vaping status: Never Used Substance Use Topics Alcohol use: Yes Comment: more than 2 days a week Drug use: Never FAMILY HISTORY Problem Relation Age of Onset Arthritis Mother Review of Systems Constitutional: Negative for activity change, appetite change and unexpected weight change. Eyes: Negative for visual disturbance. Respiratory: Negative for cough and shortness of breath. Cardiovascular: Negative for chest pain, palpitations and leg swelling. Gastrointestinal: Negative for abdominal pain, diarrhea, nausea and vomiting. Genitourinary: Negative for frequency. Skin: Negative for rash and wound. Neurological: Negative for dizziness, light-headedness and headaches. Psychiatric/Behavioral: Negative for dysphoric mood. BP 128/86 Pulse 71 Temp (Src) 97.2 (Temporal) Resp 16 Ht 5' 9 (1.75m) Wt 199 lb 6.4 oz (90.4kg) SpO2 98% BMI 29.43 kg/(m^2). Physical Exam Vitals reviewed. Constitutional: Appearance: Normal appearance. HENT: Head: Normocephalic and atraumatic. Ears: Comments: Grossly normal hearing Eyes: Pupils: Pupils are equal, round, and reactive to light. Cardiovascular: Rate and Rhythm: Normal rate and regular rhythm. Pulses: Normal pulses. Heart sounds: Normal heart sounds. Pulmonary: Effort: Pulmonary effort is normal. Breath sounds: Normal breath sounds. Abdominal: General: Bowel sounds are normal. Palpations: Abdomen is soft. Tenderness: There is no abdominal tenderness. Musculoskeletal: General: No swelling. Cervical back: Neck supple. Skin: General: Skin is warm and dry. Capillary Refill: Capillary refill takes less than 2 seconds. Comments: Patches of depigmentation noted on BL arms Neurological: General: No focal deficit present. Mental Status: He is alert and oriented to person, place, and time. Psychiatric: Mood and Affect: Mood normal. Behavior: Behavior normal. Medications were reviewed and verified. 08/24/2024 08/24/2024 INTAKE PAIN ASSESSMENT Are you having pain associated with your visit today? No No If pain assessment is 0, no action needed. If pain assessment is positive, please see assessment and plain. Assessment & Plan ASSESSMENT/PLAN: 1. Hyperlipidemia, unspecified hyperlipidemia type - ICD9: 272.4, ICD10: E78.5 (primary diagnosis) - Controlled - Continue current medications - Counseled on healthy diet and regular exercise - COMPREHENSIVE METABOLIC PANEL - COMPLETE BLOOD COUNT - LIPID PANEL BASIC 2. Primary hypertension - ICD9: 401.9, ICD10: I10 - Controlled - Continue current medications - Recommend home blood pressure monitoring, to bring results to next visit - Encouraged sodium restriction, DASH or Mediterranean diet - Recommend regular aerobic exercise - COMPREHENSIVE METABOLIC PANEL - COMPLETE BLOOD COUNT - LIPID PANEL BASIC 3. Herpes simplex virus (HSV) infection - ICD9: 054.9, ICD10: B00.9 Continue Valtrex PRN - VALACYCLOVIR 1 GRAM TABLET 4. Vitamin D deficiency - ICD9: 268.9, ICD10: E55.9 Monitor - VITAMIN D 25 HYDROXY 5. ED (erectile dysfunction) of organic origin - ICD9: 607.84, ICD10: N52.9 Continue tadalafil - TADALAFIL 20 MG TABLET Kavitha Solano APRN.CNP PATIENT NAME: Hossein Pichardo DATE: August 24, 2024 SIGNATURE: Kavitha Solano APRN.CNP documented in this encounter [facility] 01-06-2024 Instructions Kavitha Solano APRN.CNP - 01/06/2024 2:33 PM EDT Have fasting labs drawn 1 week prior to next office visit Call [phone] to schedule renal ultrasound Stool for O+P collection ordered documented in this encounter [facility] 01-06-2024 History of Presen t illness Narrative Hossein Pichardo is a 58 year old male who presents with F/U 6 months (No changes or current complaints.) Hossein presents today for 6-month follow-up hypertension, hyperlipidemia. Labs reviewed. HTN- checks BP at times, running 120s-130s/70s-80s. HLD- tolerating Crestor well. Did notice some abnormal appearances in the stool a few times over the past month. Two days ago, found something capsular in appearance, which he states was fluctuant and when pressure was applied, had serous-like fluid inside. Denies abd pain, blood in stool, diarrhea, weight loss, fever. The history is provided by the patient. Microalbumin, Urine Random Date Value Ref Range Status 10/09/2018 5.8 0.0 - 19.0 UG/ML Final PAST MEDICAL HISTORY Diagnosis Date Alopecia Herpes simplex HTN (hypertension) Psoriasis Psoriatic arthritis (HCC) Vitiligo ACTIVE PROBLEM LIST Anemia Gastroesophageal Reflux Disease Hyperlipidemia Hypertension Internal Derangement of Knee Osteoarthritis of Knee Prostate Cancer Screening Wellness Examination Psoriatic Arthritis (Hcc) Vitamin D Deficiency Cervical Radiculopathy Herpes Simplex Virus (Hsv) Infection Complex Renal Cyst Hyperbilirubinemia Gallbladder Sludge Current Outpatient Medications Medication Sig Dispense Refill ruxolitinib (OPZELURA) 1.5 % cream 1 g two times a day. valACYclovir (VALTREX) 1 gram tablet take 2 tablets by mouth twice a day if needed 30 tablet 1 rosuvastatin (CRESTOR) 5 mg tablet take 1 tablet by mouth once daily 30 tablet 11 Tadalafil (CIALIS) 20 mg tab(s) take 1 tablet by mouth 2 TO 24 HOURS PRIOR TO RELATIONS 10 tablet 5 XELJANZ XR 11 mg tablet, extended release aspirin, enteric coated (ASPIRIN, ENTERIC COATED) 81 mg EC tablet Take 81 mg by mouth once daily. Cholecalciferol, Vitamin D3, 2,000 unit cap Cholecalciferol Cholecalciferol (Vitamin D3) [Vitamin D3] 2000 UNIT PO DAILY November 08, 2018 Active 11-08-2018 [facility] ([id number]) pediatric multivit 61-D3-vit K 5,000-800 unit-mcg cap MULTIPLE VITAMINS-MINERALS COMPLETE FORMULATION D5000 CAPS MULTIPLE VITAMINS-MINERALS [phone] Yamil Silva 12-22-2015 [facility] ([id number]) No current facility-administered medications for this visit. Social History Tobacco Use Smoking status: Former Smokeless tobacco: Never Vaping Use Vaping Use: Never used Substance Use Topics Alcohol use: Yes Comment: more than 2 days a week Drug use: Never FAMILY HISTORY Problem Relation Age of Onset Arthritis Mother Review of Systems Constitutional: Negative for activity change, appetite change and unexpected weight change. Eyes: Negative for visual disturbance. Respiratory: Negative for cough and shortness of breath. Cardiovascular: Negative for chest pain, palpitations and leg swelling. Gastrointestinal: Negative for abdominal pain, diarrhea, nausea and vomiting. Genitourinary: Negative for frequency. Skin: Negative for rash and wound. Neurological: Negative for dizziness, light-headedness and headaches. Psychiatric/Behavioral: Negative for dysphoric mood. BP 136/86 Pulse 55 Temp 98.3 Ht 5' 9 (1.75m) Wt 196 lb (88.9kg) SpO2 97% BMI 28.93 kg/(m^2). Physical Exam Vitals reviewed. Constitutional: Appearance: Normal appearance. HENT: Head: Normocephalic and atraumatic. Ears: Comments: Grossly normal hearing Eyes: Pupils: Pupils are equal, round, and reactive to light. Cardiovascular: Rate and Rhythm: Normal rate and regular rhythm. Pulses: Normal pulses. Heart sounds: Normal heart sounds. Pulmonary: Effort: Pulmonary effort is normal. Breath sounds: Normal breath sounds. Abdominal: General: Bowel sounds are normal. Palpations: Abdomen is soft. Tenderness: There is no abdominal tenderness. Musculoskeletal: General: No swelling. Cervical back: Neck supple. Skin: General: Skin is warm and dry. Capillary Refill: Capillary refill takes less than 2 seconds. Comments: Patches of depigmentation noted on BL arms Neurological: General: No focal deficit present. Mental Status: He is alert and oriented to person, place, and time. Psychiatric: Mood and Affect: Mood normal. Behavior: Behavior normal. Medications were reviewed and verified. Assessment & Plan ASSESSMENT/PLAN: 1. Primary hypertension - ICD9: 401.9, ICD10: I10 (primary diagnosis) - Controlled - Continue current medications - Recommend home blood pressure monitoring, to bring results to next visit - Encouraged sodium restriction, DASH or Mediterranean diet - Recommend regular aerobic exercise - COMPREHENSIVE METABOLIC PANEL - LIPID PANEL BASIC 2. Hyperlipidemia, unspecified hyperlipidemia type - ICD9: 272.4, ICD10: E78.5 - Controlled - Continue current medications - Counseled on healthy diet and regular exercise - COMPREHENSIVE METABOLIC PANEL - LIPID PANEL BASIC 3. Vitamin D deficiency - ICD9: 268.9, ICD10: E55.9 Monitor labs - VITAMIN D 25 HYDROXY 4. Prostate cancer screening - ICD9: V76.44, ICD10: Z12.5 - Risks/benefits of prostate cancer screening discussed. screening PSA ordered - PSA/PROSTATE SPECIFIC ANTIGEN SCREENING 5. Herpes simplex virus (HSV) infection - ICD9: 054.9, ICD10: B00.9 Continue as needed Valtrex - VALACYCLOVIR 1 GRAM TABLET 6. ED (erectile dysfunction) of organic origin - ICD9: 607.84, ICD10: N52.9 Continue Cialis as needed - TADALAFIL 20 MG TABLET 7. Complex renal cyst - ICD9: 753.10, ICD10: N28.1 Due for repeat renal ultrasound - US KIDNEY/BLADDER 8. Stool contents finding, abnormal - ICD9: 792.1, ICD10: R19.5 Check stool for ova and parasites - OVA + PARA MICROSCOPIC 9. Medication monitoring encounter - ICD9: V58.83, ICD10: Z51.81 - COMPLETE BLOOD COUNT Kavitha Solano APRN.CNP PATIENT NAME: Hossein Pichardo DATE: January 06, 2024 SIGNATURE: Kavitha Solano APRN.CNP documented in this encounter [facility] 12-08-2023 Miscellaneous Notes Formattin g of this note might be different from the original. Left a detailed message. It looks like he still has active orders in his chart that will not until 01/04/2024. Pt called asking can you reactivate his labs so he can get them done before next appt? documented in this encounter [facility] 07-08-2023 Instructions Kavitha Solano APRN.CNP - 07/08/2023 3:14 PM EDT Have fasting labs drawn Continue current meds documented in this encounter [facility] 07-08-2023 History of Presen t illness Narrative Hossein Pichardo is a 57 year old male who presents with Follow Up (6 month follow up ) Kin presents today for 6 mo f/u HTN, HLD, GERD. He states he has been doing well. Changed his diet and cut back on carb intake and has noted improvement. HTN- Has been checking at home, running 100s-110s/60s. Stopped losartan about 2 mo ago and BP has remained controlled without it. HLD- continues on rosuvastatin, no issues with SE. GERD- controlled off Pepcid since making diet changes and losing weight. Did not start taking tamsulosin. Getting up once a night or less to void. Considering getting flu vaccine, but will do at work if he decides to do so. The history is provided by the patient. Microalbumin, Urine Random Date Value Ref Range Status 10/09/2018 5.8 0.0 - 19.0 UG/ML Final PAST MEDICAL HISTORY Diagnosis Date Alopecia Herpes simplex HTN (hypertension) Psoriasis Psoriatic arthritis (HCC) Vitiligo ACTIVE PROBLEM LIST Anemia Gastroesophageal Reflux Disease Hyperlipidemia Hypertension Internal Derangement of Knee Osteoarthritis of Knee Prostate Cancer Screening Wellness Examination Psoriatic Arthritis (Hcc) Vitamin D Deficiency Cervical Radiculopathy Herpes Simplex Virus (Hsv) Infection Benign Prostatic Hyperplasia With Nocturia Complex Renal Cyst Hyperbilirubinemia Gallbladder Sludge Current Outpatient Medications Medication Sig Dispense Refill rosuvastatin (CRESTOR) 5 mg tablet take 1 tablet by mouth once daily 30 tablet 11 valACYclovir (VALTREX) 1 gram take 2 tablets by mouth twice a day if needed 30 tablet 1 Tadalafil (CIALIS) 20 mg tab(s) take 1 tablet by mouth 2 TO 24 HOURS PRIOR TO RELATIONS 10 tablet 5 XELJANZ XR 11 mg tablet, extended release aspirin, enteric coated (ASPIRIN, ENTERIC COATED) 81 mg EC tablet Take 81 mg by mouth once daily. Cholecalciferol, Vitamin D3, 2,000 unit cap Cholecalciferol Cholecalciferol (Vitamin D3) [Vitamin D3] 2000 UNIT PO DAILY November 08, 2018 Active 11-08-2018 [facility] ([id number]) pediatric multivit 61-D3-vit K 5,000-800 unit-mcg cap MULTIPLE VITAMINS-MINERALS COMPLETE FORMULATION D5000 CAPS MULTIPLE VITAMINS-MINERALS [phone] Yamil Silva 12-22-2015 [facility] ([id number]) tamsulosin (FLOMAX) 0.4 mg Take 1 capsule by mouth at bedtime as needed. 90 capsule 3 losartan (COZAAR) 25 mg tablet Take 1 tablet by mouth once daily. 30 tablet 11 famotidine (PEPCID) 20 mg tablet Take 20 mg by mouth twice daily. (Patient not taking: Reported on 07/08/2023) No current facility-administered medications for this visit. Social History Tobacco Use Smoking status: Former Smokeless tobacco: Never Vaping Use Vaping Use: Never used Substance Use Topics Alcohol use: Yes Comment: more than 2 days a week Drug use: Never FAMILY HISTORY Problem Relation Age of Onset Arthritis Mother Review of Systems Constitutional: Negative for activity change, appetite change and unexpected weight change. Eyes: Negative for visual disturbance. Respiratory: Negative for cough and shortness of breath. Cardiovascular: Negative for chest pain, palpitations and leg swelling. Gastrointestinal: Negative for abdominal pain, diarrhea, nausea and vomiting. Genitourinary: Negative for frequency. Skin: Negative for rash and wound. Neurological: Negative for dizziness, light-headedness and headaches. Psychiatric/Behavioral: Negative for dysphoric mood. BP 126/80 Pulse 63 Temp (Src) 97.8 (Oral) Resp 17 Ht 5' 9 (1.75m) Wt 195 lb (88.5kg) SpO2 98% BMI 28.78 kg/(m^2). Physical Exam Vitals reviewed. Constitutional: Appearance: Normal appearance. Comments: Weight down 12# from last OV HENT: Head: Normocephalic and atraumatic. Ears: Comments: Grossly normal hearing Eyes: Pupils: Pupils are equal, round, and reactive to light. Cardiovascular: Rate and Rhythm: Normal rate and regular rhythm. Pulses: Normal pulses. Heart sounds: Normal heart sounds. Pulmonary: Effort: Pulmonary effort is normal. Breath sounds: Normal breath sounds. Abdominal: General: Bowel sounds are normal. Palpations: Abdomen is soft. Tenderness: There is no abdominal tenderness. Musculoskeletal: General: No swelling. Cervical back: Neck supple. Skin: General: Skin is warm and dry. Capillary Refill: Capillary refill takes less than 2 seconds. Comments: Patches of depigmentation noted on BL arms Neurological: General: No focal deficit present. Mental Status: He is alert and oriented to person, place, and time. Psychiatric: Mood and Affect: Mood normal. Behavior: Behavior normal. Medications were reviewed and verified. Assessment & Plan ASSESSMENT/PLAN: 1. Hyperlipidemia, unspecified hyperlipidemia type - ICD9: 272.4, ICD10: E78.5 (primary diagnosis) - Control undetermined, due for labs - Continue current medications - Counseled on healthy diet and regular exercise - COMP METABOLIC PANEL - LIPID PANEL BASIC 2. Primary hypertension - ICD9: 401.9, ICD10: I10 Improved, no longer taking losartan and BP has remained controlled off medication. - Recommend home blood pressure monitoring, to bring results to next visit - Encouraged sodium restriction, DASH or Mediterranean diet - Recommend regular aerobic exercise - COMP METABOLIC PANEL - LIPID PANEL BASIC 3. Gastroesophageal reflux disease, unspecified whether esophagitis present - ICD9: 530.81, ICD10: K21.9 Resolved, no longer needing Pepcid. 4. Benign prostatic hyperplasia with nocturia - ICD9: 600.01, 788.43, ICD10: N40.1, R35.1 Denies any issues, did not start Flomax and only up once a night or less to urinate. 5. Vitamin D deficiency - ICD9: 268.9, ICD10: E55.9 - VITAMIN D 25 HYDROXY 6. Anemia, unspecified type - ICD9: 285.9, ICD10: D64.9 - CBC Kavitha Solano APRN.CNP PATIENT NAME: Hossein Pichardo DATE: July 08, 2023 SIGNATURE: Kavitha Solano APRN.CNP documented in this encounter [facility] 07-08-2023 Nurse Note 6 month follow up Has made some diet modifications Adi Moody MA July 08, 2023 2:40 PM documented in this encounter [facility] 04-07-2023 History of Presen t illness Narrative Images from the original note were not included. [facility] NEW PATIENT ENCOUNTER Consultation requested by REJI Solano for an opinion regarding renal cyst. My final recommendations will be communicated back to the requesting physician by way of shared Medical record or letter to requesting physician via US mail. HISTORY OF PRESENT ILLNESS: Patient presents with: Renal Cyst Hossein Pichardo is a 57 year old male who found incidental R cyst, never hematuria, noct 0-1x, day q 2-3h(drinks 3 L water) flow good, rare dribble. No uti's or stones Pvr 1cc BRETT 10/29/22 Right Kidney: No hydronephrosis. Right kidney measures 9.5 cm in length. There are right-sided renal cysts noted measuring up to 1.5 x 1.7 x 1.3 cm. Internal echoes are noted in the cysts with no internal flow seen. Review of Systems LAB No results found for: PSA, PSASC Creatinine Date Value Ref Range Status 05/31/2021 0.76 0.5 - 1.4 MG/DL Final Comment: NOTE NEW NORMAL RANGE DUE TO REAGENT CHANGE Patients receiving either N-Acetylcysteine (NAC) or Metamizole prior to venipuncture, may have falsely depressed results. GLUCOSE UA (POCT) (mg/dL) Date Value 04/07/2023 Negative BILIRUBIN UA (POCT) (no units) Date Value 04/07/2023 Negative KETONE UA (POCT) (mg/dL) Date Value 04/07/2023 Negative SPECIFIC GRAVITY UA (POCT) (no units) Date Value 04/07/2023 1.020 HEMOGLOBIN/BLOOD UA (POCT) (no units) Date Value 04/07/2023 Trace-intact (A) PH UA (POCT) (no units) Date Value 04/07/2023 5.5 PROTEIN UA (POCT) (mg/dL) Date Value 04/07/2023 Negative UROBILINOGEN UA (POCT) (E.U./dL) Date Value 04/07/2023 0.2 NITRITE UA (POCT) (no units) Date Value 04/07/2023 Negative LEUKOCYTES UA (POCT) (no units) Date Value 04/07/2023 Negative COLOR UA (POCT) (no units) Date Value 04/07/2023 Yellow CLARITY UA (POCT) (no units) Date Value 04/07/2023 Clear ] MEDICATIONS valACYclovir (VALTREX) 1 gram take 2 tablets by mouth twice a day if needed tamsulosin (FLOMAX) 0.4 mg Take 1 capsule by mouth at bedtime as needed. Tadalafil (CIALIS) 20 mg tab(s) take 1 tablet by mouth 2 TO 24 HOURS PRIOR TO RELATIONS losartan (COZAAR) 25 mg tablet Take 1 tablet by mouth once daily. rosuvastatin (CRESTOR) 5 mg tablet Take 1 tablet by mouth once daily. famotidine (PEPCID) 20 mg tablet Take 20 mg by mouth twice daily. XELJANZ XR 11 mg tablet, extended release aspirin, enteric coated (ASPIRIN, ENTERIC COATED) 81 mg EC tablet Take 81 mg by mouth once daily. Cholecalciferol, Vitamin D3, 2,000 unit cap Cholecalciferol Cholecalciferol (Vitamin D3) [Vitamin D3] 2000 UNIT PO DAILY November 08, 2018 Active 11-08-2018 [facility] ([id number]) pediatric multivit 61-D3-vit K 5,000-800 unit-mcg cap MULTIPLE VITAMINS-MINERALS COMPLETE FORMULATION D5000 CAPS MULTIPLE VITAMINS-MINERALS [id number] Yamil Alonso Ricardo 12-22-2015 [facility] ([id number]) HISTORIES PAST MEDICAL HISTORY Diagnosis Date Alopecia Herpes simplex HTN (hypertension) Psoriasis Psoriatic arthritis (HCC) Vitiligo PAST SURGICAL HISTORY Procedure Laterality Date COLONOSCOPY 03/06/2019 diverticulosis KNEE SURGERY HX left x6 KNEE SURGERY HX right x4 FAMILY HISTORY Problem Relation Age of Onset Arthritis Mother SOCIAL HISTORY Social History Tobacco Use Smoking status: Former Smokeless tobacco: Never Vaping Use Vaping Use: Never used Substance Use Topics Alcohol use: Yes Comment: more than 2 days a week Drug use: Never Resp 15 Ht 177.8 cm (5' 10) Wt 93.9 kg (207 lb) BMI 29.70 kg/m Physical Exam ASSESSMENT & PLAN ASSESSMENT/PLAN: 1. Complex renal cyst - ICD9: 753.10, ICD10: N28.1 (primary diagnosis) Cousin had RCC Plan brett 1 yr - BLADDER SCAN 2. Erectile dysfunction due to arterial insufficiency - ICD9: 607.84, ICD10: N52.01 3. Hypertrophy of prostate with urinary obstruction - ICD9: 600.01, 599.69, ICD10: N40.1, N13.8 Monitor, off flomax 4. Incomplete bladder emptying - ICD9: 788.21, ICD10: R33.9 Kade Lundberg MD This note was partially created using voice recognition software and is inherently subject to errors including those of syntax and sound-alike substitutions which may escape proofreading. In such instances, original meaning may be extrapolated by contextual derivation. documented in this encounter [facility] 12-01-2022 Miscellaneous Notes Formattin g of this note might be different from the original. Referral to urology was sent 11/30/22 documented in this encounter [facility] 11-23-2022 Instructions Kavitha Solano APRN.CNP - 11/23/2022 8:55 AM EST Continue current meds Have fasting labs drawn 1 week prior to next appt documented in this encounter [facility] 11-23-2022 History of Presen t illness Narrative Hossein Pichardo is a 57 year old male who presents with F/U 6 months Kin presents today for 6 mo f/u HTN, HLD, GERD, BPH. HTN- checks BP occasionally, running 120s/70s GERD- doing well on famotidine. No breakthrough unless he misses a dose BPH- started on Flomax at last OV, doing well. Now up 1x a night or less. Continues on PRN Valtrex for cold sores, working well. The history is provided by the patient. Microalbumin, Urine Random Date Value Ref Range Status 10/09/2018 5.8 0.0 - 19.0 UG/ML Final PAST MEDICAL HISTORY Diagnosis Date Alopecia Herpes simplex HTN (hypertension) Psoriasis Psoriatic arthritis (HCC) Vitiligo ACTIVE PROBLEM LIST Anemia Gastroesophageal Reflux Disease Hyperlipidemia Hypertension Internal Derangement of Knee Osteoarthritis of Knee Prostate Cancer Screening Wellness Examination Psoriatic Arthritis (Hcc) Vitamin D Deficiency Cervical Radiculopathy Herpes Simplex Virus (Hsv) Infection Obesity, Class I, Bmi 30-34.9 Benign Prostatic Hyperplasia With Nocturia Current Outpatient Medications Medication Sig Dispense Refill tamsulosin (FLOMAX) 0.4 mg take 1 capsule by mouth once daily at bedtime 30 capsule 5 valACYclovir (VALTREX) 1 gram Take 2 tablets by mouth twice daily as needed. 30 tablet 1 losartan (COZAAR) 25 mg tablet Take 1 tablet by mouth once daily. 30 tablet 11 rosuvastatin (CRESTOR) 5 mg tablet Take 1 tablet by mouth once daily. 30 tablet 11 famotidine (PEPCID) 20 mg tablet Take 20 mg by mouth twice daily. XELJANZ XR 11 mg tablet, extended release aspirin, enteric coated (ASPIRIN, ENTERIC COATED) 81 mg EC tablet Take 81 mg by mouth once daily. Cholecalciferol, Vitamin D3, 2,000 unit cap Cholecalciferol Cholecalciferol (Vitamin D3) [Vitamin D3] 2000 UNIT PO DAILY November 08, 2018 Active 11-08-2018 [facility] ([id number]) pediatric multivit 61-D3-vit K 5,000-800 unit-mcg cap MULTIPLE VITAMINS-MINERALS COMPLETE FORMULATION D5000 CAPS MULTIPLE VITAMINS-MINERALS [phone] Yamil Silva 12-22-2015 [facility] ([id number]) Tadalafil (CIALIS) 20 mg tab(s) take 1 tablet by mouth 2 TO 24 HOURS PRIOR TO RELATIONS 0 No current facility-administered medications for this visit. Social History Tobacco Use Smoking status: Former Smokeless tobacco: Never Vaping Use Vaping Use: Never used Substance Use Topics Alcohol use: Yes Comment: more than 2 days a week Drug use: Never FAMILY HISTORY Problem Relation Age of Onset Arthritis Mother Review of Systems Constitutional: Negative for activity change, appetite change and unexpected weight change. Eyes: Negative for visual disturbance. Respiratory: Negative for cough and shortness of breath. Cardiovascular: Negative for chest pain, palpitations and leg swelling. Gastrointestinal: Negative for abdominal pain, diarrhea, nausea and vomiting. Genitourinary: Negative for frequency. Skin: Negative for rash and wound. Neurological: Negative for dizziness, light-headedness and headaches. Psychiatric/Behavioral: Negative for dysphoric mood. BP 118/72 Pulse 70 Ht 5' 10 (1.78m) Wt 207 lb (93.9kg) SpO2 97% BMI 29.70 kg/(m^2). Physical Exam Vitals reviewed. Constitutional: Appearance: Normal appearance. HENT: Head: Normocephalic and atraumatic. Ears: Comments: Grossly normal hearing Eyes: Pupils: Pupils are equal, round, and reactive to light. Cardiovascular: Rate and Rhythm: Normal rate and regular rhythm. Pulses: Normal pulses. Heart sounds: Normal heart sounds. Pulmonary: Effort: Pulmonary effort is normal. Breath sounds: Normal breath sounds. Abdominal: General: Bowel sounds are normal. Palpations: Abdomen is soft. Tenderness: There is no abdominal tenderness. Musculoskeletal: General: No swelling. Cervical back: Neck supple. Skin: General: Skin is warm and dry. Capillary Refill: Capillary refill takes less than 2 seconds. Comments: Patches of depigmentation noted on BL arms Neurological: General: No focal deficit present. Mental Status: He is alert and oriented to person, place, and time. Psychiatric: Mood and Affect: Mood normal. Behavior: Behavior normal. Assessment & Plan ASSESSMENT/PLAN: 1. Primary hypertension - ICD9: 401.9, ICD10: I10 (primary diagnosis) - good control - Continue current medication(s) - Recommended regular aerobic exercise. - Recommend home blood pressure monitoring, to bring results in on next visit - Goal of BP <130/80 2. Hyperlipidemia, unspecified hyperlipidemia type - ICD9: 272.4, ICD10: E78.5 - good control - Continue current medication. - Encouraged following a low fat, low cholesterol diet. 3. Gastroesophageal reflux disease, unspecified whether esophagitis present - ICD9: 530.81, ICD10: K21.9 Controlled, continue famotidine 20mg daily 4. Benign prostatic hyperplasia with nocturia - ICD9: 600.01, 788.43, ICD10: N40.1, R35.1 Improved, continue Flomax 5. Vitamin D deficiency - ICD9: 268.9, ICD10: E55.9 Follow labs 6. Anemia, unspecified type - ICD9: 285.9, ICD10: D64.9 Unchanged, very mild - CBC Kavitha Solano APRN.CNP PATIENT NAME: Hossein Pichardo DATE: November 23, 2022 SIGNATURE: Kavitha Solano APRN.CNP documented in this encounter [facility] 08-18-2022 Miscellaneous Notes Formattin g of this note might be different from the original. Hossein called in for his lab orders. He is faxing recent labs to us also. He would like his orders faxed to [phone] Elisa Jaime MA August 18, 2022 9:39 AM documented in this encounter [facility] 05-18-2022 History of Past i llness Narrative Problem Noted Date Resolved Date Obesity, Class I, BMI 30-34.9 05/18/2022 documented as of this encounter (statuses as of 11/23/2022) [facility] [facility] History of Past illness Narrative* Problem Noted Date Resolved Date Obesity, Class I, BMI 30-34.9 05/18/2022 documented as of this encounter (statuses as of 11/23/2022) [facility] History of Past illness Narrative* Problem Noted Date Resolved Date Obesity, Class I, BMI 30-34.9 05/18/2022 documented as of this encounter (statuses as of 12/01/2022) [facility]08-[facility] History of Past illness Narrative* Problem Noted Date Resolved Date Obesity, Class I, BMI 30-34.9 05/18/2022 documented as of this encounter (statuses as of 12/28/2022) [facility] History of Past illness Narrative* Problem Noted Date Diagnosed Date Resolved Date Obesity, Class I, BMI 30-34.9 05/18/2022 11/23/2022 documented as of this encounter (statuses as of 04/07/2023) [facility] History of Past illness Narrative* Problem Noted Date Diagnosed Date Resolved Date Obesity, Class I, BMI 30-34.9 05/18/2022 11/23/2022 Benign prostatic hyperplasia with nocturia 05/18/2022 07/08/2023 documented as of this encounter (statuses as of 07/08/2023) [facility] History of Past illness Narrative* Problem Noted Date Diagnosed Date Resolved Date Obesity, Class I, BMI 30-34.9 05/18/2022 11/23/2022 Benign prostatic hyperplasia with nocturia 05/18/2022 07/08/2023 documented as of this encounter (statuses as of 08/08/2023) [facility] History of Past illness Narrative* Problem Noted Date Diagnosed Date Resolved Date Obesity, Class I, BMI 30-34.9 05/18/2022 11/23/2022 Benign prostatic hyperplasia with nocturia 05/18/2022 07/08/2023 documented as of this encounter (statuses as of 10/24/2023) [facility] History of Past illness Narrative* Problem Noted Date Diagnosed Date Resolved Date Obesity, Class I, BMI 30-34.9 05/18/2022 11/23/2022 Benign prostatic hyperplasia with nocturia 05/18/2022 07/08/2023 documented as of this encounter (statuses as of 12/08/2023) [facility] History of Past illness Narrative* Problem Noted Date Diagnosed Date Resolved Date Obesity, Class I, BMI 30-34.9 05/18/2022 11/23/2022 Benign prostatic hyperplasia with nocturia 05/18/2022 07/08/2023 documented as of this encounter (statuses as of 01/07/2024) [facility]07-26-2022 Miscellaneous Notes* Telephone Encounter - Arleen Porter LPN - 04/13/2022 10:09 AM Matilde: NELSON: 06/12, NOV: getting scheduled with [facility]. Patient phones requesting refills as follows: Pending Prescriptions Disp Refills ROSUVASTATIN 5 MG TABLET 30 tablet 1 Sig: Take 1 tablet by mouth once daily. AMANDA: No LOSARTAN 25 MG TABLET 30 tablet 1 Sig: Take 1 tablet by mouth once daily. AMANDA: No Please review and advise. [facility] Porter LPN [facility] Diagnosis Primary hypertension- Primary Unspecified essential hypertension Hyperlipidemia, unspecified hyperlipidemia type Vitamin D deficiency Unspecified vitamin D deficiency Prostate cancer screening Special screening for malignant neoplasm of prostate Medication monitoring encounter Encounter for therapeutic drug monitoring documented in this [facility]* Diagnosis Complex renal cyst- Primary Other specified congenital cystic kidney disease documented in this encounter [facility] note* Diagnosis Primary hypertension- Primary Unspecified essential hypertension Hyperlipidemia, unspecified hyperlipidemia type Gastroesophageal reflux disease, unspecified whether esophagitis present Benign prostatic hyperplasia with nocturia Vitamin D deficiency Unspecified vitamin D deficiency Anemia, unspecified type documented in this encounter [facility] noteNo assessment information availableWMetro[facility] Work Phone: Evaluation note* Diagnosis Complex renal cyst- Primary Other specified congenital cystic kidney disease Erectile dysfunction due to arterial insufficiency Impotence of organic origin Hypertrophy of prostate with urinary obstruction Hypertrophy of prostate with urinary obstruction and other lower urinary tract symptoms (LUTS) Incomplete bladder emptying documented in this encounter [facility] note* Diagnosis Hyperlipidemia, unspecified hyperlipidemia type- Primary Primary hypertension Unspecified essential hypertension Gastroesophageal reflux disease, unspecified whether esophagitis present Benign prostatic hyperplasia with nocturia Vitamin D deficiency Unspecified vitamin D deficiency Anemia, unspecified type documented in this encounter [facility] note* Diagnosis Primary hypertension- Primary Unspecified essential hypertension Hyperlipidemia, unspecified hyperlipidemia type Vitamin D deficiency Unspecified vitamin D deficiency Prostate cancer screening Special screening for malignant neoplasm of prostate Herpes simplex virus (HSV) infection ED (erectile dysfunction) of organic origin Impotence of organic origin Complex renal cyst Other specified congenital cystic kidney disease Stool contents finding, abnormal Nonspecific abnormal finding in stool contents Medication monitoring encounter Encounter for therapeutic drug monitoring documented in this encounter [facility] note* Diagnosis Hyperlipidemia, unspecified hyperlipidemia type- Primary Primary hypertension Unspecified essential hypertension Herpes simplex virus (HSV) infection Vitamin D deficiency Unspecified vitamin D deficiency ED (erectile dysfunction) of organic origin Impotence of organic origin documented in this encounter [facility] note* Diagnosis Herpes simplex virus (HSV) infection [facility] Hyperlipidemia, unspecified hyperlipidemia type- Primary Primary hypertension Unspecified essential hypertension ED (erectile dysfunction) of organic origin Impotence of organic origin Vitamin D deficiency Unspecified vitamin D deficiency Herpes simplex virus (HSV) infection Screening PSA (prostate specific antigen) Special screening for malignant neoplasm of prostate documented in this encounter [facility] for referral (narrative)* Diagnostic Procedure Only (Routine) - Pending Review Specialty Diagnoses / Procedures Referred By Contac t Referred To Contact US IMAGING Diagnoses Complex renal cyst Procedures US KIDNEY/BLADDER US RETROPERITONEAL REAL TIME W/IMAGE COMPLETE Kavitha Solano, NICHOLE.CAR REPAIRMAN [address] [facility] [address] [place] [address] [place] [address] Referral ID Status Reason Start Date Expiration Date Visits Requested Visits Authorized [id number] Pending Review Auto-Generat ed Referral 01/06/2024 02/04/2025 1 1 [facility] for referral (narrative)No reason for referral information availableWMetroHealth [facility] Work Phone: Summary Purpose Family History No Family History Records Found Relationship Condition Age at Onset Recorded Date/T jonatan Unknown Family History?- Unknown December 07, 2018 2:31am Family History?- Unknown November 052021 8:44am Family History?Hypertension, - Unknown December 07, 2018 2:31am Relationship Condition Age at Onset Recorded Date/T jonatan Unknown Family History?- Unknown December 07, 2018 3:31am Family History?- Unknown November 052021 9:44am Family History?Hypertension, - Unknown December 07, 2018 3:31am Relationship Condition Age at Onset Recorded Date/T jonatna Unknown Family History?- Unknown December 07, 2018 3:31am Family History?- Unknown January 24 9:34am Family History?Hypertension, - Unknown December 07, 2018 3:31am Advance Directives No Advanced Directives Records Found Advance Directive Response Recorded Date/ Time Living Will No November 05 022 8:44am Power of Elementary [employer] Science Teacher No 2021 8:44am Advance Directive Response Recorded Date/ Time Living Will No November 05 9:44am Power of Elementary School Science Teacher No 2021 9:44am Reason for Referral Specialty Diagnoses / Procedures Referred By Darlene benavides Referred To Contact Urology Diagnoses Complex renal cyst Procedures CONSULT TO UROLOGY Kavitha Solano APRN.CAR REPAIRMAN [address] [facility] [address] [place] [address] Hossein Garcia MD [address] [place] [address] Referral ID Status Reason Start Date Expiration Date Visits Requested Visits Authorized [id number] Ref Not Required PCP Requested Referral 11/22/2022 11/22/2023 1 1 Chief Complaint and Reason for Visit Chief Complaint Admit Date HAS 2 LAB ORDERING NAYANA TODAY December 26, 2024 7:16am Chief Complaint Admit Date 2 DRS/ Yogesh ORDERS April 23, 2025 7:3 3am Additional Source Comments INFORMATION SOURCE (unrecogn ized section and content) DATE CREATED AUTHOR 03/23/2018 [facility] ([place]) DATE CREATED AUTHOR AUTHOR'S ORGANIZ ATION 12/17/2018 [facility] DATE CREATED AUTHOR AUTHOR'S ORGANIZ ATION 12/23/2018 [facility] DATE CREATED AUTHOR AUTHOR'S ORGANIZ ATION 03/10/2019 [facility] DATE CREATED AUTHOR AUTHOR[facility]S ORGANIZ ATION [facility] DATE CREATED AUTHOR AUTHOR'S ORGANIZ ATION 11/08/[address] [facility] [place] DATE CREATED AUTHOR AUTHOR'S ORGANIZ ATION 05/03/2025 [facility] DATE CREATED AUTHOR AUTHOR'S ORGANIZ ATION 05/25/[address] [facility] (unrecognized sect ion and content) No Status Records FoundNo Status Records FoundNo Status Records FoundNo Status Records FoundNo Status Records FoundNo Status Records FoundNo Status Records Found Source Comments (unrecognize d section and content) In the event this informatio n is protected by the Federal Confidentiality of Alcohol and Drug Abuse Patient Records regulations: The Federal rules restrict any use of the information to criminally investigate or prosecute any alcohol or drug abuse patient.[facility] the event this information is protected by the Federal Confidentiality of Alcohol and Drug Abuse Patient Records regulations: The Federal rules restrict any use of the information to criminally investigate or prosecute any alcohol or drug abuse patient.[facility] the event this information is protected by the Federal Confidentiality of Alcohol and Drug Abuse Patient Records regulations: The Federal rules restrict any use of the information to criminally investigate or prosecute any alcohol or drug abuse patient.[facility] the event this information is protected by the Federal Confidentiality of Alcohol and Drug Abuse Patient Records regulations: The Federal rules restrict any use of the information to criminally investigate or prosecute any alcohol or drug abuse patient.[facility] the event this information is protected by the Federal Confidentiality of Alcohol and Drug Abuse Patient Records regulations: The Federal rules restrict any use of the information to criminally investigate or prosecute any alcohol or drug abuse patient.[facility] the event this information is protected by the Federal Confidentiality of Alcohol and Drug Abuse Patient Records regulations: The Federal rules restrict any use of the information to criminally investigate or prosecute any alcohol or drug abuse patient.[facility] HospitalIn the event this information is protected by the Federal Confidentiality of Alcohol and Drug Abuse Patient Records regulations: The Federal rules restrict any use of the information to criminally investigate or prosecute any alcohol or drug abuse patient.[facility] HospitalIn the event this information is protected by the Federal Confidentiality of Alcohol and Drug Abuse Patient Records regulations: The Federal rules restrict any use of the information to criminally investigate or prosecute any alcohol or drug abuse patient.[facility] HospitalIn the event this information is protected by the Federal Confidentiality of Alcohol and Drug Abuse Patient Records regulations: The Federal rules restrict any use of the information to criminally investigate or prosecute any alcohol or drug abuse patient.[facility] HospitalIn the event this information is protected by the Federal Confidentiality of Alcohol and Drug Abuse Patient Records regulations: The Federal rules restrict any use of the information to criminally investigate or prosecute any alcohol or drug abuse patient.[facility] HospitalIn the event this information is protected by the Federal Confidentiality of Alcohol and Drug Abuse Patient Records regulations: The Federal rules restrict any use of the information to criminally investigate or prosecute any alcohol or drug abuse patient.[facility] HospitalIn the event this information is protected by the Federal Confidentiality of Alcohol and Drug Abuse Patient Records regulations: The Federal rules restrict any use of the information to criminally investigate or prosecute any alcohol or drug abuse patient.[facility] HospitalIn the event this information is protected by the Federal Confidentiality of Alcohol and Drug Abuse Patient Records regulations: The Federal rules restrict any use of the information to criminally investigate or prosecute any alcohol or drug abuse patient.[facility] HospitalIn the event this information is protected by the Federal Confidentiality of Alcohol and Drug Abuse Patient Records regulations: The Federal rules restrict any use of the information to criminally investigate or prosecute any alcohol or drug abuse patient.[facility] HospitalIn the event this information is protected by the Federal Confidentiality of Alcohol and Drug Abuse Patient Records regulations: The Federal rules restrict any use of the information to criminally investigate or prosecute any alcohol or drug abuse patient.[facility] HospitalIn the event this information is protected by the Federal Confidentiality of Alcohol and Drug Abuse Patient Records regulations: The Federal rules restrict any use of the information to criminally investigate or prosecute any alcohol or drug abuse patient.[facility] HospitalIn the event this information is protected by the Federal Confidentiality of Alcohol and Drug Abuse Patient Records regulations: The Federal rules restrict any use of the information to criminally investigate or prosecute any alcohol or drug abuse patient.[facility] HospitalIn the event this information is protected by the Federal Confidentiality of Alcohol and Drug Abuse Patient Records regulations: The Federal rules restrict any use of the information to criminally investigate or prosecute any alcohol or drug abuse patient.[facility] HospitalIn the event this information is protected by the Federal Confidentiality of Alcohol and Drug Abuse Patient Records regulations: The Federal rules restrict any use of the information to criminally investigate or prosecute any alcohol or drug abuse patient.[facility] HospitalIn the event this information is protected by the Federal Confidentiality of Alcohol and Drug Abuse Patient Records regulations: The Federal rules restrict any use of the information to criminally investigate or prosecute any alcohol or drug abuse patient.[facility] HospitalIn the event this information is protected by the Federal Confidentiality of Alcohol and Drug Abuse Patient Records regulations: The Federal rules restrict any use of the information to criminally investigate or prosecute any alcohol or drug abuse patient.[facility] HospitalIn the event this information is protected by the Federal Confidentiality of Alcohol and Drug Abuse Patient Records regulations: The Federal rules restrict any use of the information to criminally investigate or prosecute any alcohol or drug abuse patient.[facility] HospitalIn the event this information is protected by the Federal Confidentiality of Alcohol and Drug Abuse Patient Records regulations: The Federal rules restrict any use of the information to criminally investigate or prosecute any alcohol or drug abuse patient.[facility] HospitalIn the event this information is protected by the Federal Confidentiality of Alcohol and Drug Abuse Patient Records regulations: The Federal rules restrict any use of the information to criminally investigate or prosecute any alcohol or drug abuse patient.[facility] Reason for Visit (unrecogniz ed section and content) Reason Comments Refill Request Reason Comments Orders Reason Onset Date Comments Refill Request 04/13/2022 Reason Comments F/U 6 months Reason Comments Renal Cyst Reason Comments Follow Up 6 month follow up Reason Comments F/U 6 months No changes or curren t complaints. Reason Comments Results Reason Comments 6 Month Exam Hossein is here for a 6 month follow up.Declines any vaccines today.Rae Arango 2023 9:52 AM Reason Onset Date Comments Refill Request 12/12/2024 Reason Comments 6 Month Exam Hossein is here for h is 6 month follow up today.Jaida Arango 2024 8:34 AM Care Teams (unrecognized sec tion and content) Cocoa Bean Roaster Helper Relationship Specialty Start Date End Date Steffanie Midd[address] [place] [address] PCP - General Obstetrics 11/16/18 05/17/22 Kavitha Solano, LIQUOR CLERK.CAR REPAIRMAN [address] [place] [address] PCP - General Family Practice 05/18/22 Cocoa Bean Roaster Helper Relationship Specialty Start Date End Date Kavitha Solano, LIQUOR CLERK.CAR REPAIRMAN [address] [place] [address] PCP - General Family Medicine 05/18/22 Cocoa Bean Roaster Helper Relationship Specialty Start Date End Date Kavitha Solano, LIQUOR CLERK.CAR REPAIRMAN [address] [place] [address] PCP - General Family Medicine 05/18/22 Cocoa Bean Roaster Helper Relationship Specialty Start Date End Date Steffanie Middleton [address] [place] [phone] PCP - General Obstetrics 11/16/18 05/17/22 Kavitha Solano, LIQUOR CLERK.CAR REPAIRMAN [address] [facility] [address] [place] [address] PCP - General Family Medicine 05/18/22 Cocoa Bean Roaster Helper Relationship Specialty Start Date End Date Kavitha Solano, LIQUOR CLERK.CAR REPAIRMAN [address] [facility] [address] [place] [address] PCP - General Family Medicine 05/18/22 Cocoa Bean Roaster Helper Relationship Specialty Start Date End Date Kavitha Solano, LIQUOR CLERK.CAR REPAIRMAN [address] [facility] [address] [place] [address] PCP - General Family Medicine 05/18/22 Cocoa Bean Roaster Helper Relationship Specialty Start Date End Date Kavitha Solano, LIQUOR CLERK.CAR REPAIRMAN [address] [facility] [address] [place] [address] PCP - General Family Medicine 05/18/[address] [place] [address] Rheumatology 11/23/22 Cocoa Bean Roaster Helper Relationship Specialty Start Date End Date Kavitha Solano, LIQUOR CLERK.CAR REPAIRMAN [address] [facility] [address] [place] [address] PCP - General Family Medicine 05/18/22 [place] [address] Rheumatology 11/23/22 Team Status: Active Member Role Status Dates Dr. Steffanie Middleton MD Family Provider Active Dr. Rojelio Mckeon , DO Primary Care Provider Active Team Status: Inactive Member Role Status Dates Dr. Rojelio Mckeon , DO Primary Care Provider Active RUSS MAR Attending Provider Active Cocoa Bean Roaster Helper Relationship Specialty Start Date End Date Kavitha Solano APRN.CAR REPAIRMAN [address] [phone] PCP - General Family Medicine 05/18/22 Ferdinand Black [address] [place] [address] Rheumatology 11/23/22 Cocoa Bean Roaster Helper Relationship Specialty Start Date End Date Kavitha Solano LIQUOR CLERK.CAR REPAIRMAN [address] [phone] PCP - General Family Medicine 05/18/22 Ferdinadn [address] [place] [address] Rheumatology 11/23/22 Cocoa Bean Roaster Helper Relationship Specialty Start Date End Date Kavitha Solano LIQUOR CLERK.CAR REPAIRMAN [address] [phone] PCP - General Family Medicine 05/18/22 [address] [place] [address] Rheumatology 11/23/22 Team Status: Active Member Role Status Dates Dr. Steffanie Middleton MD Family Provider Active ALEK WINSTONC Primary Care Provider Active Team Status: Inactive Member Role Status Dates ROVERTO WINSTON Primary Care Provider Active Dr. Levy Ritchie , DO Attending Provider, Referring Provider Active Cocoa Bean Roaster Helper Relationship Specialty Start Date End Date NoKavitha rendon L, LIQUOR CLERK.CAR REPAIRMAN [address] [facility] [address] [place] [phone] PCP - General Family Medicine 05/18/22 Ferdinand Black [address] [facility] [place] [place] [address] Rheumatology 11/23/22 Cocoa Bean Roaster Helper Relationship Specialty Start Date End Date NoKavitha rendon L, LIQUOR CLERK.CAR REPAIRMAN [address] [facility] [address] [place] [phone] PCP - General Family Medicine 05/18/22 Ferdinand Black [address] [facility], [place] [address] Rheumatology 11/23/22 Cocoa Bean Roaster Helper Relationship Specialty Start Date End Date NoKavitha rendon L, LIQUOR CLERK.CAR REPAIRMAN [address] [facility] [address] [place] [phone] PCP - General Family Medicine 05/18/22 Ferdinand Black [address] [place], [place] [phone] Rheumatology 11/23/22 Cocoa Bean Roaster Helper Relationship Specialty Start Date End Date NoKavitha rendon L, LIQUOR CLERK.CAR REPAIRMAN [address] [facility] [address] [place] [phone] PCP - General Family Medicine 05/18/22 Ferdinand Black [address] [place] [address] Rheumatology 11/23/22 Kinjal Concepcion MD [address] [place] [address] Gastroenterology 02/16/19 Cocoa Bean Roaster Helper Relationship Specialty Start Date End Date Kavitha Solano, LIQUOR CLERK.CAR REPAIRMAN [address] [facility] [address] [place] [phone] PCP - General Family Medicine 05/18/22 Ferdinand Black [address] [place] [address] Rheumatology 11/23/22 Kinjal Concepcion MD [address] [place] [address] Gastroenterology 02/16/19 Cocoa Bean Roaster Helper Relationship Specialty Start Date End Date Kavitha Solano, LIQUOR CLERK.CAR REPAIRMAN [address] [facility] [address] [place] [address] PCP - General Family Medicine 05/18/22 Ferdinand Black [address] [place] [address] Rheumatology 11/23/22 Kinjal Concepcion MD [address] [place], [place] [phone] Gastroenterology 02/16/19 Cocoa Bean Roaster Helper Relationship Specialty Start Date End Date Kavitha Solano APRN.CAR REPAIRMAN [address] [facility] [address] [place] [phone] PCP - General Family Medicine 05/18/22 Ferdinand Black [address] [place] [place], [place] [address] Rheumatology 11/23/22 Kinjal Concepcion MD [address] [place] [phone] Gastroenterology 02/16/19 Cocoa Bean Roaster Helper Relationship Specialty Start Date End Date Kavitha Solano LIQUOR CLERK.CAR REPAIRMAN [address] [facility] [address] [place] [phone] PCP - General Family Medicine 05/18/22 [address] [place] [address] Rheumatology 11/23/22 Kinjal Concepcion MD [address] [place], [place] [id number] Gastroenterology 02/16/19 Cocoa Bean Roaster Helper Relationship Specialty Start Date End Date Kavitha Solano LIQUOR CLERK.CAR REPAIRMAN [address] [facility] [address] [place] [phone] PCP - General Family Medicine 05/18/22 Ferdinand Black [address] [place], [place] [id number] Rheumatology 11/23/22 Kinjal Concepcion MD [address] [facility] [place] [address] Gastroenterology 02/16/19 Team Status: Inactive Member Role Status Dates ROVERTO WINSTON Primary Care Provider Active Start: December 26, 2024 End: December 26, 2024 ROVERTO WINSTON Referring Provider Active St art: December 26, 2024 End: December 26, 2024 MALIA HOBSON Attending Provider Active Start : December 26, 2024 End: December 26, 2024 Cocoa Bean Roaster Helper Relationship Specialty Start Date End Date Kavitha Solano APRN.CNP [address] [phone] PCP - General Family Medicine 05/18/22 Ferdinand Black [address] [facility] [place] [address] Rheumatology 11/23/22 Kinjal Concepcion MD [address] [facility] [place] [place] [address] Gastroenterology 02/16/19 Team Status: Active Member Role/Relationship Status Dates Dr. Steffanie Middleton MD Family Provider Active ROVERTO WINSTON Primary Care Provider Active Team Status: Inactive Member Role/Relationship Status Dates ROVERTO WINSTON Primary Care Provider Active Start: April 23, 2025 End: April 23, 2025 ROVERTO WINSTON Attending Provider Active St art: April 23, 2025 End: April 23, 2025 ROVERTO WINSTON Referring Provider Active St art: April 23, 2025 End: April 23, 2025 Dr. Levy Ritchie , DO Other Provider Active S tart: April 23, 2025 End: April 23, 2025 FOR RECORDS PERTAINING TO PATIENTS WHO ARE OR HAVE BEEN ENROLLED IN A CHEMICAL DEPENDENCY/SUBSTANCEABUSE PROGRAM, SOME INFORMATION MAY BE OMITTED. This clinical summary was aggregated from multiple sources. Caution should be exercised in using it in the provision of clinical care. This summary normalizes information from multiple sources, and as a consequence, information in this document may materially change the coding, format and clinical context of patient data. In addition, data may be omitted in some cases. CLINICAL DECISIONS SHOULD BE BASED ON THE PRIMARY CLINICAL RECORDS. [facility] [employer] provides no warranty or guarantee of the accuracy or completeness of information in this document.
== END | disposition home or self-care (01) ==
LOC: MTLAB 12:39
PROVIDERS: PCP Nurse Practitioner Family; Referring Provider Internal Medicine Rheumatology; Visit Provider Internal Medicine Rheumatology
DX: L40.50 Arthropathic psoriasis, unspecified (principal)
CPT/HCPCS: 36415; 80076; 82565; 85025; 85652; 86140

== ENCOUNTER → 2025-08-28 | Outpatient (CLI) | payer OTHER, SELFPAY ==
[2025-08-28 15:24] LABS: Hematocrit 43.1 % (40-54); Hemoglobin 14.5 g/dL (13.0-16.5); Mean Corp Hgb Conc 33.6 g/dL (32-36); Mean Corpuscular Volume 94.3 fL (80-94); Mean Platelet Vol. 10.9 fl (6.2-12.0); Platelet Count 285 K/mm3 (150-450); RBC Distribution Width CV 13.6 % (11.6-14.6); RBC Distribution Width SD 47.0 fl (35.1-43.9); Red Blood Count 4.57 M/mm3 (4.6-6.2); White Blood Count 6.0 K/mm3 (4.4-11.0)
[2025-08-28 15:58] LABS: AST(SGOT) 29 U/L (<=37); Alanine Aminotransfer ALT/SGPT 23 U/L (<=46); Albumin, Serum 4.5 g/dL (3.5-5.0); Alkaline Phosphatase 69 U/L (40-129); Anion Gap 11 (5-15); BUN 17 mg/dL (4-19); BUN/Creat Ratio 17.1 RATIO (10-20); Calcium,Total 9.7 mg/dL (7.6-11.0); Carbon Dioxide 27.1 mmol/L (21.0-32.0); Chloride 101 mmol/L (98-108); Cholesterol 203 mg/dL (<=200); Globulin 3.0 g/dL (2.2-4.2); Glucose 93 mg/dL (70-99); Low Density Lipoprotein Calc. 126 mg/dL; PSA,Total - Annual Screen 0.55 ng/mL (0.02-4.00); Potassium 3.9 mmol/L (3.3-5.1); Triglycerides 71 mg/dL; Very Low Density Lipoprotein 14 mg/dL (5-40); Vitamin D,25 Hydroxy 79.6 ng/mL (30-100); cholesterol:hdl ratio screen 3.17
== END | disposition home or self-care (01) ==
LOC: MTLAB 11:56
PROVIDERS: PCP Nurse Practitioner Family; Referring Provider Nurse Practitioner Family; Visit Provider Nurse Practitioner Family
DX: Z12.5 Encounter for screening for malignant neoplasm of prostate (principal); E78.5 Hyperlipidemia, unspecified; I10 Essential (primary) hypertension
CPT/HCPCS: 36415; 80053; 80061; 82306; 84153; 85027; G0103